=== PATIENT | female | born 1955 | race Caucasian/White ===

== ENCOUNTER → 2016-09-08 | Outpatient (CLI) | payer OTHER ==
--- NOTE | 2016-09-09 07:10 | MM ---
Reason for exam: follow-up at short interval from prior study. Last mammogram was performed 3 months ago. History: Patient is postmenopausal. Benign excisional biopsy of the right breast, 2016. Reduction of the left breast. Reduction of the right breast. Took estrogen for 1 year 6 months. Physical Findings: Nurse did not find any significant physical abnormalities on exam. MG Diagnostic Mammo w CAD JULIET Bilateral CC and MLO view(s) were taken. Prior study comparison: June 04, 2016, right breast MG diagnostic mammo RT w CAD. December 10, 2015, right breast US breast RT. February 03, 2013, CAD bilateral diagnostic mammogram. There are scattered fibroglandular densities. Finding: There are typically benign round calcifications in both breasts. There is a chronic nodularity in the left breast. These results were verbally communicated with the patient and result sheet given to the patient on 09/08/16. ASSESSMENT: Benign, BI-RAD 2 RECOMMENDATION: Routine screening mammogram of both breasts in 1 year.
== END | disposition home or self-care (01) ==
LOC: RADMAMWWP 15:04
PROVIDERS: ATTEND Family Medicine
DX: N63 Unspecified lump in breast (principal)

== ENCOUNTER → 2016-09-16 | Outpatient (CLI) | payer OTHER ==
--- NOTE | 2016-09-17 09:23 | MR ---
EXAMINATION TYPE: MR shoulder LT wo con DATE OF EXAM: 09/16/2016 6:39 PM COMPARISON: Plain film 02 September 2016 and MRI September, HISTORY: Patient has torn rotator cuff tear TECHNIQUE: Multiplanar, multisequence imaging of the left shoulder is performed without contrast. FINDINGS: There is motion on the exam. Rotator Cuff: Partial full-thickness tear is suspected of the supraspinatus tendon as on prior exam. Thickening and increased signal within the rotator cuff tendon compatible with tendinosis Acromioclavicular Joint: Hypertrophic change is mild. There is fluid in the subacromial subdeltoid bu rsa. There is a distal acromial spur. Glenohumeral Joint: Intact Labrum: The labrum appears grossly intact given limitation of non-arthrogram study. Biceps Tendon: The long head of biceps is in normal location within bicipital groove. Some minimal fl uid signal present along the long head of biceps tendon. Bone marrow signal: Pseudocysts present in the humeral head as on prior Other: No additional significant abnormality is appreciated. IMPRESSION: Findings are essentially stable. Partial full-thickness tear of the rotator cuff is suspected.
== END | disposition home or self-care (01) ==
LOC: RADMRIMAIN 17:30
PROVIDERS: ATTEND Orthopaedic Surgery
DX: M25.511 Pain in right shoulder (principal)

== ENCOUNTER → 2016-10-09 | Outpatient (CLI) | payer OTHER | END | disposition home or self-care (01) | LOC: RADMRIMAIN 17:11 | PROVIDERS: ATTEND Psychiatry & Neurology Neurology | DX: Z53.8 Procedure and treatment not carried out for other reasons (principal) ==

== ENCOUNTER 2016-11-04 07:52 | Day surgery (SDC) | payer OTHER ==
[2016-10-30 15:49] VITALS: BMI 51.6
--- NOTE | 2016-11-03 16:18 | HP ---
DATE OF ADMISSION: 11/04/2016 Henna Merino is a 61-year-old patient seen with left shoulder pain. After treatment options discussed, she elected to proceed with left shoulder arthroscopy. Consent was obtained. Medical clearance was provided with Dr. Bolivar. Past medical history is asthma, depression, osteoarthritis. PAST SURGICAL HISTORY: Right ankle surgery, appendectomy, cholecystectomy, herniorrhaphy, hysterectomy, bladder suspension surgery. Daily medications: Requip, Zoloft, gabapentin, Naprosyn. ALLERGIES: MORPHINE, VICODIN, LORTAB, DILAUDID, ASPIRIN. SOCIAL HISTORY: Patient denies current tobacco use. Physical evaluation of the left shoulder: Flexion 120 degrees, abduction is 90 degrees, external rotation is 40 degrees with pain and weakness. Tenderness along the anterolateral acromion rotator cuff insertion. Impingement +90. Distal neurovascular exam is intact. Radiographs of cystic changes of the tuberosity, type II anterior acromion. An MRI revealed a partial rotator cuff tear. IMPRESSION: Left shoulder impingement with partial rotator cuff tear. PLAN: Left shoulder arthroscopy with subacromial decompression, possible arthroscopic rotator cuff repair, and debridement.
[~2016-11-04 07:52] MED LIST: DEXAMETHASONE SOD PHOSPHATE 10 MG/ML 1 ML VIAL IV ONE; LACTATED RINGERS 1,000 ML IV SCH; LIDOCAINE 1% 20 ML VIAL (10MG/ML) FOR IV START INTRADERMA PRN; MIDAZOLAM 2 MG/2 ML VIAL IV PRN; ONDANSETRON 4 MG/2 ML VIAL IVP ONE; SCOPOLAMINE 1.5MG/72HR PATCH TRANSDERM ONE; ceFAZolin 3 GM in SODIUM CHLORIDE 0.9% 100 ML IVPB ONE
[2016-11-04] MEDS ORDERED: LIDOCAINE 1% INJ 10MG/ML (20 ML MDV) ONE (09:47)
[2016-11-04] MEDS ORDERED: fentaNYL (PF) 50 MCG/ML 2 ML AMP ONE (09:47)
[2016-11-04] MEDS ORDERED: SUCCINYLCHOLINE CHLORIDE 100 MG/5 ML SYR IV ONE (09:47)
[2016-11-04] MEDS ORDERED: MIDAZOLAM 2 MG/2 ML VIAL ONE (09:47)
[2016-11-04] MEDS ORDERED: PROPOFOL 10 MG/ML 20 ML VIAL IV ONE (09:47)
[2016-11-04] MEDS ORDERED: BUPIVACAINE (PF) 0.25% 30 ML VIAL INTRAARTIC ONE (10:59)
[2016-11-04 11:28] VITALS: TEMP 97.2
[2016-11-04] MEDS: MEPERIDINE 50 MG/ML SYRINGE IVP ONE ×2 (11:29→11:55)
--- NOTE | 2016-11-04 11:32 | P.OP ---
Date of Procedure: 11/04/16 Preoperative Diagnosis: Left shoulder impingement Postoperative Diagnosis: 1. Left shoulder rotator cuff tear 2. Left shoulder impingement 3. Left shoulder partial biceps tendon tear 4. Left shoulder superficial labral tear Procedure(s) Performed: 1. Left shoulder arthroscopic rotator cuff repair 2. Left shoulder arthroscopic subacromial decompression 3. Left shoulder arthroscopic biceps tenotomy 4. Left shoulder arthroscopic debridement labral tear Implants: 1-valeris 5.5 peek anchor Anesthesia: LITA, local Surgeon: Gray Laughlin Snow Plow Tractor Operator #1: Sj Bahena Estimated Blood Loss (ml): 10 Pathology: none sent Condition: stable Disposition: PACU Indications for Procedure: 61 year old patient seen with left shoulder pain. After having treatment options discussed she elected to proceed left shoulder arthroscopy. Operative Findings: See description of procedure Description of Procedure: Patient underwent a shoulder block by department of anesthesia. The patient was then taken to the operative suite. The patient underwent a general anesthetic by the department of anesthesia. The patient was placed into a lateral position and secured. There was appropriate padding of the bony prominence. Left shoulder was then prepped and draped in normal sterile orthopedic fashion. We placed the extremity in 10 pounds of longitudinal traction. A posterior incision was now made for a posterior working portal site. The trocar and cannula were inserted into the glenohumeral joint. Arthroscopy was initiated. Spinal needle was now inserted anteriorly, to ascertain the anterior working portal site. An incision was now made in that area, a trocar was inserted followed by a probe. There was some superficial tearing of the superior labrum. There was hyperemia some partial tearing of the long head biceps. Grade 1 chondral malacia changes of the humeral head and grade 1 chondral malacia changes of the glenoid fossa with no osteochondral tears present. I did visualize a rotator cuff tear from the glenohumeral side. I performed an arthroscopic biceps tenotomy. I debrided the labral tear down to stable tissue. The residual labrum was probed and found to be stable. I did reintroduced the motorize shaver and debrided out some of the rotator cuff tear there from the glenohumeral side. At this point instruments removed from the glenohumeral joint. Utilizing the posterior working portal site, the trocar and cannula were inserted into the subacromial space. Arthroscopy initiated. I made an incision 2 fingerbreadths lateral to the acromion. I introduced my trocar followed by my ArthroCare ablator. I now began ablating thick subacromial bursal tissue, which exposed the undersurface of the anterior acromion. This was diminished subacromial space. There was a very prominent anterior acromion. A motorized bur was introduced and a subacromial decompression was performed. I also excised some osteophytes off the inferior aspect of the distal clavicle. The AC joint was visualized and did have some mild osteoarthritis approaching moderate but not enough toward a Julio Cesar procedure. At this point it turned my attention towards the rotator cuff tendon. I noted a 1-1.5 cm tear along the anterior aspect of the distal supraspinatus. I debrided the margins down to stable rotator cuff tendon tissue. I abraded the footprint with a motorized bur. I placed 2 everted mattress sutures through good bites of rotator cuff tendon. I repaired the tendon back to the footprint with one single 5.5 peek anchor. The residual suture limbs were clipped. The repair was probed and found to be stable. I injected 1 mL of Allogen into the footprint/repair site. Instruments now removed from the portal sites. All portal sites were approximated with nylon suture. Sterile dressings were applied followed by a shoulder immobilizer. Dion Bahena PAassisted with the procedure. The patient was awakened, transferred to a bed, and taken to recovery in stable condition.
[2016-11-04 12:31] VITALS: RESP 18
[2016-11-04] MEDS ORDERED: oxyCODONE-APAP 5-325MG 1 EACH TAB PO ONE (12:36)
[2016-11-04 13:02] VITALS: BP 108/67; PULSE 68
== END 2016-11-04 13:20 | disposition home or self-care (01) ==
LOC: OR 07:52
PROVIDERS: ATTEND Orthopaedic Surgery
DX: M75.112 Incomplete rotator cuff tear or rupture of left shoulder, not specified as traumatic (principal); M75.42 Impingement syndrome of left shoulder; S46.112A Strain of muscle, fascia and tendon of long head of biceps, left arm, initial encounter; M94.212 Chondromalacia, left shoulder; M25.712 Osteophyte, left shoulder; S43.492A Other sprain of left shoulder joint, initial encounter; X58.XXXA Exposure to other specified factors, initial encounter; G47.33 Obstructive sleep apnea (adult) (pediatric); K21.9 Gastro-esophageal reflux disease without esophagitis; J44.9 Chronic obstructive pulmonary disease, unspecified; J45.909 Unspecified asthma, uncomplicated; F32.9 Major depressive disorder, single episode, unspecified; Z79.1 Long term (current) use of non-steroidal anti-inflammatories (NSAID); Z79.891 Long term (current) use of opiate analgesic; Z79.899 Other long term (current) drug therapy; Z88.6 Allergy status to analgesic agent; Z88.5 Allergy status to narcotic agent; Z88.7 Allergy status to serum and vaccine; Z88.8 Allergy status to other drugs, medicaments and biological substances
CPT/HCPCS: 29827; 29826; C1713; C1765; J2250; J1100; J2175; J0690; J2405; J2001; J3010; J0330; J2704

== ENCOUNTER → 2017-01-13 | Outpatient (CLI) | payer OTHER ==
--- NOTE | 2017-01-13 16:35 | XR ---
EXAMINATION TYPE: XR foot complete LT , 3 VIEWS DATE OF EXAM ORDERED: 01/13/2017 HISTORY: M79.672 pain in left foot. COMPARISON: None. FINDINGS: There is been a previous arthrodesis of the interphalangeal joint of the great toe. There are hammertoe deformities of the second through fifth digits. No acute fracture or dislocation is see n. There are small plantar and Achilles spurs. IMPRESSION: 1. NO ACUTE OSSEOUS LESION. 2. DEGENERATIVE CHANGE. 3. CALCANEAL SPURS.
== END | disposition home or self-care (01) ==
LOC: RADXRMAIN 16:11
PROVIDERS: ATTEND Family Medicine
DX: M77.32 Calcaneal spur, left foot (principal); M25.872 Other specified joint disorders, left ankle and foot

== ENCOUNTER → 2017-02-10 | Outpatient (CLI) | payer OTHER ==
[2017-02-10 17:16] VITALS: BP 167/76; PULSE 82; RESP 16; TEMP 97.8; BMI 55.8
== END | disposition home or self-care (01) ==
LOC: BARWHC3 15:32
PROVIDERS: ATTEND Surgery Plastic and Reconstructive Surgery
DX: Z48.815 Encounter for surgical aftercare following surgery on the digestive system (principal); E66.01 Morbid (severe) obesity due to excess calories; E21.1 Secondary hyperparathyroidism, not elsewhere classified; E89.1 Postprocedural hypoinsulinemia; D50.8 Other iron deficiency anemias; E44.0 Moderate protein-calorie malnutrition; E55.9 Vitamin D deficiency, unspecified; K74.1 Hepatic sclerosis; N19 Unspecified kidney failure; K50.90 Crohn's disease, unspecified, without complications; Z98.84 Bariatric surgery status; Z68.43 Body mass index [BMI] 50.0-59.9, adult
CPT/HCPCS: 99201

== ENCOUNTER → 2017-03-04 | Outpatient (CLI) | payer OTHER ==
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
== END | disposition home or self-care (01) ==
CPT/HCPCS: 99211

== ENCOUNTER 2017-03-08 13:26 | Day surgery (SDC) | payer OTHER ==
[2017-03-05 09:09] VITALS: BMI 53.9
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
[~2017-03-08 13:26] MED LIST changes: -DEXAMETHASONE SOD PHOSPHATE 10 MG/ML 1 ML VIAL IV ONE; -LIDOCAINE 1% 20 ML VIAL (10MG/ML) FOR IV START INTRADERMA PRN; -MIDAZOLAM 2 MG/2 ML VIAL IV PRN; -ONDANSETRON 4 MG/2 ML VIAL IVP ONE; -SCOPOLAMINE 1.5MG/72HR PATCH TRANSDERM ONE; -ceFAZolin 3 GM in SODIUM CHLORIDE 0.9% 100 ML IVPB ONE
[2017-03-08 13:56] VITALS: RESP 16; TEMP 98
[2017-03-08] MEDS ORDERED: LIDOCAINE 1% 20 ML VIAL (10MG/ML) FOR IV START INTRADERMA ONE (14:04)
[2017-03-08] MEDS ORDERED: ONDANSETRON 4 MG/2 ML VIAL IVP ONE (14:05)
[2017-03-08 14:07] LABS: Glucose,Whole Blood 86 mg/dL (75-99)
[2017-03-08] MEDS ORDERED: LIDOCAINE 1% INJ 10MG/ML (20 ML MDV) ONE (16:48)
[2017-03-08] MEDS ORDERED: PROPOFOL 10 MG/ML 20 ML VIAL IV ONE (16:48)
[2017-03-08] MEDS ORDERED: GLYCOPYRROLATE 0.2 MG/ML 2 ML VIAL ONE (16:48)
[2017-03-08 17:33] VITALS: BP 130/64; PULSE 84
[2017-03-08 17:37] LABS: Glucose,Whole Blood 79 mg/dL (75-99)
--- NOTE | 2017-03-16 22:20 | P.PCN ---
Date of Procedure: 03/08/17 Description of Procedure: PREOPERATIVE DIAGNOSIS: Dysphagia. Gastroesophageal reflux disease. Epigastric abdominal pain. POSTOPERATIVE DIAGNOSIS: Dysphagia. Gastroesophageal reflux disease. Epigastric abdominal pain. Erosive esophagitis, chronic. Diaphragmatic hiatal hernia without obstruction. Chronic superficial gastritis. OPERATION: Esophagogastrojejunoscopy with cold forceps biopsies along the gastric pouch. Esophagogastrojejunoscopy with balloon dilatation, 20 mm. SURGEON: Chelsea Buchanan MD ANESTHESIA: MAC. INDICATIONS: The patient is a 61-year-old female who presents with previous history of gastric bypass. Benefits and risks of the procedure were described. Informed consent was obtained. DESCRIPTION: The patient was brought into the endoscopy suite and laid in the left lateral decubitus position. An Olympus gastroscope was passed along the posterior oropharynx down to the distal esophagus where the squamocolumnar junction was at 36 cm from the incisors remarkable for chronic erosive esophagitis, LA grade A without ulceration. A diaphragmatic hiatus was confirmed at 40 cm from the incisors consistent with a 4 cm diaphragmatic hernia. The gastrojejunal anastomosis was found at 44 cm from the incisors. Chronic gastritis albeit mild was found along the pouch with cold biopsies obtained. Gastric ulcers were identified along the gastric pouch. Next, a Mclean balloon dilator was inserted into the scope and advance to the gastric pouch. The balloon was insufflated to 20 mm which she tolerated well. No evidence of gastric gastric fistula was identified. No full-thickness mucosal defects were identified. The stomach was desufflated. The patient tolerated the procedure well. FINDINGS: Acute ulceration found along the gastric pouch. Squamocolumnar junction at 36 cm from the incisors. Diaphragmatic hiatus at 40 cm. Gastrojejunal anastomosis at 44 cm from the incisors. Hiatal hernia 4 cm, fixed. LA grade A erosive esophagitis. Gastric stenosis of 12 mm identified and successfully dilated to 20 mm. RECOMMENDATIONS: Upper endoscopy as needed. Plan - Discharge Summary New Discharge Prescriptions: New Omeprazole 40 mg PO DAILY #30 capsule.dr Discontinued Dicyclomine [Bentyl] 10 mg PO Q8HR PRN PRN Reason: ABDOMINAL PAIN Ranitidine HCl [Zantac] 150 mg PO BID Ondansetron [Zofran] 4 mg PO BID Ascorbic Acid [Vitamin C] 1,000 mg PO DAILY Naproxen 500 mg PO Q12HR Omeprazole [PriLOSEC] 5 mg PO HS No Action EPINEPHrine (Auto Inject) [Epipen] 0.3 mg IM ONCE PRN PRN Reason: Anaphylaxis Sertraline [Zoloft] 200 mg PO DAILY Cetirizine HCl 10 mg PO HS Buta/APAP/Caf/Cod 34-793-55-30 [Fioricet w/Cod 51-364-17-30MG] 1 tab PO BID Acetaminophen [Tylenol] 650 mg PO Q6HR PRN PRN Reason: Pain rOPINIRole HCL 0.5 mg PO QAM rOPINIRole HCL 1 mg PO HS Bifidobacterium Infantis [Align] 4 mg PO DAILY oxyCODONE-APAP 5-325MG [Percocet 5-325 mg] 1 tab PO Q8H PRN PRN Reason: Pain Albuterol Sulfate [Proair Hfa] 1 - 2 puff INHALATION Q6HR PRN PRN Reason: Shortness Of Breath Nystatin 1 applic TP DAILY PRN PRN Reason: Rash Polyethylene Glycol 3350 [Miralax] 17 gm PO DAILY PRN PRN Reason: Constipation Clobetasol Propionate/Emoll [Temovate Emollient 0.05% Crm] 1 applic TOPICAL TID traZODone HCL 150 mg PO HS ARIPiprazole [Abilify] 5 mg PO HS Gabapentin [Neurontin] 300 mg PO TID Oxybutynin Chloride [Ditropan] 5 mg PO TID Potassium Chloride [Klor-Con 8] 8 meq PO DAILY Furosemide [Lasix] 40 mg PO DAILY Nitroglycerin Sl Tabs [Nitrostat] 0.4 mg SUBLINGUAL Q5M PRN PRN Reason: Chest Pain Nystatin [Nystop] 1 applic TOPICAL DAILY Triamcinolone 0.1% Cream [Kenalog] 1 applic TOPICAL BID valACYclovir [Valtrex] 500 mg PO BID PRN PRN Reason: GENITAL HERPES diphenhydrAMINE [Benadryl] 25 mg PO BID PRN PRN Reason: Allergy Symptoms Mupirocin [Bactroban Oint] 1 applic TOPICAL TID Calcium Polycarbophil [Fibercon] 500 mg PO BID Vitamin B-12 Injection 1 dose SQ WEEKLY Discharge Medication List Acetaminophen [Tylenol] 650 mg PO Q6HR PRN 11/20/14 [History] Bifidobacterium Infantis [Align] 4 mg PO DAILY 11/20/14 [History] Buta/APAP/Caf/Cod 93-648-06-30 [Fioricet w/Cod 29-153-94-30MG] 1 tab PO BID [History] Cetirizine HCl 10 mg PO HS 11/20/14 [History] EPINEPHrine (Auto Inject) [Epipen] 0.3 mg IM ONCE PRN 11/20/14 [History] Sertraline [Zoloft] 200 mg PO DAILY 11/20/14 [History] rOPINIRole HCL 0.5 mg PO QAM 11/20/14 [History] rOPINIRole HCL 1 mg PO HS 11/20/14 [History] oxyCODONE-APAP 5-325MG [Percocet 5-325 mg] 1 tab PO Q8H PRN 02/18/15 [History] Albuterol Sulfate [Proair Hfa] 1 - 2 puff INHALATION Q6HR PRN 03/15/15 [History] Clobetasol Propionate/Emoll [Temovate Emollient 0.05% Crm] 1 applic TOPICAL TID 03/15/15 [History] Nystatin 1 applic TP DAILY PRN 03/15/15 [History] Polyethylene Glycol 3350 [Miralax] 17 gm PO DAILY PRN 03/15/15 [History] ARIPiprazole [Abilify] 5 mg PO HS 05/17/15 [History] traZODone HCL 150 mg PO HS 05/17/15 [History] Gabapentin [Neurontin] 300 mg PO TID 10/10/15 [History] Oxybutynin Chloride [Ditropan] 5 mg PO TID 05/05/16 [History] Potassium Chloride [Klor-Con 8] 8 meq PO DAILY 05/05/16 [History] Furosemide [Lasix] 40 mg PO DAILY 06/04/16 [History] Nitroglycerin Sl Tabs [Nitrostat] 0.4 mg SUBLINGUAL Q5M PRN 06/04/16 [History] Nystatin [Nystop] 1 applic TOPICAL DAILY 06/04/16 [History] Triamcinolone 0.1% Cream [Kenalog] 1 applic TOPICAL BID 06/04/16 [History] valACYclovir [Valtrex] 500 mg PO BID PRN 06/04/16 [History] Calcium Polycarbophil [Fibercon] 500 mg PO BID 03/05/17 [History] Mupirocin [Bactroban Oint] 1 applic TOPICAL TID 03/05/17 [History] Vitamin B-12 Injection 1 dose SQ WEEKLY 03/05/17 [History] diphenhydrAMINE [Benadryl] 25 mg PO BID PRN 03/05/17 [History] Omeprazole 40 mg PO DAILY #30 capsule. 03/08/17 [Rx] Follow up Appointment(s)/Referral(s): Chelsea Buchanan MD [STAFF PHYSICIAN] - 03/17/17 2:00 pm (Bariatric center) [facility] [NON-STAFF] - 03/17/17 Patient Instructions/Handouts: *[facility] - (Anesthesia) Endoscopy Discharge Instructions, Peptic Ulcer (GEN), Hiatal Hernia (GEN), Upper Endoscopy (GEN), Esophageal Dilation (DC) Activity/Diet/Wound Care/Special Instructions: Diet as tolerated. Discharge Disposition: HOME SELF-CARE
== END 2017-03-08 18:01 | disposition home or self-care (01) ==
LOC: ORWHC2ENDO 13:26
PROVIDERS: ATTEND Surgery Plastic and Reconstructive Surgery
DX: K21.9 Gastro-esophageal reflux disease without esophagitis (principal); K25.9 Gastric ulcer, unspecified as acute or chronic, without hemorrhage or perforation; K22.10 Ulcer of esophagus without bleeding; K44.9 Diaphragmatic hernia without obstruction or gangrene; Z98.84 Bariatric surgery status; I25.10 Atherosclerotic heart disease of native coronary artery without angina pectoris; I25.2 Old myocardial infarction; I48.91 Unspecified atrial fibrillation; J44.9 Chronic obstructive pulmonary disease, unspecified; G47.33 Obstructive sleep apnea (adult) (pediatric); Z99.89 Dependence on other enabling machines and devices; M79.7 Fibromyalgia; F03.90 Unspecified dementia, unspecified severity, without behavioral disturbance, psychotic disturbance, mood disturbance, and anxiety; Z79.899 Other long term (current) drug therapy; Z88.6 Allergy status to analgesic agent; Z91.038 Other insect allergy status; Z88.5 Allergy status to narcotic agent; Z88.7 Allergy status to serum and vaccine; Z91.09 Other allergy status, other than to drugs and biological substances
CPT/HCPCS: 43245; J2405; J2001; J2704; C1726

== ENCOUNTER → 2017-03-17 | Outpatient (CLI) | payer OTHER ==
[2017-03-17 15:50] VITALS: BP 158/79; PULSE 84; RESP 16; TEMP 97.6; BMI 56.6
[2017-03-17 18:09] LABS: Anisocytosis Slight; CH 28.9; CHCM 33.1; HCT 38.6 % (34.0-46.0); HDW 2.51; HGB 12.5 gm/dL (11.4-16.0); MCH 28.5 pg (25.0-35.0); MCHC 32.5 g/dL (31.0-37.0); MCV 87.7 fL (80.0-100.0); Mean Platelet Volume 9.1; RDW 16.6 % (11.5-15.5); WBC 5.2 k/uL (3.8-10.6)
[2017-03-17 18:17] LABS: Partial Thromboplastin Time 27.3 sec (22.0-30.0); Prothrombin Time 10.2 sec (9.0-12.0)
[2017-03-17 18:30] LABS: ALT 30 U/L (9-52); AST 17 U/L (14-36); Alkaline Phosphatase 113 U/L (38-126); Anion Gap 10 mmol/L; Blood Urea Nitrogen 14 mg/dL (7-17); Calcium 8.9 mg/dL (8.4-10.2); Carbon Dioxide 25 mmol/L (22-30); Chloride 105 mmol/L (98-107); Cholesterol 161 mg/dL (<200); Glucose 125 mg/dL (74-99); HDL Cholesterol 60 mg/dL (40-60); Magnesium 1.9 mg/dL (1.6-2.3); Non-African American GFR(MDRD) >60 (>60 ml/min/1.73 sqM); Phosphorus 3.3 mg/dL (2.5-4.5); Sodium 140 mmol/L (137-145); Total Bilirubin 0.3 mg/dL (0.2-1.3); Total Protein 6.1 g/dL (6.3-8.2)
[2017-03-17 19:20] LABS: Vitamin B12 >1000 pg/mL (239-931)
[2017-03-18 00:54] LABS: Iron Saturation 28.28 (12.00-45.00)
[2017-03-24 19:17] LABS: Selenium 93 mcg/L (63-160)
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
== END | disposition home or self-care (01) ==
LOC: BARWHC3 14:52
PROVIDERS: ATTEND Surgery Plastic and Reconstructive Surgery
DX: Z09 Encounter for follow-up examination after completed treatment for conditions other than malignant neoplasm (principal); Z98.84 Bariatric surgery status; E66.01 Morbid (severe) obesity due to excess calories; Z68.43 Body mass index [BMI] 50.0-59.9, adult; M79.3 Panniculitis, unspecified; K21.9 Gastro-esophageal reflux disease without esophagitis; K76.9 Liver disease, unspecified; I21.3 ST elevation (STEMI) myocardial infarction of unspecified site; G47.33 Obstructive sleep apnea (adult) (pediatric); M19.90 Unspecified osteoarthritis, unspecified site; G44.009 Cluster headache syndrome, unspecified, not intractable; G35 Multiple sclerosis; D64.9 Anemia, unspecified; I83.90 Asymptomatic varicose veins of unspecified lower extremity; K58.9 Irritable bowel syndrome, unspecified; K57.92 Diverticulitis of intestine, part unspecified, without perforation or abscess without bleeding; K44.9 Diaphragmatic hernia without obstruction or gangrene; F32.9 Major depressive disorder, single episode, unspecified; M79.7 Fibromyalgia; J45.909 Unspecified asthma, uncomplicated; E55.9 Vitamin D deficiency, unspecified; E88.09 Other disorders of plasma-protein metabolism, not elsewhere classified; I48.91 Unspecified atrial fibrillation; E16.2 Hypoglycemia, unspecified; F03.90 Unspecified dementia, unspecified severity, without behavioral disturbance, psychotic disturbance, mood disturbance, and anxiety; D50.9 Iron deficiency anemia, unspecified; N19 Unspecified kidney failure; K90.9 Intestinal malabsorption, unspecified; E21.1 Secondary hyperparathyroidism, not elsewhere classified; Z88.5 Allergy status to narcotic agent; Z88.8 Allergy status to other drugs, medicaments and biological substances; Z88.6 Allergy status to analgesic agent; Z79.899 Other long term (current) drug therapy; Z79.891 Long term (current) use of opiate analgesic; Z71.3 Dietary counseling and surveillance
CPT/HCPCS: 84255; 84134; 84425; 80061; 80053; 82607; 82728; 83036; 82525; 82746; 83540; 83550; 83735; 84100; 84443; 84590; 84630; 85027; 85610; 85730; 82306; 83970; 36415; G0463; 99211

== ENCOUNTER → 2017-03-24 | Outpatient (CLI) | payer OTHER ==
--- NOTE | 2017-03-24 11:25 | FL ---
EXAMINATION TYPE: FL barium swallow DATE OF EXAM: 03/24/2017 CLINICAL HISTORY: History of Domenico-en-Y gastric bypass surgery 11 years ago presents with dysphasia an d epigastric pain per order. Severe reflux per patient. Had scope done 2 weeks ago with esophagus dil atation. Known hiatal hernia per patient. TECHNIQUE: A single contrast esophagram is performed utilizing barium. A total of 4 seconds of fluo roscopic time was utilized during procedure. Approximately 34 images were saved during procedure and sent to PACS. COMPARISON: None FINDINGS: The esophagus shows some dysmotility with abnormal secondary and tertiary contractions. The re is satisfactory emptying into the stomach remnant. There is small fixed hiatal hernia above the di aphragm. No persistent stricture noted. No significant gastroesophageal reflux was seen during real time performance of this study. There is flow from stomach remnant into efferent small bowel loop inc identally noted without suspicious delay. IMPRESSION: Some esophageal dysmotility and fixed small hiatal hernia above diaphragm noted. Images saved for ordering surgeon on to PACS system.
== END | disposition home or self-care (01) ==
LOC: RADFLWHC 10:37
PROVIDERS: ATTEND Surgery Plastic and Reconstructive Surgery
DX: K22.4 Dyskinesia of esophagus (principal); K44.9 Diaphragmatic hernia without obstruction or gangrene; Z88.2 Allergy status to sulfonamides; Z88.4 Allergy status to anesthetic agent
CPT/HCPCS: 74220

== ENCOUNTER → 2017-05-06 | Outpatient (CLI) | payer OTHER ==
[2017-05-06 09:27] VITALS: BP 141/74; PULSE 71; RESP 20; TEMP 97.6; BMI 57.7
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
== END | disposition home or self-care (01) ==
LOC: BARWHC3 08:55
PROVIDERS: ATTEND Surgery Plastic and Reconstructive Surgery
DX: Z09 Encounter for follow-up examination after completed treatment for conditions other than malignant neoplasm (principal); E66.01 Morbid (severe) obesity due to excess calories; M79.3 Panniculitis, unspecified; K21.9 Gastro-esophageal reflux disease without esophagitis; K76.9 Liver disease, unspecified; I21.9 Acute myocardial infarction, unspecified; G47.30 Sleep apnea, unspecified; M19.90 Unspecified osteoarthritis, unspecified site; G43.909 Migraine, unspecified, not intractable, without status migrainosus; G35 Multiple sclerosis; D64.9 Anemia, unspecified; I83.90 Asymptomatic varicose veins of unspecified lower extremity; K58.9 Irritable bowel syndrome, unspecified; K57.92 Diverticulitis of intestine, part unspecified, without perforation or abscess without bleeding; E16.2 Hypoglycemia, unspecified; K44.9 Diaphragmatic hernia without obstruction or gangrene; F32.9 Major depressive disorder, single episode, unspecified; M79.7 Fibromyalgia; J45.909 Unspecified asthma, uncomplicated; E55.9 Vitamin D deficiency, unspecified; E44.0 Moderate protein-calorie malnutrition; K56.699 Other intestinal obstruction unspecified as to partial versus complete obstruction; G47.33 Obstructive sleep apnea (adult) (pediatric); R13.10 Dysphagia, unspecified; Z68.43 Body mass index [BMI] 50.0-59.9, adult; Z79.891 Long term (current) use of opiate analgesic; Z88.5 Allergy status to narcotic agent; Z88.6 Allergy status to analgesic agent; Z71.3 Dietary counseling and surveillance; Z79.899 Other long term (current) drug therapy; Z90.89 Acquired absence of other organs; Z98.84 Bariatric surgery status; Z90.49 Acquired absence of other specified parts of digestive tract; Z90.710 Acquired absence of both cervix and uterus; Z98.890 Other specified postprocedural states
CPT/HCPCS: 99211

== ENCOUNTER → 2017-08-09 | Outpatient (CLI) | payer OTHER ==
[2017-08-09 13:28] LABS: Blood Urea Nitrogen 19 mg/dL (7-17)
--- NOTE | 2017-08-11 08:50 | MR ---
EXAMINATION TYPE: MR brain wo/w con DATE OF EXAM: 08/10/2017 COMPARISON: MRI brain September 11, 2015 HISTORY: Dizziness, White Matter Changes, and leg weakness all per order. TECHNIQUE: Multiplanar, multisequence images of the brain and brainstem is performed without and with IV contras t, utilizing 15 mL intravenous Gadavist gadolinium contrast is administered intravenously. Demyelina ting disease protocol with additional Sagittal Flair sequence performed. FINDINGS: T2 Lesions Present : Yes Approximate Number of Lesions: Approximately 10-15 Locations Identified : Scattered Size of Reference Lesion(s): 1. 1.1 cm x 0.8 cm x 0.8 cm on axial image 16 and sagittal image 11 left parietal periventricular le erin stable. The rest visualized lesions are all small measuring 4 mm or smaller in size. Enhancing Lesion(s) Present: No Change from Prior: Stable Diffusion weighted images demonstrate no evidence of a recent infarct or other diffusion abnormality. There is no worrisome extra-axial fluid collection. The ventricular system and cisternal spaces ar e normal in size and appearance. The brain volume is age appropriate. Midline structures demonstrate normal morphology. The craniocervical junction appears within normal limits. Post contrast images demonstrate no abnormal enhancement. The dural venous sinuses appear pa tent. The visualized sinuses are clear and the globes are intact. IMPRESSION: Mild nonspecific white matter changes redemonstrated without significant change from prio r MRI. No definitive new or enhancing lesions are present.
== END | disposition home or self-care (01) ==
LOC: RADMRIMAIN 12:53
PROVIDERS: ATTEND Psychiatry & Neurology Neurology
DX: R90.89 Other abnormal findings on diagnostic imaging of central nervous system (principal); M62.81 Muscle weakness (generalized); R42 Dizziness and giddiness; Z88.6 Allergy status to analgesic agent; Z88.5 Allergy status to narcotic agent
CPT/HCPCS: 82565; 84520; 70553; A9581

== ENCOUNTER → 2017-08-18 | Outpatient (CLI) | payer OTHER ==
[2017-08-18 17:43] VITALS: BP 130/72; PULSE 83; RESP 14; TEMP 97.8; BMI 58.1
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
== END | disposition home or self-care (01) ==
LOC: BARWHC3 15:38
PROVIDERS: ATTEND Surgery Plastic and Reconstructive Surgery
DX: Z09 Encounter for follow-up examination after completed treatment for conditions other than malignant neoplasm (principal); E66.01 Morbid (severe) obesity due to excess calories; Z98.84 Bariatric surgery status; K21.9 Gastro-esophageal reflux disease without esophagitis; K76.9 Liver disease, unspecified; I21.9 Acute myocardial infarction, unspecified; G47.33 Obstructive sleep apnea (adult) (pediatric); M19.90 Unspecified osteoarthritis, unspecified site; G43.909 Migraine, unspecified, not intractable, without status migrainosus; R51 Headache; G35 Multiple sclerosis; D64.9 Anemia, unspecified; I83.90 Asymptomatic varicose veins of unspecified lower extremity; K58.9 Irritable bowel syndrome, unspecified; K57.92 Diverticulitis of intestine, part unspecified, without perforation or abscess without bleeding; E16.2 Hypoglycemia, unspecified; K44.9 Diaphragmatic hernia without obstruction or gangrene; R42 Dizziness and giddiness; F32.9 Major depressive disorder, single episode, unspecified; M79.7 Fibromyalgia; J45.909 Unspecified asthma, uncomplicated; E55.9 Vitamin D deficiency, unspecified; E63.8 Other specified nutritional deficiencies; K91.89 Other postprocedural complications and disorders of digestive system; R13.10 Dysphagia, unspecified; K95.89 Other complications of other bariatric procedure; Z88.5 Allergy status to narcotic agent; Z88.6 Allergy status to analgesic agent; Z79.899 Other long term (current) drug therapy; Z68.43 Body mass index [BMI] 50.0-59.9, adult
CPT/HCPCS: 99211

== ENCOUNTER 2017-08-30 08:15 | Day surgery (SDC) | payer OTHER ==
[2017-08-27 09:50] VITALS: BMI 50.2
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
[~2017-08-30 08:15] MED LIST changes: +LIDOCAINE 1% 20 ML VIAL (10MG/ML) FOR IV START INTRADERMA PRN
[2017-08-30 09:58] VITALS: TEMP 98.5
[2017-08-30 10:06] LABS: Glucose,Whole Blood 90 mg/dL (75-99)
[2017-08-30] MEDS ORDERED: ONDANSETRON 4 MG/2 ML VIAL IVP ONE (10:09)
[2017-08-30] MEDS ORDERED: LIDOCAINE 1% INJ 10MG/ML (20 ML MDV) ONE (12:12)
[2017-08-30] MEDS ORDERED: PROPOFOL 10 MG/ML 20 ML VIAL IV ONE (12:12)
[2017-08-30 12:40] VITALS: RESP 16
--- NOTE | 2017-08-30 12:40 | P.PCN ---
Date of Procedure: 08/30/17 Description of Procedure: PREOPERATIVE DIAGNOSIS: Dysphagia. s/p Domenico-en-y gastric bypass. Nausea with vomiting. Morbid obesity. Epigastric abdominal pain POSTOPERATIVE DIAGNOSIS: Dysphagia. s/p Domenico-en-y gastric bypass. Nausea with vomiting. Morbid obesity. 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 SURGEON: Chelsea Buchanan MD ANESTHESIA: MAC. INDICATIONS: The patient is a 62-year-old female who presents with a history of dysphagia, gastric bypass including nausea and vomiting. Benefits and risks of the procedure were described. Informed consent was obtained. DESCRIPTION: The patient was brought into the endoscopy suite and laid in the left lateral decubitus position. After a timeout was confirmed, the procedure was initiated. An Olympus gastroscope was passed along the posterior oropharynx down to the distal esophagus where the squamocolumnar junction was unremarkable. The gastric pouch was entered. A gastrojejunal stricture of 15 mm was found as the adult gastroscope was 9.5 mm in size. A MediGain balloon dilator was placed through the scope. Final insufflation up to 20 mm was performed with a total of 2 minutes. The scope was advanced up to 60 cm from the incisors into the Domenico limb. The mucosa of the gastrojejunal anastomosis was intact. However chronic gastrojejunal marginal ulcer was encountered. No full-thickness injury was encountered. The GI tract was desufflated. The patient tolerated the procedure well. FINDINGS: Squamocolumnar junction unremarkable at 38 cm. Stricture of approximately 15 mm encountered. Chronic gastrojejunal ulceration encountered. Successful balloon dilatation to 20 mm. Diaphragmatic hiatal hernia identified, 3 cm Gastric gastric fistula RECOMMENDATIONS: Recommend omeprazole, Carafate therapy Plan - Discharge Summary New Discharge Prescriptions: No Action EPINEPHrine (Auto Inject) [Epipen] 0.3 mg IM ONCE PRN PRN Reason: Anaphylaxis Sertraline [Zoloft] 200 mg PO DAILY Cetirizine HCl 10 mg PO HS Buta/APAP/Caf/Cod 23-372-89-30 [Fioricet w/Cod 29-823-29-30MG] 1 tab PO BID PRN PRN Reason: migraines Acetaminophen [Tylenol] 650 mg PO Q6HR PRN PRN Reason: Pain rOPINIRole HCL 0.5 mg PO QAM rOPINIRole HCL 1 mg PO HS oxyCODONE-APAP 5-325MG [Percocet 5-325 mg] 1 tab PO Q8H PRN PRN Reason: Pain Albuterol Sulfate [Proair Hfa] 1 - 2 puff INHALATION Q6HR PRN PRN Reason: Shortness Of Breath Polyethylene Glycol 3350 [Miralax] 17 gm PO DAILY PRN PRN Reason: Constipation Clobetasol Propionate/Emoll [Temovate Emollient 0.05% Crm] 1 applic TOPICAL TID traZODone HCL 150 mg PO HS ARIPiprazole [Abilify] 5 mg PO HS Gabapentin [Neurontin] 600 mg PO TID Oxybutynin Chloride [Ditropan] 5 mg PO TID Potassium Chloride [Klor-Con 8] 8 meq PO DAILY Furosemide [Lasix] 40 mg PO DAILY Nitroglycerin Sl Tabs [Nitrostat] 0.4 mg SUBLINGUAL Q5M PRN PRN Reason: Chest Pain Triamcinolone 0.1% Cream [Kenalog] 1 applic TOPICAL BID valACYclovir [Valtrex] 500 mg PO BID PRN PRN Reason: GENITAL HERPES diphenhydrAMINE [Benadryl] 25 mg PO BID PRN PRN Reason: Allergy Symptoms Mupirocin [Bactroban Oint] 1 applic TOPICAL TID Vitamin B-12 Injection 1 dose SQ WEEKLY Omeprazole 40 mg PO DAILY #30 capsule. Ergocalciferol [Vitamin D2 (DRISDOL)] 50,000 unit PO Q7D #12 cap Nystatin 100,000Unit/gm Cream [Mycostatin Cream] 1 applic TOPICAL TID #30 gm Nystatin 100,000 Unit/gm Powd [Mycostatin Powder] 1 applic TOPICAL TID #60 gm Cholecalciferol (Vitamin D3) [Vitamin D3] 1 dose PO DAILY Fluconazole [Diflucan] 150 mg PO ONCE PRN PRN Reason: yeast infection Discharge Medication List Acetaminophen [Tylenol] 650 mg PO Q6HR PRN 11/20/14 [History] Buta/APAP/Caf/Cod [id number] [Fioricet w/Cod 79-909-82-30MG] 1 tab PO BID PRN 11/20/14 [History] Cetirizine HCl 10 mg PO HS 11/20/14 [History] EPINEPHrine (Auto Inject) [Epipen] 0.3 mg IM ONCE PRN 11/20/14 [History] Sertraline [Zoloft] 200 mg PO DAILY 11/20/14 [History] rOPINIRole HCL 0.5 mg PO QAM 11/20/14 [History] rOPINIRole HCL 1 mg PO HS 11/20/14 [History] oxyCODONE-APAP 5-325MG [Percocet 5-325 mg] 1 tab PO Q8H PRN 02/18/15 [History] Albuterol Sulfate [Proair Hfa] 1 - 2 puff INHALATION Q6HR PRN 03/15/15 [History] Clobetasol Propionate/Emoll [Temovate Emollient 0.05% Crm] 1 applic TOPICAL TID 03/15/15 [History] Polyethylene Glycol 3350 [Miralax] 17 gm PO DAILY PRN 03/15/15 [History] ARIPiprazole [Abilify] 5 mg PO HS 05/17/15 [History] traZODone HCL 150 mg PO HS 05/17/15 [History] Gabapentin [Neurontin] 600 mg PO TID 10/10/15 [History] Oxybutynin Chloride [Ditropan] 5 mg PO TID 05/05/16 [History] Potassium Chloride [Klor-Con 8] 8 meq PO DAILY 05/05/16 [History] Furosemide [Lasix] 40 mg PO DAILY 06/04/16 [History] Nitroglycerin Sl Tabs [Nitrostat] 0.4 mg SUBLINGUAL Q5M PRN 06/04/16 [History] Triamcinolone 0.1% Cream [Kenalog] 1 applic TOPICAL BID 06/04/16 [History] valACYclovir [Valtrex] 500 mg PO BID PRN 06/04/16 [History] Mupirocin [Bactroban Oint] 1 applic TOPICAL TID 03/05/17 [History] Vitamin B-12 Injection 1 dose SQ WEEKLY 03/05/17 [History] diphenhydrAMINE [Benadryl] 25 mg PO BID PRN 03/05/17 [History] Omeprazole 40 mg PO DAILY #30 capsule. 03/08/17 [Rx] Ergocalciferol [Vitamin D2 (DRISDOL)] 50,000 unit PO Q7D #12 cap 03/28/17 [Rx] Nystatin 100,000 Unit/gm Powd [Mycostatin Powder] 1 applic TOPICAL TID #60 gm [Rx] Nystatin 100,000Unit/gm Cream [Mycostatin Cream] 1 applic TOPICAL TID #30 gm 05/14 [Rx] Cholecalciferol (Vitamin D3) [Vitamin D3] 1 dose PO DAILY 08/18/17 [History] Fluconazole [Diflucan] 150 mg PO ONCE PRN 08/27/17 [History]
[2017-08-30 13:05] VITALS: BP 142/75; PULSE 69
== END 2017-08-30 13:34 | disposition home or self-care (01) ==
LOC: ORWHC2ENDO 08:15
PROVIDERS: ATTEND Surgery Plastic and Reconstructive Surgery
DX: K31.89 Other diseases of stomach and duodenum (principal); K25.7 Chronic gastric ulcer without hemorrhage or perforation; K31.6 Fistula of stomach and duodenum; K21.9 Gastro-esophageal reflux disease without esophagitis; K44.9 Diaphragmatic hernia without obstruction or gangrene; K52.9 Noninfective gastroenteritis and colitis, unspecified; K58.9 Irritable bowel syndrome, unspecified; Z98.84 Bariatric surgery status; E66.01 Morbid (severe) obesity due to excess calories; Z68.43 Body mass index [BMI] 50.0-59.9, adult; I48.91 Unspecified atrial fibrillation; J45.909 Unspecified asthma, uncomplicated; F03.90 Unspecified dementia, unspecified severity, without behavioral disturbance, psychotic disturbance, mood disturbance, and anxiety; M79.7 Fibromyalgia; D49.0 Neoplasm of unspecified behavior of digestive system; I25.2 Old myocardial infarction; M19.90 Unspecified osteoarthritis, unspecified site; I83.90 Asymptomatic varicose veins of unspecified lower extremity; N28.89 Other specified disorders of kidney and ureter; G35 Multiple sclerosis; E16.2 Hypoglycemia, unspecified; G47.33 Obstructive sleep apnea (adult) (pediatric); N32.81 Overactive bladder; M77.32 Calcaneal spur, left foot; Z79.899 Other long term (current) drug therapy; Z88.6 Allergy status to analgesic agent; Z91.038 Other insect allergy status; Z88.5 Allergy status to narcotic agent; Z88.7 Allergy status to serum and vaccine; Z91.09 Other allergy status, other than to drugs and biological substances
CPT/HCPCS: 43245; J2405; J2001; J2704; C1726

== ENCOUNTER → 2017-09-29 | Outpatient (CLI) | payer OTHER ==
[2017-09-29 16:16] VITALS: BP 145/76; PULSE 90; RESP 16; TEMP 98.4; BMI 57.9
[2017-09-29 17:17] LABS: HCT 41.4 % (34.0-46.0); HGB 13.6 gm/dL (11.4-16.0); MCHC 32.9 g/dL (31.0-37.0); MCV 88.3 fL (80.0-100.0); Mean Platelet Volume 7.5; Platelet Count 264 k/uL (150-450); RBC 4.69 m/uL (3.80-5.40); WBC 6.7 k/uL (3.8-10.6)
[2017-09-29 17:29] LABS: Prothrombin Time 9.9 sec (9.0-12.0)
[2017-09-29 17:36] LABS: Albumin 3.6 g/dL (3.5-5.0); Calcium 9.1 mg/dL (8.4-10.2); Potassium 4.4 mmol/L (3.5-5.1); Total Bilirubin 0.3 mg/dL (0.2-1.3); Total Protein 6.2 g/dL (6.3-8.2)
[2017-09-30 01:14] LABS: Parathyroid Hormone Intact 120.9 pg/mL (14.0-72.0)
[2017-09-30 01:37] LABS: Iron Saturation 19.25 (12.00-45.00)
[2017-09-30 01:46] LABS: Folate, Serum 5.8 ng/mL; Vitamin D 25 Hydroxy 38.2 ng/mL (30.0-100.0)
[2017-09-30 02:10] LABS: Hemoglobin A1C 5.2 % (4.0-6.0)
[2017-09-30 15:48] LABS: Zinc, Serum 45 ug/dL (60-130)
[2017-10-01 05:47] LABS: Vitamin A 51 ug/dL (38-106)
[2017-10-01 09:59] LABS: Vitamin B1 46 ug/L (38-122)
[2017-10-02 18:14] LABS: Selenium 118 mcg/L (63-160)
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
== END | disposition home or self-care (01) ==
LOC: BARWHC3 15:08
PROVIDERS: ATTEND Surgery Plastic and Reconstructive Surgery
DX: Z09 Encounter for follow-up examination after completed treatment for conditions other than malignant neoplasm (principal); E66.01 Morbid (severe) obesity due to excess calories; K21.9 Gastro-esophageal reflux disease without esophagitis; K76.9 Liver disease, unspecified; I21.9 Acute myocardial infarction, unspecified; G47.33 Obstructive sleep apnea (adult) (pediatric); M19.90 Unspecified osteoarthritis, unspecified site; G43.909 Migraine, unspecified, not intractable, without status migrainosus; G44.009 Cluster headache syndrome, unspecified, not intractable; G35 Multiple sclerosis; D64.9 Anemia, unspecified; K58.9 Irritable bowel syndrome, unspecified; I83.90 Asymptomatic varicose veins of unspecified lower extremity; K57.92 Diverticulitis of intestine, part unspecified, without perforation or abscess without bleeding; E16.2 Hypoglycemia, unspecified; K44.9 Diaphragmatic hernia without obstruction or gangrene; R42 Dizziness and giddiness; K91.89 Other postprocedural complications and disorders of digestive system; F32.9 Major depressive disorder, single episode, unspecified; M79.7 Fibromyalgia; J45.909 Unspecified asthma, uncomplicated; E55.9 Vitamin D deficiency, unspecified; R13.10 Dysphagia, unspecified; K95.89 Other complications of other bariatric procedure; K31.6 Fistula of stomach and duodenum; Z71.3 Dietary counseling and surveillance; Z98.84 Bariatric surgery status; Z68.43 Body mass index [BMI] 50.0-59.9, adult; Z88.5 Allergy status to narcotic agent; Z79.899 Other long term (current) drug therapy
CPT/HCPCS: 84255; 84134; 84425; 80061; 80053; 82607; 82728; 82525; 82746; 83540; 83550; 83735; 84100; 84443; 84590; 84630; 85027; 85610; 85730; 82306; 83970; 83036; 36415; G0463; 99211

== ENCOUNTER → 2017-10-01 | Outpatient (CLI) | payer OTHER ==
--- NOTE | 2017-10-04 10:01 | MM ---
Reason for exam: screening (asymptomatic). Last mammogram was performed 1 year and 1 month ago. History: Patient is postmenopausal. Benign excisional biopsy of the right breast, 2016. Reduction of the left breast. Reduction of the right breast. Took estrogen for 1 year 6 months. Physical Findings: A clinical breast exam by your physician is recommended on an annual basis and results should be correlated with mammographic findings. MG Screening Mammo w CAD Bilateral CC and MLO view(s) were taken. Prior study comparison: September 08, 2016, bilateral MG diagnostic mammo w CAD JULIET. June 04, 2016, right breast MG diagnostic mammo RT w CAD. There are scattered fibroglandular densities. There is no discrete abnormality. No significant changes when compared with prior studies. ASSESSMENT: Negative, BI-RAD 1 RECOMMENDATION: Routine screening mammogram of both breasts in 1 year.
== END | disposition home or self-care (01) ==
LOC: RADMAMWWP 11:41
PROVIDERS: ATTEND Family Medicine
DX: Z12.31 Encounter for screening mammogram for malignant neoplasm of breast (principal)
CPT/HCPCS: 77067

== ENCOUNTER → 2017-11-08 | Outpatient (CLI) | payer OTHER ==
[2017-11-08 12:59] VITALS: BMI 59.1
== END | disposition home or self-care (01) ==
LOC: BARWHC3 08:35
PROVIDERS: ATTEND Surgery Plastic and Reconstructive Surgery
DX: E66.01 Morbid (severe) obesity due to excess calories (principal); Z71.3 Dietary counseling and surveillance
CPT/HCPCS: 97804

== ENCOUNTER → 2017-12-08 | Outpatient (CLI) | payer OTHER ==
[2017-12-08 13:22] VITALS: BP 147/87; PULSE 94; RESP 20; TEMP 98.1; BMI 59.2
--- NOTE | 2017-12-08 14:25 | P.PN ---
Subjective Progress Note Date: 12/08/17 HPI: Patient comes in with severe panniculitis unresponsive to topical therapy such as Nystatin powder. She still reports epigastric pain. She has history of recurrent GJ ulcers. Overview of labs performed for correction of Zinc and PTH and protein levels. ABDOMEN: Severe panniculitis of the skin. Pannus of skin over 20 pounds. PLAN: 1. Will proceed with revision of GJ for gastric fistula. 2. Systemic treatment for severe candiasis of the skin. 3. Referral to try on baster of benefit. 4. Correct nutritional deficiencies and hypoglycemia. Objective - Vital Signs Vital signs: Vital Signs Temp 98.1 F 12/08/17 13:14 Pulse 94 12/08/17 13:14 Resp 20 12/08/17 13:14 BP 147/87 12/08/17 13:14 Pulse Ox Intake & Output 12/07/17 12/08/17 12/08/17 18:59 06:59 18:59 Weight 176.629 kg
== END | disposition home or self-care (01) ==
LOC: BARWHC3 12:53
PROVIDERS: ATTEND Surgery Plastic and Reconstructive Surgery
DX: M79.3 Panniculitis, unspecified (principal); R10.13 Epigastric pain; Z87.11 Personal history of peptic ulcer disease
CPT/HCPCS: 99211

== ENCOUNTER → 2017-12-21 | Outpatient (CLI) | payer OTHER ==
[2017-12-21 14:00] VITALS: BMI 58.3
== END | disposition home or self-care (01) ==
LOC: MNTWWP 10:55
PROVIDERS: ATTEND Surgery Plastic and Reconstructive Surgery
DX: E16.1 Other hypoglycemia (principal)
CPT/HCPCS: 97802

== ENCOUNTER → 2017-12-23 | Outpatient (CLI) | payer OTHER ==
[2017-12-23 17:23] LABS: Basophils % (A) 1 %; Eosinophils # (A) 0.2 k/uL (0-0.7); Eosinophils % (A) 5 %; HCT 39.4 % (34.0-46.0); HGB 12.7 gm/dL (11.4-16.0); Lymphocytes % (A) 29 %; MCH 28.7 pg (25.0-35.0); MCHC 32.3 g/dL (31.0-37.0); MCV 88.7 fL (80.0-100.0); Mean Platelet Volume 8.2; Monocytes # (A) 0.2 k/uL (0-1.0); Monocytes % (A) 5 %; Neutrophils % (A) 59 %; Platelet Count 174 k/uL (150-450); RBC 4.44 m/uL (3.80-5.40); RDW 13.6 % (11.5-15.5); WBC 3.4 k/uL (3.8-10.6)
[2017-12-23 17:45] LABS: ALT 31 U/L (9-52); AST 22 U/L (14-36); Albumin 3.4 g/dL (3.5-5.0); Alkaline Phosphatase 97 U/L (38-126); Anion Gap 9 mmol/L; Blood Urea Nitrogen 17 mg/dL (7-17); Carbon Dioxide 27 mmol/L (22-30); Chloride 109 mmol/L (98-107); Glucose 98 mg/dL (74-99); Potassium 4.2 mmol/L (3.5-5.1); Sodium 145 mmol/L (137-145); Total Bilirubin 0.3 mg/dL (0.2-1.3); Total Protein 5.5 g/dL (6.3-8.2)
== END | disposition home or self-care (01) ==
LOC: LABPAT 16:43
PROVIDERS: ATTEND Surgery Plastic and Reconstructive Surgery
DX: Z01.818 Encounter for other preprocedural examination (principal)
CPT/HCPCS: 36415; 80053; 85025

== ENCOUNTER 2018-01-03 07:30 | Inpatient (IN) | payer OTHER ==
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
[~2018-01-03 07:30] MED LIST changes: +ACETAMINOPHEN IV (For NPO) 1,000 MG in EMPTY BAG 1 BAG IVPB ONE; +CHLORHEXIDINE GLUCONATE 15 ML CUP MUCOUS MEM ONE; +DEXAMETHASONE SOD PHOSPHATE 10 MG/ML 1 ML VIAL IV ONE; +ENOXAPARIN 40 MG/0.4 ML SYRINGE SQ ONE; -LACTATED RINGERS 1,000 ML IV SCH; -LIDOCAINE 1% 20 ML VIAL (10MG/ML) FOR IV START INTRADERMA PRN; +MIDAZOLAM 2 MG/2 ML VIAL IV PRN; +PANTOPRAZOLE 40 MG/10 ML VIAL IV STA; +SCOPOLAMINE 1.5MG/72HR PATCH TRANSDERM ONE
[2018-01-03] MEDS ORDERED: LIDOCAINE 1% 20 ML VIAL (10MG/ML) FOR IV START INTRADERMA ONE (10:14)
[2018-01-03] MEDS: LACTATED RINGERS 1,000 ML IV SCH (10:15)
[2018-01-03] MEDS: ONDANSETRON 4 MG/2 ML VIAL IVP ONE ×2 (10:19→15:20)
[2018-01-03 10:20] LABS: Glucose,Whole Blood 101 mg/dL (75-99)
[2018-01-03] MEDS ORDERED: fentaNYL (PF) 50 MCG/ML 2 ML AMP ONE (10:48)
[2018-01-03] MEDS ORDERED: LABETALOL 5 MG/ML VIAL MDV ONE (10:48)
[2018-01-03] MEDS ORDERED: ROCURONIUM BROMIDE 10 MG/ML 10 ML VIAL IV ONE (10:48)
[2018-01-03] MEDS ORDERED: NEOSTIGMINE 1 MG/ML 10 ML VIAL ONE (10:48)
[2018-01-03] MEDS ORDERED: GLYCOPYRROLATE 0.2 MG/ML 2 ML VIAL ONE (10:48)
[2018-01-03] MEDS ORDERED: SUCCINYLCHOLINE CHLORIDE VIAL 200 MG/10 ML VIAL IV ONE (10:48)
[2018-01-03] MEDS ORDERED: ESMOLOL 100 MG/10 ML VIAL ONE (10:48)
[2018-01-03] MEDS ORDERED: LIDOCAINE 1% INJ 10MG/ML (20 ML MDV) ONE (10:48)
[2018-01-03] MEDS ORDERED: MIDAZOLAM 2 MG/2 ML VIAL ONE (10:48)
[2018-01-03] MEDS ORDERED: hydrALAZINE HCL 20 MG/ML 1 ML VIAL ONE (10:48)
[2018-01-03] MEDS ORDERED: PROPOFOL 10 MG/ML 20 ML VIAL IV ONE (10:48)
[2018-01-03] MEDS ORDERED: ePHEDrine SULFATE/0.9% NACL/PF 50 MG/5 ML SYRINGE IV ONE (10:48)
[2018-01-03] MEDS ORDERED: BUPIVACAINE (PF) 0.5% 30 ML VIAL SQ ONE (11:20)
[2018-01-03] MEDS ORDERED: LACTATED RINGERS 1,000 ML IV ONE ×2 (11:40→14:53)
[2018-01-03] MEDS: fentaNYL (PF) 50 MCG/ML 2 ML AMP IV PRN ×2 (15:20→15:44)
[2018-01-03] MEDS ORDERED: PROMETHAZINE INJ 25 MG/ML 1 ML VIAL IVPB ONE (15:27)
[2018-01-03] MEDS ORDERED: NALOXONE 0.4 MG/ML 1 ML VIAL IV PRN (15:33)
[2018-01-03] MEDS ORDERED: diphenhydrAMINE 50 MG/ML 1 ML VIAL IVP PRN (15:33)
--- NOTE | 2018-01-03 15:33 | P.OP ---
Date of Procedure: 01/03/18 Description of Procedure: SURGEON: DAMIEN FARIAS MD PREOPERATIVE DIAGNOSES: 1. Morbid obesity due to excess calories. 2. Status post gastric bypass 3. Body mass index 66.4 down to 56.0 4. Gastroesophageal reflux disease 5. Liver disease 6. Myocardial infarction 7. Obstructive sleep apnea 8. Osteoarthritis 9. Migraines 10. Cluster headaches 11, Multiple sclerosis 12. Chronic anemia 13. Varicose veins 14. Irritable bowel syndrome 15. Diverticulitis 16. Hypoglycemia 17. Hiatal hernia 19. Vertigo 20. Postop nausea vomiting 21. Depression. 22. Fibromyalgia 23. Asthma 24. Dietary surveillance and counseling. 25. Vitamin D deficiency. 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 Dysphagia. 28. 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 Inadequate protein intake POSTOPERATIVE DIAGNOSES: 1. Morbid obesity due to excess calories. 2. Status post gastric bypass 3. Body mass index 66.4 down to 56.0 4. Gastroesophageal reflux disease 5. Liver disease 6. Myocardial infarction 7. Obstructive sleep apnea 8. Osteoarthritis 9. Migraines 10. Cluster headaches 11, Multiple sclerosis 12. Chronic anemia 13. Varicose veins 14. Irritable bowel syndrome 15. Diverticulitis 16. Hypoglycemia 17. Incarcerated diaphragmatic paraesophageal midline hiatal hernia 6 x 7 cm 19. Vertigo 20. Postop nausea vomiting 21. Depression. 22. Fibromyalgia 23. Asthma 24. Dietary surveillance and counseling. 25. Vitamin D deficiency. 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 Dysphagia. 28. 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 Inadequate protein intake 31. Severe peritoneal adhesions 32. Recurrent multiple incisional hernias. OPERATION: 1. Robotic-assisted da Annie Xi laparoscopic reduction and repair of incarcerated paraesophageal hiatal hernia, 6 x 7 cm, with [place] Biopatch A 8 x 8 cm. 2. Intraoperative esophagogastroduodenoscopy 3. Robotic-assisted da Annie Xi laparoscopic extensive lysis of adhesions over 1.5 hours ANESTHESIA: General with local anesthetic. ESTIMATED BLOOD LOSS: 50 mL Pathology: None. COMPLICATIONS: None. FINDINGS: 1. Thoracic length 22.5 cm. 2. Severe intra-abdominal peritoneal adhesions from previous mesh repair with recurrence throughout abdomen 3. Incarcerated upper pole of the stomach within the mediastinum with moderate dissection performed with resection of mediastinal hernia sac. 4. 7 cm paraesophageal incarcerated diaphragmatic hiatal hernia with moderate dissection into the mediastinum. 5. [place] Biopatch A onlay mesh placed. 6. Closure of the hiatus consistent with 56-[place] bougie. 7. Repeat upper endoscopy confirmed incarcerated gastric pouch with no recurrent gastric gastric fistula 8. No recurrent gastrojejunal ulcers 9. Retrocolic retrogastric gastrojejunal anastomosis confirmed 10. Console time 143 minutes INDICATIONS: Henna Merino is a 62-year-old female who had a gastric bypass performed in [place], [place] between 2002 to 2003. At that time she had weighed 436 pounds. Her body mass index was 66.4. Today, she comes in weighing 368 pounds from 383 pounds 1 month ago. She has lost 16 pounds from a month ago. Body mass index is 56.0. At her height of 5 foot 8 inches, her ideal body weight is 163 pounds. She is 204 pounds overweight. She completed an upper endoscopy demonstrating gastrojejunal ulcer including stricture which was dilated. She reports some improvement of her abdominal pain. Separately has additional finding of gastric fistula for which she is symptomatic. Now she presents for surgical options. Benefits and risks including bleeding, infection, recurrence, dysphagia, injury to the lung, leaks, recurrent stricture , nutritional malabsorption and need for further surgery was described at length. Informed consent was obtained. DESCRIPTION: The patient was brought into the operating room theater. She was placed supine. She had received Lovenox subcutaneously for DVT prophylaxis. Additionally she Peridex oral solution as an oral decontaminant was placed per anesthesia. After general induction, the abdomen was prepped and draped in standard sterile fashion. Ioban draping was placed along the abdomen. A timeout protocol was confirmed with surgical team. A robotic da Annie Xi system was prepped and primed. At 15 cm from the xiphoid to just below the umbilicus, proposed port sites were marked with indelible marker along the left axillary line, left mid-clavicular line with each ports were marked 10 cm from each other. A 5 mm 0 degrees laparoscopic trocar entry was performed along the left upper quadrant. The abdomen was insufflated to 15 mmHg pressure he tolerated well. Diagnostic laparoscopy demonstrated no injury to bowel, viscera, or mesentery. Severe peritoneal adhesions involving the upper lower midline including bilateral upper abdomen was confirmed involving omentum to the anterior abdominal wall from her previous mesh repair. As a result, 8 mm robotic trochars were placed along the left lateral abdominal wall under direct visualization. The robot was docked along the left side of the patient. Extensive lysis of adhesions had occurred using scissors as well as vessel sealer. Over 1-1/2 hours was used to addressed all adhesions. Careful inspection of the abdominal wall confirmed recurrent multiple incisional hernias of less than a centimeter along the midline that were addressed with lysis of adhesions. The robot was undocked temporarily to address the upper abdomen. Next, the patient was repositioned in steep reverse Trendelenburg at 20 after lowering the bed. The liver was completely adherent to the anterior abdominal wall. The gallbladder was surgically absent. The liver edge was sharp consistent with her 2 week high-protein low caloric diet. Along the hiatus, an extremely large anterior hiatal defect was confirmed. Next, one 8 mm robotic port was placed along the right upper abdomen. The camera 8-mm port was maintained along the epigastrium. Another 12 mm port was placed along the left upper abdominal wall after exchanging the 8 mm port. Please note that the ports were placed at least 20 cm away from the target anatomy. Care was taken to check that each robotic arm were safely away from collision with the bed or the patient. As the liver surface was adherent to abdominal wall, a liver retractor was not necessary. Perigastric adhesions were addressed using blunt dissection of a grasper without injury to the Domenico limb or gastric pouch. The orientation of her gastric bypass was consistent with a retrocolic retrogastric anastomosis. The patient was repositioned in reverse Trendelenburg position at 14-degrees after lowering the bed. The robot was docked above the left side of the patient. Using a grasper for arm 3, a grasper for arm 1, including vessel sealer for arm 4, the robotic system was docked and primed as described. Instruments were interchanged by the escrow assistant. I had sat at the console. The gastrohepatic ligament was cleaved using a vessel sealer. Next, the phrenoesophageal ligament was mobilized and the distal esophagus was mobilized circumferentially. An incarcerated hernia sac was found along the mediastinum. As a result, deep dissection well into the mediastinum was needed to free the proximal sleeve including distal esophagus. The left and right crura was identified. A moderate sized midline large hiatal hernia and sac was found incarcerated into the mediastinum. Significant mobilization of the distal to mid esophagus into the mediastinum was performed. Circumferentially, the hernia sac was excised and brought into the peritoneal cavity. Care was taken to avoid any gastrotomy to the incarcerated upper pole of the stomach. The measured defect was consistent with 7 cm axial length and 6 cm in width. After extensive dissection, the distal esophagus at least 3 cm was brought into the abdominal cavity. Separately, the Domenico limb was carefully mobilized towards the gastric pouch. Once the hiatus and crura was dissected, 2-0 VLOC suture was placed as a running suture to re-approximate the diaphragmatic hiatus posteriorly. To buttress the repair, a [place] Biopatch A was prepared along the back table and cut as to reinforce the repair as an underlay. The mesh was placed along the crural repair and tagged using 2-0 VLOC. The Domenico limb and gastric pouch were prepared for potential excision of her gastrojejunal anastomosis. I went to the head of the bed to perform intraoperative esophagogastrojejunoscopy. An Olympus gastroscope was passed through posterior oropharynx, where the GE junction was found beneath the diaphragm confirming the repair. The gastric pouch was entered. No further evidence of gastric fistula was identified as the large paraesophageal hiatal hernia was reduced. The stomach had been desufflated. No evidence of leaks were found either of the mucosal defects of the esophagus or stomach. This concluded the endoscopic portion of the case. As a result of the endoscopic finding, no stapling of the gastric pouch or Domenico limb occurred. The robot was undocked from the patient. I re-scrubbed into the case. All instruments and pneumoperitoneum were evacuated from the abdominal cavity. Incisions were reapproximated using 4-0 Monocryl in an interrupted subcuticular fashion. The 12-mm port site fascial defect was less than 8 mm in size. Liquid glue was applied to the skin. Local anesthetic was infiltrated in all wounds for postop analgesia. Multiple intra-abdominal films were obtained. At the end of the procedure, needle, sponge, and instrument count was verified correct by the hand frame surgical elastic knitter. The patient had tolerated the procedure well and was taken to the postanesthesia unit in stable condition. Intraoperative films were reviewed with the patient's family who were pleased with the level of care.
[2018-01-03] MEDS ORDERED: NITROGLYCERIN SL TABS 0.4 MG TAB SUBLINGUAL PRN (15:37)
[2018-01-03] MEDS: ALBUTEROL NEBULIZED 2.5 MG/3 ML INHALATION SCH ×2 (16:45→20:29)
[2018-01-03 16:47] VITALS: BMI 56.0
[2018-01-03] MEDS: OXYBUTYNIN CHLORIDE 5 MG TAB PO SCH ×2 (17:26→23:14)
[2018-01-03] MEDS: GABAPENTIN 300 MG CAP PO SCH ×2 (17:26→23:14)
[2018-01-03] MEDS ORDERED: DEXAMETHASONE SOD PHOSPHATE 10 MG/ML 1 ML VIAL IV STA (17:47)
[2018-01-03] MEDS: HYDROmorphone 0.5 MG/0.5 ML SYRINGE IVP PRN (18:33)
[2018-01-03] MEDS: AMPICILLIN-SULBACTAM 3 GM in SODIUM CHLORIDE 0.9% 100 ML IVPB SCH ×2 (18:37→22:35)
[2018-01-03] MEDS: SIMETHICONE 40 MG/0.6 ML DROPS 2,000 MG/30 ML BOTTLE PO SCH ×2 (18:38→22:34)
[2018-01-03] MEDS: 0.9% NACL WITH KCL 20 MEQ/L 1,000 ML IV SCH ×2 (19:02→21:33)
[2018-01-03] MEDS: HYOSCYAMINE ORAL DROPS 1.875 MG/15 ML BOTTLE PO SCH ×2 (19:02→22:34)
[2018-01-03] MEDS: ONDANSETRON 4 MG/2 ML VIAL IVP PRN (21:31)
[2018-01-03] MEDS: METOCLOPRAMIDE 5 MG/ML 2 ML VIAL IVP SCH (23:05)
[2018-01-03] MEDS: traZODone HCL 50 MG TAB PO SCH (23:14)
[2018-01-04] MEDS: HYDROmorphone 0.5 MG/0.5 ML SYRINGE IVP PRN ×2 (01:04→08:14)
[2018-01-04] MEDS: 0.9% NACL WITH KCL 20 MEQ/L 1,000 ML IV SCH ×3 (01:13→20:13)
[2018-01-04] MEDS: LACTATED RINGERS 1,000 ML IV SCH (04:25)
[2018-01-04] MEDS: METOCLOPRAMIDE 5 MG/ML 2 ML VIAL IVP SCH ×2 (04:58→12:39)
[2018-01-04] MEDS: HYOSCYAMINE ORAL DROPS 1.875 MG/15 ML BOTTLE PO SCH ×3 (04:59→16:21)
[2018-01-04] MEDS: SIMETHICONE 40 MG/0.6 ML DROPS 2,000 MG/30 ML BOTTLE PO SCH ×3 (04:59→16:20)
[2018-01-04 07:42] LABS: Basophils % (A) 0 %; Eosinophils % (A) 0 %; HCT 39.8 % (34.0-46.0); HGB 12.9 gm/dL (11.4-16.0); Lymphocytes # (A) 0.5 k/uL (1.0-4.8); Lymphocytes % (A) 9 %; MCH 28.6 pg (25.0-35.0); MCHC 32.3 g/dL (31.0-37.0); MCV 88.3 fL (80.0-100.0); Mean Platelet Volume 8.5; Monocytes # (A) 0.4 k/uL (0-1.0); Monocytes % (A) 6 %; Neutrophils # (A) 5.4 k/uL (1.3-7.7); Neutrophils % (A) 85 %; Platelet Count 222 k/uL (150-450); RBC 4.51 m/uL (3.80-5.40); RDW 13.9 % (11.5-15.5); WBC 6.4 k/uL (3.8-10.6)
[2018-01-04 07:57] LABS: Anion Gap 10 mmol/L; Blood Urea Nitrogen 12 mg/dL (7-17); Calcium 8.8 mg/dL (8.4-10.2); Carbon Dioxide 24 mmol/L (22-30); Chloride 107 mmol/L (98-107); Phosphorus 3.5 mg/dL (2.5-4.5); Potassium 4.8 mmol/L (3.5-5.1); Sodium 141 mmol/L (137-145)
[2018-01-04] MEDS: ALBUTEROL NEBULIZED 2.5 MG/3 ML INHALATION SCH ×4 (08:11→19:07)
[2018-01-04] MEDS: PANTOPRAZOLE 40 MG/10 ML VIAL IV SCH (08:12)
[2018-01-04] MEDS: ENOXAPARIN 40 MG/0.4 ML SYRINGE SQ SCH (08:14)
[2018-01-04] MEDS: ONDANSETRON 4 MG/2 ML VIAL IVP PRN (08:14)
[2018-01-04] MEDS: OXYBUTYNIN CHLORIDE 5 MG TAB PO SCH ×3 (09:13→21:33)
[2018-01-04] MEDS: POTASSIUM CHLORIDE ER 10 MEQ TAB.ER.PRT PO SCH (09:13)
[2018-01-04] MEDS: GABAPENTIN 300 MG CAP PO SCH ×3 (09:13→21:32)
[2018-01-04] MEDS: FUROSEMIDE 20 MG TAB PO SCH (09:13)
[2018-01-04] MEDS: SERTRALINE 100 MG TAB PO SCH (09:14)
--- NOTE | 2018-01-04 09:15 | P.PN ---
Subjective Progress Note Date: 01/04/18 62-year-old female seen this morning on rounds. Patient states that she is belching passing gas no stool upper GIs pending. Reports a nausea sensation no emesis. White count 6.4 hemoglobin 12.9 afebrile heart rate in the 70s abdomen obese soft nontender surgical dressing site dry few bowel tones noted did note patient passing gas Robotic-assisted da Annie Xi laparoscopic reduction and repair of incarcerated paraesophageal hiatal hernia, 6 x 7 cm, with [place] Biopatch A 8 x 8 cm. Intraoperative esophagogastroduodenoscopy robotic-assisted extensive lysis of adhesions procedure was done on January 03 Objective - Vital Signs Vital signs: Vital Signs Temp 97.9 F 01/04/18 00:23 Pulse 76 01/04/18 00:23 Resp 16 01/04/18 00:23 BP 142/80 01/04/18 00:23 Pulse Ox 93 L 01/04/18 03:27 Intake & Output 01/03/18 01/04/18 01/04/18 18:59 06:59 18:59 Intake Total 2300 780 Output Total 220 1020 Balance 2080 -240 Weight 167.013 kg Intake: IV 2300 Oral 780 Output: Urine 170 1020 Uretheral (Berman) 150 Estimated Blood Loss 50 Other: Voiding Method Indwelling Catheter Indwelling Catheter - Exam Physical exam 62-year-old female awake and alert sitting up in bed states passing gas and belching no stool Lungs diminished at the bases otherwise adequate air movement nasal cannula 6 L with a sat of 93% Heart S1-S2 audible and regular Abdomen obese soft nontender surgical tenderness appropriate surgical dressing sites dry belching and passing gas no stool indwelling Berman catheter in place Extremities Venodyne's on to the bilateral lower extremities - Labs CBC & Chem 7: 01/04/18 06:33 01/04/18 06:33 Labs: Abnormal Lab Results - Last 24 Hours (Table) 01/03/18 01/04/18 Range/Units 10:19 06:33 Lymphocytes # 0.5 L (1.0-4.8) k/uL POC Glucose (mg/dL) 101 H (75-99) mg/dL Assessment and Plan Assessment: Impression Morbid obesity BMI 56 due to excessive calories Esophageal reflux disease Obstructive sleep apnea Depression Recurrent multiple incisional hernias History of cluster headaches Robotic-assisted da Annie Xi laparoscopic reduction and repair of incarcerated paraesophageal hiatal hernia, 6 x 7 cm, with [place] Biopatch A 8 x 8 cm. done on January 03 Intraoperative esophagogastroduodenoscopy done on January 03 Status post prior gastric bypass surgery done between 2002 and 2003 at [facility] An EGD completed recently demonstrated gastrojejunal ulcer including stricture which was dilated Plan Follow up on the upper GI pending Increase activity Continue postop surgical care Encourage the use of the incentive spirometer Attempt to titrate the O2 down to keep sats greater than 90 percent pain control Bariatric clear liquid diet Dietitian consult nutritional support DVT and GI prophylaxis The above impression and plan of care have been discussed and directed by signing physician. Liss Velazquez nurse practitioner acting as scribe for signing physician.
--- NOTE | 2018-01-04 09:25 | FL ---
EXAMINATION TYPE: FL UGI DATE OF EXAM: 01/04/2018 LIMITED UGI-ESOPHAGRAM: CLINICAL HISTORY: Morbid Obesity, lap band placed earlier today. TECHNIQUE: Limited esophagram is performed utilizing Isoview 370 2 oz . A total of 36 seconds of fluoroscopic time was utilized during procedure. 8 images obtained. FINDINGS: The patient swallowed contrast without difficulty or delay. Esophageal peristalsis and mo tility are within normal limits. There is good flow of contrast along the diaphragmatic hiatus into t he gastric bypass, there is no evidence of contrast extravasation to suggest leak. No persistent hiat al hernia is seen. Patient remains asymptomatic. IMPRESSION: No evidence of leak or significant obstruction status post Dylan fundoplication surgery .
[2018-01-04] MEDS ORDERED: BUTA/APAP/CAF/COD 50-325-40-30 CAP PO PRN (12:49)
[2018-01-04] MEDS: oxyCODONE-APAP 5-325MG 1 EACH TAB PO PRN (16:19)
[2018-01-04 19:24] VITALS: RESP 17
[2018-01-04] MEDS ORDERED: ARIPiprazole 5 MG TAB PO SCH (21:00)
[2018-01-04] MEDS ORDERED: LORATADINE 10 MG TAB PO SCH (21:00)
[2018-01-04] MEDS: traZODone HCL 50 MG TAB PO SCH (21:32)
[2018-01-05] MEDS ORDERED: oxyCODONE-APAP 5-325MG 1 EACH TAB ONE (04:17)
[2018-01-05] MEDS: HYOSCYAMINE ORAL DROPS 1.875 MG/15 ML BOTTLE PO SCH ×3 (04:44→11:40)
[2018-01-05] MEDS: 0.9% NACL WITH KCL 20 MEQ/L 1,000 ML IV SCH (04:44)
[2018-01-05] MEDS: SIMETHICONE 40 MG/0.6 ML DROPS 2,000 MG/30 ML BOTTLE PO SCH ×3 (04:44→11:41)
[2018-01-05] MEDS: LACTATED RINGERS 1,000 ML IV SCH (04:45)
[2018-01-05 07:20] VITALS: BP 130/78; PULSE 63; TEMP 97.6
[2018-01-05] MEDS: ALBUTEROL NEBULIZED 2.5 MG/3 ML INHALATION SCH ×2 (07:49→11:38)
[2018-01-05] MEDS: ENOXAPARIN 40 MG/0.4 ML SYRINGE SQ SCH (08:10)
[2018-01-05] MEDS: PANTOPRAZOLE 40 MG/10 ML VIAL IV SCH (08:11)
[2018-01-05] MEDS: POTASSIUM CHLORIDE ER 10 MEQ TAB.ER.PRT PO SCH (08:12)
[2018-01-05] MEDS: SERTRALINE 100 MG TAB PO SCH (08:12)
[2018-01-05] MEDS: GABAPENTIN 300 MG CAP PO SCH (08:12)
[2018-01-05] MEDS: FUROSEMIDE 20 MG TAB PO SCH (08:12)
[2018-01-05] MEDS: OXYBUTYNIN CHLORIDE 5 MG TAB PO SCH (08:12)
--- NOTE | 2018-01-05 09:10 | P.DS ---
Providers Date of admission: 01/03/18 09:27 Expected date of discharge: 01/05/18 Attending physician: Chelsea Buchanan Primary care physician: Kamlesh Osmel [facility] Course: 62-year-old female who has a history of gastric bypass done in [facility] between 2002 in 2003. Her BMI at that time was 66. Today comes in weighing 383 pounds BMI 56. 220 pounds overweight. Patient had an upper EGD which did show gastrojejunal ulcer including a stricture which was dilated. Patient stated there was some improvement in the abdominal pain. Patient presents now for surgical options. Additional findings showed a gastric fistula in which the patient was symptomatic. Robotic-assisted da Annie Xi laparoscopic reduction and repair of incarcerated paraesophageal hiatal hernia, 6 x 7 cm, with [place] Biopatch A 8 x 8 cm. Intraoperative esophagogastroduodenoscopy robotic-assisted extensive lysis of adhesions procedure was done on January 03 Postoperative was tolerating bariatric clear diet was up ambulating in the hallway and surgical dressing sites were dry was on room air Impression discharge diagnosis Morbid obesity BMI 56 due to excessive calories Esophageal reflux disease Obstructive sleep apnea Depression Recurrent multiple incisional hernias History of cluster headaches Robotic-assisted da Annie Xi laparoscopic reduction and repair of incarcerated paraesophageal hiatal hernia, 6 x 7 cm, with [place] Biopatch A 8 x 8 cm. done on January 03 Intraoperative esophagogastroduodenoscopy done on January 03 Status post prior gastric bypass surgery done between 2002 and 2003 at [facility] An EGD completed recently demonstrated gastrojejunal ulcer including stricture which was dilated The above impression and plan of care have been discussed and directed by signing physician. Liss Velazquez nurse practitioner acting as scribe for signing physician. Plan - Discharge Summary Discharge Rx Participant: Yes New Discharge Prescriptions: New oxyCODONE HCL/ACETAMINOPHEN [Percocet 5-325 mg] 1 tab PO Q4HR PRN 3 Days #18 tab PRN Reason: Pain Continue EPINEPHrine (Auto Inject) [Epipen] 0.3 mg IM ONCE PRN PRN Reason: Anaphylaxis Sertraline [Zoloft] 200 mg PO QAM Cetirizine HCl 10 mg PO HS [place]/APAP/Caf/Cod [id number] [Fioricet w/Cod 50-257-35-30MG] 1 tab PO BID PRN PRN Reason: migraines rOPINIRole HCL 0.5 mg PO QAM rOPINIRole HCL 1 mg PO HS oxyCODONE-APAP 5-325MG [Percocet 5-325 mg] 1 tab PO Q8H PRN PRN Reason: Pain Albuterol Sulfate [Proair Hfa] 1 - 2 puff INHALATION RT-Q6H PRN PRN Reason: Shortness Of Breath Polyethylene Glycol 3350 [Miralax] 17 gm PO DAILY PRN PRN Reason: Constipation Clobetasol Propionate/Emoll [Temovate Emollient 0.05% Crm] 1 applic TOPICAL TID traZODone HCL 150 mg PO HS ARIPiprazole [Abilify] 5 mg PO HS Gabapentin [Neurontin] 600 mg PO TID Oxybutynin Chloride [Ditropan] 5 mg PO TID Potassium Chloride [Klor-Con 8] 8 meq PO DAILY Furosemide [Lasix] 40 mg PO DAILY Nitroglycerin Sl Tabs [Nitrostat] 0.4 mg SUBLINGUAL Q5M PRN PRN Reason: Chest Pain Triamcinolone 0.1% Cream [Kenalog] 1 applic TOPICAL BID valACYclovir [Valtrex] 500 mg PO BID PRN PRN Reason: GENITAL HERPES diphenhydrAMINE [Benadryl] 25 mg PO BID PRN PRN Reason: Allergy Symptoms Mupirocin [Bactroban Oint] 1 applic TOPICAL TID Nystatin 100,000Unit/gm Cream [Mycostatin Cream] 1 applic TOPICAL TID #30 gm Nystatin 100,000 Unit/gm Powd [Mycostatin Powder] 1 applic TOPICAL TID #60 gm Fluconazole [Diflucan] 150 mg PO ONCE PRN PRN Reason: yeast infection Omeprazole 40 mg PO DAILY #90 capsule. Fluconazole [Diflucan] 100 mg PO DAILY #30 tab Discharge Medication List [place]/APAP/Caf/Cod [id number] [Fioricet w/Cod 05-735-56-30MG] 1 tab PO BID PRN 11/20/14 [History] Cetirizine HCl 10 mg PO HS 11/20/14 [History] EPINEPHrine (Auto Inject) [Epipen] 0.3 mg IM ONCE PRN 11/20/14 [History] Sertraline [Zoloft] 200 mg PO QAM 11/20/14 [History] rOPINIRole HCL 0.5 mg PO QAM 11/20/14 [History] rOPINIRole HCL 1 mg PO HS 11/20/14 [History] oxyCODONE-APAP 5-325MG [Percocet 5-325 mg] 1 tab PO Q8H PRN 02/18/15 [History] Albuterol Sulfate [Proair Hfa] 1 - 2 puff INHALATION RT-Q6H PRN 03/15/15 [ History] Clobetasol Propionate/Emoll [Temovate Emollient 0.05% Crm] 1 applic TOPICAL TID 03/15/15 [History] Polyethylene Glycol 3350 [Miralax] 17 gm PO DAILY PRN 03/15/15 [History] ARIPiprazole [Abilify] 5 mg PO HS 05/17/15 [History] traZODone HCL 150 mg PO HS 05/17/15 [History] Gabapentin [Neurontin] 600 mg PO TID 10/10/15 [History] Oxybutynin Chloride [Ditropan] 5 mg PO TID 05/05/16 [History] Potassium Chloride [Klor-Con 8] 8 meq PO DAILY 05/05/16 [History] Furosemide [Lasix] 40 mg PO DAILY 06/04/16 [History] Nitroglycerin Sl Tabs [Nitrostat] 0.4 mg SUBLINGUAL Q5M PRN 06/04/16 [History] Triamcinolone 0.1% Cream [Kenalog] 1 applic TOPICAL BID 06/04/16 [History] valACYclovir [Valtrex] 500 mg PO BID PRN 06/04/16 [History] Mupirocin [Bactroban Oint] 1 applic TOPICAL TID 03/05/17 [History] diphenhydrAMINE [Benadryl] 25 mg PO BID PRN 03/05/17 [History] Nystatin 100,000 Unit/gm Powd [Mycostatin Powder] 1 applic TOPICAL TID #60 gm [Rx] Nystatin 100,000Unit/gm Cream [Mycostatin Cream] 1 applic TOPICAL TID #30 gm 05/14 [Rx] Fluconazole [Diflucan] 150 mg PO ONCE PRN 08/27/17 [History] Omeprazole 40 mg PO DAILY #90 capsule. 08/30/17 [Rx] Fluconazole [Diflucan] 100 mg PO DAILY #30 tab 12/08/17 [Rx] oxyCODONE HCL/ACETAMINOPHEN [Percocet 5-325 mg] 1 tab PO Q4HR PRN 3 Days #18 tab 01/04/18 [Rx] Follow up Appointment(s)/Referral(s): [facility],. [NON-STAFF] - 01/07/18 10:00 am Patient Instructions/Handouts: Hiatal Hernia (GEN), Laparoscopic Hiatal Hernia Repair (DC) Activity/Diet/Wound Care/Special Instructions: No lifting over 4 pounds in 4 weeks. May shower. No bathtub soaks. Discharge Disposition: HOME SELF-CARE
[2018-01-05] MEDS: oxyCODONE-APAP 5-325MG 1 EACH TAB PO PRN (11:38)
== END 2018-01-05 13:21 | disposition home or self-care (01) | DRG 327 ==
LOC: 2ORMAIN 09:27 → 3SUR 15:05
PROVIDERS: ADMIT Surgery Plastic and Reconstructive Surgery; ATTEND Surgery Plastic and Reconstructive Surgery
PROC: 0DNW4ZZ Release Peritoneum, Percutaneous Endoscopic Approach (ICD-10-PCS; 2018-01-03)
PROC: 8E0W4CZ Robotic Assisted Procedure of Trunk Region, Percutaneous Endoscopic Approach (ICD-10-PCS; 2018-01-03)
PROC: 0DJ08ZZ Inspection of Upper Intestinal Tract, Via Natural or Artificial Opening Endoscopic (ICD-10-PCS; 2018-01-03)
PROC: 0BUT4JZ Supplement Diaphragm with Synthetic Substitute, Percutaneous Endoscopic Approach (ICD-10-PCS; principal; 2018-01-03 11:05)
DX: K44.0 Diaphragmatic hernia with obstruction, without gangrene (principal); K31.6 Fistula of stomach and duodenum; K95.89 Other complications of other bariatric procedure; Z68.43 Body mass index [BMI] 50.0-59.9, adult; K66.0 Peritoneal adhesions (postprocedural) (postinfection); D64.9 Anemia, unspecified; E16.2 Hypoglycemia, unspecified; E55.9 Vitamin D deficiency, unspecified; E66.01 Morbid (severe) obesity due to excess calories; F03.90 Unspecified dementia, unspecified severity, without behavioral disturbance, psychotic disturbance, mood disturbance, and anxiety; F32.9 Major depressive disorder, single episode, unspecified; F41.0 Panic disorder [episodic paroxysmal anxiety]; G35 Multiple sclerosis; G44.009 Cluster headache syndrome, unspecified, not intractable; G47.33 Obstructive sleep apnea (adult) (pediatric); I25.2 Old myocardial infarction; I48.91 Unspecified atrial fibrillation; I83.90 Asymptomatic varicose veins of unspecified lower extremity; J45.909 Unspecified asthma, uncomplicated; K21.9 Gastro-esophageal reflux disease without esophagitis; K28.9 Gastrojejunal ulcer, unspecified as acute or chronic, without hemorrhage or perforation; K43.2 Incisional hernia without obstruction or gangrene; K58.9 Irritable bowel syndrome, unspecified; K76.9 Liver disease, unspecified; M19.90 Unspecified osteoarthritis, unspecified site; M79.7 Fibromyalgia; N32.81 Overactive bladder; R21 Rash and other nonspecific skin eruption; Z98.84 Bariatric surgery status; R13.10 Dysphagia, unspecified; Z82.0 Family history of epilepsy and other diseases of the nervous system; Z82.49 Family history of ischemic heart disease and other diseases of the circulatory system; Z87.01 Personal history of pneumonia (recurrent); Z90.710 Acquired absence of both cervix and uterus; Z71.3 Dietary counseling and surveillance; G89.29 Other chronic pain; M54.9 Dorsalgia, unspecified; G57.92 Unspecified mononeuropathy of left lower limb; R42 Dizziness and giddiness; Z79.899 Other long term (current) drug therapy
CPT/HCPCS: 74240; 80051; 82310; 82565; 83735; 84100; 84520; 85025; 86850; 86900; 86901; 94760; 94762

== ENCOUNTER → 2018-01-07 | Outpatient (CLI) | payer OTHER ==
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
[2018-01-07 11:36] VITALS: BP 125/79; PULSE 72; TEMP 98; BMI 56.5
--- NOTE | 2018-01-08 21:27 | P.PN ---
Subjective Progress Note Date: 01/07/18 DATE OF SERVICE: 01/07/2018 CHIEF COMPLAINT: s/p hiatal hernia repair HISTORY OF PRESENT ILLNESS: Henna Merino is a 62-year-old female who had a gastric bypass performed in [place], [place] between 2002 to 2003. At that time she had weighed 436 pounds. Her body mass index was 66.4. Today, she comes in weighing 371 pounds from 389 pounds 1 month ago. She has lost 18 pounds in 1 month. Body mass index is down from 66.4 to 56.5. At her height of 5 foot 8 inches, her ideal body weight is 163 pounds. She is 208 pounds overweight. She is now s/p paraesophageal hiatal hernia repair 01/03/2018. She is POD #5. She is doing well. She complains of nausea. Her reflux is resolved. PHYSICAL EXAM: VITAL SIGNS: Height 5 foot 8 inches, weight 371 pounds. BMI 56.5 Temp 98 F 01/07/18 11:33 Pulse 72 01/07/18 11:33 Resp BP 125/79 01/07/18 11:33 Pulse Ox GENERAL: Well-developed female in no acute distress. HEENT: No scleral icterus. Extraocular movements grossly intact. Hears conversational speech. No nasal drainage. NECK: Supple without lymphadenopathy. CHEST: Nonlabored respirations with equal bilateral excursions. CARDIOVASCULAR: Regular rate. Distal 2+ pulses. ABDOMEN: Obese, soft, incisions are clean, dry and intact. MUSCULOSKELETAL: No clubbing, cyanosis, or edema. Gross strength 5/5 distal lower extremities. NEURO: No focal or lateralizing signs. Cranial nerves 2 through 12 grossly within normal limits. PSYCH: Appropriate affect. Alert and oriented to person, place and time. SKIN: Good skin turgor. Well perfused. ASSESSMENT: 1. Morbid obesity due to excess calories. 2. Status post gastric bypass 3. Body mass index 66.4 down to 56.5. 4. Gastroesophageal reflux disease 5. Complications from bariatric procedure 6. s/p hiatal hernia repair PLAN: 1. Four prescriptions were written including Zofran, Dulcolax, simethicone, and [place] for pain. 2. Follow up in 3 weeks. Objective - Vital Signs Vital signs: Vital Signs Temp 98 F 01/07/18 11:33 Pulse 72 01/07/18 11:33 Resp BP 125/79 01/07/18 11:33 Pulse Ox
== END | disposition home or self-care (01) ==
LOC: BARWHC3 10:03
PROVIDERS: ATTEND Surgery Plastic and Reconstructive Surgery
DX: K21.9 Gastro-esophageal reflux disease without esophagitis (principal); I48.91 Unspecified atrial fibrillation; J45.909 Unspecified asthma, uncomplicated; F03.90 Unspecified dementia, unspecified severity, without behavioral disturbance, psychotic disturbance, mood disturbance, and anxiety; M79.7 Fibromyalgia; K76.9 Liver disease, unspecified; I25.2 Old myocardial infarction; M19.90 Unspecified osteoarthritis, unspecified site; G47.30 Sleep apnea, unspecified; F32.9 Major depressive disorder, single episode, unspecified; F41.9 Anxiety disorder, unspecified; G35 Multiple sclerosis; Z99.89 Dependence on other enabling machines and devices; Z98.84 Bariatric surgery status; Z90.49 Acquired absence of other specified parts of digestive tract; Z95.5 Presence of coronary angioplasty implant and graft; Z98.890 Other specified postprocedural states; Z90.710 Acquired absence of both cervix and uterus; Z90.10 Acquired absence of unspecified breast and nipple; Z79.51 Long term (current) use of inhaled steroids; Z79.891 Long term (current) use of opiate analgesic; Z79.899 Other long term (current) drug therapy; Z88.5 Allergy status to narcotic agent; Z88.6 Allergy status to analgesic agent; Z88.7 Allergy status to serum and vaccine; Z88.8 Allergy status to other drugs, medicaments and biological substances; Z91.038 Other insect allergy status; Z91.048 Other nonmedicinal substance allergy status; Z86.69 Personal history of other diseases of the nervous system and sense organs; Z86.79 Personal history of other diseases of the circulatory system
CPT/HCPCS: 99211

== ENCOUNTER 2018-01-21 14:09 | Observation (INO) | payer OTHER ==
[2018-01-21] MEDS ORDERED: ONDANSETRON 4 MG/2 ML VIAL IVP STA ×2 (15:20→17:44)
[2018-01-21] MEDS ORDERED: SODIUM CHLORIDE 0.9% 1,000 ML IV ONE (15:20)
[2018-01-21] MEDS ORDERED: oxyCODONE-APAP 10-325MG 1 EACH TAB PO STA (15:20)
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
[2018-01-21 16:43] LABS: Basophils % (A) 0 %; Eosinophils # (A) 0.1 k/uL (0-0.7); Eosinophils % (A) 3 %; HCT 43.6 % (34.0-46.0); HGB 14.3 gm/dL (11.4-16.0); Lymphocytes # (A) 0.9 k/uL (1.0-4.8); Lymphocytes % (A) 21 %; MCH 28.2 pg (25.0-35.0); MCHC 32.7 g/dL (31.0-37.0); MCV 86.2 fL (80.0-100.0); Mean Platelet Volume 8.3; Monocytes # (A) 0.2 k/uL (0-1.0); Monocytes % (A) 5 %; Neutrophils % (A) 69 %; Platelet Count 243 k/uL (150-450); RBC 5.06 m/uL (3.80-5.40); RDW 13.3 % (11.5-15.5); WBC 4.4 k/uL (3.8-10.6)
[2018-01-21 16:49] LABS: ALT 31 U/L (9-52); AST 23 U/L (14-36); Albumin 4.1 g/dL (3.5-5.0); Alkaline Phosphatase 100 U/L (38-126); Amorphous Sediment,Urine Occasional /hpf; Anion Gap 9 mmol/L; Appearance,Urine Cloudy (Clear); Bilirubin, Delta 0.4 mg/dL (0.0-0.2); Bilirubin,Unconjugated 0.1 mg/dL (0.0-1.1); Bilirubin,Urine Negative (Negative); Blood Urea Nitrogen 14 mg/dL (7-17); Blood,Urine Negative (Negative); Calcium 9.8 mg/dL (8.4-10.2); Carbon Dioxide 25 mmol/L (22-30); Chloride 108 mmol/L (98-107); Color,Urine Yellow; Glucose 100 mg/dL (74-99); Glucose,Urine (UA) Negative (Negative); Hyaline Casts,Urine 2 /lpf (0-2); Ketones,Urine Negative (Negative); Leukocyte Esterase,Urine Moderate (Negative); Lipase 46 U/L (23-300); Mucus,Urine Occasional /hpf; Nitrite,Urine Negative (Negative); Potassium 5.3 mmol/L (3.5-5.1); Protein,Urine Trace (Negative); RBC,Urine 1 /hpf (0-5); Sodium 142 mmol/L (137-145); Specific Gravity,Urine 1.018 (1.001-1.035); Squamous Epithelial Cell,Urine 21 /hpf (0-4); Total Bilirubin 0.5 mg/dL (0.2-1.3); Total Protein 6.6 g/dL (6.3-8.2); WBC,Urine 23 /hpf (0-5)
[2018-01-21] MEDS ORDERED: cefTRIAXone IN SWFI 1,000 MG/10 ML SYRINGE IVP STA (17:02)
--- NOTE | 2018-01-21 18:57 | CT ---
EXAMINATION TYPE: CT angio thor/abd pel aorta DATE OF EXAM: 01/21/2018 COMPARISON: None HISTORY: ab pain/sob. recent Hiatel hernia surgery CT DLP: 4428.90 mGycm. Automated Exposure Control for Dose Reduction was Utilized. CONTRAST: CT scan of the thorax, abdomen and pelvis is performed with IV Contrast, patient injected with 100 mL of Isovue 370. There are 3-D post processed images. FINDINGS: There is some patchy linear density in the lower lobes. There is no pleural effusion. There is hiatal hernia. Clips from bariatric surgery. Noncontrast images show no renal calculus. There is normal contrast opa cification of the thoracic and abdominal aorta. There is no evidence of aneurysm or dissection. There is bilateral normal appearance of the iliac arteries. There is arterial flow in both proximal femora l arteries. There is bilateral renal artery flow. There is normal appearance of the celiac artery and superior mesenteric artery. Liver spleen pancreas appear normal. There are clips from cholecystectomy. There is 2.8 cm cortical c yst on the posterior left kidney. There is 2.5 cm cortical cyst medial right kidney. There is no hydr onephrosis. There is no retroperitoneal adenopathy. There is no ascites. IMPRESSION: Normal CT angiogram of the chest and abdomen and pelvis. Patchy atelectasis in the lower lobes. Previ ous surgery. Hiatal hernia. Renal cortical cysts...
[2018-01-21] MEDS ORDERED: PANTOPRAZOLE 40 MG/10 ML VIAL IVP STA (19:02)
[2018-01-21] MEDS ORDERED: BISACODYL 5 MG TABLET.DR PO PRN (20:00)
[2018-01-21] MEDS ORDERED: ALBUTEROL NEBULIZED 2.5 MG/3 ML INHALATION PRN (20:00)
[2018-01-21] MEDS ORDERED: NALOXONE 0.4 MG/ML 1 ML VIAL IV PRN (20:02)
[2018-01-21] MEDS: GABAPENTIN 300 MG CAP PO SCH (22:55)
[2018-01-21] MEDS: ARIPiprazole 5 MG TAB PO SCH (22:55)
[2018-01-21] MEDS: LORATADINE 10 MG TAB PO SCH (22:55)
[2018-01-21] MEDS: ONDANSETRON 4 MG/2 ML VIAL IVP PRN (23:07)
[2018-01-21 23:13] LABS: Glucose,Whole Blood 98 mg/dL (75-99)
[2018-01-22 06:51] LABS: Glucose,Whole Blood 104 mg/dL (75-99)
[2018-01-22] MEDS: ONDANSETRON 4 MG/2 ML VIAL IVP PRN ×2 (07:33→15:20)
[2018-01-22 07:43] LABS: Basophils % (A) 1 %; Eosinophils # (A) 0.1 k/uL (0-0.7); Eosinophils % (A) 3 %; HCT 40.7 % (34.0-46.0); HGB 12.8 gm/dL (11.4-16.0); Lymphocytes % (A) 27 %; MCH 27.9 pg (25.0-35.0); MCHC 31.4 g/dL (31.0-37.0); MCV 88.7 fL (80.0-100.0); Mean Platelet Volume 7.5; Monocytes # (A) 0.2 k/uL (0-1.0); Monocytes % (A) 6 %; Neutrophils # (A) 2.2 k/uL (1.3-7.7); Neutrophils % (A) 60 %; Platelet Count 200 k/uL (150-450); RBC 4.59 m/uL (3.80-5.40); RDW 13.4 % (11.5-15.5); WBC 3.7 k/uL (3.8-10.6)
[2018-01-22] MEDS ORDERED: oxyCODONE-APAP 5-325MG 1 EACH TAB PO PRN (07:56)
[2018-01-22 07:59] LABS: Anion Gap 8 mmol/L; Blood Urea Nitrogen 11 mg/dL (7-17); Calcium 9.1 mg/dL (8.4-10.2); Carbon Dioxide 23 mmol/L (22-30); Chloride 110 mmol/L (98-107); Glucose 93 mg/dL (74-99); Lipase 45 U/L (23-300); Potassium 4.1 mmol/L (3.5-5.1); Sodium 141 mmol/L (137-145)
[2018-01-22] MEDS: BUTA/APAP/CAF/COD 50-325-40-30 CAP PO PRN ×2 (08:10→23:55)
[2018-01-22] MEDS: SERTRALINE 100 MG TAB PO SCH (08:34)
[2018-01-22] MEDS: GABAPENTIN 300 MG CAP PO SCH ×3 (08:34→21:06)
[2018-01-22] MEDS: FUROSEMIDE 40 MG TAB PO SCH (08:35)
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
[2018-01-22 11:32] LABS: Glucose,Whole Blood 95 mg/dL (75-99)
[2018-01-22 16:53] LABS: Glucose,Whole Blood 117 mg/dL (75-99)
[2018-01-22] MEDS: PANTOPRAZOLE 40 MG TABLET PO SCH (17:24)
[2018-01-22] MEDS ORDERED: NITROGLYCERIN SL TABS 0.4 MG TAB SUBLINGUAL PRN (20:04)
[2018-01-22] MEDS ORDERED: valACYclovir 500 MG TAB PO PRN (20:04)
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
[2018-01-22] MEDS ORDERED: traZODone HCL 50 MG TAB PO SCH (21:00)
[2018-01-22] MEDS: ENOXAPARIN 40 MG/0.4 ML SYRINGE SQ SCH (21:02)
[2018-01-22] MEDS: TRIAMCINOLONE 0.1% CREAM 80 GM TUBE TOPICAL SCH (21:03)
[2018-01-22] MEDS: FLUCONAZOLE 100 MG TAB PO SCH (21:03)
[2018-01-22] MEDS: CLOBETASOL PROP 0.05% CR 15GM TOPICAL SCH (21:04)
[2018-01-22] MEDS: NYSTATIN 100,000 UNIT/GM POWD 15 GM TOPICAL SCH (21:05)
[2018-01-22] MEDS: OXYBUTYNIN CHLORIDE 5 MG TAB PO SCH (21:05)
[2018-01-22] MEDS: MUPIROCIN 2% OINT 22 GM TUBE TOPICAL SCH (21:05)
[2018-01-22] MEDS: ARIPiprazole 5 MG TAB PO SCH (21:06)
[2018-01-22] MEDS: LORATADINE 10 MG TAB PO SCH (21:06)
[2018-01-22 21:13] LABS: Glucose,Whole Blood 76 mg/dL (75-99)
[2018-01-23 06:53] LABS: Glucose,Whole Blood 89 mg/dL (75-99)
[2018-01-23 07:36] VITALS: BP 98/62; PULSE 74; RESP 12; TEMP 98.4
[2018-01-23] MEDS: FLUCONAZOLE 100 MG TAB PO SCH (07:37)
[2018-01-23] MEDS: PANTOPRAZOLE 40 MG TABLET PO SCH ×2 (07:37→16:04)
[2018-01-23] MEDS: FUROSEMIDE 40 MG TAB PO SCH (07:37)
[2018-01-23] MEDS: ENOXAPARIN 40 MG/0.4 ML SYRINGE SQ SCH (07:37)
[2018-01-23] MEDS: GABAPENTIN 300 MG CAP PO SCH ×2 (07:38→16:04)
[2018-01-23] MEDS: SERTRALINE 100 MG TAB PO SCH (07:38)
[2018-01-23] MEDS: OXYBUTYNIN CHLORIDE 5 MG TAB PO SCH ×2 (07:38→16:04)
[2018-01-23] MEDS: MUPIROCIN 2% OINT 22 GM TUBE TOPICAL SCH (07:42)
[2018-01-23] MEDS: NYSTATIN 100,000 UNIT/GM POWD 15 GM TOPICAL SCH (07:42)
[2018-01-23] MEDS: TRIAMCINOLONE 0.1% CREAM 80 GM TUBE TOPICAL SCH (07:42)
[2018-01-23] MEDS: CLOBETASOL PROP 0.05% CR 15GM TOPICAL SCH (07:42)
[2018-01-23] MEDS: BUTA/APAP/CAF/COD 50-325-40-30 CAP PO PRN (10:14)
--- NOTE | 2018-01-23 11:02 | P.PN ---
Subjective Progress Note Date: 01/23/18 Principal diagnosis: Abdominal pain Patient doing better today. She said yesterday her pain was a 7 out of 10 at one point. Today it is a 4 out of 10. Tolerating liquid diet. No nausea or vomiting. Diarrhea improved. Objective - Vital Signs Vital signs: Vital Signs Temp 98.4 F 01/23/18 07:00 Pulse 74 01/23/18 07:00 Resp 12 01/23/18 07:00 BP 98/62 01/23/18 07:00 Pulse Ox 93 L 01/23/18 07:00 Intake & Output 01/22/18 01/23/18 01/23/18 18:59 06:59 18:59 Intake Total 80 Output Total 1 Balance 79 Intake: IV 80 0.9 80 Output: Urine 1 Other: # Voids 2 - Exam Abdomen: Soft, nondistended, recent incisions clean and dry, minimal epigastric tenderness - Labs CBC & Chem 7: 01/22/18 06:59 01/22/18 06:59 Labs: Abnormal Lab Results - Last 24 Hours (Table) 01/22/18 Range/Units 16:50 POC Glucose (mg/dL) 117 H (75-99) mg/dL Microbiology - Last 24 Hours (Table) 01/21/18 16:10 Urine Culture - Preliminary Urine,Clean Catch Gram Neg Bacilli Assessment and Plan (1) Intractable epigastric abdominal pain Narrative/Plan: Continue liquid diet. Continue antiacid therapy. If discharged today follow- up with Dr. Lockwood in the bariatric clinic later this week. Current Visit: Yes Status: Acute Code(s): R10.13 - EPIGASTRIC PAIN SNOMED Code(s): 48306417
[2018-01-23 11:36] LABS: Glucose,Whole Blood 99 mg/dL (75-99)
[2018-01-23] MEDS: ONDANSETRON 4 MG/2 ML VIAL IVP PRN (14:29)
--- NOTE | 2018-01-23 21:36 | DS ---
DISCHARGE SUMMARY DATE OF ADMISSION: January 21, 2018. DATE OF DISCHARGE: January 23, 2018. FINAL DIAGNOSES: 1. Acute epigastric pain probably flare-up of gastrojejunal ulcer with reflux symptoms. 2. Intermittent asthma, controlled. 3. Chronic multiple sclerosis. 4. Primary osteoarthritis. 5. Obstructive sleep apnea, does not use CPAP machine. 6. Anxiety, depression not otherwise specified. 7. Morbid obesity BMI 51.9. HOSPITAL COURSE: This is a patient who had gastric bypass surgery in 2002, who 2 weeks ago underwent stricture dilatation at the gastrojejunal junction. Also found to have a gastrojejunal ulcer. The patient also had repair of incarcerated paraesophageal hernia by Dr. Buchanan. Presented with some nausea, diarrhea, epigastric pain. Was given Protonix, managed conservatively to which she feeling much better, tolerating gastric bypass diet currently. Had a bowel movement. Abdominal pain is greatly improved. I did discuss with Dr. Toth. The patient can go home. I did discuss at length with the patient. She already has an appointment with Dr. Buchanan. She will keep on the current diet. On exam, abdomen soft, nontender. Lungs are clear. DISCHARGE MEDICATIONS: 1. Fioricet with codeine 1 tablet b.i.d. p.r.n. 2. Cetirizine 10 mg q.h.s. 3. EpiPen 0.3 IM once p.r.n. 4. Zoloft 200 mg p.o. daily. 5. Ropinirole 0.5 mg p.o. in the morning, 1 mg at night. 6. Percocet 5 one tablet q.8h p.r.n. 7. ProAir 1-2 puffs q.6h p.r.n. 8. Temovate emollient topical t.i.d. 9. Abilify 5 mg q.h.s. 10.Trazodone 150 mg p.o. at bedtime. 11.Neurontin 600 mg p.o. t.i.d. 12.Ditropan 5 mg p.o. t.i.d. 13.Potassium 8 mEq p.o. daily. 14.Lasix 40 mg p.o. daily. 15.Nitrostat 0.4 sublingual q.5 p.r.n. 16.Kenalog application topical b.i.d. 17.Valtrex 500 mg p.o. b.i.d. p.r.n. 18.Bactroban topical t.i.d. 19.Mycostatin topical t.i.d. 20. cream. 21.Diflucan 100 mg p.o. daily, complete course. 22.Dulcolax 5 mg daily p.r.n. 23.Zofran 4 mg q.8h p.r.n. 24. drops 40 mg p.o. p.c. q.h.s. p.r.n. 25.Protonix 40 mg b.i.d. new medication. FOLLOW UP: 1. Dr. Bolivar in 1-2 weeks. 2. Follow up with Dr. Chelsea Buchanan, keep appointment on January 26, 2018. Diet to continue as before. Discussion and discharge planning more than [address] Kamlesh Bolivar. MMNATHENL / NANIN: [id number] /
== END 2018-01-23 16:09 | disposition home or self-care (01) ==
LOC: EC 14:09 → 3SUR 20:00
PROVIDERS: ADMIT Hospitalist; ATTEND Hospitalist
DX: R10.13 Epigastric pain (principal); K28.9 Gastrojejunal ulcer, unspecified as acute or chronic, without hemorrhage or perforation; K21.9 Gastro-esophageal reflux disease without esophagitis; K44.0 Diaphragmatic hernia with obstruction, without gangrene; Z98.890 Other specified postprocedural states; J45.20 Mild intermittent asthma, uncomplicated; G35 Multiple sclerosis; I48.91 Unspecified atrial fibrillation; G47.33 Obstructive sleep apnea (adult) (pediatric); Z99.89 Dependence on other enabling machines and devices; E87.5 Hyperkalemia; M79.7 Fibromyalgia; M19.90 Unspecified osteoarthritis, unspecified site; L98.9 Disorder of the skin and subcutaneous tissue, unspecified; K76.9 Liver disease, unspecified; F03.90 Unspecified dementia, unspecified severity, without behavioral disturbance, psychotic disturbance, mood disturbance, and anxiety; K57.90 Diverticulosis of intestine, part unspecified, without perforation or abscess without bleeding; K58.0 Irritable bowel syndrome with diarrhea; I83.90 Asymptomatic varicose veins of unspecified lower extremity; G44.009 Cluster headache syndrome, unspecified, not intractable; N32.81 Overactive bladder; D64.9 Anemia, unspecified; M19.91 Primary osteoarthritis, unspecified site; Z68.43 Body mass index [BMI] 50.0-59.9, adult; E66.01 Morbid (severe) obesity due to excess calories; N28.89 Other specified disorders of kidney and ureter; F41.0 Panic disorder [episodic paroxysmal anxiety]; F32.9 Major depressive disorder, single episode, unspecified; F41.9 Anxiety disorder, unspecified; Z79.899 Other long term (current) drug therapy; Z88.6 Allergy status to analgesic agent; Z91.038 Other insect allergy status; Z88.5 Allergy status to narcotic agent; Z88.7 Allergy status to serum and vaccine; Z91.048 Other nonmedicinal substance allergy status; Z90.89 Acquired absence of other organs; Z98.84 Bariatric surgery status; Z90.49 Acquired absence of other specified parts of digestive tract; Z90.710 Acquired absence of both cervix and uterus; I25.2 Old myocardial infarction; Z86.69 Personal history of other diseases of the nervous system and sense organs; Z83.2 Family history of diseases of the blood and blood-forming organs and certain disorders involving the immune mechanism; Z82.0 Family history of epilepsy and other diseases of the nervous system; Z82.69 Family history of other diseases of the musculoskeletal system and connective tissue; Z80.8 Family history of malignant neoplasm of other organs or systems; Z81.8 Family history of other mental and behavioral disorders
CPT/HCPCS: 99285 ×2; 96374 ×2; 96375 ×3; 96376 ×5; 96361 ×2; 96372 ×2; 36415; 93005; 80048 ×2; 80076; 83605; 83690 ×2; 83735; 84484; 85025 ×2; 81001; 87324; 87086; 87045; 87077; 87186; 87046; 71275; 74174; G0378 ×3; J2405 ×3; J1650 ×2; J0696; C9113; Q9967

== ENCOUNTER → 2018-01-26 | Outpatient (CLI) | payer OTHER ==
[2018-01-26 15:35] VITALS: BMI 56.2
[2018-01-26 15:50] VITALS: BP 149/82; PULSE 87; RESP 14; TEMP 97.6
--- NOTE | 2018-01-26 15:50 | P.PN ---
Subjective Progress Note Date: 01/26/18 HPI: She started vomiting 2 weeks after surgery. She came to the ER after wretching. She reports diarrhea. She reports diarrhea of oikos yogurt and had orange juice. She denies any pain with her urination. ABDOMEN: Looks great of incisions. Panniculitis. STUDIES: CT shows recurrent hernia. PLAN: 1. Potentional colitis. 2. Flagyl 3. Follow up in 2 weeks
== END | disposition home or self-care (01) ==
LOC: BARWHC3 14:16
PROVIDERS: ATTEND Surgery Plastic and Reconstructive Surgery
DX: R11.10 Vomiting, unspecified (principal); E66.01 Morbid (severe) obesity due to excess calories; R19.7 Diarrhea, unspecified; K46.9 Unspecified abdominal hernia without obstruction or gangrene; Z68.43 Body mass index [BMI] 50.0-59.9, adult
CPT/HCPCS: 97803; G0463; 99211

== ENCOUNTER → 2018-02-09 | Outpatient (CLI) | payer OTHER ==
[2018-02-09 16:59] VITALS: BP 106/69; PULSE 77; RESP 16; TEMP 98.2; BMI 54.9
--- NOTE | 2018-02-09 17:14 | P.PN ---
Subjective Progress Note Date: 02/09/18 HPI: Her abdominal pain has improved. She has lost another 10 pounds in 1 month. She reports painful panniculitis. ABDOMEN: Incision has granulated. PLAN: 1. Continue Nystatin powder. 2. Labs today. 3. Recurrent hiatal hernia repair on hold pending additional weight loss. 4. Recommend 40 pounds weight loss as her highest weight was 426 pounds prior to panniculectomy. 5. Stage III/pureed bariatric diet advised. 6. Monthly weight loss visits. Objective - Vital Signs Vital signs: Vital Signs Temp 98.2 F 02/09/18 16:55 Pulse 77 02/09/18 16:55 Resp 16 02/09/18 16:55 BP 106/69 02/09/18 16:55 Pulse Ox Intake & Output 02/08/18 02/09/18 02/09/18 18:59 06:59 18:59 Weight 163.974 kg
[2018-02-09 17:33] LABS: HCT 42.5 % (34.0-46.0); HGB 13.5 gm/dL (11.4-16.0); MCH 27.8 pg (25.0-35.0); MCHC 31.8 g/dL (31.0-37.0); MCV 87.6 fL (80.0-100.0); Mean Platelet Volume 8.5; Platelet Count 192 k/uL (150-450); RBC 4.85 m/uL (3.80-5.40); RDW 13.9 % (11.5-15.5); WBC 4.9 k/uL (3.8-10.6)
[2018-02-09 17:41] LABS: Partial Thromboplastin Time 26.4 sec (22.0-30.0)
[2018-02-09 17:55] LABS: ALT 36 U/L (9-52); AST 20 U/L (14-36); Albumin 3.9 g/dL (3.5-5.0); Alkaline Phosphatase 92 U/L (38-126); Anion Gap 8 mmol/L; Blood Urea Nitrogen 15 mg/dL (7-17); Calcium 9.2 mg/dL (8.4-10.2); Carbon Dioxide 26 mmol/L (22-30); Chloride 107 mmol/L (98-107); Cholesterol 164 mg/dL (<200); Glucose 95 mg/dL (74-99); HDL Cholesterol 53 mg/dL (40-60); LDL Cholesterol,Calculated 84 mg/dL (0-99); Phosphorus 4.4 mg/dL (2.5-4.5); Potassium 4.6 mmol/L (3.5-5.1); Sodium 141 mmol/L (137-145); Total Bilirubin 0.4 mg/dL (0.2-1.3); Total Protein 6.2 g/dL (6.3-8.2); Triglycerides 135 mg/dL (<150)
[2018-02-10 00:14] LABS: Iron Saturation 22.11 (12.00-45.00)
[2018-02-10 00:28] LABS: Vitamin D 25 Hydroxy 23.7 ng/mL (30.0-100.0)
[2018-02-10 00:30] LABS: Folate, Serum 6.8 ng/mL
[2018-02-10 00:44] LABS: Parathyroid Hormone Intact 93.7 pg/mL (14.0-72.0)
[2018-02-10 02:37] LABS: Hemoglobin A1C 5.3 % (4.0-6.0)
[2018-02-10 11:46] LABS: Zinc, Serum 90 ug/dL (60-130)
[2018-02-10 12:51] LABS: Vitamin B1 48 ug/L (38-122)
[2018-02-11 07:02] LABS: Vitamin A 43 ug/dL (38-106)
[2018-02-11 18:30] LABS: Selenium 93 mcg/L (63-160)
== END | disposition home or self-care (01) ==
LOC: BARWHC3 15:21
PROVIDERS: ATTEND Surgery Plastic and Reconstructive Surgery
DX: M79.3 Panniculitis, unspecified (principal); E66.01 Morbid (severe) obesity due to excess calories; E21.1 Secondary hyperparathyroidism, not elsewhere classified; D50.9 Iron deficiency anemia, unspecified; E89.1 Postprocedural hypoinsulinemia; K90.9 Intestinal malabsorption, unspecified; E55.9 Vitamin D deficiency, unspecified; K74.1 Hepatic sclerosis; N19 Unspecified kidney failure; K50.90 Crohn's disease, unspecified, without complications; Z79.899 Other long term (current) drug therapy; Z68.43 Body mass index [BMI] 50.0-59.9, adult
CPT/HCPCS: 84255; 84134; 84425; 80061; 80053; 82607; 82728; 82525; 82746; 83540; 83550; 83735; 84100; 84443; 84590; 84630; 85027; 85610; 85730; 82306; 83970; 83036; 36415; G0463; 99211

== ENCOUNTER → 2018-03-16 | Outpatient (CLI) | payer OTHER ==
[2018-03-16 13:48] VITALS: BP 135/81; PULSE 72; RESP 16; TEMP 99.6; BMI 54.7
--- NOTE | 2018-03-16 14:01 | P.PN ---
Subjective Progress Note Date: 03/16/18 HPI: She feels well. She reports food getting stuck when she eats. She had a taco bowl without the taco. She ABDOMEN: She has mild bulge along the right upper abdomen off the midline PLAN: 1. Upper endoscopy for dysphagia. 2. She has severe panniculitis. 3. Recommend 2 week diet for 4 weeks. Objective - Vital Signs Vital signs: Vital Signs Temp 99.6 F 03/16/18 13:45 Pulse 72 03/16/18 13:45 Resp 16 03/16/18 13:45 BP 135/81 03/16/18 13:45 Pulse Ox Intake & Output 03/15/18 03/16/18 03/16/18 18:59 06:59 18:59 Weight 163.293 kg
== END | disposition home or self-care (01) ==
LOC: BARWHC3 13:02
PROVIDERS: ATTEND Surgery Plastic and Reconstructive Surgery
DX: R19.01 Right upper quadrant abdominal swelling, mass and lump (principal)
CPT/HCPCS: 99211

== ENCOUNTER → 2018-04-12 | Outpatient (CLI) | payer OTHER | LOC: LABWHC1 13:26 → EDSTATUS 16:37 | PROVIDERS: ATTEND Family Medicine | DX: R19.7 Diarrhea, unspecified (principal) | CPT/HCPCS: 36415; 86709; 87045; 87046; 87328; 87329 ==

== ENCOUNTER 2018-05-02 09:59 | Day surgery (SDC) | payer OTHER ==
[2018-04-27 12:13] VITALS: BMI 50.2
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
[~2018-05-02 09:59] MED LIST changes: -ACETAMINOPHEN IV (For NPO) 1,000 MG in EMPTY BAG 1 BAG IVPB ONE; -CHLORHEXIDINE GLUCONATE 15 ML CUP MUCOUS MEM ONE; -DEXAMETHASONE SOD PHOSPHATE 10 MG/ML 1 ML VIAL IV ONE; -ENOXAPARIN 40 MG/0.4 ML SYRINGE SQ ONE; +LACTATED RINGERS 1,000 ML IV SCH; +LIDOCAINE 1% 20 ML VIAL (10MG/ML) FOR IV START INTRADERMA PRN; -MIDAZOLAM 2 MG/2 ML VIAL IV PRN; -PANTOPRAZOLE 40 MG/10 ML VIAL IV STA; -SCOPOLAMINE 1.5MG/72HR PATCH TRANSDERM ONE
[2018-05-02 10:20] LABS: Glucose,Whole Blood 88 mg/dL (75-99)
[2018-05-02 10:21] VITALS: RESP 16; TEMP 97.3
[2018-05-02] MEDS ORDERED: MIDAZOLAM 2 MG/2 ML VIAL ONE (10:35)
[2018-05-02] MEDS ORDERED: KETAMINE 10 MG/ML 20 ML VIAL ONE (10:35)
[2018-05-02] MEDS ORDERED: LIDOCAINE 1% INJ 10MG/ML (20 ML MDV) ONE (10:35)
[2018-05-02] MEDS ORDERED: PROPOFOL 10 MG/ML 20 ML VIAL IV ONE (10:35)
--- NOTE | 2018-05-02 11:08 | P.PCN ---
Date of Procedure: 05/02/18 Description of Procedure: PREOPERATIVE DIAGNOSIS: Dysphagia. s/p Domenico-en-y gastric bypass. Nausea with vomiting. Morbid obesity. Epigastric abdominal pain History of hiatal hernia Previous history of gastric gastric fistula POSTOPERATIVE DIAGNOSIS: Dysphagia. s/p Domenico-en-y gastric bypass. Nausea with vomiting. Morbid obesity. Epigastric abdominal pain History of hiatal hernia OPERATION: Esophagogastrojejunoscopy SURGEON: Chelsea Buchanan MD ANESTHESIA: MAC. INDICATIONS: The patient is a 62-year-old female who presents with a history of dysphagia include previous history repair of hiatal hernia. Additional studies demonstrates a recurrence. Benefits and risks of the procedure were described. Informed consent was obtained. DESCRIPTION: The patient was brought into the endoscopy suite and laid in the left lateral decubitus position. After a timeout was confirmed, the procedure was initiated. An Olympus gastroscope was passed along the posterior oropharynx down to the distal esophagus where the squamocolumnar junction was unremarkable. The gastric pouch was entered. No gastrojejunal stricture was found as the adult gastroscope was 9.5 mm in size. No chronic gastrojejunal marginal ulcer was encountered. The GI tract was desufflated. The patient tolerated the procedure well. FINDINGS: Squamocolumnar junction unremarkable at 38 cm No stricture No chronic gastrojejunal ulceration encountered No large recurrent diaphragmatic hiatal hernia identified No gastric gastric fistula RECOMMENDATIONS: Upper endoscopy as needed Plan - Discharge Summary New Discharge Prescriptions: No Action EPINEPHrine (Auto Inject) [Epipen] 0.3 mg IM ONCE PRN PRN Reason: Anaphylaxis Sertraline [Zoloft] 200 mg PO QAM Cetirizine HCl 10 mg PO HS Buta/APAP/Caf/Cod [id number] [Fioricet w/Cod [id number]] 1 tab PO BID PRN PRN Reason: migraines rOPINIRole HCL 0.5 mg PO QAM rOPINIRole HCL 1 mg PO HS oxyCODONE-APAP 5-325MG [Percocet 5-325 mg] 1 tab PO Q8H PRN PRN Reason: Pain Albuterol Sulfate [Proair Hfa] 1 - 2 puff INHALATION RT-Q6H PRN PRN Reason: Shortness Of Breath Clobetasol Propionate/Emoll [Temovate Emollient 0.05% Crm] 1 applic TOPICAL TID traZODone HCL 150 mg PO HS ARIPiprazole [Abilify] 5 mg PO HS Gabapentin [Neurontin] 600 mg PO TID Oxybutynin Chloride [Ditropan] 5 mg PO TID Potassium Chloride [Klor-Con 8] 8 meq PO DAILY Furosemide [Lasix] 40 mg PO DAILY Nitroglycerin Sl Tabs [Nitrostat] 0.4 mg SUBLINGUAL Q5M PRN PRN Reason: Chest Pain Triamcinolone 0.1% Cream [Kenalog 0.1% Cream] 1 applic TOPICAL BID valACYclovir [Valtrex] 500 mg PO BID PRN PRN Reason: GENITAL HERPES Mupirocin [Bactroban Oint] 1 applic TOPICAL TID Nystatin 100,000Unit/gm Cream [Mycostatin Cream] 1 applic TOPICAL TID #30 gm Nystatin 100,000 Unit/gm Powd [Mycostatin Powder] 1 applic TOPICAL TID #60 gm Pantoprazole [Protonix] 40 mg PO AC-BID #60 tablet. Ergocalciferol [Vitamin D2 (DRISDOL)] 50,000 unit PO FR Diphenox-Atrop 2.5-0.025 mg [Lomotil] 1 - 2 tab PO QID PRN PRN Reason: Diarrhea Discharge Medication List Buta/APAP/Caf/Cod [id number] [Fioricet w/Cod 22-050-24-30MG] 1 tab PO BID PRN 11/20/14 [History] Cetirizine HCl 10 mg PO HS 11/20/14 [History] EPINEPHrine (Auto Inject) [Epipen] 0.3 mg IM ONCE PRN 11/20/14 [History] Sertraline [Zoloft] 200 mg PO QAM 11/20/14 [History] rOPINIRole HCL 0.5 mg PO QAM 11/20/14 [History] rOPINIRole HCL 1 mg PO HS 11/20/14 [History] oxyCODONE-APAP 5-325MG [Percocet 5-325 mg] 1 tab PO Q8H PRN 02/18/15 [History] Albuterol Sulfate [Proair Hfa] 1 - 2 puff INHALATION RT-Q6H PRN 03/15/15 [ History] Clobetasol Propionate/Emoll [Temovate Emollient 0.05% Crm] 1 applic TOPICAL TID 03/15/15 [History] ARIPiprazole [Abilify] 5 mg PO HS 05/17/15 [History] traZODone HCL 150 mg PO HS 05/17/15 [History] Gabapentin [Neurontin] 600 mg PO TID 10/10/15 [History] Oxybutynin Chloride [Ditropan] 5 mg PO TID 05/05/16 [History] Potassium Chloride [Klor-Con 8] 8 meq PO DAILY 05/05/16 [History] Furosemide [Lasix] 40 mg PO DAILY 06/04/16 [History] Nitroglycerin Sl Tabs [Nitrostat] 0.4 mg SUBLINGUAL Q5M PRN 06/04/16 [History] Triamcinolone 0.1% Cream [Kenalog 0.1% Cream] 1 applic TOPICAL BID 06/04/16 [ History] valACYclovir [Valtrex] 500 mg PO BID PRN 06/04/16 [History] Mupirocin [Bactroban Oint] 1 applic TOPICAL TID 03/05/17 [History] Nystatin 100,000 Unit/gm Powd [Mycostatin Powder] 1 applic TOPICAL TID #60 gm [Rx] Nystatin 100,000Unit/gm Cream [Mycostatin Cream] 1 applic TOPICAL TID #30 gm 05/14 [Rx] Pantoprazole [Protonix] 40 mg PO AC-BID #60 tablet. 01/23/18 [Rx] Ergocalciferol [Vitamin D2 (DRISDOL)] 50,000 unit PO FR 04/27/18 [History] Diphenox-Atrop 2.5-0.025 mg [Lomotil] 1 - 2 tab PO QID PRN 05/02/18 [History]
[2018-05-02 11:23] VITALS: BP 118/80; PULSE 70
== END 2018-05-02 11:46 | disposition home or self-care (01) ==
LOC: ORWHC2ENDO 09:59
PROVIDERS: ATTEND Surgery Plastic and Reconstructive Surgery
DX: K21.9 Gastro-esophageal reflux disease without esophagitis (principal); E66.01 Morbid (severe) obesity due to excess calories; G43.909 Migraine, unspecified, not intractable, without status migrainosus; I48.91 Unspecified atrial fibrillation; J45.909 Unspecified asthma, uncomplicated; I25.2 Old myocardial infarction; G35 Multiple sclerosis; F39 Unspecified mood [affective] disorder; F41.0 Panic disorder [episodic paroxysmal anxiety]; G47.33 Obstructive sleep apnea (adult) (pediatric); I25.10 Atherosclerotic heart disease of native coronary artery without angina pectoris; M19.90 Unspecified osteoarthritis, unspecified site; F03.90 Unspecified dementia, unspecified severity, without behavioral disturbance, psychotic disturbance, mood disturbance, and anxiety; F32.9 Major depressive disorder, single episode, unspecified; M79.7 Fibromyalgia; Z98.84 Bariatric surgery status; Z90.710 Acquired absence of both cervix and uterus; Z79.899 Other long term (current) drug therapy; Z88.5 Allergy status to narcotic agent; Z88.7 Allergy status to serum and vaccine; Z91.048 Other nonmedicinal substance allergy status; Z88.6 Allergy status to analgesic agent; Z98.61 Coronary angioplasty status; Z68.43 Body mass index [BMI] 50.0-59.9, adult
CPT/HCPCS: 43235; J2250; J2001; J2704

== ENCOUNTER → 2018-05-10 | Outpatient (CLI) | payer OTHER ==
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
== END ==
LOC: SLEEP 13:32
PROVIDERS: ATTEND Internal Medicine Critical Care Medicine
DX: G47.33 Obstructive sleep apnea (adult) (pediatric) (principal); E66.01 Morbid (severe) obesity due to excess calories; F32.9 Major depressive disorder, single episode, unspecified; F41.9 Anxiety disorder, unspecified; G47.21 Circadian rhythm sleep disorder, delayed sleep phase type; K21.9 Gastro-esophageal reflux disease without esophagitis; K52.9 Noninfective gastroenteritis and colitis, unspecified; G43.909 Migraine, unspecified, not intractable, without status migrainosus; G25.81 Restless legs syndrome; K08.109 Complete loss of teeth, unspecified cause, unspecified class; Z88.5 Allergy status to narcotic agent; Z88.6 Allergy status to analgesic agent; Z88.8 Allergy status to other drugs, medicaments and biological substances; Z79.1 Long term (current) use of non-steroidal anti-inflammatories (NSAID); Z79.899 Other long term (current) drug therapy; Z68.44 Body mass index [BMI] 60.0-69.9, adult
CPT/HCPCS: 99211

== ENCOUNTER → 2018-06-01 | Outpatient (CLI) | payer OTHER ==
--- NOTE | 2018-06-01 14:16 | P.PN ---
Subjective Progress Note Date: 06/01/18 HPI: She has regained 9 pounds in 3 months. She has diarrhea for 2.5 months. She has now been placed on lomotil. She reports lower abdominal pain. She was 426 pounds. She uses nystatin powder for panniculitis. ABDOMEN: Nontender. A/P: 1. Colonoscopy advised for colitis. 2. She reports no change in medications in the last 3 months. 3. Dietitian to correct dumping syndrome.
[2018-06-01 14:20] VITALS: BP 126/82; PULSE 69; TEMP 97.8; BMI 56.1
== END | disposition home or self-care (01) ==
LOC: BARWHC3 13:39
PROVIDERS: ATTEND Surgery Plastic and Reconstructive Surgery
DX: R10.30 Lower abdominal pain, unspecified (principal); R19.7 Diarrhea, unspecified
CPT/HCPCS: 99211

== ENCOUNTER 2018-07-10 09:53 | Emergency (ER) | payer OTHER ==
[2018-07-10] MEDS ORDERED: IPRATROPIUM-ALBUTEROL 3 ML NEB INHALATION STA (10:26)
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
--- NOTE | 2018-07-10 10:48 | XR ---
EXAMINATION TYPE: XR chest 2V DATE OF EXAM: 07/10/2018 HISTORY: Cough/pain. REFERENCE: Previous study dated 05/17/2015. FINDINGS: Heart size upper limits of normal. The lungs are clear. Pleural spaces are clear. There is colonic interposition present on the left. IMPRESSION: BORDERLINE CARDIOMEGALY.
[2018-07-10 11:34] VITALS: BP 137/73; PULSE 85; RESP 22; TEMP 98.2
== END 2018-07-10 11:30 | disposition home or self-care (01) ==
LOC: EC 09:53
DX: J45.901 Unspecified asthma with (acute) exacerbation (principal); J04.0 Acute laryngitis; J02.9 Acute pharyngitis, unspecified; F32.9 Major depressive disorder, single episode, unspecified; F41.0 Panic disorder [episodic paroxysmal anxiety]; N32.81 Overactive bladder; G35 Multiple sclerosis; I25.2 Old myocardial infarction; F03.90 Unspecified dementia, unspecified severity, without behavioral disturbance, psychotic disturbance, mood disturbance, and anxiety; M79.7 Fibromyalgia; M19.90 Unspecified osteoarthritis, unspecified site; Z88.5 Allergy status to narcotic agent; Z88.6 Allergy status to analgesic agent; Z88.7 Allergy status to serum and vaccine; Z91.048 Other nonmedicinal substance allergy status; Z79.1 Long term (current) use of non-steroidal anti-inflammatories (NSAID); Z79.52 Long term (current) use of systemic steroids; Z79.899 Other long term (current) drug therapy; Z86.2 Personal history of diseases of the blood and blood-forming organs and certain disorders involving the immune mechanism; Z87.2 Personal history of diseases of the skin and subcutaneous tissue
CPT/HCPCS: 71046; 94640; 99285

== ENCOUNTER → 2018-07-18 | Outpatient (CLI) | payer OTHER ==
--- NOTE | 2018-07-18 17:15 | ECHOF ---
Referral Reason:I51.7 Cardiomegaly MEASUREMENTS -------- HEIGHT: 157.5 cm WEIGHT: 163.3 kg BP: IVSd: 1.3 cm (0.6 - 1.1) LVIDd: 3.6 cm (3.9 - 5.3) LVPWd: 1.2 cm (0.6 - 1.1) IVSs: 1.7 cm LVIDs: 3.0 cm LVPWs: 1.4 cm LAESV Index (A-L): 36.23 ml/m Ao Diam: 3.6 cm (2.0 - 3.7) LA Diam: 5.0 cm (2.7 - 3.8) AV Cusp: 1.6 cm (1.5 - 2.6) EPSS: 0.8 cm MV E Pernell: 0.50 m/s MV DecT: 294 ms MV A Pernell: 0.75 m/s MV E/A Ratio: 0.67 RAP: 5.00 mmHg RVSP: 39.23 mmHg MV EF SLOPE: 103.63 mm/s (70 - 150) MV EXCURSION: 16.79 mm (> 18.000) FINDINGS -------- Sinus rhythm. Morbid Obesity The left ventricular size is normal. There is borderline concentric left ventricular hypertrophy. Overall left ventricular systolic function is normal with, an EF between 55 - 60 %. The right ventricle is normal in size. The left atrium is mildly dilated. LA is moderately dilated 34-39 ml/m2 The right atrial size is normal. The aortic valve is trileaflet, and appears structurally normal. No aortic stenosis or regurgitation. Mild mitral annular calcification present. Mild mitral regurgitation is present. Mild tricuspid regurgitation present. There is mild pulmonary hypertension. The right ventricular systolic pressure, as measured by Doppler, is 39.23mmHg. The pulmonic valve was not well visualized. The aortic root size is normal. There is no pericardial effusion. CONCLUSIONS -------- 1. Morbid Obesity 2. The left ventricular size is normal. 3. There is borderline concentric left ventricular hypertrophy. 4. Overall left ventricular systolic function is normal with, an EF between 55 - 60 %. 5. The right ventricle is normal in size. 6. The left atrium is mildly dilated. 7. The right atrial size is normal. 8. The aortic valve is trileaflet, and appears structurally normal. No aortic stenosis or regurgitati on. 9. Mild mitral annular calcification present. 10. Mild mitral regurgitation is present. 11. Mild tricuspid regurgitation present. 12. There is mild pulmonary hypertension. 13. The right ventricular systolic pressure, as measured by Doppler, is 39.23mmHg. 14. The pulmonic valve was not well visualized. 15. The aortic root size is normal. 16. There is no pericardial effusion. VIDEO RENTAL CLERK: Herlinda Boone RDCS
== END | disposition home or self-care (01) ==
LOC: RADECHMAIN 11:28
PROVIDERS: ATTEND Family Medicine
DX: I08.1 Rheumatic disorders of both mitral and tricuspid valves (principal); I27.20 Pulmonary hypertension, unspecified; E66.01 Morbid (severe) obesity due to excess calories
CPT/HCPCS: 93306

== ENCOUNTER 2018-07-20 01:43 | Observation (INO) | payer OTHER ==
[2018-07-20] MEDS ORDERED: CLOPIDOGREL 75 MG TAB PO STA (02:25)
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
--- NOTE | 2018-07-20 02:43 | XR ---
EXAMINATION TYPE: XR chest 2V DATE OF EXAM: 07/20/2018 COMPARISON: 07/10/2018 HISTORY: Short of breath TECHNIQUE: Frontal and lateral views of the chest are obtained. FINDINGS: There is no heart failure nor confluent pneumonic infiltrate. Costophrenic angles are oscar r. There are chest leads. Bony thorax is intact. IMPRESSION: No active cardiopulmonary disease. No change.
[2018-07-20 02:55] LABS: Basophils % (A) 1 %; Eosinophils # (A) 0.2 k/uL (0-0.7); Eosinophils % (A) 5 %; HCT 36.8 % (34.0-46.0); HGB 11.8 gm/dL (11.4-16.0); Lymphocytes # (A) 0.9 k/uL (1.0-4.8); Lymphocytes % (A) 20 %; MCH 28.5 pg (25.0-35.0); MCHC 32.1 g/dL (31.0-37.0); Mean Platelet Volume 7.7; Monocytes # (A) 0.3 k/uL (0-1.0); Monocytes % (A) 7 %; Neutrophils # (A) 3.1 k/uL (1.3-7.7); Neutrophils % (A) 66 %; Platelet Count 203 k/uL (150-450); RBC 4.14 m/uL (3.80-5.40); RDW 14.2 % (11.5-15.5); WBC 4.7 k/uL (3.8-10.6)
[2018-07-20 03:12] LABS: INR 0.9 (<1.2); Partial Thromboplastin Time 26.8 sec (22.0-30.0); Prothrombin Time 9.7 sec (9.0-12.0)
[2018-07-20 03:16] LABS: ALT 39 U/L (9-52); AST 31 U/L (14-36); Albumin 3.3 g/dL (3.5-5.0); Alkaline Phosphatase 95 U/L (38-126); Anion Gap 4 mmol/L; Blood Urea Nitrogen 18 mg/dL (7-17); Calcium 8.4 mg/dL (8.4-10.2); Carbon Dioxide 26 mmol/L (22-30); Chloride 107 mmol/L (98-107); Glucose 90 mg/dL (74-99); Magnesium 2.1 mg/dL (1.6-2.3); Potassium 4.7 mmol/L (3.5-5.1); Sodium 137 mmol/L (137-145); Total Bilirubin 0.5 mg/dL (0.2-1.3); Total Protein 5.7 g/dL (6.3-8.2)
[2018-07-20 03:20] LABS: Creatine Kinase 42 U/L (30-135)
[2018-07-20] MEDS ORDERED: NITROGLYCERIN SL TABS 0.4 MG TAB SUBLINGUAL PRN (03:22)
[2018-07-20 03:33] LABS: Creatine Kinase MB 0.6 ng/mL (0.0-2.4); Troponin I <0.012 ng/mL (0.000-0.034)
[2018-07-20 04:25] VITALS: RESP 18
[2018-07-20 04:36] VITALS: BMI 51.6
[2018-07-20 08:03] LABS: Creatine Kinase 34 U/L (30-135)
[2018-07-20 08:15] LABS: Creatine Kinase MB 0.4 ng/mL (0.0-2.4); Troponin I <0.012 ng/mL (0.000-0.034)
[2018-07-20] MEDS ORDERED: CLOPIDOGREL 75 MG TAB PO SCH (09:00)
[2018-07-20] MEDS ORDERED: POLYETHYLENE GLYCOL 3350 17 GM POWD.PACK PO PRN (10:44)
[2018-07-20] MEDS ORDERED: ONDANSETRON 4 MG TAB PO PRN (10:44)
[2018-07-20] MEDS ORDERED: MECLIZINE 25 MG TAB PO PRN (10:44)
[2018-07-20] MEDS ORDERED: CLOBETASOL PROP 0.05% CR 15GM TOPICAL PRN (10:44)
[2018-07-20] MEDS ORDERED: TRIAMCINOLONE 0.1% CREAM 80 GM TUBE TOPICAL PRN (10:44)
[2018-07-20] MEDS ORDERED: NYSTATIN 100,000 UNIT/GM POWD 15 GM TOPICAL PRN (10:44)
[2018-07-20] MEDS ORDERED: NYSTATIN 100,000UNIT/GM CREAM 30 GM TUBE TOPICAL PRN (10:44)
[2018-07-20] MEDS ORDERED: traZODone HCL 100 MG TAB PO PRN (10:44)
[2018-07-20] MEDS ORDERED: ALBUTEROL NEBULIZED 2.5 MG/3 ML INHALATION PRN (10:44)
[2018-07-20] MEDS ORDERED: DIPHENOX-ATROP 2.5-0.025 MG 1 EACH TAB PO SCH (10:45)
[2018-07-20] MEDS ORDERED: POTASSIUM CHLORIDE ER 10 MEQ TAB.ER.PRT PO SCH (11:00)
[2018-07-20] MEDS ORDERED: valACYclovir 500 MG TAB PO SCH (11:00)
[2018-07-20] MEDS ORDERED: FUROSEMIDE 40 MG TAB PO SCH (11:00)
[2018-07-20] MEDS ORDERED: SERTRALINE 100 MG TAB PO SCH (11:00)
[2018-07-20] MEDS ORDERED: NAPROXEN 250 MG TAB PO SCH (11:00)
[2018-07-20] MEDS ORDERED: OXYBUTYNIN 10 MG TAB.ER.24 PO SCH (11:00)
[2018-07-20] MEDS: PANTOPRAZOLE 40 MG TABLET PO SCH ×2 (11:23→17:44)
[2018-07-20] MEDS: oxyCODONE-APAP 5-325MG 1 EACH TAB PO SCH ×2 (11:23→16:13)
[2018-07-20] MEDS: MUPIROCIN 2% OINT 22 GM TUBE TOPICAL SCH ×2 (11:51→16:12)
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
[2018-07-20 14:53] LABS: Creatine Kinase 34 U/L (30-135)
[2018-07-20 15:04] LABS: Creatine Kinase MB 0.4 ng/mL (0.0-2.4); Troponin I <0.012 ng/mL (0.000-0.034)
[2018-07-20 15:27] VITALS: BP 112/72; PULSE 65; TEMP 97.9
[2018-07-20] MEDS ORDERED: GABAPENTIN 300 MG CAP PO SCH (16:00)
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
[2018-07-20] MEDS ORDERED: LORATADINE 10 MG TAB PO SCH (21:00)
[2018-07-20] MEDS ORDERED: ARIPiprazole 5 MG TAB PO SCH (21:00)
[2018-07-22] MEDS ORDERED: ERGOCALCIFEROL 50,000 UNIT CAP PO SCH (12:00)
== END 2018-07-20 18:49 | disposition home or self-care (01) ==
LOC: EC 01:43 → 1SOBS 03:23
PROVIDERS: ADMIT Hospitalist; ATTEND Hospitalist
DX: R07.89 Other chest pain (principal); J45.20 Mild intermittent asthma, uncomplicated; G35 Multiple sclerosis; M79.7 Fibromyalgia; K21.9 Gastro-esophageal reflux disease without esophagitis; J06.9 Acute upper respiratory infection, unspecified; G47.33 Obstructive sleep apnea (adult) (pediatric); F03.90 Unspecified dementia, unspecified severity, without behavioral disturbance, psychotic disturbance, mood disturbance, and anxiety; M19.90 Unspecified osteoarthritis, unspecified site; K76.9 Liver disease, unspecified; Z99.89 Dependence on other enabling machines and devices; S29.011A Strain of muscle and tendon of front wall of thorax, initial encounter; X58.XXXA Exposure to other specified factors, initial encounter; E66.01 Morbid (severe) obesity due to excess calories; Z68.43 Body mass index [BMI] 50.0-59.9, adult; G44.009 Cluster headache syndrome, unspecified, not intractable; I27.20 Pulmonary hypertension, unspecified; K57.90 Diverticulosis of intestine, part unspecified, without perforation or abscess without bleeding; M77.32 Calcaneal spur, left foot; F41.0 Panic disorder [episodic paroxysmal anxiety]; F32.9 Major depressive disorder, single episode, unspecified; F41.9 Anxiety disorder, unspecified; I48.91 Unspecified atrial fibrillation; M19.91 Primary osteoarthritis, unspecified site; N28.89 Other specified disorders of kidney and ureter; N32.81 Overactive bladder; D64.9 Anemia, unspecified; K58.9 Irritable bowel syndrome, unspecified; I83.90 Asymptomatic varicose veins of unspecified lower extremity; Z79.899 Other long term (current) drug therapy; Z88.6 Allergy status to analgesic agent; Z91.038 Other insect allergy status; Z88.5 Allergy status to narcotic agent; Z88.7 Allergy status to serum and vaccine; Z91.048 Other nonmedicinal substance allergy status; Z87.19 Personal history of other diseases of the digestive system; I25.2 Old myocardial infarction; Z86.39 Personal history of other endocrine, nutritional and metabolic disease; Z90.49 Acquired absence of other specified parts of digestive tract; Z98.84 Bariatric surgery status; Z90.710 Acquired absence of both cervix and uterus; Z87.11 Personal history of peptic ulcer disease; Z87.01 Personal history of pneumonia (recurrent); Z87.2 Personal history of diseases of the skin and subcutaneous tissue; Z82.0 Family history of epilepsy and other diseases of the nervous system; Z82.69 Family history of other diseases of the musculoskeletal system and connective tissue; Z83.2 Family history of diseases of the blood and blood-forming organs and certain disorders involving the immune mechanism; Z80.8 Family history of malignant neoplasm of other organs or systems; Z81.8 Family history of other mental and behavioral disorders
CPT/HCPCS: 99285; 36415; 94760; 93005; 83880; 80053; 82550; 82553; 83735; 84484; 85025; 85610; 85730; 71046; G0378

== ENCOUNTER 2018-08-11 09:20 | Day surgery (SDC) | payer OTHER ==
[2018-08-09 11:37] VITALS: BMI 51.6
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
[~2018-08-11 09:20] MED LIST changes: +MIDAZOLAM (PF) 2 MG/2 ML VIAL IV PRN
[2018-08-11 10:43] VITALS: RESP 16; TEMP 97.8
[2018-08-11 10:52] LABS: Glucose,Whole Blood 96 mg/dL (75-99)
[2018-08-11] MEDS ORDERED: PROPOFOL 10 MG/ML 20 ML VIAL IV ONE (11:10)
--- NOTE | 2018-08-11 11:39 | P.PCN ---
Date of Procedure: 08/11/18 Description of Procedure: PREOPERATIVE DIAGNOSIS: Altered bowel function with diarrhea POSTOPERATIVE DIAGNOSIS: Altered bowel function with diarrhea Colitis OPERATION: Colonoscopy to the ileocecal valve and appendiceal orifice. Colonoscopy with random cold forceps biopsies SURGEON: Chelsea Buchanan MD. ANESTHESIA: MAC. INDICATIONS: The patient is a 63-year-old female who presents with change in bowel habits and diarrhea. Benefits and risks were described and informed consent was obtained. DESCRIPTION OF PROCEDURE: The patient had undergone Gatorade, MiraLAX and Dulcolax prep. She had been brought into the operating room and laid in the left lateral decubitus position. After adequate intravenous sedation, the rectum was examined with 2% lidocaine jelly. External hemorrhoids were encountered. The rectal tone was within normal limits. No lesions were palpated in the rectal vault. An Olympus colonoscope was advanced until the ileocecal valve and appendiceal orifice were clearly viewed. The prep was poor with moderate liquid stools limiting view of the mucosal folds. No scattered diverticulosis was encountered. No colonic polyps were found. Random biopsies were obtained along the colon with cold forceps. Stool cultures were obtained. Retroflexion of the scope demonstrated grade 1 internal hemorrhoids without active bleeding or inflammation. The colon was desufflated. The patient had tolerated the procedure well. Withdrawal time was over 6 minutes. FINDINGS: Internal hemorrhoids, grade 1 External prolapsed hemorrhoids. No arteriovenous malformations. No adenomatous polyps. Random biopsies were obtained along the colon with cold forceps. Stool cultures were obtained. RECOMMENDATIONS: Lower endoscopy in 5 years, 2023 Follow-up with food dietary journal. Plan - Discharge Summary Discharge Rx Participant: Yes New Discharge Prescriptions: No Action EPINEPHrine (Auto Inject) [Epipen] 0.3 mg IM ONCE PRN PRN Reason: Anaphylaxis Sertraline [Zoloft] 200 mg PO QAM Cetirizine HCl 10 mg PO HS rOPINIRole HCL 0.5 mg PO QAM rOPINIRole HCL 1 mg PO HS oxyCODONE-APAP 5-325MG [Percocet 5-325 mg] 1 tab PO TID Clobetasol Propionate/Emoll [Temovate Emollient 0.05% Crm] 1 applic TOPICAL TID PRN PRN Reason: Rash ARIPiprazole [Abilify] 5 mg PO HS Furosemide [Lasix] 40 mg PO DAILY Nitroglycerin Sl Tabs [Nitrostat] 0.4 mg SUBLINGUAL Q5M PRN PRN Reason: Chest Pain Triamcinolone 0.1% Cream [Kenalog 0.1% Cream] 1 applic TOPICAL BID PRN PRN Reason: Rash valACYclovir [Valtrex] 500 mg PO BID Mupirocin [Bactroban Oint] 1 applic TOPICAL TID Pantoprazole [Protonix] 40 mg PO AC-BID #60 tablet. Ergocalciferol [Vitamin D2 (DRISDOL)] 50,000 unit PO FR traZODone HCL 150 mg PO HS PRN PRN Reason: SLEEP Ondansetron [Zofran] 4 g PO BID Meclizine [Antivert] 25 mg PO Q8H PRN PRN Reason: Nausea Naproxen 500 mg PO BID Gabapentin 600 mg PO TID Oxybutynin Chloride [Ditropan XL] 20 mg PO DAILY Potassium Chloride [Klor-Con 8] 8 meq PO BID Diphenox-Atrop 2.5-0.025 mg [Lomotil] 2 tab PO BID Nystatin 100,000 Unit/gm Powd [Mycostatin Powder] 1 applic TOPICAL TID PRN PRN Reason: Rash Nystatin 100,000Unit/gm Cream [Mycostatin Cream] 1 applic TOPICAL DAILY PRN PRN Reason: Rash Albuterol Inhaler [Ventolin Hfa Inhaler] 1 - 2 puff INHALATION RT-Q6H PRN PRN Reason: Dyspnea Beclomethasone Dipropionate [Qvar 80 mcg] 1 puff INHALATION BID Albuterol Nebulized [Ventolin Nebulized] 2.5 mg INHALATION DAILY PRN PRN Reason: Dyspnea Discharge Medication List Cetirizine HCl 10 mg PO HS 11/20/14 [History] EPINEPHrine (Auto Inject) [Epipen] 0.3 mg IM ONCE PRN 11/20/14 [History] Sertraline [Zoloft] 200 mg PO QAM 11/20/14 [History] rOPINIRole HCL 0.5 mg PO QAM 11/20/14 [History] rOPINIRole HCL 1 mg PO HS 11/20/14 [History] oxyCODONE-APAP 5-325MG [Percocet 5-325 mg] 1 tab PO TID 02/18/15 [History] Clobetasol Propionate/Emoll [Temovate Emollient 0.05% Crm] 1 applic TOPICAL TID PRN 03/15/15 [History] ARIPiprazole [Abilify] 5 mg PO HS 05/17/15 [History] Furosemide [Lasix] 40 mg PO DAILY 06/04/16 [History] Nitroglycerin Sl Tabs [Nitrostat] 0.4 mg SUBLINGUAL Q5M PRN 06/04/16 [History] Triamcinolone 0.1% Cream [Kenalog 0.1% Cream] 1 applic TOPICAL BID PRN 06/04/16 [History] valACYclovir [Valtrex] 500 mg PO BID 06/04/16 [History] Mupirocin [Bactroban Oint] 1 applic TOPICAL TID 03/05/17 [History] Pantoprazole [Protonix] 40 mg PO AC-BID #60 tablet. 01/23/18 [Rx] Ergocalciferol [Vitamin D2 (DRISDOL)] 50,000 unit PO FR 04/27/18 [History] Diphenox-Atrop 2.5-0.025 mg [Lomotil] 2 tab PO BID 07/10/18 [History] Gabapentin 600 mg PO TID 07/10/18 [History] Meclizine [Antivert] 25 mg PO Q8H PRN 07/10/18 [History] Naproxen 500 mg PO BID 07/10/18 [History] Ondansetron [Zofran] 4 g PO BID 07/10/18 [History] Oxybutynin Chloride [Ditropan XL] 20 mg PO DAILY 07/10/18 [History] Potassium Chloride [Klor-Con 8] 8 meq PO BID 07/10/18 [History] traZODone HCL 150 mg PO HS PRN 07/10/18 [History] Nystatin 100,000 Unit/gm Powd [Mycostatin Powder] 1 applic TOPICAL TID PRN 07/20 [History] Nystatin 100,000Unit/gm Cream [Mycostatin Cream] 1 applic TOPICAL DAILY PRN [History] Albuterol Inhaler [Ventolin Hfa Inhaler] 1 - 2 puff INHALATION RT-Q6H PRN [History] Albuterol Nebulized [Ventolin Nebulized] 2.5 mg INHALATION DAILY PRN 08/09/18 [ History] Beclomethasone Dipropionate [Qvar 80 mcg] 1 puff INHALATION BID 08/09/18 [ History] Follow up Appointment(s)/Referral(s): [facility] [NON-STAFF] - 08/31/18 Patient Instructions/Handouts: Irritable Bowel Syndrome (ED), Microscopic Colitis (DC) Activity/Diet/Wound Care/Special Instructions: Resume anti-diarrheal medication. Please keep food journal for 3 weeks Discharge Disposition: HOME SELF-CARE
[2018-08-11 12:02] VITALS: BP 98/53; PULSE 62
== END 2018-08-11 12:21 | disposition home or self-care (01) ==
LOC: ORWHC2ENDO 09:20
PROVIDERS: ATTEND Surgery Plastic and Reconstructive Surgery
DX: K52.9 Noninfective gastroenteritis and colitis, unspecified (principal); K64.4 Residual hemorrhoidal skin tags; K64.0 First degree hemorrhoids; G47.33 Obstructive sleep apnea (adult) (pediatric); I25.10 Atherosclerotic heart disease of native coronary artery without angina pectoris; I25.2 Old myocardial infarction; J45.909 Unspecified asthma, uncomplicated; I48.91 Unspecified atrial fibrillation; M19.90 Unspecified osteoarthritis, unspecified site; K21.9 Gastro-esophageal reflux disease without esophagitis; G43.909 Migraine, unspecified, not intractable, without status migrainosus; M79.7 Fibromyalgia; E66.01 Morbid (severe) obesity due to excess calories; F03.90 Unspecified dementia, unspecified severity, without behavioral disturbance, psychotic disturbance, mood disturbance, and anxiety; Z79.899 Other long term (current) drug therapy; Z79.1 Long term (current) use of non-steroidal anti-inflammatories (NSAID); Z88.5 Allergy status to narcotic agent; Z88.6 Allergy status to analgesic agent; Z88.8 Allergy status to other drugs, medicaments and biological substances; Z88.7 Allergy status to serum and vaccine; Z68.43 Body mass index [BMI] 50.0-59.9, adult; Z79.891 Long term (current) use of opiate analgesic; Z79.51 Long term (current) use of inhaled steroids; Z91.038 Other insect allergy status
CPT/HCPCS: 88305; 87045; 87046; 45380; J2704

== ENCOUNTER 2018-08-25 08:09 | Day surgery (SDC) | payer OTHER ==
[2018-08-19 15:54] VITALS: BMI 51.6
--- NOTE | 2018-08-24 17:30 | HP ---
HISTORY AND PHYSICAL DATE OF SURGERY: 08/25/2018 Henna Merino is a 63-year-old patient seen with progressive left knee pain. Treatment options were discussed. She elected to proceed with arthroscopy. Consent was obtained. Medical clearance was provided by Dr. Bolivar. PAST MEDICAL HISTORY: Asthma, depression. PAST SURGICAL HISTORY: 1. Appendectomy. 2. Breast reduction surgery. 3. Herniorrhaphy. 4. Hysterectomy. 5. Gastric bypass. MEDICATIONS: Percocet, Zoloft. ALLERGIES: 1. MORPHINE. 2. VICODIN. 3. LORTAB. 4. ASPIRIN. 5. DILAUDID. SOCIAL HISTORY: She denies tobacco use. PHYSICAL EVALUATION OF THE LEFT KNEE: Range of motion is 0 to 115 degrees. There is tenderness along the medial joint line. Positive medial Yury's. Crepitus in medial patellofemoral compartments. Ligaments stable. Hip rotation without pain. RADIOGRAPHS: Radiographs of the left knee revealed moderate osteoarthritic changes. MRI of the left knee revealed medial meniscal tear and osteoarthritis. IMPRESSION: 1. Internal derangement of the left knee with meniscal tear. 2. Hypertension. PLAN: Arthroscopy, left knee, with partial meniscectomy and debridement. MMODL / IJN: [id number] /
[~2018-08-25 08:09] MED LIST changes: -MIDAZOLAM (PF) 2 MG/2 ML VIAL IV PRN; +ONDANSETRON 4 MG/2 ML VIAL IVP ONE; +ceFAZolin 3 GM in SODIUM CHLORIDE 0.9% 100 ML IVPB ONE; +fentaNYL (PF) 50 MCG/ML 2 ML AMP IV PRN
[2018-08-25] MEDS ORDERED: fentaNYL (PF) 50 MCG/ML 2 ML AMP ONE (10:04)
[2018-08-25] MEDS ORDERED: LIDOCAINE 1% INJ 10MG/ML (20 ML MDV) ONE (10:04)
[2018-08-25] MEDS ORDERED: PROPOFOL 10 MG/ML 20 ML VIAL IV ONE (10:04)
[2018-08-25] MEDS ORDERED: SUCCINYLCHOLINE CHLORIDE VIAL 200 MG/10 ML VIAL IV ONE (10:04)
[2018-08-25] MEDS ORDERED: MIDAZOLAM 2 MG/2 ML VIAL ONE (10:04)
[2018-08-25] MEDS ORDERED: BUPIVACAINE (PF) 0.25% 30 ML VIAL SQ ONE (10:29)
[2018-08-25 11:00] VITALS: TEMP 96.8
--- NOTE | 2018-08-25 11:06 | P.OP ---
Date of Procedure: 08/25/18 Preoperative Diagnosis: Internal derangement left knee Postoperative Diagnosis: 1. Tear medial meniscus left knee 2. Grade 3/4 chondromalacia medial femoral condyle left knee 3. Reactive synovitis medial, lateral and suprapatellar compartments left knee Procedure(s) Performed: 1. Arthroscopic partial medial meniscectomy left knee 2. Arthroscopic chondroplasty medial femoral condyle left knee 3. Arthroscopic microfracture medial femoral condyle left knee 4. Arthroscopic partial synovectomy medial, lateral and suprapatellar compartments left knee Anesthesia: LISETHA, local Surgeon: Gray Laughlin Estimated Blood Loss (ml): 12 Pathology: none sent Condition: stable Disposition: PACU Indications for Procedure: 63-year-old patient seen with progressive left knee pain. After having treatment options discussed, she elected to proceed with arthroscopy. Operative Findings: See description of procedure Description of Procedure: Patient was taken to the operative suite. Patient underwent a general anesthetic by the department of anesthesia. Patient was given preoperative antibiotics. The left lower extremity was placed in a well-padded arthroscopic leg russo. The left leg was prepped and draped in the normal sterile orthopedic fashion. A lateral parapatellar and suprapatellar incision was made. Trochars were inserted. Arthroscopy was initiated. Suprapatellar pouch revealed diffuse thick reactive synovitis. The patellofemoral joint appeared to articulate congruently. There was grade 2/3 chondromalacia of the patellofemoral joint with no significant osteochondral tears present. The scope was guided into the medial gutter. No loose bodies or plica were identified. The scope was then guided into the medial compartment. A medial parapatellar incision was made. Trocar inserted followed by probe. There was a radial tear involving the posterior horn medial meniscus. There were grade 3/ 4 chondromalacia changes of both the femoral condyle and tibial plateau. There were areas of both the femoral condyle and tibial plateau that revealed exposed bone. There was reactive synovitis noted anteriorly. I performed a partial medial meniscectomy. I performed a chondroplasty of the medial femoral condyle. I performed a partial synovectomy decompressing the reactive synovitis. I performed a microfracture to medial femoral condyle penetrating the bone is resultant bleeding at the microfracture site. The residual meniscus was stable. Scope and probe were then guided into the intercondylar notch. Cruciates were identified, probed and found to be stable. The scope and probe were then guided into lateral compartment. There was some fraying of the mid body and posterior horn lateral meniscus. There were mild grade 1 chondromalacia changes lateral compartment. There was reactive synovitis anteriorly. I debrided those frayed margins with a motorized shaver. I performed a partial synovectomy. There was good decompression of synovitis. The scope was in guided back into the suprapatellar compartment. I introduced a motorized shaver into the super compartment. I debrided some piecemeal fragments of meniscus I encountered. I performed a partial synovectomy. There was good decompression of synovitis. Instruments were now removed from the joint. The joint was infiltrated with .25% Marcaine. Steri-Strips were applied to the portal sites. Sterile dressings were applied. The patient was placed into a RIKKI hose. No tourniquet was utilized. The patient was awakened, transferred to a bed and taken to recovery stable satisfactory condition.
[2018-08-25] MEDS ORDERED: KETOROLAC 30 MG/ML 1 ML VIAL IVP ONE (11:10)
[2018-08-25 11:12] VITALS: RESP 16
[2018-08-25 12:26] VITALS: BP 117/80; PULSE 81
[2018-08-25] MEDS ORDERED: HYDROcodone/APAP 5-325MG 1 EACH TAB PO ONE (13:34)
== END 2018-08-25 12:36 | disposition home or self-care (01) ==
LOC: OR 08:09
PROVIDERS: ATTEND Orthopaedic Surgery
DX: S83.242A Other tear of medial meniscus, current injury, left knee, initial encounter (principal); X58.XXXA Exposure to other specified factors, initial encounter; M94.262 Chondromalacia, left knee; M65.862 Other synovitis and tenosynovitis, left lower leg; J45.909 Unspecified asthma, uncomplicated; F32.9 Major depressive disorder, single episode, unspecified; I10 Essential (primary) hypertension; Z98.84 Bariatric surgery status; I25.10 Atherosclerotic heart disease of native coronary artery without angina pectoris; I48.91 Unspecified atrial fibrillation; G47.33 Obstructive sleep apnea (adult) (pediatric); Z99.89 Dependence on other enabling machines and devices; G62.9 Polyneuropathy, unspecified; M19.90 Unspecified osteoarthritis, unspecified site; K21.9 Gastro-esophageal reflux disease without esophagitis; G43.909 Migraine, unspecified, not intractable, without status migrainosus; Z79.891 Long term (current) use of opiate analgesic; Z79.899 Other long term (current) drug therapy; Z88.6 Allergy status to analgesic agent; Z88.5 Allergy status to narcotic agent; Z91.038 Other insect allergy status; Z91.09 Other allergy status, other than to drugs and biological substances; Z88.7 Allergy status to serum and vaccine
CPT/HCPCS: 29881; 29879; J2250; J0330; J0690; J2405; J2001; J3010; J1885; J2704

== ENCOUNTER → 2018-08-30 | Outpatient (CLI) | payer OTHER ==
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
== END | disposition home or self-care (01) ==
LOC: SLEEP 13:45
PROVIDERS: ATTEND Internal Medicine Critical Care Medicine
DX: G47.33 Obstructive sleep apnea (adult) (pediatric) (principal); E66.9 Obesity, unspecified; K21.9 Gastro-esophageal reflux disease without esophagitis; F41.9 Anxiety disorder, unspecified; F32.9 Major depressive disorder, single episode, unspecified; G43.909 Migraine, unspecified, not intractable, without status migrainosus; Z68.43 Body mass index [BMI] 50.0-59.9, adult; Z87.898 Personal history of other specified conditions

== ENCOUNTER → 2018-10-06 | Outpatient (CLI) | payer OTHER ==
[2018-10-06 09:57] VITALS: BP 138/85; PULSE 76; RESP 16; TEMP 97.7; BMI 56.4
--- NOTE | 2018-10-06 10:39 | P.PN ---
Subjective Progress Note Date: 10/06/18 DATE OF SERVICE: 10/06/2018 CHIEF COMPLAINT: Morbid obesity HISTORY OF PRESENT ILLNESS: Henna Merino is a 63-year-old female who comes in with gastric bypass. She broke her foot for over 6 to 7 months. She has lost 3 pounds in 4 months. She has maintained 20+ pound weight loss. She still report dumping syndrome with her diet. She is looking into weight loss of 50 pounds. She comes in with severe panniculitis. Her highest weight was 436 pounds. Her body mass index was 66.4. Today, she comes in weighing 370 pounds from 368 pounds, 4 months ago. She has gained 2 pounds in 4 months. Body mass index is down from 66.4 to 56.4. At her height of 5 foot 8 inches, her ideal body weight is 163 pounds. Lifetime weight loss 66 pounds. Percent excess weight loss 24 %. PHYSICAL EXAM: VITAL SIGNS: Height 5 foot 8 inches, weight 370 pounds. BMI 56.4 Vital Signs Temp 97.7 F 10/06/18 09:47 Pulse 76 10/06/18 09:47 Resp 16 10/06/18 09:47 BP 138/85 10/06/18 09:47 Pulse Ox GENERAL: Well-developed female in no acute distress. HEENT: No scleral icterus. Extraocular movements grossly intact. Hears conversational speech. No nasal drainage. NECK: Supple without lymphadenopathy. CHEST: Nonlabored respirations with equal bilateral excursions. CARDIOVASCULAR: Regular rate. Distal 2+ pulses. ABDOMEN: Soft, obese, nondistended. Nontender. Severe panniculitis MUSCULOSKELETAL: No clubbing, cyanosis, or edema. Gross strength 5/5 distal lower extremities. NEURO: No focal or lateralizing signs. Cranial nerves 2 through 12 grossly within normal limits. PSYCH: Appropriate affect. Alert and oriented to person, place and time. SKIN: Good skin turgor. Well perfused. ASSESSMENT: 1. Morbid obesity due to excess calories. 2. Status post gastric bypass 3. Body mass index 66.4 down to 54.7 4. Gastroesophageal reflux disease 5. Complications from bariatric procedure 6. s/p hiatal hernia repair now with recurrence 7. Panniculitis 8. Dysphagia 9. Dumping syndrome. 10. Food allergies PLAN: 1. Food filtration plant mechanic referral recommend 2. Options for surgical weight loss also described. 3. Panniculectomy packet reviewed. 4. Dietitian for dumping syndrome 5. Follow up pending correction of dumping syndrome and filtration plant mechanic referral Objective - Vital Signs Vital signs: Vital Signs Temp 97.7 F 10/06/18 09:47 Pulse 76 10/06/18 09:47 Resp 16 10/06/18 09:47 BP 138/85 10/06/18 09:47 Pulse Ox Intake & Output 10/05/18 10/06/18 10/06/18 18:59 06:59 18:59 Weight 168.283 kg
== END ==
LOC: BARWHC3 09:15
PROVIDERS: ATTEND Surgery Plastic and Reconstructive Surgery
DX: E66.01 Morbid (severe) obesity due to excess calories (principal); K95.89 Other complications of other bariatric procedure; M79.3 Panniculitis, unspecified; R13.10 Dysphagia, unspecified; K91.1 Postgastric surgery syndromes; K21.9 Gastro-esophageal reflux disease without esophagitis; Z98.84 Bariatric surgery status; Z98.890 Other specified postprocedural states; Z68.43 Body mass index [BMI] 50.0-59.9, adult; Z88.8 Allergy status to other drugs, medicaments and biological substances
CPT/HCPCS: 99211

== ENCOUNTER → 2018-10-17 | Outpatient (CLI) | payer OTHER ==
--- NOTE | 2018-10-18 10:14 | MM ---
Reason for exam: screening (asymptomatic). Last mammogram was performed 1 year and 1 month ago. History: Patient is postmenopausal. Benign excisional biopsy of the right breast, 2016. Reduction of the left breast. Reduction of the right breast. Took estrogen for 1 year 6 months. Physical Findings: A clinical breast exam by your physician is recommended on an annual basis and results should be correlated with mammographic findings. MG Screening Mammo w CAD Bilateral CC and MLO view(s) were taken. Prior study comparison: October 01, 2017, bilateral MG screening mammo w CAD. September 08, 2016, bilateral MG diagnostic mammo w CAD JULIET. There are scattered fibroglandular densities. Stable benign calcifications. Stable nodule left breast. No significant changes when compared with prior studies. ASSESSMENT: Benign, BI-RAD 2 RECOMMENDATION: Routine screening mammogram of both breasts in 1 year.
== END ==
LOC: RADMAMWWP 10:31
PROVIDERS: ATTEND Family Medicine
DX: Z12.31 Encounter for screening mammogram for malignant neoplasm of breast (principal)
CPT/HCPCS: 77067

== ENCOUNTER 2018-11-13 18:10 | Emergency (ER) | payer OTHER ==
[2018-11-13 18:16] VITALS: RESP 18
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
--- NOTE | 2018-11-13 19:14 | XR ---
EXAMINATION TYPE: XR finger LT DATE OF EXAM: 11/13/2018 COMPARISON: NONE HISTORY: Crush finger to left thumb TECHNIQUE: AP lateral and oblique views of the left thumb were obtained FINDINGS: No acute fracture or dislocation involving the left first digit and first metacarpal. Minim al soft tissue swelling is evident. No radiopaque foreign bodies. IMPRESSION: No acute fracture or dislocation.
[2018-11-13 19:22] VITALS: BP 133/88; PULSE 70; TEMP 97.7
== END 2018-11-13 19:27 | disposition home or self-care (01) ==
LOC: EC 18:10
DX: S60.012A Contusion of left thumb without damage to nail, initial encounter (principal); I48.91 Unspecified atrial fibrillation; F03.90 Unspecified dementia, unspecified severity, without behavioral disturbance, psychotic disturbance, mood disturbance, and anxiety; M79.7 Fibromyalgia; K21.9 Gastro-esophageal reflux disease without esophagitis; I25.2 Old myocardial infarction; M19.90 Unspecified osteoarthritis, unspecified site; G47.30 Sleep apnea, unspecified; Z99.89 Dependence on other enabling machines and devices; F32.9 Major depressive disorder, single episode, unspecified; F41.0 Panic disorder [episodic paroxysmal anxiety]; Z79.51 Long term (current) use of inhaled steroids; Z79.891 Long term (current) use of opiate analgesic; Z79.1 Long term (current) use of non-steroidal anti-inflammatories (NSAID); Z79.899 Other long term (current) drug therapy; Z88.5 Allergy status to narcotic agent; Z88.7 Allergy status to serum and vaccine; Z88.6 Allergy status to analgesic agent; Z91.048 Other nonmedicinal substance allergy status; Z53.29 Procedure and treatment not carried out because of patient's decision for other reasons; W23.0XXA Caught, crushed, jammed, or pinched between moving objects, initial encounter; Y92.009 Unspecified place in unspecified non-institutional (private) residence as the place of occurrence of the external cause
CPT/HCPCS: 99283

== ENCOUNTER 2018-12-23 12:58 | Inpatient (IN) | payer OTHER ==
[2018-12-23] MEDS ORDERED: SODIUM CHLORIDE 0.9% 1,000 ML IV STA (14:38)
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
[2018-12-23 15:21] LABS: Basophils % (A) 0 %; Eosinophils # (A) 0.1 k/uL (0-0.7); Eosinophils % (A) 1 %; HCT 39.1 % (34.0-46.0); HGB 12.3 gm/dL (11.4-16.0); Lymphocytes # (A) 0.7 k/uL (1.0-4.8); Lymphocytes % (A) 11 %; MCH 27.6 pg (25.0-35.0); MCHC 31.5 g/dL (31.0-37.0); MCV 87.5 fL (80.0-100.0); Mean Platelet Volume 8.4; Monocytes # (A) 0.3 k/uL (0-1.0); Monocytes % (A) 4 %; Neutrophils # (A) 5.3 k/uL (1.3-7.7); Neutrophils % (A) 82 %; Platelet Count 177 k/uL (150-450); RBC 4.47 m/uL (3.80-5.40); RDW 14.4 % (11.5-15.5); WBC 6.4 k/uL (3.8-10.6)
[2018-12-23 15:29] LABS: Albumin 3.7 g/dL (3.5-5.0); Calcium 8.9 mg/dL (8.4-10.2); Total Bilirubin 1.2 mg/dL (0.2-1.3); Total Protein 6.2 g/dL (6.3-8.2)
[2018-12-23 17:03] LABS: Appearance,Urine Clear (Clear); Bacteria,Urine Rare /hpf; Bilirubin,Urine Negative (Negative); Blood,Urine Negative (Negative); Color,Urine Yellow; Glucose,Urine (UA) Negative (Negative); Ketones,Urine Negative (Negative); Leukocyte Esterase,Urine Small (Negative); Mucus,Urine Occasional /hpf; Nitrite,Urine Negative (Negative); Protein,Urine Trace (Negative); RBC,Urine <1 /hpf (0-5); Specific Gravity,Urine 1.014 (1.001-1.035); Squamous Epithelial Cell,Urine 2 /hpf (0-4)
--- NOTE | 2018-12-23 18:26 | CT ---
EXAMINATION TYPE: CT angio chest with contrast and with 3-D reconstruction renderings DATE OF EXAM: 12/23/2018 5:25 PM COMPARISON: 12/30/2012 HISTORY: Hemoptysis, dyspnea CT DLP: 937.7 mGycm. Automated exposure control for dose reduction was used. CONTRAST: CTA scan of the thorax is performed with IV Contrast, patient injected with 80 mL of Isovue 370, pulmonary embolism protocol. Three-D reconstructions. FINDINGS: AIRWAYS: Unremarkable. LUNGS: There is ill-defined consolidated opacity within the bilateral lower lobes and right upper lob e. The pattern is not gravity dependent to suggest pulmonary edema. The differential primarily includ es pneumonia and, in the correct clinical setting, pulmonary hemorrhage. There is no emmanuel bronchogenic mass. No pulmonary nodules. There is no air cystic changes or evidenc e of chronic interstitial lung. PLEURAL SPACES: Negative MEDIASTINUM: There is satisfactory enhancement of the pulmonary artery and its branches, with no CT e vidence for pulmonary embolism. There are no acute aortic findings. There is mild cardiomegaly, but n o pericardial effusion. There are no greater than 1 cm hilar or mediastinal lymph nodes. SKELETAL STRUCTURES: No focal findings. OTHER: The left thyroid lobe has an intrathoracic component which contains a nearly 3 cm hypodense no dule, for which follow-up thyroid ultrasound is recommended. IMPRESSION: 1. Prominent airspace filling process within the bilateral lower lobes and right upper lobe. 2. Incidental left thyroid nodule.
[2018-12-23] MEDS ORDERED: ONDANSETRON 4 MG/2 ML VIAL IVP PRN (18:49)
[2018-12-23] MEDS ORDERED: NALOXONE 0.4 MG/ML 1 ML VIAL IV PRN (18:49)
[2018-12-23] MEDS ORDERED: ACETAMINOPHEN TAB 325 MG TAB PO PRN (18:49)
[2018-12-23] MEDS ORDERED: LEVOFLOXACIN 500 MG TAB PO ONE (19:00)
[2018-12-23] MEDS ORDERED: LEVOFLOXACIN 500 MG TAB PO SCH (19:00)
[2018-12-23] MEDS: SODIUM CHLORIDE 0.9% 1,000 ML IV SCH (19:33)
[2018-12-23 22:19] VITALS: BMI 51.5
[2018-12-24] MEDS ORDERED: TRIAMCINOLONE 0.1% CREAM 80 GM TUBE TOPICAL PRN (10:53)
[2018-12-24] MEDS ORDERED: CLOBETASOL PROP 0.05% CR 15GM TOPICAL PRN (10:53)
[2018-12-24] MEDS ORDERED: ALBUTEROL NEBULIZED 2.5 MG/3 ML INHALATION PRN (10:53)
[2018-12-24] MEDS ORDERED: NYSTATIN 100,000 UNIT/GM POWD 15 GM TOPICAL PRN (10:53)
[2018-12-24] MEDS ORDERED: traMADol 50 MG TAB PO PRN (10:53)
[2018-12-24] MEDS: KLOR CON PO SCH ×2 (11:56→21:09)
[2018-12-24] MEDS: ENOXAPARIN 40 MG/0.4 ML SYRINGE SQ SCH (12:16)
[2018-12-24] MEDS: SERTRALINE 100 MG TAB PO SCH (12:16)
[2018-12-24] MEDS: NAPROXEN 250 MG TAB PO SCH ×2 (12:17→21:07)
[2018-12-24] MEDS: GABAPENTIN 300 MG CAP PO SCH ×3 (12:17→22:36)
[2018-12-24] MEDS: OXYBUTYNIN 10 MG TAB.ER.24 PO SCH (12:17)
[2018-12-24] MEDS: PANTOPRAZOLE 40 MG TABLET PO SCH ×2 (12:18→17:02)
[2018-12-24] MEDS: valACYclovir 500 MG TAB PO SCH ×2 (12:18→21:05)
[2018-12-24] MEDS: MUPIROCIN 2% OINT 22 GM TUBE TOPICAL SCH ×2 (12:23→21:11)
[2018-12-24] MEDS ORDERED: methylPREDNISolone 4 MG TAB TAPER PO SCH (13:45)
[2018-12-24] MEDS: methylPREDNISolone 4 MG TAB TAPER PO SCH (14:11)
--- NOTE | 2018-12-24 14:26 | CONS ---
CONSULTATION This is a pulmonary critical care consultation. DATE OF SERVICE: December 24, 2018 REASON FOR CONSULTATION: Pneumonia and hemoptysis. HISTORY OF PRESENT ILLNESS: This is a 63-year-old female who sees my partner Dr. Viramontes for her asthma and for her sleep apnea syndrome. She apparently states that over the last couple days or so, she has not been feeling well. She has been feeling congested in her chest. In addition, she was coughing up some mucus that was mixed with some bright red blood. The patient states that she was also feeling her asthma is a bit more active. She is a bit more short of breath with lots of tightness and congestion in her chest. She was also feeling very fatigued and she slept for a full day not knowing that she had been in bed for that long period of time. She denies any fever, chills. No chest pain. She does have chest tightness. The patient eventually came into the emergency room to be evaluated. She was seen there and admitted with a diagnosis of pneumonia and hemoptysis. Also admitted with a diagnosis of asthma exacerbation. She is feeling a bit better today. Not back to baseline. A CT scan showed right upper lobe, right lower lobe and left lower lobe infiltrates. MEDICATIONS: Extensive and include Zyrtec, EpiPen, Zoloft, ropinirole, Percocet, steroid cream, Abilify, Lasix, nitroglycerin, triamcinolone, Valtrex, Bactroban ointment, Lomotil, gabapentin, Antivert, naproxen, Zofran, oxybutynin, potassium chloride, trazodone, nystatin powder, albuterol inhaler, albuterol updrafts, QVAR 80, vitamin D3, Protonix and Ultram. ALLERGIES: INCLUDE VICODIN, DILAUDID, MORPHINE, OXYCODONE, ASPIRIN, LORTAB, INFLUENZA VACCINE, PNEUMOCOCCAL VACCINE, INSECT BITES AND TOILET PAPER. PAST MEDICAL HISTORY: Also quite extensive including atrial fibrillation, chronic bronchial asthma, angina pectoris, dementia, fibromyalgia, GERD, myocardial infarction, chronic liver disease, DJD, pneumonia, sleep apnea syndrome on CPAP, migraine cephalgia, cluster headaches, varicose veins, irritable bowel syndrome, colitis, diverticular disease, liver lesion, vertigo, anemia, multiple sclerosis, chronic diarrhea, neuropathy, and genital herpes. SURGICAL HISTORY: Also quite extensive including appendectomy, bariatric surgery, breast surgery, C- section, cholecystectomy, heart catheterization, hernia repair, hysterectomy, and multiple orthopedic procedures including knee arthroscopy, left great toe pinning, right ankle surgery x2, carpal tunnel surgery, among other procedures. SOCIAL HISTORY: Significant that she is a lifelong nonsmoker. Denies any alcohol use or illicit drug use. FAMILY HISTORY: Father as a history of skin cancer, Parkinson's and dementia. Mother has a history of myasthenia gravis. She has a daughter with cancer, DVT. OCCUPATION HISTORY: Is noncontributory. She currently does not work. REVIEW OF SYSTEMS: CONSTITUTIONAL negative. NEUROLOGIC negative. HEENT negative. CARDIOVASCULAR negative. PULMONARY: Shortness of breath, chest congestion and cough, chest tightness, and phlegm production as well as coughing up of blood. GI negative. negative. RHEUMATOLOGIC negative. IMMUNOLOGIC negative. ENDOCRINOLOGICAL: Negative. HEMATOLOGIC negative. DERMATOLOGIC negative. PHYSICAL EXAMINATION: VITAL SIGNS: Current vital signs are reviewed and include a temperature 98.5, heart rate 61, respiratory rate 18, blood pressure 107/70, mean 82, room air saturation 95%. GENERAL: Appears in no acute distress. Lying flat in bed. No further episodes of hemoptysis. HEENT examination is grossly unremarkable. Membranes are moist. NECK: Supple. Full range of motion. No adenopathy, thyromegaly or neck vein distention. CARDIOVASCULAR examination reveals regular rhythm rate. Heart rate 61. S1, S2 normal. No S3, S4, or murmur. LUNGS: A few scattered coarse rhonchi and crackles. Some mild expiratory wheezes. Breath sounds equal bilaterally. Slight prolongation noted. ABDOMEN: Obese. Bowel sounds are heard. EXTREMITIES are intact. No cyanosis, clubbing, or edema. Skin without rash. NEUROLOGIC examination is brief but nonfocal. LABS: Reviewed. White count 6.4, hemoglobin 12.3, hematocrit 39.1, platelet count 177,000. D-dimer 1.88. Sodium 141, potassium 4, chloride 110, CO2 23, anion gap is normal. BUN and creatinine were normal. Urine shows it to be trace protein, positive, leukocyte esterase is small positive, rare bacteria, less than 1 RBC and [address] scan of the chest was reviewed. There is no evidence of pulmonary embolism. There are infiltrates in the right upper lobe, right lower lobe and left lower lobe. Medications are reviewed. In terms of antibiotics, she is currently on Rocephin and antibiotics include just Rocephin at this time. ASSESSMENT: 1. Pneumonia, bilateral multifocal, associated with hemoptysis and mild asthma exacerbation. 2. History of chronic bronchial asthma, mildly active. 3. History of atrial fibrillation. 4. History of angina pectoris. 5. Dementia by history. 6. History of fibromyalgia. 7. History of gastroesophageal reflux disease. 8. Previous history of myocardial infarction. 9. Degenerative joint disease. 10.History of sleep apnea syndrome, on CPAP. 11.Migraine and cluster headaches. 12.Obesity. 13.Diverticular disease. 14.Irritable bowel syndrome. 15.Chronic anemia. PLAN: Please see my orders. Additional recommendations and suggestions are forthcoming. We will continue to follow closely. Prognosis is guarded. She is not having any further episodes of hemoptysis. Additional recommendations and suggestions are forthcoming. MMODL / IJN: [id number] /
--- NOTE | 2018-12-24 14:34 | XR ---
EXAMINATION TYPE: XR chest 2V DATE OF EXAM: 12/24/2018 COMPARISON: 07/20/2018 x-ray and CT chest dated 12/23/2018 HISTORY: Hemoptysis and pneumonia TECHNIQUE: Frontal and lateral views of the chest are obtained. FINDINGS: There is right upper lobe pneumonia and bibasilar airspace disease also seen at the lung b ases. Left lung apex and right lower lobe laterally are well aerated. Cardia mediastinal silhouette i s stable. No new acute osseous pathology. Trace pleural effusions are seen. IMPRESSION: Redemonstration of right upper lobe pneumonia and trace pleural effusions with bibasilar airspace disease as seen on the prior CT of 12/23/2018 that may represent atelectasis or pneumonia.
[2018-12-24] MEDS ORDERED: NITROGLYCERIN SL TABS 0.4 MG TAB SUBLINGUAL PRN (15:38)
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
[2018-12-24] MEDS: SODIUM CHLORIDE 0.9% 1,000 ML IV SCH (17:03)
[2018-12-24] MEDS ORDERED: SUMAtriptan SUCCINATE 50 MG TAB PO PRN (17:17)
[2018-12-24] MEDS ORDERED: CYANOCOBALAMIN 1,000 MCG/ML 1 ML VIAL SQ SCH (18:00)
[2018-12-24] MEDS ORDERED: LEVOFLOXACIN 500 MG TAB PO SCH (19:00)
[2018-12-24] MEDS: ALBUTEROL NEBULIZED 2.5 MG/3 ML INHALATION SCH ×2 (19:16→19:31)
[2018-12-24] MEDS: SYMBICORT 160-4.5 MCG INHALER INHALATION SCH (19:29)
[2018-12-24] MEDS: ARIPiprazole 5 MG TAB PO SCH (21:06)
[2018-12-24] MEDS: TOPIRAMATE 25 MG TAB PO SCH (21:09)
[2018-12-24] MEDS: FLUTICASONE 50MCG/SPRAY NASAL 16GM EA NOSTRIL SCH (21:10)
[2018-12-24] MEDS: DIPHENOX-ATROP 2.5-0.025 MG 1 EACH TAB PO SCH (22:36)
[2018-12-24] MEDS: traZODone HCL 50 MG TAB PO PRN (22:37)
[2018-12-25] MEDS: oxyCODONE-APAP 5-325MG 1 EACH TAB PO PRN (02:43)
[2018-12-25 07:24] LABS: Basophils % (A) 0 %; Eosinophils % (A) 1 %; HGB 11.3 gm/dL (11.4-16.0); Lymphocytes # (A) 0.8 k/uL (1.0-4.8); Lymphocytes % (A) 17 %; MCH 28.2 pg (25.0-35.0); MCHC 32.4 g/dL (31.0-37.0); MCV 87.1 fL (80.0-100.0); Monocytes # (A) 0.3 k/uL (0-1.0); Monocytes % (A) 5 %; Neutrophils # (A) 3.6 k/uL (1.3-7.7); Neutrophils % (A) 75 %; Platelet Count 178 k/uL (150-450); RBC 4.01 m/uL (3.80-5.40); RDW 14.3 % (11.5-15.5); WBC 4.7 k/uL (3.8-10.6)
[2018-12-25 07:38] LABS: African American GFR (CKD) >90 (>60 ml/min/1.73 sqM); Anion Gap 6 mmol/L; Blood Urea Nitrogen 14 mg/dL (7-17); Calcium 8.7 mg/dL (8.4-10.2); Carbon Dioxide 20 mmol/L (22-30); Chloride 115 mmol/L (98-107); Glucose 106 mg/dL (74-99); Potassium 3.9 mmol/L (3.5-5.1); Sodium 141 mmol/L (137-145)
[2018-12-25] MEDS: SYMBICORT 160-4.5 MCG INHALER INHALATION SCH ×2 (08:28→21:16)
[2018-12-25] MEDS: ALBUTEROL NEBULIZED 2.5 MG/3 ML INHALATION SCH ×4 (08:29→21:16)
[2018-12-25] MEDS: ENOXAPARIN 40 MG/0.4 ML SYRINGE SQ SCH (08:39)
[2018-12-25] MEDS: KLOR CON PO SCH ×2 (08:39→21:51)
[2018-12-25] MEDS: OXYBUTYNIN 10 MG TAB.ER.24 PO SCH (08:41)
[2018-12-25] MEDS: NAPROXEN 250 MG TAB PO SCH ×2 (08:41→21:49)
[2018-12-25] MEDS: TOPIRAMATE 25 MG TAB PO SCH ×2 (08:42→21:51)
[2018-12-25] MEDS: GABAPENTIN 300 MG CAP PO SCH ×3 (08:42→21:51)
[2018-12-25] MEDS: AZITHROMYCIN 500 MG TAB PO SCH (08:42)
[2018-12-25] MEDS: SERTRALINE 100 MG TAB PO SCH (08:43)
[2018-12-25] MEDS: methylPREDNISolone 4 MG TAB TAPER PO SCH (08:43)
[2018-12-25] MEDS: PANTOPRAZOLE 40 MG TABLET PO SCH ×2 (08:43→16:35)
[2018-12-25] MEDS: valACYclovir 500 MG TAB PO SCH ×2 (09:30→21:52)
[2018-12-25] MEDS: MUPIROCIN 2% OINT 22 GM TUBE TOPICAL SCH ×2 (09:30→16:15)
[2018-12-25] MEDS: DIPHENOX-ATROP 2.5-0.025 MG 1 EACH TAB PO SCH ×2 (09:55→21:49)
--- NOTE | 2018-12-25 12:30 | PN ---
PROGRESS NOTE DATE OF SERVICE: December 25, 2018 This is a 63-year-old female who we saw for asthma exacerbation, pneumonia, hemoptysis. The patient was admitted with a diagnosis of pneumonia. She was also hemoptysizing. The patient sees Dr. Viramontes, my partner for her sleep apnea syndrome and chronic bronchial asthma. She is feeling much better today. We put her on standard treatments including corticosteroids, breathing treatments and antibiotics. She has not had any more blood noted. She is not coughing up any blood. Her breathing is improved. She is less short of breath. Less tightness and wheezing. We did put in a chest x-ray for tomorrow. When we entered the room, she was actually sleeping. Dr. Hernandez was in the room with us. He was going to try pare down some of her medications. PHYSICAL EXAMINATION: Current vital signs are reviewed. Temperature 98.2. Heart rate 60. Respiratory rate 16, blood pressure 94/62, mean 72. Room air saturation 94%. Appears in no acute distress. HEENT examination is grossly unremarkable. Mucous membranes are moist. No oral lesions. NECK: Supple. Full range of motion. No adenopathy or thyromegaly. Neck veins are flat. CARDIOVASCULAR examination reveals regular rhythm rate. S1, S2 normal. No S3, S4, or murmur. LUNGS: Coarse rhonchi and wheezes. Breath sounds are diminished. There is prolongation. The patient wheezes and coughs on forced maneuver. ABDOMEN: Soft. Bowel sounds are heard. EXTREMITIES are intact. No cyanosis, clubbing, or edema. Skin without rash. NEUROLOGIC examination is brief but nonfocal. LABS: Reviewed. White count 4.7, hemoglobin 11.3, hematocrit 35, platelet count 178,000. Sodium and potassium normal. Chloride 115. CO2 20. Anion gap 6, BUN and creatinine were 14 and 0.8. No recent chest x-ray to review. Her medications are reviewed. The patient is scheduled to have a chest x-ray tomorrow morning. The patient remains on Zithromax and Rocephin as well as Symbicort, DuoNeb and a Medrol Dosepak. ASSESSMENT: 1. Pneumonia, bilateral and multifocal, associated with hemoptysis and mild asthma exacerbation. 2. History of asthma, mildly active at this time. 3. History of chronic atrial fibrillation. 4. History of angina pectoris. 5. Dementia by history. 6. History of fibromyalgia. 7. History of gastroesophageal reflux disease. 8. Previous history of myocardial infarction. 9. Degenerative joint disease. 10.History of sleep apnea syndrome, currently on CPAP. 11.Migraine/cluster headache. 12.Obesity. 13.Diverticular disease. 14.Irritable bowel syndrome. 15.Chronic anemia. PLAN: The patient seems to be doing better. She will have a chest x-ray done in the morning. She will continue on Zithromax and Rocephin. She will continue on updrafts, Symbicort, Medrol Dosepak. Additional recommendations and suggestions are forthcoming. The patient has no additional hemoptysis. Dr. Hernandez is going to try to pare down her outpatient medications. MMODL / IJN: [id number] /
[2018-12-25] MEDS: ARIPiprazole 5 MG TAB PO SCH (21:49)
[2018-12-25] MEDS: FLUTICASONE 50MCG/SPRAY NASAL 16GM EA NOSTRIL SCH (21:49)
--- NOTE | 2018-12-25 23:33 | P.PN ---
Progress Note - Text Progress Note Date: 12/25/18 Presenting complaint: Hemoptysis Interval history: This is a pleasant [address] Bolivar. 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 Patient 2 days ago went to drop her granddaughter. And decided to come back, she she was feeling tired. Feeling sleepy. Decided to go to bed. This was on Wednesday evening. Patient woke up it was Wednesday morning. Had a congested cough. She coughed up about a teaspoon of blood with mixed with some colored sputum. Some congestion of the chest. She short of breath. With exertion. Decided to come in. Not bringing up much sputum. Not sure if she had a low-grade fever. Admitted with bilateral pneumonia. Also possibly metabolic encephalopathy from multiple sedating medications Today-more awake. Less respiratory symptoms. Still has a cough. Congestion in the chest. Review of systems: Was done for constitutional, cardiovascular, GI, pulmonary. relevant finding as above Current medications reviewed: IV ceftriaxone, Medrol Dosepak Physical examination: VITAL SIGNS: 97.8, 62, 20, 120/71, 94% room air GENERAL: Laying in bed, more awake]. EYES: Pupils equal. Conjunctiva normal. HEENT: External appearance of nose and ears normal, oral cavity grossly normal. NECK: JVD not raised; masses not palpable. HEART: First and second heart sounds are normal; no edema. LUNGS: Respiratory rate increased, decreased breath sounds on expiration. ABDOMEN: Soft, nontender, liver spleen not palpable, no masses palpable. PSYCH: Alert and oriented x3; mood and affect normal. Investigations, reviewed the clinical context: White count 4.7, potassium 3.9, creatinine 0.89 Chest chest x-ray film personally reviewed by me shows basilar infiltrate Chest CTA negative for PE but did show infiltrates EKG tracing personally reviewed by me shows normal sinus rhythm Assessment: -Multilobar pneumonia, causing chest congestion with hemoptysis, some improvement -Acute metabolic and nephropathy from multiple medications. Some of them causing significant sedation -Morbid obesity BMI 51.5 -GERD -Intermittent asthma some acute exacerbation -Chronic multiple sclerosis in remission -Primary osteoarthritis -Fibromyalgia -GERD -Irritable bowel syndrome -obstructive sleep apnea uses CPAP Plan: Continue with Medrol dose packs and IV ceftriaxone. Did discuss with the patient importance of cutting back on some of her medications. Patient did express understanding of the same.. Decrease Neurontin to 300 mg 3 times a day. Encouraged to be out of bed.
[2018-12-26] MEDS: oxyCODONE-APAP 5-325MG 1 EACH TAB PO PRN (01:04)
[2018-12-26] MEDS: traZODone HCL 50 MG TAB PO PRN (01:08)
[2018-12-26] MEDS: MUPIROCIN 2% OINT 22 GM TUBE TOPICAL SCH ×4 (04:43→21:52)
[2018-12-26] MEDS: PANTOPRAZOLE 40 MG TABLET PO SCH (06:45)
--- NOTE | 2018-12-26 08:04 | XR ---
EXAMINATION TYPE: XR chest 2V DATE OF EXAM: 12/26/2018 COMPARISON: 12/24/2018 HISTORY: Hemoptysis and pneumonia. TECHNIQUE: Frontal and lateral views of the chest are obtained. FINDINGS: There is a similar appearing right perihilar and suprahilar patchy consolidation. The lowe r lobe consolidation seen on the prior CT are not well visualized radiographically. Cardiomediastinal silhouette is mildly enlarged. There are low lung volumes. Osseous structures appear grossly intact with mild degenerative changes of the spine. IMPRESSION: Right upper lobe pneumonia appears similar. Known bibasilar pneumonia is better seen on CT and not well seen radiographically.
[2018-12-26] MEDS: SYMBICORT 160-4.5 MCG INHALER INHALATION SCH ×2 (08:33→21:47)
[2018-12-26] MEDS: ALBUTEROL NEBULIZED 2.5 MG/3 ML INHALATION SCH ×4 (08:33→21:47)
[2018-12-26] MEDS: AZITHROMYCIN 500 MG TAB PO SCH (08:47)
[2018-12-26] MEDS: ENOXAPARIN 40 MG/0.4 ML SYRINGE SQ SCH (08:47)
[2018-12-26] MEDS: methylPREDNISolone 4 MG TAB TAPER PO SCH (08:48)
[2018-12-26] MEDS: DIPHENOX-ATROP 2.5-0.025 MG 1 EACH TAB PO SCH ×2 (08:48→21:41)
[2018-12-26] MEDS: GABAPENTIN 300 MG CAP PO SCH ×3 (08:48→21:42)
[2018-12-26] MEDS: OXYBUTYNIN 10 MG TAB.ER.24 PO SCH (08:50)
[2018-12-26] MEDS: NAPROXEN 250 MG TAB PO SCH ×2 (08:50→21:41)
[2018-12-26] MEDS: SERTRALINE 100 MG TAB PO SCH (08:51)
[2018-12-26] MEDS: TOPIRAMATE 25 MG TAB PO SCH ×2 (08:51→21:42)
[2018-12-26] MEDS: KLOR CON PO SCH ×2 (08:52→21:43)
[2018-12-26] MEDS: valACYclovir 500 MG TAB PO SCH ×2 (09:56→21:48)
[2018-12-26 11:24] LABS: Calcium 8.8 mg/dL (8.4-10.2); Potassium 3.6 mmol/L (3.5-5.1)
--- NOTE | 2018-12-26 11:57 | P.PN ---
Subjective On-call hospitalist covering for This is a pleasant 63 years old female with past medical history of fibromyalgia, coronary artery disease, atrial fibrillation, sleep apnea, obesity, multiple sclerosis with peripheral neuropathy, she walks using a cane or walker because of that. Migraine, cluster headache, rectal bowel syndrome, vertigo. She presents on Wednesday morning for spitting up blood with but complaining associated with dyspnea, on admission patient was found to have right upper lobe pneumonia and she was started on antibiotics with Zithromax and ceftriaxone, pulmonary team have evaluated the patient, patient also on steroids and Protonix twice a day. Patient feels better, last time she spitting up blood was yesterday with dark- colored phlegm, her dyspnea is improving and she is able to get out of bed however she still feel short of breath more than usual and she still have some chest pain on deep breath on her right upper site. Patient denies other complaints no nausea vomiting or abdominal pain, no change in urine or bowel habits. No leg swelling. No fever. Rest of Vitas looks stable. No leukocytosis and BMP was unremarkable. She has negative CTPA, also 3 cm nodule on the left thyroid lobe, patient told me she already got a call from her primary doctor for the thyroid nodule but told them she has been in the hospital. Patient told mentioned test to follow-up with her PCP Dr. Bolivar upon discharge for her thyroid vein dual and other medical issue. However she has the medical staff. To make her pulmonary appointment upon discharge. Chest x-ray from today looks his stable consolidation. Objective - Vital Signs Vital signs: Vital Signs Temp 97.3 F L 12/26/18 08:23 Pulse 72 12/26/18 08:44 Resp 18 12/26/18 08:23 BP 103/64 12/26/18 08:23 Pulse Ox 98 12/26/18 08:23 Intake & Output 12/25/18 12/26/18 12/26/18 18:59 06:59 18:59 Other: # Voids 3 - Exam GENERAL: The patient is alert and oriented x3, not in any acute distress. Well developed, well nourished. HEENT: Pupils are round and equally reacting to light. EOMI. No scleral icterus. No conjunctival pallor. Normocephalic, atraumatic. No pharyngeal erythema. No thyromegaly. CARDIOVASCULAR: S1 and S2 present. No murmurs, rubs, or gallops. -PULMONARY: Chest is clear to auscultation, no wheezing or crackles. Some bronchial breath sounds on the right upper lobe ABDOMEN: Soft, nontender, nondistended, normoactive bowel sounds. No palpable organomegaly. MUSCULOSKELETAL: No joint swelling or deformity. EXTREMITIES: No cyanosis, clubbing, or pedal edema. NEUROLOGICAL: Gross neurological examination did not reveal any focal deficits. SKIN: No rashes. - Labs CBC & Chem 7: 12/25/18 06:48 12/26/18 10:25 Labs: Abnormal Lab Results - Last 24 Hours (Table) 12/26/18 Range/Units 10:25 Chloride 112 H (98-107) mmol/L Carbon Dioxide 21 L (22-30) mmol/L Glucose 103 H (74-99) mg/dL Assessment and Plan Assessment: Community-acquired pneumonia, right upper lobe lung bases. CAT scan of the chest, improving with antibiotic Hemoptysis secondary to above, improvement Left thyroid nodule, 3 cm. Patient is aware of it as well as her PCP as patient told medical staff, patient in 10 to follow-up with her PCP upon discharge History of multiple sclerosis and peripheral neuropathy, she works on her own using a cane or walker Morbid obesity History of Irritable bowel syndrome History of Migraine headache and cluster headache History of A. fib, heart rate is controlled History of coronary artery disease History of sleep apnea on CPAP/BiPAP Plan: This is a pleasant 63 years old female who presents with pneumonia. Continue with antibiotic. No culture has been sent. Patient is still have symptoms. Alexander castillo is also been evaluated by pulmonary team. Continue with steroids and antibiotic. Discharge planning as patient is improving and wants she's been cleared by pulmonary team for discharge. Labs and medication were reviewed.. Continue same treatment. Continue with symptomatic treatment. Resume home medication. Monitor lytes and vitals. DVT and GI prophylaxis. Further recommendations of the clinical course of the patient DVT prophylaxis: Subcutaneous Lovenox GI Prophylaxis: Protonix PT/OT: Pending Prognosis is guarded
[2018-12-26] MEDS: FLUTICASONE 50MCG/SPRAY NASAL 16GM EA NOSTRIL SCH (21:41)
[2018-12-26] MEDS: ARIPiprazole 5 MG TAB PO SCH (21:41)
[2018-12-27] MEDS: NYSTATIN 100,000UNIT/GM CREAM 30 GM TUBE TOPICAL PRN ×2 (00:22→09:36)
[2018-12-27] MEDS: oxyCODONE-APAP 5-325MG 1 EACH TAB PO PRN ×2 (01:47→09:54)
[2018-12-27] MEDS: traZODone HCL 50 MG TAB PO PRN (01:48)
[2018-12-27] MEDS ORDERED: PANTOPRAZOLE 40 MG TABLET PO SCH (09:00)
[2018-12-27] MEDS: ALBUTEROL NEBULIZED 2.5 MG/3 ML INHALATION SCH ×2 (09:06→12:30)
[2018-12-27] MEDS: SYMBICORT 160-4.5 MCG INHALER INHALATION SCH (09:07)
[2018-12-27] MEDS: DIPHENOX-ATROP 2.5-0.025 MG 1 EACH TAB PO SCH (09:30)
[2018-12-27] MEDS: AZITHROMYCIN 500 MG TAB PO SCH (09:30)
[2018-12-27] MEDS: ENOXAPARIN 40 MG/0.4 ML SYRINGE SQ SCH (09:30)
[2018-12-27] MEDS: GABAPENTIN 300 MG CAP PO SCH (09:31)
[2018-12-27] MEDS: methylPREDNISolone 4 MG TAB TAPER PO SCH (09:31)
[2018-12-27] MEDS: MUPIROCIN 2% OINT 22 GM TUBE TOPICAL SCH (09:32)
[2018-12-27] MEDS: NAPROXEN 250 MG TAB PO SCH (09:32)
[2018-12-27] MEDS: OXYBUTYNIN 10 MG TAB.ER.24 PO SCH (09:33)
[2018-12-27] MEDS: KLOR CON PO SCH (09:33)
[2018-12-27] MEDS: SERTRALINE 100 MG TAB PO SCH (09:34)
[2018-12-27] MEDS: TOPIRAMATE 25 MG TAB PO SCH (09:35)
[2018-12-27] MEDS: valACYclovir 500 MG TAB PO SCH (09:35)
[2018-12-27 12:50] VITALS: BP 116/68; PULSE 64; RESP 16; TEMP 97.4
--- NOTE | 2018-12-27 13:58 | P.PN ---
Subjective Progress Note Date: 12/27/18 Principal diagnosis: Bilateral multifocal pneumonia associated with hemoptysis and shortness of breath, and mild asthma exacerbation On 12/27/2018 patient seen in follow-up on pediatric floor. She is awake and alert, she is feeling much better, breathing easier, lung sounds are much improved, with minimal scattered rhonchi, no hemoptysis, vital signs are stable, no chest wall tenderness, room air pulse ox is 95%, afebrile, no sputum culture was sent for culture. Clinically improving, yesterday chest x-ray has been reviewed showing right upper lobe pneumonia which is similar to previous exam on 12/24/2018, clinically patient is improving, no acute events overnight. Patient has been ambulating, today's labs have been reviewed, showing serum sodium 141, potassium 3.6, chloride is 112, CO2 is 21, BUN of 16, creatinine 0.84. Objective - Vital Signs Vital signs: Vital Signs Temp 97.4 F L 12/27/18 12:12 Pulse 60 12/27/18 12:40 Resp 16 12/27/18 12:12 BP 116/68 12/27/18 12:12 Pulse Ox 95 12/27/18 12:12 Intake & Output 12/26/18 12/27/18 12/27/18 18:59 06:59 18:59 Other: # Voids 2 1 - Exam GENERAL EXAM: Alert, active, comfortable in no apparent distress. HEAD: Normocephalic/atraumatic. EYES: Normal reaction of pupils, equal size. Conjunctiva pink, sclera white. NOSE: Clear with pink turbinates. THROAT: No erythema or exudates. NECK: No masses, no JVD, no thyroid enlargement, no adenopathy. CHEST: No chest wall deformity. Symmetrical expansion. LUNGS: Equal air entry with no crackles, wheeze, rhonchi or dullness. CVS: Regular rate and rhythm, normal S1 and S2, no gallops, no murmurs, no rubs ABDOMEN: Soft, nontender. No hepatosplenomegaly, normal bowel sounds, no guarding or rigidity. EXTREMITIES: No clubbing, no edema, no cyanosis, 2+ pulses and upper and lower extremities. MUSCULOSKELETAL: Muscle strength and tone normal. SPINE: No scoliosis or deformity SKIN: No rashes CENTRAL NERVOUS SYSTEM: Alert and oriented -3. No focal deficits, tone is normal in all 4 extremities. PSYCHIATRIC: Alert and oriented -3. Appropriate affect. Intact judgment and insight. - Labs CBC & Chem 7: 12/25/18 06:48 12/26/18 10:25 Assessment and Plan Plan: Assessment: #1. Bilateral multifocal pneumonia, community-acquired #2. Hemoptysis, dyspnea related to the above #3. Mild COPD exacerbation related to bilateral pneumonia #4. History of chronic atrial fibrillation #5. History of fibromyalgia #6. History of angina pectoris #6. History of GERD/reflux #7. Degenerative joint disease #8. Previous history of myocardial infarction #8. History of sleep apnea on CPAP therapy #8. Migraine/cluster headache #9. Morbid obesity #10. Diverticular disease #11. Irritable bowel syndrome Plan: Yesterday chest x-ray has been reviewed, shows stable findings with a right lower lobe pneumonia, however clinically patient is improving, she is on room air, sounding and looking much better, breathing easier, no hemoptysis, no significant cough or congestion, she continues on updrafts, Symbicort, Medrol Dosepak. He is tolerating ambulation, from pulmonary perspective she stable for discharge home today she will need follow-up in the outpatient basis with Dr. Dr. Jaramillo in one week I performed a history & physical examination of the patient and discussed their management with my nurse practitioner, Loren Myers. I reviewed the nurse practitioner's note and agree with the documented findings and plan of care. Lung sounds are positive for minimal rhonchi. The findings and the impression was discussed with the patient. I attest to the documentation by the nurse practitioner. Time with Patient: Less than 30
--- NOTE | 2018-12-27 14:07 | P.DS ---
Providers Date of admission: 12/23/18 18:44 Attending physician: Raad Hernandez Consults: 12/24/18 10:52 Consult Physician Routine Consulting Provider: Asif Jaramillo Consult Reason/Comments: abnormal CTA Do you want consulting provider notified?: Yes Primary care physician: Kamlesh [facility] Course: Diagnoses: Community-acquired pneumonia, right upper lobe lung bases. CAT scan of the chest, improving with antibiotic Hemoptysis secondary to above, improvement Left thyroid nodule, 3 cm. Patient is aware of it as well as her PCP as patient told medical staff, patient in 10 to follow-up with her PCP upon discharge History of multiple sclerosis and peripheral neuropathy, she works on her own using a cane or walker Morbid obesity History of Irritable bowel syndrome History of Migraine headache and cluster headache History of A. fib, heart rate is controlled History of coronary artery disease History of sleep apnea on CPAP/BiPAP Hospital course: This is a pleasant 63 years old female with past medical history of fibromyalgia, coronary artery disease, atrial fibrillation, sleep apnea, obesity, multiple sclerosis with peripheral neuropathy, she walks using a cane or walker because of that. Migraine, cluster headache, rectal bowel syndrome, vertigo. She presents on Wednesday morning for spitting up blood with but complaining associated with dyspnea, on admission patient was found to have right upper lobe pneumonia and she was started on antibiotics with Zithromax and ceftriaxone, pulmonary team have evaluated the patient, patient also on steroids and Protonix twice a day. Patient feels better, last time she spitting up blood was 2 days with dark- colored phlegm x 1, and since then has been resolved. her dyspnea is improving as well as patient denying chest pain. No other symptoms. Patient denies other complaints no nausea vomiting or abdominal pain, no change in urine or bowel habits. No leg swelling. No fever. Rest of Vitas looks stable. No leukocytosis and BMP was unremarkable. She has negative CTPA, also 3 cm nodule on the left thyroid lobe, patient told me she already got a call from her primary doctor for the thyroid nodule but told them she has been in the hospital. Patient told mentioned test to follow-up with her PCP Dr. Bolivar upon discharge for her thyroid nodule and other medical issue. Risk of cancer explained Patient was cleared by pulmonary team for discharge Problems and management plan were discussed with the patient and he verbalized understanding and acceptance Patient was found stable and can be discharged home however he needs follow-up as an outpatient. Patient was instructed to follow-up with her PCP and manager [employer] in 1 week and she verbalized understanding and acceptance. Patient wants to make her own appointments. Gen: patient is a AAOx3, no distress, obese CVS: S1-S2, RRR, no murmur Lungs: B/L CTA, no wheezing Abdomen: soft, no distention, no tenderness, positive bowel sounds Extremity: no leg edema or induration Time spent more than 35 minutes Patient Condition at Discharge: Stable Plan - Discharge Summary New Discharge Prescriptions: No Action EPINEPHrine (Auto Inject) [Epipen] 0.3 mg IM ONCE PRN PRN Reason: Anaphylaxis Sertraline [Zoloft] 200 mg PO QAM Cetirizine HCl 10 mg PO HS rOPINIRole HCL 0.5 mg PO QAM rOPINIRole HCL 1 mg PO HS oxyCODONE-APAP 5-325MG [Percocet 5-325 mg] 1 tab PO TID Clobetasol Propionate/Emoll [Temovate Emollient 0.05% Crm] 1 applic TOPICAL TID PRN PRN Reason: Rash ARIPiprazole [Abilify] 5 mg PO HS Furosemide [Lasix] 40 mg PO DAILY Nitroglycerin Sl Tabs [Nitrostat] 0.4 mg SUBLINGUAL Q5M PRN PRN Reason: Chest Pain Triamcinolone 0.1% Cream [Kenalog 0.1% Cream] 1 applic TOPICAL BID PRN PRN Reason: Rash valACYclovir [Valtrex] 500 mg PO BID Mupirocin [Bactroban Oint] 1 applic TOPICAL TID Pantoprazole [Protonix] 40 mg PO AC-BID #60 tablet traZODone HCL 150 mg PO HS PRN PRN Reason: Insomnia Ondansetron [Zofran] 4 mg PO BID Meclizine [Antivert] 25 mg PO Q8H PRN PRN Reason: Nausea Naproxen 500 mg PO BID Gabapentin 800 mg PO TID Oxybutynin Chloride [Ditropan XL] 20 mg PO DAILY Potassium Chloride [Klor-Con 8] 8 meq PO BID Diphenox-Atrop 2.5-0.025 mg [Lomotil] 2 tab PO BID Nystatin 100,000 Unit/gm Powd [Mycostatin Powder] 1 applic TOPICAL TID PRN PRN Reason: Rash Nystatin 100,000Unit/gm Cream [Mycostatin Cream] 1 applic TOPICAL DAILY PRN PRN Reason: Rash Albuterol Inhaler [Ventolin Hfa Inhaler] 1 - 2 puff INHALATION RT-Q6H PRN PRN Reason: Dyspnea Beclomethasone Dipropionate [Qvar 80 mcg] 1 puff INHALATION RT-BID Albuterol Nebulized [Ventolin Nebulized] 2.5 mg INHALATION RT-DAILY PRN PRN Reason: Dyspnea Cholecalciferol (Vitamin D3) [Vitamin D3] 2,000 unit PO DAILY traMADol HCl [Ultram] 50 mg PO Q6H PRN #28 tab PRN Reason: Pain Cyanocobalamin [Vitamin B-12 Injection] 1,000 mcg SQ QMONTH Fluticasone Nasal [place] [Flonase Nasal [place]] 1 spray EA NOSTRIL HS SUMAtriptan SUCCINATE [Imitrex] 100 mg PO Q3HR PRN PRN Reason: Headache Topiramate 50 mg PO BID Discharge Medication List Cetirizine HCl 10 mg PO HS 11/20/14 [History] EPINEPHrine (Auto Inject) [Epipen] 0.3 mg IM ONCE PRN 11/20/14 [History] Sertraline [Zoloft] 200 mg PO QAM 11/20/14 [History] rOPINIRole HCL 0.5 mg PO QAM 11/20/14 [History] rOPINIRole HCL 1 mg PO HS 11/20/14 [History] oxyCODONE-APAP 5-325MG [Percocet 5-325 mg] 1 tab PO TID 02/18/15 [History] Clobetasol Propionate/Emoll [Temovate Emollient 0.05% Crm] 1 applic TOPICAL TID PRN 03/15/15 [History] ARIPiprazole [Abilify] 5 mg PO HS 05/17/15 [History] Furosemide [Lasix] 40 mg PO DAILY 06/04/16 [History] Nitroglycerin Sl Tabs [Nitrostat] 0.4 mg SUBLINGUAL Q5M PRN 06/04/16 [History] Triamcinolone 0.1% Cream [Kenalog 0.1% Cream] 1 applic TOPICAL BID PRN 06/04/16 [History] valACYclovir [Valtrex] 500 mg PO BID 06/04/16 [History] Mupirocin [Bactroban Oint] 1 applic TOPICAL TID 03/05/17 [History] Pantoprazole [Protonix] 40 mg PO AC-BID #60 tablet. 01/23/18 [Rx] Diphenox-Atrop 2.5-0.025 mg [Lomotil] 2 tab PO BID 07/10/18 [History] Gabapentin 800 mg PO TID 07/10/18 [History] Meclizine [Antivert] 25 mg PO Q8H PRN 07/10/18 [History] Naproxen 500 mg PO BID 07/10/18 [History] Ondansetron [Zofran] 4 mg PO BID 07/10/18 [History] Oxybutynin Chloride [Ditropan XL] 20 mg PO DAILY 07/10/18 [History] Potassium Chloride [Klor-Con 8] 8 meq PO BID 07/10/18 [History] traZODone HCL 150 mg PO HS PRN 07/10/18 [History] Nystatin 100,000 Unit/gm Powd [Mycostatin Powder] 1 applic TOPICAL TID PRN 07/20/18 [History] Nystatin 100,000Unit/gm Cream [Mycostatin Cream] 1 applic TOPICAL DAILY PRN 07/20/18 [History] Albuterol Inhaler [Ventolin Hfa Inhaler] 1 - 2 puff INHALATION RT-Q6H PRN 08/09/18 [History] Albuterol Nebulized [Ventolin Nebulized] 2.5 mg INHALATION RT-DAILY PRN 08/09/18 [History] Beclomethasone Dipropionate [Qvar 80 mcg] 1 puff INHALATION RT-BID 08/09/18 [History] Cholecalciferol (Vitamin D3) [Vitamin D3] 2,000 unit PO DAILY 08/25/18 [History] traMADol HCl [Ultram] 50 mg PO Q6H PRN #28 tab 08/25/18 [Rx] Cyanocobalamin [Vitamin B-12 Injection] 1,000 mcg SQ QMONTH 12/24/18 [History] Fluticasone Nasal [place] [Flonase Nasal [place]] 1 spray EA NOSTRIL HS 12/24/18 [History] SUMAtriptan SUCCINATE [Imitrex] 100 mg PO Q3HR PRN 12/24/18 [History] Topiramate 50 mg PO BID 12/24/18 [History] Follow up Appointment(s)/Referral(s): Kamlesh Bolivar DO [Primary Care Provider] - 1-2 days Asif Jaramillo DO [Doctor of Osteopathic Medicine] - 10 Days (pulmonology ) Activity/Diet/Wound Care/Special Instructions: Resume previous diet Activity is limited till you see your doctor Discharge Disposition: HOME SELF-CARE
== END 2018-12-27 15:58 | disposition home or self-care (01) | DRG 193 ==
LOC: EC 12:58 → 6PED 18:44
PROVIDERS: ADMIT Hospitalist; ATTEND Hospitalist
DX: J18.1 Lobar pneumonia, unspecified organism (principal); G92 Toxic encephalopathy; Z68.43 Body mass index [BMI] 50.0-59.9, adult; J45.21 Mild intermittent asthma with (acute) exacerbation; J44.0 Chronic obstructive pulmonary disease with (acute) lower respiratory infection; J44.1 Chronic obstructive pulmonary disease with (acute) exacerbation; E66.01 Morbid (severe) obesity due to excess calories; K21.9 Gastro-esophageal reflux disease without esophagitis; J45.20 Mild intermittent asthma, uncomplicated; F41.9 Anxiety disorder, unspecified; F32.9 Major depressive disorder, single episode, unspecified; G47.33 Obstructive sleep apnea (adult) (pediatric); N32.81 Overactive bladder; D30.00 Benign neoplasm of unspecified kidney; E04.1 Nontoxic single thyroid nodule; F41.0 Panic disorder [episodic paroxysmal anxiety]; G43.909 Migraine, unspecified, not intractable, without status migrainosus; I25.10 Atherosclerotic heart disease of native coronary artery without angina pectoris; I48.2 Chronic atrial fibrillation; I83.90 Asymptomatic varicose veins of unspecified lower extremity; T42.75XA Adverse effect of unspecified antiepileptic and sedative-hypnotic drugs, initial encounter; M79.7 Fibromyalgia; M19.91 Primary osteoarthritis, unspecified site; K58.9 Irritable bowel syndrome, unspecified; G35 Multiple sclerosis; D50.9 Iron deficiency anemia, unspecified; F03.90 Unspecified dementia, unspecified severity, without behavioral disturbance, psychotic disturbance, mood disturbance, and anxiety; G62.9 Polyneuropathy, unspecified; Z99.89 Dependence on other enabling machines and devices; I25.2 Old myocardial infarction; Z90.49 Acquired absence of other specified parts of digestive tract; Z98.84 Bariatric surgery status; Z80.8 Family history of malignant neoplasm of other organs or systems; Z82.0 Family history of epilepsy and other diseases of the nervous system; Z79.899 Other long term (current) drug therapy; Z88.6 Allergy status to analgesic agent; Z88.5 Allergy status to narcotic agent; Z88.7 Allergy status to serum and vaccine; Z91.09 Other allergy status, other than to drugs and biological substances; Z87.01 Personal history of pneumonia (recurrent)
CPT/HCPCS: 36415; 71046; 71275; 80048; 80053; 81001; 85025; 85379; 93005; 94640; 96360; 96361; 99285

== ENCOUNTER → 2019-03-15 | Outpatient (CLI) | payer OTHER ==
[2019-03-15 15:30] VITALS: BP 127/68; PULSE 69; RESP 16; TEMP 98; BMI 53.5
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
== END | disposition home or self-care (01) ==
LOC: BARWHC3 14:09
PROVIDERS: ATTEND Surgery Plastic and Reconstructive Surgery
DX: Z48.815 Encounter for surgical aftercare following surgery on the digestive system (principal); E66.01 Morbid (severe) obesity due to excess calories; K21.9 Gastro-esophageal reflux disease without esophagitis; K95.89 Other complications of other bariatric procedure; M79.3 Panniculitis, unspecified; R13.10 Dysphagia, unspecified; K91.1 Postgastric surgery syndromes; I48.91 Unspecified atrial fibrillation; J45.909 Unspecified asthma, uncomplicated; I25.2 Old myocardial infarction; Z68.43 Body mass index [BMI] 50.0-59.9, adult; Z98.84 Bariatric surgery status; Z98.890 Other specified postprocedural states; Z91.018 Allergy to other foods; Z90.49 Acquired absence of other specified parts of digestive tract; Z90.710 Acquired absence of both cervix and uterus; Z79.51 Long term (current) use of inhaled steroids; Z79.899 Other long term (current) drug therapy; Z88.5 Allergy status to narcotic agent; Z88.7 Allergy status to serum and vaccine
CPT/HCPCS: 99211

== ENCOUNTER 2019-06-02 08:45 | Inpatient (IN) | payer OTHER ==
[2019-07-09] MEDS ORDERED: DEXAMETHASONE SOD PHOSPHATE 10 MG/ML 1 ML VIAL IV ONE (09:05)
[2019-07-09] MEDS ORDERED: LIDOCAINE 1% 20 ML VIAL (10MG/ML) FOR IV START INTRADERMA PRN (09:05)
[2019-07-09] MEDS ORDERED: fentaNYL (PF) 50 MCG/ML 2 ML AMP IV PRN (09:05)
[2019-07-09] MEDS ORDERED: ONDANSETRON 4 MG/2 ML VIAL IVP ONE (09:05)
[2019-07-10] MEDS ORDERED: ceFAZolin 3 GM in SODIUM CHLORIDE 0.9% 100 ML IVPB ONE (05:00)
[2019-07-10] MEDS ORDERED: HEPARIN SODIUM,PORCINE 5,000 UNIT/ML 1 ML VIAL SQ ONE (06:39)
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
[2019-07-10] MEDS ORDERED: GABAPENTIN 300 MG CAP PO STA (06:40)
[2019-07-10] MEDS ORDERED: ACETAMINOPHEN TAB 500 MG TAB PO STA (06:40)
[2019-07-10] MEDS: LACTATED RINGERS 1,000 ML IV SCH ×2 (12:18→19:55)
[2019-07-10] MEDS ORDERED: SODIUM CHLORIDE 0.9% (PF) 10 ML VIAL ONE (13:18)
[2019-07-10] MEDS ORDERED: KETOROLAC 30 MG/ML 1 ML VIAL ONE (13:18)
[2019-07-10] MEDS ORDERED: fentaNYL (PF) 50 MCG/ML 2 ML AMP ONE (13:18)
[2019-07-10] MEDS ORDERED: ePHEDrine SULFATE/0.9% NACL/PF 50 MG/5 ML SYRINGE IV ONE (13:18)
[2019-07-10] MEDS ORDERED: NEOSTIGMINE 1 MG/ML 10 ML VIAL ONE (13:18)
[2019-07-10] MEDS ORDERED: SUCCINYLCHOLINE CHLORIDE VIAL 200 MG/10 ML VIAL IV ONE (13:18)
[2019-07-10] MEDS ORDERED: ROCURONIUM BROMIDE 10 MG/ML 10 ML VIAL IV ONE (13:18)
[2019-07-10] MEDS ORDERED: PROPOFOL 10 MG/ML 20 ML VIAL IV ONE (13:18)
[2019-07-10] MEDS ORDERED: MIDAZOLAM 2 MG/2 ML VIAL ONE (13:18)
[2019-07-10] MEDS ORDERED: GLYCOPYRROLATE 0.2 MG/ML 2 ML VIAL ONE (13:18)
[2019-07-10] MEDS ORDERED: LIDOCAINE 1% INJ 10MG/ML (20 ML MDV) ONE (13:18)
[2019-07-10] MEDS ORDERED: LACTATED RINGERS 1,000 ML IV ONE ×3 (14:41→16:49)
[2019-07-10] MEDS ORDERED: NALOXONE 0.4 MG/ML 1 ML VIAL IV PRN ×2 (17:40→17:43)
[2019-07-10] MEDS ORDERED: ACETAMINOPHEN IV (For NPO) 1,000 MG in EMPTY BAG 1 BAG IVPB ONE (17:40)
[2019-07-10] MEDS ORDERED: ONDANSETRON 4 MG/2 ML VIAL IVP PRN (17:40)
[2019-07-10] MEDS ORDERED: MAGNESIUM HYDROXIDE 2,400 MG/10 ML CUP PO PRN (17:43)
[2019-07-10] MEDS ORDERED: fentaNYL PCA 500 MCG/50 ML BAG IV PRN (17:43)
[2019-07-10] MEDS ORDERED: MEPERIDINE 50 MG/ML SYRINGE IVP PRN (17:43)
[2019-07-10] MEDS ORDERED: ALBUTEROL NEBULIZED 2.5 MG/3 ML INHALATION PRN (17:44)
[2019-07-10] MEDS ORDERED: NITROGLYCERIN SL TABS 0.4 MG TAB SUBLINGUAL PRN (17:44)
[2019-07-10] MEDS ORDERED: MECLIZINE 25 MG TAB PO PRN (17:44)
[2019-07-10] MEDS ORDERED: SUMAtriptan SUCCINATE 50 MG TAB PO PRN (17:44)
--- NOTE | 2019-07-10 17:51 | P.OP ---
Date of Procedure: 07/10/19 Description of Procedure: SURGEON: DAMIEN FARIAS MD PREOPERATIVE DIAGNOSES: 1. Panniculitis. 2. Central adiposity 3. Status post gastric bypass 4. Morbid obesity due to excess calories. 5. Body mass index of 66.4 down to 54.0 6. Myocardial infarction 7. Obstructive sleep apnea 8. Osteoarthritis 9. Migraines 10. Cluster headaches 11, Multiple sclerosis 12. Chronic anemia 13. Varicose veins 14. Irritable bowel syndrome 15. Diverticulitis 16. Hypoglycemia 17. Hiatal hernia 18. Liver tumor 19. Vertigo 20. Postop nausea vomiting 21. Depression. 22. Fibromyalgia. 21. Atrial fibrillation 22. Asthma 23. Dementia 24. Reflux disease 25. Liver disease POSTOPERATIVE DIAGNOSES: 1. Panniculitis. 2. Central adiposity 3. Status post gastric bypass 4. Morbid obesity due to excess calories. 5. Body mass index of 66.4 down to 54.0 6. Myocardial infarction 7. Obstructive sleep apnea 8. Osteoarthritis 9. Migraines 10. Cluster headaches 11, Multiple sclerosis 12. Chronic anemia 13. Varicose veins 14. Irritable bowel syndrome 15. Diverticulitis 16. Hypoglycemia 17. Hiatal hernia 18. Liver tumor 19. Vertigo 20. Postop nausea vomiting 21. Depression. 22. Fibromyalgia. 21. Atrial fibrillation 22. Asthma 23. Dementia 24. Reflux disease 25. Liver disease OPERATION: 1. Panniculectomy, 24.2 pounds. ANESTHESIA: General ESTIMATED BLOOD LOSS: 600 mL SPECIMENS REMOVED: Pannus 24.2 pounds. COMPLICATIONS: None. CONDITION: Stable. DRAINS: Two #19 Fadi drains below abdominal flap extending through the pubis. OPERATIVE FINDINGS: 1. Pannus weighing 24.2 pounds, excised. INDICATIONS: Henna Merino is a 64-year-old female who comes in with gastric bypass. She comes in for skin removal with panniculectomy for the severity of her panniculits. Her highest weight was 436 pounds. Her body mass index was 66.4. Today, she comes in weighing 351 pounds. Body mass index is down from 66.4 to 53.6. At her height of 5 foot 8 inches, her ideal body weight is 163 pounds. Lifetime weight loss 84 pounds. Percent excess weight loss 31 %. Despite medical therapy with prescription powders, she has developed severe medical refractory panniculitis. Her body mass index has been reduced to 30.1. She reports medically refractory panniculitis. Given her clinical symptoms, including massive weight loss, she elected for surgical intervention with a panniculectomy. Benefits and risks of the procedure including bleeding, infection, risk of flap failure, abdominal wall seromas, chronic pain were described at length. Informed consent was obtained. DESCRIPTION: In the preanesthesia care unit the patient was marked with an indelible marker. She had also been given heparin subcutaneously. The patient was brought into the operating room and laid in supine position. After general induction, a Berman catheter was placed. The abdomen was then prepped and draped in standard sterile fashion using ChloraPrep. The skin was prepped as far laterally to the back, inferiorly to the upper thighs and superiorly to above the bilateral breasts. A timeout protocol was confirmed with the surgical team regarding patient's name, procedure to be performed, including preoperative medications. She had received Ancef 3 grams IV antibiotics. Once the time-out protocol was confirmed with the surgical team, the patient was re-marked with indelible marker whereby the midline of the xiphoid to the mons pubis was marked. The anterior/superior iliac spine along the bilateral hips was also marked. Approximately 8 cm above the pubis commissure a transverse incision was made for the inferior portion of the flap. Using a #10 blade, the incision was taken from the midline laterally to above the anterior/superior iliac spine, initially on the left side of the patient and then on the right side of the patient. Electro-Bovie cautery was used to control for hemostasis. The dissection was taken down to the level of the fascia. Landmarks used were the xiphoid process as well as the bilateral costal margins for the superior margin. Care was taken to avoid any creation of dog ears during the dissection. Hemostasis was once again checked with electro-Bovie cautery and all defects were addressed. Attention was now brought to closure of the flap. Using stainless steel skin leila, the midline was once again marked of the upper flap as well as the pubic commissure. The patient was placed in a flexed position of approximately 20 degrees at the hips. The pannus was extended inferiorly to the feet. The upper flap was created once the excess skin was excised. Again care was taken to avoid any dog ears along the lateral aspect of the incisions. Once excised, the pannus was weighed at 24.2 pounds. The upper and lower flaps were reapproximated at the midline and then laterally to the skin with skin leila. Once reapproximated, the skin was closed in layers using 0 Vicryl for the superficial fascial system followed by running 3-0 Monocryl for the deep dermis in a running subcuticular fashion. Prior to skin closure, two round #19 Fadi drains were placed underneath the flap and brought out just inferior to the incision along the pubis. Drain stitch using 2-0 nylon was placed. Once the incision was closed, bulb suction was attached. Hemostasis was checked. At the end of the procedure, the needle, sponge and instrument count was verified correct. Exofin tape was placed along the length of the incision. Optifoam dressings were applied over the incision and used as a drain sponge. The patient was then transferred to a hospital bed in a beach chair position. An abdominal binder was placed and marked. The patient was taken to the postanesthesia care unit in stable condition, awake and extubated.
[2019-07-10] MEDS: SYMBICORT 160-4.5 MCG INHALER INHALATION SCH (19:54)
[2019-07-10] MEDS: KETOROLAC 30 MG/ML 1 ML VIAL IVP SCH (19:56)
[2019-07-10] MEDS ORDERED: FLUTICASONE 110 MCG INHALER INHALATION SCH (20:00)
[2019-07-10] MEDS: FLUTICASONE 50MCG/SPRAY NASAL 16GM EA NOSTRIL SCH (21:21)
[2019-07-10] MEDS: ARIPiprazole 10 MG TAB PO SCH (21:22)
[2019-07-10] MEDS ORDERED: ceFAZolin 3 GM in SODIUM CHLORIDE 0.9% 100 ML IVPB SCH (22:00)
[2019-07-10] MEDS ORDERED: SODIUM CHLORIDE 0.9% 2,000 ML IV ONE (22:15)
[2019-07-10] MEDS ORDERED: SCOPOLAMINE 1.5MG/72HR PATCH TRANSDERM STA (22:16)
[2019-07-10] MEDS: TOPIRAMATE 25 MG TAB PO SCH (23:05)
[2019-07-10] MEDS: valACYclovir 500 MG TAB PO SCH (23:06)
[2019-07-10] MEDS: FAMOTIDINE 20 MG TAB PO SCH (23:06)
[2019-07-10] MEDS: POTASSIUM CHLORIDE ER 10 MEQ TAB.ER.PRT PO SCH (23:06)
[2019-07-10] MEDS: LORATADINE 10 MG TAB PO SCH (23:06)
[2019-07-10] MEDS: SENNOSIDES-DOCUSATE SODIUM 1 EACH TAB PO SCH (23:06)
[2019-07-10] MEDS: GABAPENTIN 400 MG CAP PO SCH (23:09)
[2019-07-10] MEDS: 0.9% NACL WITH KCL 20 MEQ/L 1,000 ML IV SCH (23:57)
[2019-07-11] MEDS: 0.9% NACL WITH KCL 20 MEQ/L 1,000 ML IV SCH ×5 (01:03→20:55)
[2019-07-11] MEDS: KETOROLAC 30 MG/ML 1 ML VIAL IVP SCH ×4 (01:05→18:28)
[2019-07-11] MEDS ORDERED: ENOXAPARIN 40 MG/0.4 ML SYRINGE SQ SCH (04:00)
[2019-07-11] MEDS: PANTOPRAZOLE 40 MG TABLET PO SCH ×2 (07:46→16:45)
[2019-07-11 07:47] LABS: Basophils % (A) 0 %; Eosinophils % (A) 0 %; HCT 29.1 % (34.0-46.0); Hypochromasia Marked; Lymphocytes # (A) 0.6 k/uL (1.0-4.8); Lymphocytes % (A) 15 %; MCH 28.4 pg (25.0-35.0); MCHC 30.3 g/dL (31.0-37.0); Mean Platelet Volume 9.3; Monocytes # (A) 0.3 k/uL (0-1.0); Monocytes % (A) 7 %; Neutrophils % (A) 76 %; Platelet Count 148 k/uL (150-450); RBC 3.11 m/uL (3.80-5.40); RDW 14.7 % (11.5-15.5)
[2019-07-11 08:04] LABS: African American GFR (CKD) >90 (>60 ml/min/1.73 sqM); Anion Gap 4 mmol/L; Blood Urea Nitrogen 14 mg/dL (7-17); Calcium 7.5 mg/dL (8.4-10.2); Carbon Dioxide 22 mmol/L (22-30); Chloride 116 mmol/L (98-107); Non-African American GFR(CKD) >90 (>60 ml/min/1.73 sqM); Phosphorus 3.4 mg/dL (2.5-4.5); Sodium 142 mmol/L (137-145)
[2019-07-11 08:15] LABS: HGB 8.8 gm/dL (11.4-16.0)
[2019-07-11 08:16] LABS: MCV 93.5 fL (80.0-100.0)
[2019-07-11] MEDS: SYMBICORT 160-4.5 MCG INHALER INHALATION SCH ×2 (08:26→20:32)
[2019-07-11] MEDS: valACYclovir 500 MG TAB PO SCH ×2 (08:48→21:23)
[2019-07-11] MEDS: POTASSIUM CHLORIDE ER 10 MEQ TAB.ER.PRT PO SCH ×2 (08:48→21:24)
[2019-07-11] MEDS: OXYBUTYNIN 10 MG TAB.ER.24 PO SCH (08:48)
[2019-07-11] MEDS: SERTRALINE 100 MG TAB PO SCH (08:48)
[2019-07-11] MEDS: TOPIRAMATE 25 MG TAB PO SCH ×2 (08:49→21:24)
[2019-07-11] MEDS: FAMOTIDINE 20 MG TAB PO SCH ×2 (08:49→21:24)
[2019-07-11] MEDS: GABAPENTIN 400 MG CAP PO SCH ×3 (08:49→23:32)
[2019-07-11] MEDS: LACTULOSE 20 GM/30 ML CUP PO SCH (08:54)
[2019-07-11] MEDS: LACTATED RINGERS 1,000 ML IV SCH (08:56)
[2019-07-11] MEDS ORDERED: FUROSEMIDE 40 MG TAB PO SCH (09:00)
[2019-07-11] MEDS ORDERED: PANTOPRAZOLE 40 MG/10 ML VIAL IVP SCH (09:00)
--- NOTE | 2019-07-11 14:41 | P.PN ---
<VelaChelsie Tiago - Last Filed: 07/11/19 14:36> Subjective Progress Note Date: 07/11/19 CHIEF COMPLAINT: panniculitis HISTORY OF PRESENT ILLNESS: 64-year-old female who underwent panniculectomy with removal of 24.2 pounds removed. Postoperative day #1. Patient is doing well pos toperatively. Pain is controlled. Tolerating diet without nausea or vomiting. Hemoglobin 8.8. PHYSICAL EXAM: VITAL SIGNS: Currently stable. GENERAL: Well-developed in no acute distress. HEENT: No sclera icterus. Extraocular movements grossly intact. Moist buccal mucosa. Head is atraumatic, normocephalic. Hears conversational speech. No nasal drainage. NECK: Supple without lymphadenopathy. CHEST: Non-labored respirations and equal bilateral excursions. CARDIOVASCULAR: Regular rate with regular rhythm. Palpable 2+ radial pulses. ABDOMEN: Soft. Nondistended. Abdominal binder noted. OSEI x 2 with sanguinous drainage MUSCULOSKELETAL: No clubbing, cyanosis or edema. NEUROLOGIC: No focal or lateralizing signs. Cranial nerves II through XII grossly intact. PSYCH: Appropriate affect. Alert and oriented to person, place and time. SKIN: Well perfused. Good skin turgor. ASSESSMENT: 1. Panniculitis. 2. Central adiposity 3. Status post gastric bypass 4. Morbid obesity due to excess calories. 5. Body mass index of 66.4 down to 54.0 6. Myocardial infarction 7. Obstructive sleep apnea 8. Osteoarthritis 9. Migraines 10. Cluster headaches 11, Multiple sclerosis 12. Chronic anemia 13. Varicose veins 14. Irritable bowel syndrome 15. Diverticulitis 16. Hypoglycemia 17. Hiatal hernia 18. Liver tumor 19. Vertigo 20. Postop nausea vomiting 21. Depression. 22. Fibromyalgia. 21. Atrial fibrillation 22. Asthma 23. Dementia 24. Reflux disease 25. Liver disease PLAN: -Pain control -Activity as tolerated -Continue diet -IS 10 times an hour -Likely discharge home this evening Nurse practitioner note has been reviewed by physician. Signing provider agrees with the documented findings, assessment, and plan of care. Objective - Vital Signs Vital signs: Vital Signs Temp 97.8 F 07/11/19 07:00 Pulse 89 07/11/19 07:00 Resp 18 07/11/19 07:00 BP 98/65 07/11/19 07:00 Pulse Ox 98 07/11/19 08:28 Intake & Output 07/10/19 07/11/19 07/11/19 18:59 06:59 18:59 Intake Total 2450 2800 700 Output Total 760 840 225 Balance 1690 1960 475 Weight 161 kg 161 kg Intake: IV 2450 Intake, IV Titration 2800 700 Amount 0.9% NaCl with KCl 20 Meq 700 /l 1,000 ml @ 100 mls/hr IV .Q10H [facility] Rx#: [id number] 0.9% NaCl with KCl 20 Meq 700 /l 1,000 ml @ 150 mls/hr IV .Q6H40M [facility] Rx#: [id number] Sodium Chloride 0.9% 2, 2000 000 ml @ 999 mls/hr IV . Q2H1M ONE Rx#:[id number] ceFAZolin 3 gm In Sodium 100 Chloride 0.9% 100 ml @ 200 mls/hr IVPB Q8HR [facility] Rx#:[id number] Output: Drainage 170 Left Lower Abdomen 65 Right Lower Abdomen 105 Urine 160 670 225 Uretheral (Berman) 225 Estimated Blood Loss 600 Other: Voiding Method Indwelling Catheter - Labs CBC & Chem 7: 07/11/19 06:40 07/11/19 06:40 Labs: Abnormal Lab Results - Last 24 Hours (Table) 07/11/19 07/11/19 Range/Units 06:40 06:40 RBC 3.11 L (3.80-5.40) m/uL Hgb 8.8 L D (11.4-16.0) gm/dL Hct 29.1 L (34.0-46.0) % MCHC 30.3 L (31.0-37.0) g/dL Plt Count 148 L (150-450) k/uL Lymphocytes # 0.6 L (1.0-4.8) k/uL Chloride 116 H (98-107) mmol/L Calcium 7.5 L (8.4-10.2) mg/dL <Chelsea Buchanan - Last Filed: 07/12/19 08:04> Subjective Blood pressure low systolic 80s. Otherwise clinically asymptomatic. Antihypertensives discontinued. Anticoagulants discontinued. Continue inpatient stay secondary to multiple comorbidities including high-risk panniculectomy, 25 pounds Objective - Vital Signs Vital signs: Vital Signs Temp 98.2 F 07/12/19 07:00 Pulse 95 07/12/19 07:00 Resp 12 07/12/19 07:00 BP 145/73 07/12/19 07:00 Pulse Ox 95 07/12/19 07:00 Intake & Output 07/11/19 07/12/19 07/12/19 18:59 06:59 18:59 Intake Total 700 1600 Output Total 715 650 500 Balance -15 950 -500 Intake: Intake, IV Titration 700 1600 Amount 0.9% NaCl with KCl 20 Meq 700 1600 /l 1,000 ml @ 100 mls/hr IV .Q10H SOP[facility]IA Rx#: [id number] Output: Drainage 190 350 Left Lower Abdomen 90 165 Right Lower Abdomen 100 185 Urine 525 300 500 Uretheral (Berman) 225 Other: Voiding Method Toilet Toilet # Voids 1 1 - Labs CBC & Chem 7: 07/11/19 06:40 07/11/19 06:40 Labs: Abnormal Lab Results - Last 24 Hours (Table) 07/11/19 07/11/19 Range/Units 06:40 06:40 RBC 3.11 L (3.80-5.40) m/uL Hgb 8.8 L D (11.4-16.0) gm/dL Hct 29.1 L (34.0-46.0) % MCHC 30.3 L (31.0-37.0) g/dL Plt Count 148 L (150-450) k/uL Lymphocytes # 0.6 L (1.0-4.8) k/uL Chloride 116 H (98-107) mmol/L Calcium 7.5 L (8.4-10.2) mg/dL
[2019-07-11] MEDS: ACETAMINOPHEN TAB 325 MG TAB PO PRN ×2 (16:45→23:33)
[2019-07-11] MEDS: SODIUM CHLORIDE 0.9% 1,000 ML IV SCH ×2 (18:56→19:51)
[2019-07-11] MEDS: FLUTICASONE 50MCG/SPRAY NASAL 16GM EA NOSTRIL SCH (20:56)
[2019-07-11] MEDS: ARIPiprazole 10 MG TAB PO SCH (21:23)
[2019-07-11] MEDS: SENNOSIDES-DOCUSATE SODIUM 1 EACH TAB PO SCH (21:23)
[2019-07-11] MEDS: LORATADINE 10 MG TAB PO SCH (21:24)
[2019-07-12] MEDS: ACETAMINOPHEN TAB 325 MG TAB PO PRN (07:21)
[2019-07-12] MEDS: PANTOPRAZOLE 40 MG TABLET PO SCH (07:21)
[2019-07-12 07:47] VITALS: BP 145/73; PULSE 95; RESP 12; TEMP 98.2
[2019-07-12] MEDS ORDERED: BISACODYL 5 MG TABLET.DR PO PRN (08:00)
[2019-07-12 08:35] LABS: Basophils % (A) 0 %; Eosinophils # (A) 0.1 k/uL (0-0.7); Eosinophils % (A) 2 %; HCT 25.3 % (34.0-46.0); HGB 8.2 gm/dL (11.4-16.0); Lymphocytes # (A) 0.7 k/uL (1.0-4.8); Lymphocytes % (A) 16 %; MCH 29.2 pg (25.0-35.0); MCHC 32.3 g/dL (31.0-37.0); MCV 90.6 fL (80.0-100.0); Mean Platelet Volume 9.6; Monocytes # (A) 0.3 k/uL (0-1.0); Monocytes % (A) 6 %; Neutrophils # (A) 3.3 k/uL (1.3-7.7); Neutrophils % (A) 76 %; Platelet Count 132 k/uL (150-450); RBC 2.79 m/uL (3.80-5.40); WBC 4.3 k/uL (3.8-10.6)
[2019-07-12] MEDS: POTASSIUM CHLORIDE ER 10 MEQ TAB.ER.PRT PO SCH (09:02)
[2019-07-12] MEDS: SERTRALINE 100 MG TAB PO SCH (09:02)
[2019-07-12] MEDS: GABAPENTIN 400 MG CAP PO SCH (09:02)
[2019-07-12] MEDS: FAMOTIDINE 20 MG TAB PO SCH (09:02)
[2019-07-12] MEDS: LACTULOSE 20 GM/30 ML CUP PO SCH (09:02)
[2019-07-12] MEDS: TOPIRAMATE 25 MG TAB PO SCH (09:03)
[2019-07-12] MEDS: OXYBUTYNIN 10 MG TAB.ER.24 PO SCH (09:03)
[2019-07-12] MEDS: valACYclovir 500 MG TAB PO SCH (09:03)
[2019-07-12] MEDS: LACTATED RINGERS 1,000 ML IV SCH (09:04)
[2019-07-12] MEDS: SYMBICORT 160-4.5 MCG INHALER INHALATION SCH (09:16)
[2019-07-12 10:38] VITALS: BMI 53.9
--- NOTE | 2019-07-12 13:03 | P.DS ---
Providers Date of admission: 07/10/19 11:32 Expected date of discharge: 07/12/19 Attending physician: Chelsea Buchanan Primary care physician: Kamlesh Bolivar - Discharge Diagnosis(es) (1) Panniculitis Current Visit: Yes Status: Acute (2) Central adiposity Current Visit: Yes Status: Acute (3) Morbid obesity due to excess calories Current Visit: Yes Status: Acute (4) Adult BMI 50.0-59.9 kg/sq m Current Visit: Yes Status: Acute Hospital Course: POSTOPERATIVE DIAGNOSES: 1. Panniculitis. 2. Central adiposity 3. Status post gastric bypass 4. Morbid obesity due to excess calories. 5. Body mass index of 66.4 down to 54.0 6. Myocardial infarction 7. Obstructive sleep apnea 8. Osteoarthritis 9. Migraines 10. Cluster headaches 11, Multiple sclerosis 12. Chronic anemia 13. Varicose veins 14. Irritable bowel syndrome 15. Diverticulitis 16. Hypoglycemia 17. Hiatal hernia 18. Liver tumor 19. Vertigo 20. Postop nausea vomiting 21. Depression. 22. Fibromyalgia. 21. Atrial fibrillation 22. Asthma 23. Dementia 24. Reflux disease 25. Liver disease COURSE: Henna Merino is a 64-year-old female who comes in with gastric bypass. She comes in for skin removal with panniculectomy for the severity of her panniculits. Her highest weight was 436 pounds. Her body mass index was 66.4. Today, she comes in weighing 351 pounds. Body mass index is down from 66.4 to 53.6. At her height of 5 foot 8 inches, her ideal body weight is 163 pounds. Lifetime weight loss 84 pounds. Percent excess weight loss 31 %. Despite medical therapy with prescription powders, she has developed severe medical refractory panniculitis. Her body mass index has been reduced to 30.1. She reports medically refractory panniculitis. Given her clinical symptoms, including massive weight loss, she elected for surgical intervention with a panniculectomy. Benefits and risks of the procedure including bleeding, infection, risk of flap failure, abdominal wall seromas, chronic pain were described at length. Informed consent was obtained. With her high BMI over 50 including moderate resection of skin over 20+ pounds, patient was deemed high risk. Hospitalization and patient was advised. Patient monitored for physical therapy including occupational therapy. Prior to discharge, patient was stable. OSEI teaching reinforced including using abdominal binder. Hemoglobin was stable prior to discharge. Procedures: OPERATION: 1. Panniculectomy, 24.2 pounds. ANESTHESIA: General ESTIMATED BLOOD LOSS: 600 mL SPECIMENS REMOVED: Pannus 24.2 pounds. COMPLICATIONS: None. CONDITION: Stable. DRAINS: Two #19 Fadi drains below abdominal flap extending through the pubis. OPERATIVE FINDINGS: 1. Pannus weighing 24.2 pounds, excised. Patient Condition at Discharge: Stable Plan - Discharge Summary Discharge Rx Participant: Yes New Discharge Prescriptions: Continue EPINEPHrine (Auto Inject) [Epipen] 0.3 mg IM ONCE PRN PRN Reason: Anaphylaxis Sertraline [Zoloft] 200 mg PO QAM Cetirizine HCl 10 mg PO HS rOPINIRole HCL [Requip] 0.5 mg PO QAM rOPINIRole HCL [Requip] 1 mg PO HS ARIPiprazole [Abilify] 10 mg PO HS Furosemide [Lasix] 40 mg PO DAILY Nitroglycerin Sl Tabs [Nitrostat] 0.4 mg SUBLINGUAL Q5M PRN PRN Reason: Chest Pain Triamcinolone 0.1% Cream [Kenalog 0.1% Cream] 1 applic TOPICAL BID PRN PRN Reason: Rash valACYclovir [Valtrex] 500 mg PO BID Pantoprazole [Protonix] 40 mg PO AC-BID #60 tablet. Meclizine [Antivert] 25 mg PO Q8H PRN PRN Reason: Nausea Gabapentin 800 mg PO TID Oxybutynin Chloride [Ditropan XL] 20 mg PO DAILY Potassium Chloride [Klor-Con 8] 8 meq PO BID Beclomethasone Dipropionate [Qvar 80 mcg] 1 puff INHALATION RT-BID Albuterol Nebulized [Ventolin Nebulized] 2.5 mg INHALATION RT-DAILY PRN PRN Reason: Dyspnea Cyanocobalamin [Vitamin B-12 Injection] 1,000 mcg SQ QMONTH Fluticasone Nasal [place] [Flonase Nasal [place]] 1 spray EA NOSTRIL HS SUMAtriptan SUCCINATE [Imitrex] 100 mg PO Q3HR PRN PRN Reason: Headache Topiramate 50 mg PO BID Budesonide-Formot 160-4.5 Mcg [Symbicort 160-4.5 Mcg Inhaler] 2 puff INHALATION RT-BID #1 inh Acetaminophen Tab [Tylenol] 650 mg PO Q6HR PRN tab PRN Reason: Mild Pain Or Fever > 100.5 Ergocalciferol [Vitamin D2 (DRISDOL)] 50,000 unit PO FR Discontinued Mupirocin [Bactroban Oint] 1 applic TOPICAL TID PRN PRN Reason: Skin Irritation Nystatin 100,000 Unit/gm Powd [Mycostatin Powder] 1 applic TOPICAL TID PRN PRN Reason: Rash Nystatin 100,000Unit/gm Cream [Mycostatin Cream] 1 applic TOPICAL DAILY PRN PRN Reason: Rash Discharge Medication List Cetirizine HCl 10 mg PO HS 11/20/14 [History] EPINEPHrine (Auto Inject) [Epipen] 0.3 mg IM ONCE PRN 11/20/14 [History] Sertraline [Zoloft] 200 mg PO QAM 11/20/14 [History] rOPINIRole HCL [Requip] 0.5 mg PO QAM 11/20/14 [History] rOPINIRole HCL [Requip] 1 mg PO HS 11/20/14 [History] ARIPiprazole [Abilify] 10 mg PO HS 05/17/15 [History] Furosemide [Lasix] 40 mg PO DAILY 06/04/16 [History] Nitroglycerin Sl Tabs [Nitrostat] 0.4 mg SUBLINGUAL Q5M PRN 06/04/16 [History] Triamcinolone 0.1% Cream [Kenalog 0.1% Cream] 1 applic TOPICAL BID PRN 06/04/16 [History] valACYclovir [Valtrex] 500 mg PO BID 06/04/16 [History] Pantoprazole [Protonix] 40 mg PO AC-BID #60 tablet. 01/23/18 [Rx] Gabapentin 800 mg PO TID 07/10/18 [History] Meclizine [Antivert] 25 mg PO Q8H PRN 07/10/18 [History] Oxybutynin Chloride [Ditropan XL] 20 mg PO DAILY 07/10/18 [History] Potassium Chloride [Klor-Con 8] 8 meq PO BID 07/10/18 [History] Albuterol Nebulized [Ventolin Nebulized] 2.5 mg INHALATION RT-DAILY PRN 08/09/18 [History] Beclomethasone Dipropionate [Qvar 80 mcg] 1 puff INHALATION RT-BID 08/09/18 [History] Cyanocobalamin [Vitamin B-12 Injection] 1,000 mcg SQ QMONTH 12/24/18 [History] Fluticasone Nasal [place] [Flonase Nasal [place]] 1 spray EA NOSTRIL HS 12/24/18 [History] SUMAtriptan SUCCINATE [Imitrex] 100 mg PO Q3HR PRN 12/24/18 [History] Topiramate 50 mg PO BID 12/24/18 [History] Acetaminophen Tab [Tylenol] 650 mg PO Q6HR PRN tab 12/27/18 [Rx] Budesonide-Formot 160-4.5 Mcg [Symbicort 160-4.5 Mcg Inhaler] 2 puff INHALATION RT-BID #1 inh 12/27/18 [Rx] Ergocalciferol [Vitamin D2 (DRISDOL)] 50,000 unit PO FR 07/03/19 [History] [facility]Ref[place] [facility] [place] [place] - 07/14/19 10:00 am Patient Instructions/Handouts: [facility] Drain Care (DC), Abdominal Binder (DC), Panniculectomy (DC) Activity/Diet/Wound Care/Special Instructions: No lifting over 4 pounds in 4 weeks, Aug 10 No bathtub soaks. No shower. No stretching or twisting. Sleep in a recliner. DO NOT REMOVE DRESSINGS. DO NOT REMOVE BINDER. Keep record of OSEI outputs daily. Discharge Disposition: HOME SELF-CARE
[2019-07-12] MEDS: 0.9% NACL WITH KCL 20 MEQ/L 1,000 ML IV SCH (13:59)
== END 2019-07-12 16:09 | disposition home or self-care (01) | DRG 571 ==
LOC: EDSTATUS 08:45 → 2ORMAIN 07-10 11:32 → 4SSUR 07-10 17:22
PROVIDERS: ADMIT Surgery Plastic and Reconstructive Surgery; ATTEND Surgery Plastic and Reconstructive Surgery
PROC: 0JB80ZZ Excision of Abdomen Subcutaneous Tissue and Fascia, Open Approach (ICD-10-PCS; principal; 2019-07-10 12:05)
DX: M79.3 Panniculitis, unspecified (principal); Z68.43 Body mass index [BMI] 50.0-59.9, adult; K57.92 Diverticulitis of intestine, part unspecified, without perforation or abscess without bleeding; M79.7 Fibromyalgia; G35 Multiple sclerosis; E16.2 Hypoglycemia, unspecified; D64.9 Anemia, unspecified; D49.0 Neoplasm of unspecified behavior of digestive system; E66.01 Morbid (severe) obesity due to excess calories; F03.90 Unspecified dementia, unspecified severity, without behavioral disturbance, psychotic disturbance, mood disturbance, and anxiety; F32.9 Major depressive disorder, single episode, unspecified; G44.009 Cluster headache syndrome, unspecified, not intractable; G47.33 Obstructive sleep apnea (adult) (pediatric); I48.91 Unspecified atrial fibrillation; J45.909 Unspecified asthma, uncomplicated; K21.9 Gastro-esophageal reflux disease without esophagitis; K44.9 Diaphragmatic hernia without obstruction or gangrene; M19.90 Unspecified osteoarthritis, unspecified site; K91.1 Postgastric surgery syndromes; I25.2 Old myocardial infarction; Z79.51 Long term (current) use of inhaled steroids; Z79.899 Other long term (current) drug therapy; Z82.0 Family history of epilepsy and other diseases of the nervous system; Z82.49 Family history of ischemic heart disease and other diseases of the circulatory system; Z90.710 Acquired absence of both cervix and uterus; Z98.84 Bariatric surgery status
CPT/HCPCS: 80051; 82310; 82565; 83735; 84100; 84520; 85025; 94640; 94660

== ENCOUNTER → 2019-06-14 | Outpatient (CLI) | payer OTHER ==
[2019-06-14 17:43] LABS: Basophils % (A) 0 %; Eosinophils # (A) 0.1 k/uL (0-0.7); Eosinophils % (A) 2 %; HCT 40.1 % (34.0-46.0); HGB 12.9 gm/dL (11.4-16.0); Hypochromasia Slight; Lymphocytes # (A) 0.8 k/uL (1.0-4.8); Lymphocytes % (A) 21 %; MCH 28.5 pg (25.0-35.0); MCHC 32.3 g/dL (31.0-37.0); MCV 88.5 fL (80.0-100.0); Mean Platelet Volume 9.7; Monocytes # (A) 0.2 k/uL (0-1.0); Monocytes % (A) 5 %; Neutrophils # (A) 2.8 k/uL (1.3-7.7); Neutrophils % (A) 71 %; Platelet Count 175 k/uL (150-450); RBC 4.54 m/uL (3.80-5.40); RDW 13.9 % (11.5-15.5); WBC 3.9 k/uL (3.8-10.6)
[2019-06-14 17:48] LABS: ALT 12 U/L (4-34); AST 19 U/L (14-36); African American GFR (CKD) >90 (>60 ml/min/1.73 sqM); Albumin 3.8 g/dL (3.5-5.0); Alkaline Phosphatase 104 U/L (38-126); Anion Gap 6 mmol/L; Blood Urea Nitrogen 13 mg/dL (7-17); Calcium 9.2 mg/dL (8.4-10.2); Carbon Dioxide 24 mmol/L (22-30); Chloride 112 mmol/L (98-107); Glucose 95 mg/dL (74-99); Non-African American GFR(CKD) >90 (>60 ml/min/1.73 sqM); Potassium 4.6 mmol/L (3.5-5.1); Sodium 142 mmol/L (137-145); Total Bilirubin 0.6 mg/dL (0.2-1.3); Total Protein 6.2 g/dL (6.3-8.2)
== END | disposition home or self-care (01) ==
LOC: LABPAT 16:04
PROVIDERS: ATTEND Surgery Plastic and Reconstructive Surgery
DX: Z01.818 Encounter for other preprocedural examination (principal); Z01.812 Encounter for preprocedural laboratory examination
CPT/HCPCS: 80053; 85025; 93005

== ENCOUNTER → 2019-06-14 | Outpatient (CLI) | payer OTHER ==
[2019-06-14 15:36] VITALS: BP 140/87; PULSE 74; RESP 16; TEMP 98.1; BMI 53.6
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
== END | disposition home or self-care (01) ==
LOC: BARWHC3 14:39
PROVIDERS: ATTEND Surgery Plastic and Reconstructive Surgery
DX: Z48.815 Encounter for surgical aftercare following surgery on the digestive system (principal); E66.01 Morbid (severe) obesity due to excess calories; K21.9 Gastro-esophageal reflux disease without esophagitis; K95.89 Other complications of other bariatric procedure; J44.9 Chronic obstructive pulmonary disease, unspecified; M79.3 Panniculitis, unspecified; K91.1 Postgastric surgery syndromes; G89.4 Chronic pain syndrome; M79.7 Fibromyalgia; I11.9 Hypertensive heart disease without heart failure; F03.90 Unspecified dementia, unspecified severity, without behavioral disturbance, psychotic disturbance, mood disturbance, and anxiety; I48.91 Unspecified atrial fibrillation; M19.90 Unspecified osteoarthritis, unspecified site; G35 Multiple sclerosis; G43.909 Migraine, unspecified, not intractable, without status migrainosus; D64.89 Other specified anemias; K58.9 Irritable bowel syndrome, unspecified; K44.9 Diaphragmatic hernia without obstruction or gangrene; Z68.43 Body mass index [BMI] 50.0-59.9, adult; Z98.84 Bariatric surgery status; Z83.49 Family history of other endocrine, nutritional and metabolic diseases; Z90.49 Acquired absence of other specified parts of digestive tract; Z79.899 Other long term (current) drug therapy; Z79.891 Long term (current) use of opiate analgesic; Z79.2 Long term (current) use of antibiotics; Z79.51 Long term (current) use of inhaled steroids; Z88.8 Allergy status to other drugs, medicaments and biological substances; Z91.038 Other insect allergy status; Z88.6 Allergy status to analgesic agent; Z91.048 Other nonmedicinal substance allergy status; Z91.018 Allergy to other foods; Z88.7 Allergy status to serum and vaccine; Z88.5 Allergy status to narcotic agent
CPT/HCPCS: 99211

== ENCOUNTER → 2019-07-14 | Outpatient (CLI) | payer OTHER ==
[2019-07-14 10:50] VITALS: BP 133/78; PULSE 82; TEMP 98.2; BMI 51.7
--- NOTE | 2019-07-14 11:54 | P.PN ---
Subjective Progress Note Date: 07/14/19 DATE OF SERVICE: 07/14/2019 CHIEF COMPLAINT: Panniculitis HISTORY OF PRESENT ILLNESS: Henna Merino is a 64-year-old female who comes in with gastric bypass, 2013 from an outside institution. She is status post panniculectomy, 24.2 pounds, 07/10/2019. She is POD 4. She reports outputs are over 100 daily. She is not recording amounts recently. She denies dizziness. She denies weakness. She has no swelling in legs. Her weight loss is 15 pounds. Her highest weight was 436 pounds. Her body mass index was 66.4. Today, she comes in weighing 339 pounds from 352 pounds, 1 month ago. She has lost 13 pounds since her last visit 1 month ago. Body mass index is down from 66.4 to 51.7. At her height of 5 foot 8 inches, her ideal body weight is 163 pounds. Lifetime weight loss 97 pounds. Percent excess weight loss lifetime is 35 %. PHYSICAL EXAM: VITAL SIGNS: Height 5 foot 8 inches, weight 339 pounds. BMI 51.7 Vital Signs Temp 98.2 F 07/14/19 10:44 Pulse 82 07/14/19 10:44 Resp BP 133/78 07/14/19 10:44 Pulse Ox GENERAL: Well-developed female in no acute distress. HEENT: No scleral icterus. Extraocular movements grossly intact. Hears conversational speech. No nasal drainage. NECK: Supple without lymphadenopathy. CHEST: Nonlabored respirations with equal bilateral excursions. CARDIOVASCULAR: Regular rate. Distal 2+ pulses. ABDOMEN: Soft, nondistended. OSEI drains are more red than serous. Dressing changed at OSEI sites with Optifoam. MUSCULOSKELETAL: No clubbing, cyanosis. No swelling of the legs or infection NEURO: No focal or lateralizing signs. Cranial nerves 2 through 12 grossly within normal limits. PSYCH: Appropriate affect. Alert and oriented to person, place and time. SKIN: Good skin turgor. Well perfused. ASSESSMENT: 1. Morbid obesity due to excess calories. 2. Status post gastric bypass 3. Body mass index 66.4 down to 51.7 4. Gastroesophageal reflux disease 5. Complications from bariatric procedure 6. Chronic obstructive pulmonary disease 7. Panniculitis 8. Depressive disorder 9. Dumping syndrome. 10. Food allergies 11. Chronic pain syndrome 12. Fibromyalgia 13. Hypertensive heart disease 14. Status post panniculectomy, 24.2 pounds PLAN: 1. Recommend follow up in 1 week. 2. Remove tape dressings next week 3. Wound care reviewed with strict weekly follow-ups and OSEI drain care Objective - Vital Signs Vital signs: Vital Signs Temp 98.2 F 07/14/19 10:44 Pulse 82 07/14/19 10:44 Resp BP 133/78 07/14/19 10:44 Pulse Ox Intake & Output 07/13/19 07/14/19 07/14/19 18:59 06:59 18:59 Weight 154.221 kg
== END | disposition home or self-care (01) ==
LOC: BARWHC3 10:08
PROVIDERS: ATTEND Surgery Plastic and Reconstructive Surgery
DX: Z48.815 Encounter for surgical aftercare following surgery on the digestive system (principal); E66.01 Morbid (severe) obesity due to excess calories; K21.9 Gastro-esophageal reflux disease without esophagitis; K95.89 Other complications of other bariatric procedure; J44.9 Chronic obstructive pulmonary disease, unspecified; M79.3 Panniculitis, unspecified; F32.9 Major depressive disorder, single episode, unspecified; K91.1 Postgastric surgery syndromes; G89.4 Chronic pain syndrome; M79.7 Fibromyalgia; I11.9 Hypertensive heart disease without heart failure; Z68.43 Body mass index [BMI] 50.0-59.9, adult; Z98.890 Other specified postprocedural states; Z98.84 Bariatric surgery status; Z91.018 Allergy to other foods
CPT/HCPCS: 99212

== ENCOUNTER → 2019-07-19 | Outpatient (CLI) | payer OTHER ==
[2019-07-19 13:58] VITALS: BP 126/61; PULSE 86; TEMP 98; BMI 50.1
--- NOTE | 2019-07-19 14:20 | P.PN ---
Subjective Progress Note Date: 07/19/19 She is eating her protein. She complains of pain. She has bruising on the left forearm. She is not dizzy or weak. No fevers or chills. She has many allergies to pain medications ABDOMEN: External Optifoam removed. OSEI stripped and serosanguinous on the right. Dark red on the left. No cellulitis ASSESSMENT: 1. Panniculosis PLAN: 1. Follow up 1 week 2. Recommend follow up with Dr. Bolivar for pain medication Objective - Vital Signs Vital signs: Vital Signs Temp 98.0 F 07/19/19 13:53 Pulse 86 07/19/19 13:53 Resp BP 126/61 07/19/19 13:53 Pulse Ox Intake & Output 07/18/19 07/19/19 07/19/19 18:59 06:59 18:59 Weight 149.685 kg
== END | disposition home or self-care (01) ==
LOC: BARWHC3 13:16
PROVIDERS: ATTEND Surgery Plastic and Reconstructive Surgery
DX: M79.3 Panniculitis, unspecified (principal)
CPT/HCPCS: 99211

== ENCOUNTER → 2019-07-27 | Outpatient (CLI) | payer OTHER ==
[2019-07-27 11:48] VITALS: BP 145/84; PULSE 84; TEMP 97.5; BMI 49.8
--- NOTE | 2019-07-27 20:59 | P.PN ---
Subjective Progress Note Date: 07/27/19 DATE OF SERVICE: 07/27/2019 CHIEF COMPLAINT: Status post panniculectomy HISTORY OF PRESENT ILLNESS: Henna Merino is a 64-year-old female who comes in with gastric bypass, 2013 from an outside institution. She is status post panniculectomy, 24.2 pounds, 07/10/2019. She is 2 weeks out. She denies any m oderate incisional pain. Patient has not showered or sponge bathed since surgery. She has dogs and pets at her home. She reports eating 160+ grams protein daily. She has lost 2 pounds in 1 week despite over 25+ pound resection. Her highest weight was 436 pounds. Her body mass index was 66.4. Today, she comes in weighing 327 pounds from 329 pounds, 1 week ago. She has lost 2 pounds since her last visit 1 week ago. Body mass index is down from 66.4 to 49.9. At her height of 5 foot 8 inches, her ideal body weight is 163 pounds. Lifetime weight loss 109 pounds. Percent excess weight loss lifetime is 40 %. PHYSICAL EXAM: VITAL SIGNS: Height 5 foot 8 inches, weight 327 pounds. BMI 49.9 Vital Signs Temp 97.5 F L 07/27/19 11:39 Pulse 84 07/27/19 11:39 Resp BP 145/84 07/27/19 11:39 Pulse Ox GENERAL: Well-developed female in no acute distress. HEENT: No scleral icterus. Extraocular movements grossly intact. Hears conversational speech. No nasal drainage. NECK: Supple without lymphadenopathy. CHEST: Nonlabored respirations with equal bilateral excursions. CARDIOVASCULAR: Regular rate. Distal 2+ pulses. ABDOMEN: JPs are serous sanguinous and are 100 mL/daily. Tape removed. No infection. Dressings changed at bedside. Has epidermolysis of lower midline scar from pressure bandages. MUSCULOSKELETAL: No clubbing, cyanosis. NEURO: No focal or lateralizing signs. Cranial nerves 2 through 12 grossly within normal limits. PSYCH: Appropriate affect. Alert and oriented to person, place and time. SKIN: Good skin turgor. Well perfused. ASSESSMENT: 1. Morbid obesity due to excess calories. 2. Status post gastric bypass 3. Body mass index 66.4 down to 49.9 4. Gastroesophageal reflux disease 5. Complications from bariatric procedure 6. Chronic obstructive pulmonary disease 7. Panniculitis 8. Depressive disorder 9. Dumping syndrome. 10. Food allergies 11. Chronic pain syndrome 12. Fibromyalgia 13. Hypertensive heart disease 14. Status post panniculectomy, 24.2 pounds PLAN: 1. Recommend follow up 1 week 2. Continue JPs 3. Decrease protein intake to 80 to 90 g daily 4. Hygiene importance reviewed and keeping away from pets and animals Objective - Vital Signs Vital signs: Vital Signs Temp 97.5 F L 07/27/19 11:39 Pulse 84 07/27/19 11:39 Resp BP 145/84 07/27/19 11:39 Pulse Ox Intake & Output 07/27/19 07/27/19 07/28/19 06:59 18:59 06:59 Weight 148.778 kg
== END | disposition home or self-care (01) ==
LOC: BARWHC3 11:38
PROVIDERS: ATTEND Surgery Plastic and Reconstructive Surgery
DX: Z48.815 Encounter for surgical aftercare following surgery on the digestive system (principal); E66.01 Morbid (severe) obesity due to excess calories; K21.9 Gastro-esophageal reflux disease without esophagitis; K95.89 Other complications of other bariatric procedure; J44.9 Chronic obstructive pulmonary disease, unspecified; M79.3 Panniculitis, unspecified; F32.9 Major depressive disorder, single episode, unspecified; K91.1 Postgastric surgery syndromes; G89.4 Chronic pain syndrome; M79.7 Fibromyalgia; I11.9 Hypertensive heart disease without heart failure; Z68.42 Body mass index [BMI] 45.0-49.9, adult; Z98.890 Other specified postprocedural states; Z91.018 Allergy to other foods; Z98.84 Bariatric surgery status
CPT/HCPCS: 99212

== ENCOUNTER → 2019-08-02 | Outpatient (CLI) | payer OTHER ==
[2019-08-02 13:14] VITALS: BP 123/59; PULSE 87; TEMP 97.7; BMI 49.6
--- NOTE | 2019-08-02 13:39 | P.PN ---
Subjective Progress Note Date: 08/02/19 DATE OF SERVICE: 08/02/2019 CHIEF COMPLAINT: Status post panniculectomy HISTORY OF PRESENT ILLNESS: Henna Merino is a 64-year-old female who is status post panniculectomy, 24.2 pounds, 07/10/2019. She is 3 weeks out. Her OSEI drains are serosanguinous 70 to 90 mL/daily. Protein intake is over 90 grams daily. She denies any fevers or chills. She is very active. Her highest weight was 436 pounds. Her body mass index was 66.4. Today, she comes in weighing 325 pounds from 327 pounds, 1 week ago. She has lost 2 pounds since her last visit 1 week ago. Body mass index is down from 66.4 to 49.6. At her height of 5 foot 8 inches, her ideal body weight is 163 pounds. Lifetime weight loss 111 pounds. Percent excess weight loss lifetime is 41 %. PHYSICAL EXAM: VITAL SIGNS: Height 5 foot 8 inches, weight 325 pounds. BMI 49.6 Vital Signs Temp 97.7 F 08/02/19 13:11 Pulse 87 08/02/19 13:11 Resp BP 123/59 08/02/19 13:11 Pulse Ox GENERAL: Well-developed female in no acute distress. HEENT: No scleral icterus. Extraocular movements grossly intact. Hears conve rsational speech. No nasal drainage. NECK: Supple without lymphadenopathy. CHEST: Nonlabored respirations with equal bilateral excursions. CARDIOVASCULAR: Regular rate. Distal 2+ pulses. ABDOMEN: No erythema. No skin breakdown. Skin cleansed. Binder adjusted. OSEI is serous. Outputs over 75 mL/daily. MUSCULOSKELETAL: No clubbing, cyanosis. NEURO: No focal or lateralizing signs. Cranial nerves 2 through 12 grossly within normal limits. PSYCH: Appropriate affect. Alert and oriented to person, place and time. SKIN: Good skin turgor. Well perfused. ASSESSMENT: 1. Morbid obesity due to excess calories. 2. Status post gastric bypass 3. Body mass index 66.4 down to 49.6 4. Gastroesophageal reflux disease 5. Complications from bariatric procedure 6. Chronic obstructive pulmonary disease 7. Panniculitis 8. Depressive disorder 9. Dumping syndrome. 10. Food allergies 11. Chronic pain syndrome 12. Fibromyalgia 13. Hypertensive heart disease 14. Status post panniculectomy, 24.2 pounds PLAN: 1. Follow up 1 week for wound care 2. Continue protein intake over 75 grams daily for optimal wound care 3. Recommend new abdominal binder fitted for bariatric size. Objective - Vital Signs Vital signs: Vital Signs Temp 97.7 F 08/02/19 13:11 Pulse 87 08/02/19 13:11 Resp BP 123/59 08/02/19 13:11 Pulse Ox Intake & Output 08/01/19 08/02/19 08/02/19 18:59 06:59 18:59 Weight 147.871 kg
== END | disposition home or self-care (01) ==
LOC: BARWHC3 12:52
PROVIDERS: ATTEND Surgery Plastic and Reconstructive Surgery
DX: E66.01 Morbid (severe) obesity due to excess calories (principal); Z68.42 Body mass index [BMI] 45.0-49.9, adult; K21.9 Gastro-esophageal reflux disease without esophagitis; J44.9 Chronic obstructive pulmonary disease, unspecified; M79.3 Panniculitis, unspecified; F32.9 Major depressive disorder, single episode, unspecified; K95.89 Other complications of other bariatric procedure; K91.1 Postgastric surgery syndromes; T78.1XXA Other adverse food reactions, not elsewhere classified, initial encounter; G89.4 Chronic pain syndrome; M79.7 Fibromyalgia; I11.9 Hypertensive heart disease without heart failure; Z98.890 Other specified postprocedural states; Z98.84 Bariatric surgery status
CPT/HCPCS: 99212

== ENCOUNTER → 2019-08-30 | Outpatient (CLI) | payer OTHER ==
[2019-08-30 15:32] VITALS: BP 117/59; PULSE 89; RESP 16; TEMP 97.9; BMI 47.2
--- NOTE | 2019-08-30 17:52 | P.PN ---
Subjective Progress Note Date: 08/30/19 DATE OF SERVICE: 08/30/2019 CHIEF COMPLAINT: Status post panniculectomy HISTORY OF PRESENT ILLNESS: Henna Merino is a 64-year-old female who is status post panniculectomy, 24.2 pounds, 07/10/2019. She status post panniculectomy now 2 months ago. She has been incarcerated for the last 2+ weeks. She comes in with guards. She reports moderate weight loss secondary to low protein foods at the correctional facility. She has lost almost 20 pounds since last visit one month ago. OSEI output less than 100 mL daily. Her highest weight was 436 pounds. Her body mass index was 66.4. Today, she comes in weighing 325 pounds from 327 pounds, 1 week ago. She has lost 2 pounds since her last visit 1 week ago. Body mass index is down from 66.4 to 49.6. At her height of 5 foot 8 inches, her ideal body weight is 163 pounds. Lifetime weight loss 111 pounds. Percent excess weight loss lifetime is 41 %. PHYSICAL EXAM: VITAL SIGNS: Height 5 foot 8 inches, weight 310 pounds. BMI 47.3 Vital Signs Temp 97.9 F 08/30/19 15:30 Pulse 89 08/30/19 15:30 Resp 16 08/30/19 15:30 BP 117/59 08/30/19 15:30 Pulse Ox GENERAL: Well-developed female in no acute distress. HEENT: No scleral icterus. Extraocular movements grossly intact. Hears conversational speech. No nasal drainage. NECK: Supple without lymphadenopathy. CHEST: Nonlabored respirations with equal bilateral excursions. CARDIOVASCULAR: Regular rate. Distal 2+ pulses. ABDOMEN: No erythema. No skin breakdown. OSEI serosanguineous. Binder still present. Outputs of drains 50 mL or less daily. Skin was cleansed. No signs of infection. Granulation tissue around JPs noted at OSEI sites. MUSCULOSKELETAL: No clubbing, cyanosis. NEURO: No focal or lateralizing signs. Cranial nerves 2 through 12 grossly within normal limits. PSYCH: Appropriate affect. Alert and oriented to person, place and time. SKIN: Good skin turgor. Well perfused. ASSESSMENT: 1. Morbid obesity due to excess calories. 2. Status post gastric bypass 3. Body mass index 66.4 down to 47.3 4. Gastroesophageal reflux disease 5. Complications from bariatric procedure 6. Chronic obstructive pulmonary disease 7. Panniculitis 8. Depressive disorder 9. Dumping syndrome. 10. Food allergies 11. Chronic pain syndrome 12. Fibromyalgia 13. Hypertensive heart disease 14. Status post panniculectomy, 24.2 pounds PLAN: 1. Secondary to high risk of infection and length of drain placement, JPs were discontinued. 2. Patient advised to wear abdominal binder daily. 3. Will need at minimum a 1 more month of recovery. 4. Surgical dressing placed to be discontinued within 24-48 hours. 5. Additional dressing was given to guards. 6. Follow-up in one week. Objective - Vital Signs Vital signs: Vital Signs Temp 97.9 F 08/30/19 15:30 Pulse 89 08/30/19 15:30 Resp 16 08/30/19 15:30 BP 117/59 08/30/19 15:30 Pulse Ox Intake & Output 08/29/19 08/30/19 08/30/19 18:59 06:59 18:59 Weight 141.067 kg
== END | disposition home or self-care (01) ==
LOC: BARWHC3 14:54
PROVIDERS: ATTEND Surgery Plastic and Reconstructive Surgery
DX: E66.01 Morbid (severe) obesity due to excess calories (principal); K95.89 Other complications of other bariatric procedure; Z68.42 Body mass index [BMI] 45.0-49.9, adult; K21.9 Gastro-esophageal reflux disease without esophagitis; J44.9 Chronic obstructive pulmonary disease, unspecified; M79.3 Panniculitis, unspecified; F32.9 Major depressive disorder, single episode, unspecified; K91.1 Postgastric surgery syndromes; Z91.018 Allergy to other foods; G89.4 Chronic pain syndrome; M79.7 Fibromyalgia; I11.9 Hypertensive heart disease without heart failure; Z98.890 Other specified postprocedural states
CPT/HCPCS: 99211

== ENCOUNTER → 2020-06-19 | Outpatient (CLI) | payer OTHER ==
[2020-06-19 14:17] LABS: HCT 41.8 % (34.0-46.0); HGB 13.6 gm/dL (11.4-16.0); MCH 30.3 pg (25.0-35.0); MCHC 32.6 g/dL (31.0-37.0); Mean Platelet Volume 8.4; Platelet Count 242 k/uL (150-450); RBC 4.49 m/uL (3.80-5.40); RDW 12.7 % (11.5-15.5)
[2020-06-19 14:21] LABS: Albumin 3.9 g/dL (3.5-5.0); Calcium 9.2 mg/dL (8.4-10.2); Potassium 4.6 mmol/L (3.5-5.1); Total Bilirubin 0.6 mg/dL (0.2-1.3); Total Protein 6.4 g/dL (6.3-8.2)
[2020-06-19 14:30] LABS: Appearance,Urine Cloudy (Clear); Bacteria,Urine Occasional /hpf; Bilirubin,Urine Negative (Negative); Blood,Urine Trace (Negative); Budding Yeast,Urine Occasional /hpf; Color,Urine Yellow; Glucose,Urine (UA) Negative (Negative); Ketones,Urine Negative (Negative); Leukocyte Esterase,Urine Large (Negative); Mucus,Urine Rare /hpf; Nitrite,Urine Negative (Negative); Protein,Urine Negative (Negative); RBC,Urine 16 /hpf (0-5); Specific Gravity,Urine 1.011 (1.001-1.035); Squamous Epithelial Cell,Urine 18 /hpf (0-4); Urobilinogen,Urine <2.0 mg/dL (<2.0); WBC,Urine 29 /hpf (0-5)
[2020-06-19 14:31] LABS: INR 0.9 (<1.2); Partial Thromboplastin Time 26.7 sec (22.0-30.0); Prothrombin Time 9.6 sec (9.0-12.0)
== END | disposition home or self-care (01) ==
LOC: LABPAT 13:34
PROVIDERS: ATTEND Orthopaedic Surgery Sports Medicine
DX: Z01.818 Encounter for other preprocedural examination (principal); M17.12 Unilateral primary osteoarthritis, left knee; Z01.812 Encounter for preprocedural laboratory examination
CPT/HCPCS: 36415; 80053; 81001; 85027; 85610; 85730; 87070; 93005

== ENCOUNTER → 2020-06-19 | Outpatient (CLI) | payer OTHER ==
[2020-06-19 13:01] VITALS: BP 99/72; PULSE 104; RESP 20; TEMP 98; BMI 48.2
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
== END | disposition home or self-care (01) ==
LOC: BARWHC3 12:37
PROVIDERS: ATTEND Surgery Plastic and Reconstructive Surgery
DX: E66.01 Morbid (severe) obesity due to excess calories (principal); K21.9 Gastro-esophageal reflux disease without esophagitis; K95.89 Other complications of other bariatric procedure; J44.9 Chronic obstructive pulmonary disease, unspecified; M79.3 Panniculitis, unspecified; F32.9 Major depressive disorder, single episode, unspecified; K91.1 Postgastric surgery syndromes; L27.2 Dermatitis due to ingested food; G89.4 Chronic pain syndrome; M79.7 Fibromyalgia; I11.9 Hypertensive heart disease without heart failure; R19.7 Diarrhea, unspecified; Z90.49 Acquired absence of other specified parts of digestive tract; Z98.890 Other specified postprocedural states; Z98.84 Bariatric surgery status; Z68.42 Body mass index [BMI] 45.0-49.9, adult; Z88.5 Allergy status to narcotic agent; Z88.8 Allergy status to other drugs, medicaments and biological substances; Z91.038 Other insect allergy status; Z91.09 Other allergy status, other than to drugs and biological substances; Z79.51 Long term (current) use of inhaled steroids; Z79.899 Other long term (current) drug therapy; Z79.891 Long term (current) use of opiate analgesic
CPT/HCPCS: 99211

== ENCOUNTER 2020-06-22 16:59 | Emergency (ER) | payer OTHER ==
[2020-06-22 17:07] VITALS: RESP 16; TEMP 98
[2020-06-22] MEDS ORDERED: ONDANSETRON 4 MG/2 ML VIAL IVP STA (17:28)
[2020-06-22] MEDS ORDERED: KETOROLAC 15 MG/ML 1 ML VIAL IVP STA (17:28)
[2020-06-22] MEDS ORDERED: diphenhydrAMINE 50 MG/ML 1 ML VIAL IVP STA (17:28)
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
[2020-06-22 17:43] LABS: Basophils % (A) 1 %; Eosinophils # (A) 0.1 k/uL (0-0.7); Eosinophils % (A) 2 %; HCT 40.3 % (34.0-46.0); HGB 13.8 gm/dL (11.4-16.0); Lymphocytes % (A) 19 %; MCH 31.5 pg (25.0-35.0); MCHC 34.3 g/dL (31.0-37.0); MCV 91.8 fL (80.0-100.0); Mean Platelet Volume 8.1; Monocytes # (A) 0.2 k/uL (0-1.0); Monocytes % (A) 4 %; Neutrophils # (A) 3.6 k/uL (1.3-7.7); Neutrophils % (A) 73 %; Platelet Count 192 k/uL (150-450); RBC 4.39 m/uL (3.80-5.40); RDW 12.3 % (11.5-15.5); WBC 4.9 k/uL (3.8-10.6)
[2020-06-22 18:01] LABS: Calcium 8.9 mg/dL (8.4-10.2)
[2020-06-22 18:36] VITALS: BP 130/76; PULSE 75
--- NOTE | 2020-06-22 18:48 | CT ---
EXAMINATION TYPE: CT brain wo con DATE OF EXAM: 06/22/2020 COMPARISON: 05/30/2009 HISTORY: Headache, hypertension. CT DLP: 1121.4 mGycm Automated exposure control for dose reduction was used. Images were obtained of the brain without contrast. There is mild cerebral atrophy. There is no mass effect nor midline shift. There is no sign of intrac ranial hemorrhage. The calvarium is intact. IMPRESSION: Negative unenhanced head CT scan. No change.
== END 2020-06-22 19:49 | disposition home or self-care (01) ==
LOC: EC 16:59
DX: I10 Essential (primary) hypertension (principal); R51.9 Headache, unspecified; F32.9 Major depressive disorder, single episode, unspecified; F03.90 Unspecified dementia, unspecified severity, without behavioral disturbance, psychotic disturbance, mood disturbance, and anxiety; I25.2 Old myocardial infarction; I48.91 Unspecified atrial fibrillation; J45.909 Unspecified asthma, uncomplicated; K21.9 Gastro-esophageal reflux disease without esophagitis; G47.30 Sleep apnea, unspecified; F41.0 Panic disorder [episodic paroxysmal anxiety]; Z79.899 Other long term (current) drug therapy; Z88.5 Allergy status to narcotic agent; Z88.6 Allergy status to analgesic agent; Z88.8 Allergy status to other drugs, medicaments and biological substances; Z88.7 Allergy status to serum and vaccine; Z91.048 Other nonmedicinal substance allergy status; Z98.84 Bariatric surgery status; Z99.89 Dependence on other enabling machines and devices
CPT/HCPCS: 36415; 93005; 80048; 85025; 70450; 99285; 96374; 96375 ×2; J1200; J2405; J1885

== ENCOUNTER → 2020-07-02 | Outpatient (CLI) | payer OTHER ==
[2020-07-02 15:36] LABS: T4, Free (Free Thyroxine) 1.2 ng/dL (0.80-1.80)
== END | disposition home or self-care (01) ==
LOC: LABWHC1 09:46
PROVIDERS: ATTEND Internal Medicine
DX: E03.9 Hypothyroidism, unspecified (principal)
CPT/HCPCS: 36415; 84439; 84443

== ENCOUNTER → 2020-07-04 | Outpatient (CLI) | payer OTHER ==
--- NOTE | 2020-07-04 15:38 | US ---
EXAMINATION TYPE: US thyroid st tissue head/neck DATE OF EXAM: 07/04/2020 COMPARISON: NONE CLINICAL HISTORY: E04.1 Thyroid Nodule. Thyroid nodule, history of thyroid FNA GLAND SIZE: Right Lobe: 4.2 x 1.9 x 1.9 cm Overall Parenchyma: homogenous Left Lobe: 5.6 x 2.4 x 2.5 cm Overall Parenchyma: homogeneous Isthmus Thickness: 0.3 cm NODULES RIGHT: # of nodules measured on right: 0 LEFT: # of nodules measured on left: 1 1. 3.3 X 2.2 x 2.8 cm inferior pole mixed cystic and solid, hypoechoic nodule, which is wider than tall, with smooth margins, with echogenic foci. Prior size: no previous ISTHMUS: # of nodules measured in the isthmus: 0 Bilateral neck scanned, no evidence of lymphadenopathy. IMPRESSION: Suspicious nodule left lobe thyroid. Biopsy is recommended. 2017 ACR TI-RADS LEVEL: 4 *Highest TI-RADS level nodule reported
== END | disposition home or self-care (01) ==
LOC: RADUSWWP 15:04
PROVIDERS: ATTEND Internal Medicine
DX: E04.1 Nontoxic single thyroid nodule (principal)
CPT/HCPCS: 76536

== ENCOUNTER → 2020-07-11 | Outpatient (CLI) | payer OTHER ==
--- NOTE | 2020-07-12 10:01 | ECHOF ---
Referral Reason:R06.09 dyspnea on exertion MEASUREMENTS -------- HEIGHT: 157.5 cm WEIGHT: 135.2 kg BP: RVIDd: 3.6 cm (< 3.3) IVSd: 1.4 cm (0.6 - 1.1) LVIDd: 2.9 cm (3.9 - 5.3) LVPWd: 1.5 cm (0.6 - 1.1) IVSs: 1.8 cm LVIDs: 2.7 cm LVPWs: 1.3 cm LA Diam: 3.2 cm (2.7 - 3.8) Ao Diam: 3.6 cm (2.0 - 3.7) MV E Pernell: 0.49 m/s MV DecT: 369 ms MV A Pernell: 0.67 m/s MV E/A Ratio: 0.73 RAP: 5.00 mmHg RVSP: 33.80 mmHg FINDINGS -------- Sinus rhythm. This was a technically adequate study. Morbid Obesity The left ventricular size is normal. There is moderate concentric left ventricular hypertrophy. O verall left ventricular systolic function is low-normal with, an EF between 50 - 55 %. The right ventricle is normal in size. The left atrial size is normal. The right atrial size is normal. The aortic valve was not well visualized. Mild mitral regurgitation is present. Mild tricuspid regurgitation present. Right ventricular systolic pressure is normal at < 35 mmHg. The pulmonic valve was not well visualized. The aortic root size is normal. There is no pericardial effusion. CONCLUSIONS -------- 1. Morbid Obesity 2. The left ventricular size is normal. 3. There is moderate concentric left ventricular hypertrophy. 4. Overall left ventricular systolic function is low-normal with, an EF between 50 - 55 %. 5. The right ventricle is normal in size. 6. The left atrial size is normal. 7. The right atrial size is normal. 8. The aortic valve was not well visualized. 9. Mild mitral regurgitation is present. 10. Mild tricuspid regurgitation present. 11. The pulmonic valve was not well visualized. 12. The aortic root size is normal. 13. There is no pericardial effusion. MUCK HAULER: Herlinda Boone RDCS
== END | disposition home or self-care (01) ==
LOC: RADECHMAIN 13:26
PROVIDERS: ATTEND Internal Medicine Critical Care Medicine
DX: I08.1 Rheumatic disorders of both mitral and tricuspid valves (principal); E66.01 Morbid (severe) obesity due to excess calories
CPT/HCPCS: 93306

== ENCOUNTER 2020-07-18 05:33 | Day surgery (SDC) | payer OTHER ==
[2020-07-10 14:46] VITALS: BMI 43.0
[~2020-07-18 05:33] MED LIST changes: +ACETAMINOPHEN TAB 500 MG TAB PO PRN; +GABAPENTIN 300 MG CAP PO PRN; -LACTATED RINGERS 1,000 ML IV SCH; -LIDOCAINE 1% 20 ML VIAL (10MG/ML) FOR IV START INTRADERMA PRN; +MELOXICAM 7.5 MG TAB PO PRN; -ONDANSETRON 4 MG/2 ML VIAL IVP ONE; +ONDANSETRON 4 MG/2 ML VIAL IVP PRN; +ROPIVACAINE 246.25 MG, EPINEPHrine 0.5 MG, KETOROLAC 30 MG, cloNIDine HCL/PF 80 MCG, WA... MISCELLANE PRN; +TRANEXAMIC ACID 1,000 MG in SODIUM CHLORIDE 0.9% 100 ML IVPB PRN; -ceFAZolin 3 GM in SODIUM CHLORIDE 0.9% 100 ML IVPB ONE; +ceFAZolin 3 GM in SODIUM CHLORIDE 0.9% 100 ML IVPB PRN; -fentaNYL (PF) 50 MCG/ML 2 ML AMP IV PRN
[2020-07-18] MEDS ORDERED: LACTATED RINGERS 1,000 ML IV ONE ×3 (06:15→08:34)
[2020-07-18] MEDS ORDERED: LIDOCAINE 1% (10MG/ML) FOR IV START INTRADERMA ONE (06:16)
[2020-07-18] MEDS ORDERED: MIDAZOLAM 2 MG/2 ML VIAL IVP ONE ×2 (06:39)
[2020-07-18] MEDS: fentaNYL (PF) 50 MCG/ML 2 ML AMP IVP ONE ×3 (06:46→10:07)
[2020-07-18] MEDS ORDERED: SODIUM CHLORIDE 0.9% 100 ML BAG ONE (06:55)
[2020-07-18] MEDS ORDERED: PHENYLEPHRINE 10 MG/ML VIAL ONE (06:55)
[2020-07-18] MEDS ORDERED: TRANEXAMIC ACID 1,000 MG/10 ML VIAL ONE (06:55)
[2020-07-18] MEDS ORDERED: PROPOFOL 10 MG/ML 20 ML VIAL IV ONE (06:55)
[2020-07-18] MEDS ORDERED: fentaNYL (PF) 50 MCG/ML 2 ML AMP ONE (06:55)
[2020-07-18] MEDS ORDERED: MIDAZOLAM 2 MG/2 ML VIAL ONE (06:55)
[2020-07-18] MEDS ORDERED: LIDOCAINE 1% (10MG/ML) FOR IV START INTRADERMA PRN (07:03)
[2020-07-18] MEDS ORDERED: LACTATED RINGERS 1,000 ML IV SCH (07:03)
[2020-07-18] MEDS ORDERED: HYDROmorphone 0.5 MG/0.5 ML SYRINGE IVP PRN (07:03)
[2020-07-18] MEDS ORDERED: ceFAZolin 3,000 MG in SODIUM CHLORIDE 0.9% IRRIGATIO 3,000 ML IRRIGATION ONE (07:44)
[2020-07-18] MEDS ORDERED: ROPIVACAINE 0.2%-NS ON-Q PUMP 1,090 MG, EMPTY PAIN BALL 1 EACH MISCELLANE PRN (09:22)
--- NOTE | 2020-07-18 09:36 | P.ANPRN ---
Procedure Note - Anesthesia - Nerve Block Performed Left Adductor Canal Infusion Time Out Performed: Yes ([id number]) Date of Procedure: 07/18/20 Procedure Start Time: 06:46 Procedure Stop Time: 09:53 Location of Patient: PreOp Indication: Acute Post-Operative Pain, Requested by Surgeon Specifically requested for management of pain by DrAbe: Elliot Harp Sedation Type: Sedate with meaningful contact maintained Preparation: Sterile Prep Position: Supine Catheter Depth at Skin (cm): 8 Catheter: Indwelling Needle Types: Pajunk Needle Gauge: 21 Ultrasound used to visualize needle placement: Yes Ultrasound used to observe medication spread: Yes Injectate: 0.5% Ropivacaine (see comment for volume) (20cc) Blood Aspirated: No Pain Paresthesia on Injection Noted: No Resistance on Injection: Normal Image Stored and Saved: Yes Events: Uneventful and Well Tolerated
[2020-07-18] MEDS ORDERED: MAGNESIUM HYDROXIDE 2,400 MG/10 ML CUP PO PRN (09:43)
[2020-07-18] MEDS ORDERED: NA PHOS,M-B/NA PHOS,DI-BA 133 ML ENEMA RECTAL PRN (09:43)
[2020-07-18] MEDS ORDERED: NALOXONE 0.4 MG/ML 1 ML VIAL IV PRN (09:43)
[2020-07-18] MEDS ORDERED: diazePAM 5 MG TAB PO PRN (09:43)
[2020-07-18] MEDS ORDERED: TEMAZEPAM 15 MG CAP PO PRN (09:43)
[2020-07-18] MEDS ORDERED: Acetaminophen-Codeine 300-30mg TAB PO PRN (09:43)
[2020-07-18] MEDS ORDERED: ACETAMINOPHEN TAB 325 MG TAB PO PRN (09:43)
[2020-07-18] MEDS ORDERED: ONDANSETRON 4 MG/2 ML VIAL IVP PRN (09:43)
[2020-07-18] MEDS ORDERED: bisacodyL 10 MG SUPP RECTAL PRN (09:43)
--- NOTE | 2020-07-18 10:21 | XR ---
EXAMINATION TYPE: XR knee limited LT DATE OF EXAM: 07/18/2020 COMPARISON: 12/03/2015 HISTORY: Postop left knee TECHNIQUE: 2 view left knee FINDINGS: Tibial and femoral components of in place. Postsurgical soft tissue changes are present. No acute fractures are evident. IMPRESSION: 1. No acute fractures or knee replacement
[2020-07-18] MEDS ORDERED: TRIAMCINOLONE 0.1% CREAM 80 GM TUBE TOPICAL PRN (10:27)
[2020-07-18] MEDS ORDERED: SUMAtriptan succinate 50 MG TAB PO PRN (10:27)
[2020-07-18] MEDS ORDERED: ALBUTEROL NEBULIZED 2.5 MG/3 ML INHALATION PRN (10:27)
[2020-07-18] MEDS: LACTATED RINGERS 1,000 ML IV SCH ×2 (10:55→20:17)
[2020-07-18] MEDS: ceFAZolin 3 GM in SODIUM CHLORIDE 0.9% 100 ML IVPB SCH ×2 (14:46→23:57)
[2020-07-18] MEDS: PANTOPRAZOLE 40 MG TABLET PO SCH (16:03)
--- NOTE | 2020-07-18 16:10 | OP ---
OPERATIVE REPORT DATE OF PROCEDURE: 07/18/2020. SURGEON: Elliot Harp MD ACETALDEHYDE CONVERTER OPERATOR: Bonilla MENEZES. PREOPERATIVE DIAGNOSIS: Left knee osteoarthrosis. POSTOPERATIVE DIAGNOSIS: Left knee osteoarthrosis. OPERATION: Left total knee arthroplasty. ANESTHESIA: Spinal with sedation. ESTIMATED BLOOD LOSS: 100 mL. TOURNIQUET TIME: 58 minutes at 250 mmHg. COMPLICATIONS: None apparent. DRAINS: None. DISPOSITION: Postanesthesia care unit. INDICATIONS: Henna is a 65-year-old female with longstanding history of left knee pain. History and physical examination are consistent with advanced left knee osteoarthrosis. She has been through significant nonoperative management up to this point. Further treatment options were discussed and she has decided to go forward with the left total knee arthroplasty. The risks of procedure were discussed with her in detail. These risks include, but are not limited to risk of infection, nerve damage, bleeding, pain, and a small risk of deep vein thrombosis which could lead to fatal pulmonary embolism. There is also risk of loosening of the implant which could require revision operation. The patient understands these risks. All of her questions were answered to her satisfaction. An appropriate informed consent was obtained. DESCRIPTION OF THE PROCEDURE: The patient was identified in preoperative holding area. Surgical sites marked by both the patient and myself. She was given 2 grams of Ancef IV for prophylactic purposes. She was then transferred to the operative suite. She was placed supine on the operative table. Spinal anesthetic was then administered, dosed per the anesthesia without apparent complication. Examination under anesthesia was then performed. The patient was 2-3 degrees shy of full extension. She had 95 degrees of flexion. The medial collateral ligament, lateral collateral ligament and posterior cruciate ligaments were stable. Tourniquet was then placed high on the left upper thigh well-padded in preparation for surgery. The patient's left lower extremity was then prepped and draped in usual sterile fashion. Standard surgical pause was undertaken to ensure that we were operating on the correct site and that appropriate preoperative antibiotics had been given. All staff in the room were in agreement and we proceeded. The outlines of the patella were marked surgical pen. A planned 12 cm vertical incision centered over the patella was marked surgical pen. The leg was then exsanguinated with an Esmarch dressing. The knee was then flexed and the tourniquet was inflated to 250 mmHg. The total tourniquet time for the procedure was 58 minutes Incision was then made with a 10 blade scalpel. Dissection was carried down sharply overlying fascia. Great care was taken to minimize the skin flaps. The knee was then exposed using a standard medial parapatellar approach. A small cuff of quadriceps tendon was then left for suturing. She was in a bit of varus preoperatively. A standard medial release was then made. The superficial medial collateral ligament was dissected off of the bone around to the posterior aspect of the proximal tibia. The medial meniscus was then excised as well. The lateral meniscus was also released anteriorly. The leg was then externally rotated. The patella was everted. The knee was flexed. The retractors were then placed to protect the collateral ligaments. I then proceeded to remove the infrapatellar fat pad. This was excised sharply tangentially with fibers of the patellar tendon. I then proceeded to remove the peripheral osteophytes. This was done with a rongeur. I then proceeded with the distal femoral resection. She did have near full extension. A planned 9 mm resection was then done. The femoral canal was then entered at the midline of the femur approximately 10 mm anterior to the origin of the posterior cruciate ligament. The akhil was then advanced down the center of the femur and placed intramedullary. Based on the preoperative radiographs, the angle between the anatomic and mechanical axis of the femur was approximately 4-5 degrees. The valgus angle of this femoral cutting guide was then set at 4 degrees for the left knee. This femoral cutting guide was then advanced over the intramedullary akhil. This was seated firmly against the femur. I then as mentioned planned to take 9 mm off the distal femur. The cutting block was then secured onto the femur with pins. The jig was then removed. The distal femoral cut was made through the slot of the block. The pins were then removed. The distal femoral cutting block was removed. The accuracy of the distal femoral cuts was checked with 2 flat bars. I then proceeded with femoral sizing. The posterior referencing sizing guide was held firmly against the resected distal surface of the femur. The posterior condyles were resting on the posterior plane of the guide. The sizing stylus was then placed onto the anterior femur. The size was measured as a size 9. I then assessed for femoral rotation. The plan was for 3 degrees of external rotation. Three degrees external rotation was placed onto the jig. These holes were then marked. I then confirmed the rotation by 3 separate methods. This was done using epicondylar axis as well as Whitesides line and posterior referencing. It was deemed that the external rotation was proper. I then went forward placing the femoral cutting block. This was placed over the previously placed pin holes. The Owen wing was then placed onto the anterior slots to ensure that we would not notch the anterior femur with the anterior femoral cut. I then proceeded with the anterior femoral cut. This was flushed with the anterior cortex of the femur. The posterior cuts were then made followed by the anterior chamfer cut, then the posterior chamfer cut. The cutting block was then removed. Throughout the resection, the collateral ligaments were protected with retractors. I then placed a trial size 9 femur. It fit very nice medial-lateral and fit flush with the distal end of the femur. The drill holes were then made. I then proceeded with the tibial cut. I planned for a cruciate-retaining knee. The guide was placed and set for varus, valgus and for slope. The height was set for approximate 2 mm resection from the medial tibial plateau which was the lower side. I was happy with the alignment and amount of resection. The cutting block was then pinned to the proximal tibia. The alignment akhil was removed. The proximal tibia was resected with a reciprocating saw. Again this was done with retractors protecting the collateral ligaments as well as the posterior cruciate ligament. I then proceeded to evaluate the flexion and extension gaps. A 10 mm block was then placed. The flexion and extension gaps were equal. I then proceeded with resection of posterior osteophytes. She had very minimal posterior osteophytes. This was done with a curved osteotome. This resected the posterior osteophytes and posterior capsule stripping was done off the posterior aspect of the femur at this time. The osteophytes were then removed. I then proceeded with resection of the patella. The thickness of patella was measured using the caliper. The thickness was 22 mm. The thickness of the anticipated patellar dome was taken into account. Resection was then performed and confirmed to be equal in 4 quadrants using a caliper. Approximately 14 mm of bone remained after resection. A 32 x 8.5 standard patellar trial was then placed. The holes were drilled and the trial was then placed. I then proceeded with sizing the tibial plate. A size E tibial plate fit very nicely. I then placed the trial femur, the tibial tray and patellar button. A 10 mm trial tibial insert was also placed. The components fit very nicely. She had full extension and flexion. The extension and flexion gaps were equal and stable to both varus and valgus stress. The patella tracked appropriately. The tibial tray rotation was then marked with a Bovie. This was externally rotated properly. I then proceeded with tibial preparation. I first drilled the femoral holes, removed femoral component. The tibial tray was then set for proper external rotation as well as mediolateral placement onto the tibia. It was then pinned into place. I then proceeded with punching the keel. I then decided to proceed with cementing of all of our components. The knee was thoroughly irrigated with sterile saline solution via pulse lavage. The lateral geniculate artery was identified and cauterized. All blood was removed from the bone of the tibia, femur and patella with pulse lavage. I then proceeded with cementing. Two packs of antibiotic bone cement prepared on the back table by the certified surgical assistant. I then proceed with cementing the tibia first. The cement was impacted in the keel as well as deeply seated into bone. A second coat of cement was then placed. The tibia was then impacted into place. Excess cement was removed with Dominga's and Jokers. I then proceeded with cementing of the femoral component. The final component was also cemented using standard technique. Excess cement was removed. A 10 mm trial insert was then placed into the knee. It was brought in full extension with a constant axial load placed until the cement had hardened. The patellar component was then cemented. This was held firmly with a compressive device until the cement had dried. When the cement had dried, the knee was taken out of extension. All excess cement was removed from around the prosthesis. I then trialed the knee with a 10 mm insert. The flexion and extension gaps were appropriate. The knee was stable. It came into full extension. I decided to go forward with a 10 mm cross-linked cruciate-retaining tibial insert. Polyethylene was then placed on the tibial tray and locked into place. The knee was then reduced. The knee was again further irrigated with sterile saline solution with antibiotic added. The tourniquet was then deflated. The total tourniquet time for the procedure was 58 minutes at 250 mmHg. Final components were Massiel Persona size 9 cruciate-retaining femoral component, a size E tibial tray, a 10 mm medial congruent cruciate-retaining polyethylene insert and a 32 x 8.5 mm patella. I then proceeded with closure. Again, the knee was thoroughly irrigated. The quadriceps tendon and the medial retinaculum were reapproximated with #2 Ethibond suture. The extensor mechanism was then closed with a running #2 Quill suture. Subcutaneous tissues were closed with 2-0 Vicryl interrupted suture. The skin was closed with a running 3-0 Quill suture. Dermabond was applied to the incision. Sterile compressive dressings were then applied. All sponge and needle counts were deemed correct prior to closure. The patient tolerated procedure without apparent complication. She was transferred recovery room in stable condition. MMODL / IJN: [id number] /
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
[2020-07-18] MEDS: Acetaminophen-Codeine 300-30mg TAB PO PRN (18:03)
[2020-07-18] MEDS: FLUTICASONE 110 MCG INHALER INHALATION SCH (20:02)
[2020-07-18] MEDS: FORMOTEROL FUMARATE 20 MCG/2 ML NEBU INHALATION SCH (20:02)
[2020-07-18] MEDS: FERROUS SULFATE 325 MG TAB PO SCH (20:16)
[2020-07-18] MEDS: SENNOSIDES-DOCUSATE SODIUM 1 EACH TAB PO SCH (20:16)
[2020-07-18] MEDS: POTASSIUM CHLORIDE ER 10 MEQ TAB.ER.PRT PO SCH (20:16)
[2020-07-18] MEDS: ASPIRIN 81 MG PO SCH (20:16)
[2020-07-18] MEDS: DULoxetine HCL 60 MG CAPSULE.DR PO SCH (20:17)
[2020-07-18] MEDS: ARIPiprazole 10 MG TAB PO SCH (20:17)
[2020-07-18] MEDS: LORATADINE 10 MG TAB PO SCH (20:17)
[2020-07-18] MEDS: TROSPIUM CHLORIDE 20 MG TABLET PO SCH (20:17)
[2020-07-18] MEDS: TOPIRAMATE 100 MG TAB PO SCH (20:17)
[2020-07-18] MEDS: hydrOXYzine pamoate 25 MG CAP PO PRN (20:20)
[2020-07-18] MEDS: traMADol 50 MG TAB PO PRN (20:21)
[2020-07-19] MEDS: hydrOXYzine pamoate 25 MG CAP PO PRN (04:38)
[2020-07-19] MEDS: traMADol 50 MG TAB PO PRN ×2 (04:39→21:17)
[2020-07-19] MEDS: LACTATED RINGERS 1,000 ML IV SCH ×2 (05:46→15:24)
[2020-07-19 06:39] LABS: Basophils % (A) 1 %; Eosinophils # (A) 0.1 k/uL (0-0.7); Eosinophils % (A) 2 %; HCT 35.9 % (34.0-46.0); HGB 12.1 gm/dL (11.4-16.0); Lymphocytes # (A) 0.6 k/uL (1.0-4.8); Lymphocytes % (A) 12 %; MCHC 33.8 g/dL (31.0-37.0); MCV 91.9 fL (80.0-100.0); Mean Platelet Volume 8.5; Monocytes # (A) 0.3 k/uL (0-1.0); Monocytes % (A) 5 %; Neutrophils # (A) 4.3 k/uL (1.3-7.7); Neutrophils % (A) 80 %; Platelet Count 156 k/uL (150-450); RDW 12.7 % (11.5-15.5); WBC 5.4 k/uL (3.8-10.6)
[2020-07-19] MEDS: FORMOTEROL FUMARATE 20 MCG/2 ML NEBU INHALATION SCH ×2 (07:45→20:28)
[2020-07-19] MEDS: FLUTICASONE 110 MCG INHALER INHALATION SCH ×2 (07:45→20:28)
--- NOTE | 2020-07-19 07:57 | P.PN ---
Progress Note - Text Progress Note Date: 07/19/20 (686) Anesthesiology Postop day 1 status post total knee arthroplasty with adductor canal catheter. Patient doing well. VAS 7 out of 10. Tolerable Gross strength intact in lower extremity. Afebrile. Denies alterations in sensorium. Catheter site intact. Heart regular rate Lungs nonlabored Abdomen nondistended Assessment: Postop day 1 status post total knee arthroplasty with adductor canal catheter Plan: All questions answered. Maintain catheter 2 more days with patient rem oval at home. Instructions to be given at discharge.
[2020-07-19] MEDS: ASPIRIN 81 MG PO SCH ×2 (08:26→21:18)
[2020-07-19] MEDS: PANTOPRAZOLE 40 MG TABLET PO SCH ×2 (08:26→18:04)
[2020-07-19] MEDS: lisinopriL 5 MG TAB PO SCH (08:27)
[2020-07-19] MEDS: POTASSIUM CHLORIDE ER 10 MEQ TAB.ER.PRT PO SCH ×2 (08:29→21:17)
[2020-07-19] MEDS: DULoxetine HCL 60 MG CAPSULE.DR PO SCH ×2 (08:29→21:18)
[2020-07-19] MEDS: FERROUS SULFATE 325 MG TAB PO SCH ×2 (08:30→21:18)
[2020-07-19] MEDS: TROSPIUM CHLORIDE 20 MG TABLET PO SCH ×2 (08:30→21:17)
[2020-07-19] MEDS: TOPIRAMATE 25 MG TAB PO SCH (08:32)
[2020-07-19] MEDS: OXYBUTYNIN 10 MG TAB.ER.24 PO SCH (08:33)
[2020-07-19] MEDS ORDERED: NON FORMULARY DRUG (Tolterodine Er 4 MG Cap.Er.24h) PO SCH (09:00)
[2020-07-19] MEDS: Acetaminophen-Codeine 300-30mg TAB PO PRN ×3 (10:36→19:09)
[2020-07-19] MEDS: MULTIVITAMINS, THERA 1 EACH TAB PO SCH (12:11)
--- NOTE | 2020-07-19 15:53 | P.PN ---
Subjective Progress Note Date: 07/19/20 This patient is a 65-year-old female who is status post left total knee arthroplasty on 07/18/[address] Harp. Today is postoperative day #1. The patient is seen and examined bedside this morning. She states her pain is currently not controlled. She states she has not taken a Tylenol #3 since last night. She has recently received tramadol a few hours ago. She has not yet been up with physical therapy today due to her pain. She states she has not eaten breakfast this morning due to mild nausea. She denies vomiting. She denies numbness or tingling at the left lower extremity. She states she is allergic to [place] and the only other pain medication she has taken in the past and tolerated is Percocet. She denies chest pain, shortness breath, fevers, chills. She denies abdominal pain. Vital signs currently stable. Objective - Vital Signs Vital signs: Vital Signs Temp 98.8 F 07/19/20 13:05 Pulse 93 07/19/20 13:05 Resp 20 07/19/20 13:05 BP 138/89 07/19/20 13:05 Pulse Ox 94 L 07/19/20 13:05 Intake & Output 07/18/20 07/19/20 07/19/20 18:59 06:59 18:59 Intake Total 1901 Output Total 100 100 Balance 1801 -100 Weight 143 kg Intake: IV 1901 Lactated Ringers 1,000 ml 800 @ 100 mls/hr IV .Q10H [facility] Rx#:[id number] Output: Stool 50 Emesis 50 Estimated Blood Loss 100 Other: Voiding Method Toilet Toilet # Voids 1 1 # Bowel Movements 1 - Exam On examination, the patient is lying bed in no apparent distress. She is alert going to 3. On inspection of the left knee, there is a clean dressing intact. There is a benign surgical incision with no surrounding erythema or warmth. No drainage. Patient has good strength and range of motion of the left ankle. Motor and sensory function are intact of the left lower extremity. The calf is soft and nontender to palpation. Dorsalis pedis pulse +2. Left lower extremity is warm and well perfused with brisk capillary refill distally. - Labs CBC & Chem 7: 07/19/20 06:00 Labs: Abnormal Lab Results - Last 24 Hours (Table) 07/19/20 Range/Units 06:00 Lymphocytes # 0.6 L (1.0-4.8) k/uL Assessment and Plan Assessment: Status-post left total knee arthroplasty 07/18/20. Postoperative day #1. Plan: - Patient may weight-bear as tolerated on the left lower extremity. Up with assistance, with a walker. - Physical therapy for gait and balance training. - Ice and elevate of left knee for swelling and pain control. - Aspirin 81 mg twice a day for DVT prophylaxis. - Tylenol #3 every 3 hours as needed for pain control. - Medical management per internal medicine team. - Anticipate discharge to rehab tomorrow if medically cleared.
--- NOTE | 2020-07-19 21:15 | P.PN ---
Progress Note - Text Progress Note Date: 07/19/20 - Chief Complaint Knee pain Hospital course: This is a pleasant [address] Bolivar. 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 Patient has social issues because of a divorce and currently homeless. She's been spending nights at a friends or relatives. Patient now has undergone left total knee arthroplasty. Today-laying in bed. Significant pain in the left knee. Getting pain medication. Significant nausea. Doesn't want to eat. Review of systems: Was done for constitutional, cardiovascular, GI, pulmonary. r elevant finding as above Active Medications Acetaminophen (Acetaminophen Tab 325 Mg Tab) 650 mg PO Q4HR PRN PRN Reason: Pain Scale 1 to 5 Stop: 08/17/20 09:44 Acetaminophen/Codeine Phosphate (Acetaminophen-Codeine 300-30mg Tab) 1 each PO Q3HR PRN PRN Reason: Pain Scale 1 to 5 Stop: 08/17/20 09:44 Acetaminophen/Codeine Phosphate (Acetaminophen-Codeine 300-30mg Tab) 2 each PO Q3HR PRN PRN Reason: Pain Scale 6 to 10 Stop: 08/17/20 09:44 Last Admin: 07/19/20 19:09 Dose: 2 each Documented by: Albuterol Sulfate (Albuterol Nebulized 2.5 Mg/3 Ml) 2.5 mg INHALATION RT-DAILY PRN PRN Reason: Dyspnea Aripiprazole (Aripiprazole 10 Mg Tab) 10 mg PO [facility] Last Admin: 07/18/20 20:17 Dose: 10 mg Documented by: Aspirin (Aspirin 81 Mg) 81 mg PO BID [place] Stop: 08/17/20 21:01 Last Admin: 07/19/20 08:26 Dose: 81 mg Documented by: Bisacodyl (Bisacodyl 10 Mg Supp) 10 mg RECTAL DAILY PRN PRN Reason: Constipation Stop: 08/17/20 09:44 Ropivacaine 1,090 mg/ Bandage/ (Support Products 1 each) 0 mg MISCELLANE Q2H PRN PRN Reason: Breakthrough Pain Stop: 08/17/20 09:23 Last Admin: 07/18/20 10:01 Dose: 1,090 mg Documented by: Diazepam (Diazepam 5 Mg Tab) 2.5 mg PO Q8HR PRN PRN Reason: Mild Spasms Stop: 08/17/20 09:44 Duloxetine HCl (Duloxetine Hcl 60 Mg Capsule.Dr) 60 mg PO BID [facility] Last Admin: 07/19/20 08:29 Dose: 60 mg Documented by: Fentanyl (Fentanyl 12mcg/Hr Patch) 1 patch TRANSDERM Q72H [facility] Last Admin: 07/18/20 14:34 Dose: 1 patch Documented by: Ferrous Sulfate (Ferrous Sulfate 325 Mg Tab) 650 mg PO BID [facility] Last Admin: 07/19/20 08:30 Dose: 650 mg Documented by: Fluticasone Propionate (Fluticasone 110 Mcg Inhaler) 2 puff INHALATION RT-BID [facility] Last Admin: 07/19/20 20:28 Dose: Not Given Documented by: Formoterol Fumarate (Formoterol Fumarate 20 Mcg/2 Ml Nebu) 20 mcg INHALATION RT-BID [facility] Last Admin: 07/19/20 20:28 Dose: Not Given Documented by: Hydroxyzine Pamoate (Hydroxyzine Pamoate 25 Mg Cap) 25 mg PO Q4HR PRN PRN Reason: Nausea, Anxiety, Pain Control Stop: 08/17/20 09:44 Last Admin: 07/19/20 04:38 Dose: 25 mg Documented by: Lactated Ringer's (Lactated Ringers) 1,000 mls @ 100 mls/hr IV .Q10H [facility] Stop: 08/17/20 09:46 Last Admin: 07/19/20 15:24 Dose: 100 mls/hr Documented by: Lidocaine HCl (Lidocaine 1% (10mg/Ml) For Iv Start) 0.1 ml INTRADERMA PER PROTOCOL PRN PRN Reason: IV Start Stop: 08/17/20 07:04 Lisinopril (Lisinopril 5 Mg Tab) 5 mg PO QAM [facility] Last Admin: 07/19/20 08:27 Dose: 5 mg Documented by: Loratadine (Loratadine 10 Mg Tab) 10 mg PO HS [facility] Last Admin: 07/18/20 20:17 Dose: 10 mg Documented by: Magnesium Hydroxide (Magnesium Hydroxide 2,400 Mg/10 Ml Cup) 2,400 mg PO DAILY PRN PRN Reason: Constipation Stop: 02/20/21 09:44 Multivitamins (Multivitamins, Thera 1 Each Tab) 1 each PO DAILY@1200 [facility] Stop: 08/18/20 12:01 Last Admin: 07/19/20 12:11 Dose: 1 each Documented by: Naloxone HCl (Naloxone 0.4 Mg/Ml 1 Ml Vial) 0.2 mg IV Q2M PRN PRN Reason: Opioid Reversal Stop: 08/17/20 09:44 Ondansetron HCl (Ondansetron 4 Mg/2 Ml Vial) 4 mg IVP Q8HR PRN PRN Reason: Nausea And Vomiting Stop: 08/17/20 09:44 Oxybutynin Chloride (Oxybutynin 10 Mg Tab.Er.24) 10 mg PO DAILY [facility] Last Admin: 07/19/20 08:33 Dose: 10 mg Documented by: Pantoprazole Sodium (Pantoprazole 40 Mg Tablet) 40 mg PO AC-BID [facility] Last Admin: 07/19/20 18:04 Dose: 40 mg Documented by: Potassium Chloride (Potassium Chloride Er 10 Meq Tab.Er.Prt) 10 meq PO BID [facility] Last Admin: 07/19/20 08:29 Dose: 10 meq Documented by: Ropinirole HCl (Ropinirole Hcl 0.25 Mg Tab) 0.5 mg PO TID [facility] Last Admin: 07/19/20 18:03 Dose: 0.5 mg Documented by: Senna/Docusate Sodium (Sennosides-Docusate Sodium 1 Each Tab) 2 each PO HS [facility] Stop: 08/17/20 21:01 Last Admin: 07/18/20 20:16 Dose: 2 each Documented by: Sodium Biphosphate/Sodium Phosphate (Na Phos,M-B/Na Phos,Di-Ba 133 Ml Enema) 133 ml RECTAL DAILY PRN PRN Reason: Constipation Stop: 08/17/20 09:44 Sumatriptan Succinate (Sumatriptan Succinate 50 Mg Tab) 100 mg PO Q3HR PRN PRN Reason: Headache Temazepam (Temazepam 15 Mg Cap) 15 mg PO HS PRN PRN Reason: Insomnia Stop: 08/17/20 09:44 Topiramate (Topiramate 25 Mg Tab) 50 mg PO QAM [facility] Last Admin: 07/19/20 08:32 Dose: 50 mg Documented by: Topiramate (Topiramate 100 Mg Tab) 100 mg PO HS [facility] Last Admin: 07/18/20 20:17 Dose: 100 mg Documented by: Tramadol HCl (Tramadol 50 Mg Tab) 50 mg PO Q6HR PRN PRN Reason: Pain Scale 1 to 5 Stop: 08/17/20 09:44 Last Admin: 07/19/20 04:39 Dose: 50 mg Documented by: Triamcinolone Acetonide (Triamcinolone 0.1% Cream 80 Gm Tube) 1 applic TOPICAL BID PRN PRN Reason: Rash Trospium (Trospium Chloride 20 Mg Tablet) 20 mg PO BID [facility] Last Admin: 07/19/20 08:30 Dose: 20 mg Documented by: Past medical history to include: Gastrojejunal ulcer, GERD, intermittent asthma, multiple sclerosis, osteoarthritis, anxiety depression, fibromyalgia, GERD, irritable bowel syndrome, obstructive sleep apnea uses CPAP machine, benign tumor of the kidney and the liver. Social history: Does not Smoke or drink alcohol. Currently homeless. Sometimes uses a cane. Or walker. Family history: Dementia, skin cancer Parkinson's Physical examination: VITAL SIGNS: 98.4, 82, 24, 134/87, 93% room air GENERAL: BMI 45.2, laying in bed, tired appearing EYES: Pupils equal. Conjunctiva normal. HEENT: External appearance of nose and ears normal, oral cavity grossly normal. NECK: JVD not raised; masses not palpable. HEART: First and second heart sounds are normal; no edema. LUNGS: Respiratory rate increased, decreased breath sounds on expiration. ABDOMEN: Soft, nontender, liver spleen not palpable, no masses palpable. PSYCH: Alert and oriented x3; mood and affect normal. MUSCULAR skeletal: Dressing over the left knee Investigations, reviewed the clinical context: White count 5.4 hemoglobin 12.1 platelets 156 Assessment: -Left total knee arthroplasty -Morbid obesity BMI 45.2 -GERD -Intermittent asthma -Chronic multiple sclerosis in remission -Primary osteoarthritis -Fibromyalgia -GERD -Irritable bowel syndrome -obstructive sleep apnea uses CPAP -Paroxysmal atrial fibrillation -Irritable bowel syndrome -Peripheral neuropathy -Nausea as a side effect of pain medication. Plan: the patient. Did ask her to see if possible cutback on pain medication. Th at should help with the nausea. To use ice packs etc. Other medications to continue. Encourage oral intake. Especially liquids. Thank you Dr. Harp
[2020-07-19] MEDS: LORATADINE 10 MG TAB PO SCH (21:17)
[2020-07-19] MEDS: TOPIRAMATE 100 MG TAB PO SCH (21:17)
[2020-07-19] MEDS: ARIPiprazole 10 MG TAB PO SCH (21:18)
[2020-07-19] MEDS: SENNOSIDES-DOCUSATE SODIUM 1 EACH TAB PO SCH (21:18)
[2020-07-20] MEDS: Acetaminophen-Codeine 300-30mg TAB PO PRN ×3 (00:46→13:13)
[2020-07-20] MEDS: LACTATED RINGERS 1,000 ML IV SCH ×2 (04:59→12:07)
[2020-07-20 07:45] VITALS: BP 129/73; PULSE 86; RESP 18; TEMP 97.7
[2020-07-20] MEDS: traMADol 50 MG TAB PO PRN (07:55)
[2020-07-20] MEDS: OXYBUTYNIN 10 MG TAB.ER.24 PO SCH (07:55)
[2020-07-20] MEDS: MULTIVITAMINS, THERA 1 EACH TAB PO SCH (07:56)
[2020-07-20] MEDS: DULoxetine HCL 60 MG CAPSULE.DR PO SCH (07:56)
[2020-07-20] MEDS: lisinopriL 5 MG TAB PO SCH (07:56)
[2020-07-20] MEDS: FERROUS SULFATE 325 MG TAB PO SCH (07:56)
[2020-07-20] MEDS: TROSPIUM CHLORIDE 20 MG TABLET PO SCH (07:56)
[2020-07-20] MEDS: PANTOPRAZOLE 40 MG TABLET PO SCH (07:56)
[2020-07-20] MEDS: ASPIRIN 81 MG PO SCH (07:56)
[2020-07-20] MEDS: TOPIRAMATE 25 MG TAB PO SCH (07:56)
[2020-07-20] MEDS: POTASSIUM CHLORIDE ER 10 MEQ TAB.ER.PRT PO SCH (07:56)
[2020-07-20] MEDS: FORMOTEROL FUMARATE 20 MCG/2 ML NEBU INHALATION SCH (08:13)
[2020-07-20] MEDS: FLUTICASONE 110 MCG INHALER INHALATION SCH (08:13)
--- NOTE | 2020-07-20 10:24 | P.DS ---
Providers Expected date of discharge: 07/20/20 Attending physician: Elliot Harp Consults: 07/18/20 09:43 Consult Physician Routine Consulting Provider: Raad Hernandez Consult Reason/Comments: post op medical management Do you want consulting provider notified?: Yes Primary care physician: Kamlesh Bolivar - Discharge Diagnosis(es) (1) Osteoarthritis of left knee Current Visit: Yes Status: Acute (2) Status post total left knee replacement Current Visit: Yes Status: Acute (3) Adult BMI 50.0-59.9 kg/sq m Current Visit: No Status: Acute Hospital Course: This is a 65-year-old female who was last seen with complaint of continued left knee pain. The patient has a known history of degenerative arthritis of the left knee and presents to discuss surgical options. After discussion and consideration the patient elects to proceed with total left knee arthroplasty. The patient is seen preoperatively by her primary care physician and cleared for surgery. The patient is admitted to [facility] for total left knee arthroplasty. The procedures performed without complication or sequelae. She is doing well postoperatively. The patient is seen and examined bedside this morning. Her pain is better controlled today. She denies vomiting. She denies numbness or tingling at the left lower extremity. She denies chest pain, shortness breath, fevers, chills. She denies abdominal pain. Vital signs currently stable. Vital signs are stable at discharge. Labs are stable at discharge. the patient is ambulating well with walker with minimal assistance. The patient is discharged to home on postop day #2 pending medical clearance. Please see orders and refer to the med rec for accurate list of medications. Plan - Discharge Summary Discharge Rx Participant: Yes New Discharge Prescriptions: New Aspirin 81 mg PO BID #60 chewable Acetaminophen-Codeine 300-30mg [Tylenol w/codeine #3] 1 - 2 tab PO Q4-6H PRN #42 tablet PRN Reason: Pain traMADol HCL [Ultram] 50 mg PO Q4HR PRN #42 tab PRN Reason: Pain No Action EPINEPHrine (Auto Inject) [Epipen] 0.3 mg IM ONCE PRN PRN Reason: Anaphylaxis Cetirizine HCl 10 mg PO HS rOPINIRole HCL [Requip] 0.5 mg PO TID Furosemide [Lasix] 40 mg PO QAM Triamcinolone 0.1% Cream [Kenalog 0.1% Cream] 1 applic TOPICAL BID PRN PRN Reason: Rash Oxybutynin Chloride [Ditropan XL] 10 mg PO DAILY Potassium Chloride [Klor-Con 8] 8 meq PO BID Beclomethasone Dipropionate [Qvar 80 mcg] 2 puff INHALATION RT-BID Albuterol Nebulized [Ventolin Nebulized] 2.5 mg INHALATION RT-DAILY PRN PRN Reason: Dyspnea SUMAtriptan SUCCINATE [Imitrex] 100 mg PO Q3HR PRN PRN Reason: Headache Topiramate 50 mg PO QAM DULoxetine HCL [Cymbalta] 60 mg PO BID hydrOXYzine pamoate [Vistaril] 25 mg PO BID Acetaminophen Tab [Tylenol] 1,300 mg PO Q12H PRN PRN Reason: Pain Albuterol Sulfate [Proair Hfa] 1 - 2 puff INHALATION Q6HR PRN PRN Reason: sob ARIPiprazole [Abilify] 10 mg PO HS Aspirin 81 mg PO DAILY Ergocalciferol [Vitamin D2] 50,000 unit PO Q7D Ferrous Sulfate [Feosol] 650 mg PO BID Hyoscyamine Sulfate [Levsin] 0.125 mg PO BID PRN PRN Reason: abdominal cramping lisinopriL [Zestril] 5 mg PO QAM Naproxen 500 mg PO BID Pantoprazole Sodium [Protonix] 40 mg PO BID Salmeterol 50 mcg [Serevent Diskus] 1 puff INHALATION RT-Q12H Tolterodine ER [Detrol LA] 4 mg PO DAILY Topiramate [Topamax] 100 mg PO HS Trospium Chloride [Sanctura] 20 mg PO BID Discharge Medication List Cetirizine HCl 10 mg PO HS 11/20/14 [History] EPINEPHrine (Auto Inject) [Epipen] 0.3 mg IM ONCE PRN 11/20/14 [History] rOPINIRole HCL [Requip] 0.5 mg PO TID 11/20/14 [History] Furosemide [Lasix] 40 mg PO QAM 06/04/16 [History] Triamcinolone 0.1% Cream [Kenalog 0.1% Cream] 1 applic TOPICAL BID PRN 06/04/16 [History] Oxybutynin Chloride [Ditropan XL] 10 mg PO DAILY 07/10/18 [History] Potassium Chloride [Klor-Con 8] 8 meq PO BID 07/10/18 [History] Albuterol Nebulized [Ventolin Nebulized] 2.5 mg INHALATION RT-DAILY PRN 08/09/18 [History] Beclomethasone Dipropionate [Qvar 80 mcg] 2 puff INHALATION RT-BID 08/09/18 [History] SUMAtriptan SUCCINATE [Imitrex] 100 mg PO Q3HR PRN 12/24/18 [History] Topiramate 50 mg PO QAM 12/24/18 [History] DULoxetine HCL [Cymbalta] 60 mg PO BID 06/19/20 [History] hydrOXYzine pamoate [Vistaril] 25 mg PO BID 06/19/20 [History] ARIPiprazole [Abilify] 10 mg PO HS 07/10/20 [History] Acetaminophen Tab [Tylenol] 1,300 mg PO Q12H PRN 07/10/20 [History] Albuterol Sulfate [Proair Hfa] 1 - 2 puff INHALATION Q6HR PRN 07/10/20 [History] Aspirin 81 mg PO DAILY 07/10/20 [History] Ergocalciferol [Vitamin D2] 50,000 unit PO Q7D 07/10/20 [History] Ferrous Sulfate [Feosol] 650 mg PO BID 07/10/20 [History] Hyoscyamine Sulfate [Levsin] 0.125 mg PO BID PRN 07/10/20 [History] Naproxen 500 mg PO BID 07/10/20 [History] Pantoprazole Sodium [Protonix] 40 mg PO BID 07/10/20 [History] Salmeterol 50 mcg [Serevent Diskus] 1 puff INHALATION RT-Q12H 07/10/20 [History] Tolterodine ER [Detrol LA] 4 mg PO DAILY 07/10/20 [History] Topiramate [Topamax] 100 mg PO HS 07/10/20 [History] Trospium Chloride [Sanctura] 20 mg PO BID 07/10/20 [History] lisinopriL [Zestril] 5 mg PO QAM 07/10/20 [History] Acetaminophen-Codeine 300-30mg [Tylenol w/codeine #3] 1 - 2 tab PO Q4-6H PRN #42 tablet 07/18/20 [Rx] Aspirin 81 mg PO BID #60 chewable 07/18/20 [Rx] traMADol HCL [Ultram] 50 mg PO Q4HR PRN #42 tab 07/18/20 [Rx] Follow up Appointment(s)/Referral(s): Gayatri da silva Juarez, [NON-STAFF] - As Needed Elliot Harp MD [STAFF PHYSICIAN] - 10 Days Activity/Diet/Wound Care/Special Instructions: Keep wound clean and dry Take meds as directed Follow-up with Dr. Harp in office Weight bear as tolerated May shower in 3 days if no bleeding Discharge Disposition: HOME WITH HOME HEALTH SERVICES
--- NOTE | 2020-07-20 20:50 | P.PN ---
Progress Note - Text Progress Note Date: 07/20/20 - Chief Complaint Knee pain Hospital course: This is a pleasant [address] Bolivar. 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 Patient has social issues because of a divorce and currently homeless. She's been spending nights at a friends or relatives. Patient now has undergone left total knee arthroplasty. Having nausea from pain medications. Today-patient had vomited yesterday. Feeling a bit better today. Less nausea. Discussed at length with the patient about importance of trying to avoid narcotic pain medications that nausea is better. At the same time she can have antiemetics. Sitting up in a chair. Review of systems: Was done for constitutional, cardiovascular, GI, pulmonary. relevant finding as above Current medications reviewed in today's electronic records Past medical history to include: Gastrojejunal ulcer, GERD, intermittent asthma, multiple sclerosis, osteoarthr itis, anxiety depression, fibromyalgia, GERD, irritable bowel syndrome, obstructive sleep apnea uses CPAP machine, benign tumor of the kidney and the liver. Social history: Does not Smoke or drink alcohol. Currently homeless. Sometimes uses a cane. Or walker. Family history: Dementia, skin cancer Parkinson's Physical examination: VITAL SIGNS: 97.7, 86, 18, 129 with 73, 95% room air GENERAL: BMI 45.2, sitting up in a chair, comfortable EYES: Pupils equal. Conjunctiva normal. HEENT: External appearance of nose and ears normal, oral cavity grossly normal. NECK: JVD not raised; masses not palpable. HEART: First and second heart sounds are normal; no edema. LUNGS: Respiratory rate increased, decreased breath sounds on expiration. ABDOMEN: Soft, nontender, liver spleen not palpable, no masses palpable. PSYCH: Alert and oriented x3; mood and affect normal. MUSCULAR skeletal: Dressing over the left knee Investigations, reviewed the clinical context: White count 5.4 hemoglobin 12.1 platelets 156 Assessment: -Left total knee arthroplasty -Morbid obesity BMI 45.2 -GERD -Intermittent asthma -Chronic multiple sclerosis in remission -Primary osteoarthritis -Fibromyalgia -GERD -Irritable bowel syndrome -obstructive sleep apnea uses CPAP -Paroxysmal atrial fibrillation -Irritable bowel syndrome -Peripheral neuropathy -Nausea as a side effect of pain medication. Plan: Continue current medication treatment plan. Discussed with the patient. To scale back the pain medications so as to help with nausea. Thank you Dr. Harp
== END 2020-07-20 14:58 | disposition home health service (06) ==
LOC: OR 05:33 → 4SSUR 10:03 → OR 07-20 14:58
PROVIDERS: ATTEND Orthopaedic Surgery Sports Medicine
DX: M17.12 Unilateral primary osteoarthritis, left knee (principal); M25.762 Osteophyte, left knee; I25.2 Old myocardial infarction; I10 Essential (primary) hypertension; I83.90 Asymptomatic varicose veins of unspecified lower extremity; I48.0 Paroxysmal atrial fibrillation; K57.90 Diverticulosis of intestine, part unspecified, without perforation or abscess without bleeding; F41.9 Anxiety disorder, unspecified; F32.9 Major depressive disorder, single episode, unspecified; J45.20 Mild intermittent asthma, uncomplicated; M79.7 Fibromyalgia; G35 Multiple sclerosis; K21.9 Gastro-esophageal reflux disease without esophagitis; K58.9 Irritable bowel syndrome, unspecified; G47.33 Obstructive sleep apnea (adult) (pediatric); Z99.89 Dependence on other enabling machines and devices; G62.9 Polyneuropathy, unspecified; E66.01 Morbid (severe) obesity due to excess calories; D50.9 Iron deficiency anemia, unspecified; Z81.8 Family history of other mental and behavioral disorders; Z80.8 Family history of malignant neoplasm of other organs or systems; Z68.42 Body mass index [BMI] 45.0-49.9, adult; Z79.82 Long term (current) use of aspirin; Z79.1 Long term (current) use of non-steroidal anti-inflammatories (NSAID); Z79.51 Long term (current) use of inhaled steroids; Z79.899 Other long term (current) drug therapy; Z87.19 Personal history of other diseases of the digestive system; Z88.5 Allergy status to narcotic agent; Z88.8 Allergy status to other drugs, medicaments and biological substances; G25.81 Restless legs syndrome; Z97.3 Presence of spectacles and contact lenses; J44.9 Chronic obstructive pulmonary disease, unspecified; F43.10 Post-traumatic stress disorder, unspecified; Z88.6 Allergy status to analgesic agent; Z88.7 Allergy status to serum and vaccine; Z98.84 Bariatric surgery status; Z90.710 Acquired absence of both cervix and uterus; Z98.890 Other specified postprocedural states; Z98.891 History of uterine scar from previous surgery; Z82.49 Family history of ischemic heart disease and other diseases of the circulatory system; Z59.0 Homelessness
CPT/HCPCS: 97116; 97110; 97161; 97166; 64448; 76942; 85025; 88300; 73560; 27447; C1776; C1713; J2250; J0171; J2370; J0690 ×2; J2405; J3010; J1885; J2795 ×2; J2704; J0735

== ENCOUNTER → 2020-08-14 | Outpatient (CLI) | payer OTHER ==
--- NOTE | 2020-08-14 12:51 | FL ---
ESOPHOGRAM. HISTORY: Dysphagia Esophagram was performed per the air contrast technique. The patient swallowed barium and effervesce nt crystals without difficulty or delay. Esophageal peristalsis and motility appear to be within normal limits. There is no evidence for filling defect, mass or diverticulum. There is a small paraesophageal hiatal hernia noted. Subsequently single contrast cervical esophagram was performed which fails demonstrate evidence for a spiration penetration or mass. There is hypertrophy of the cricopharyngeus musculature. IMPRESSION: 1.There is a small paraesophageal hiatal hernia noted. 2.There is hypertrophy of the cricopharyngeus musculature.
== END | disposition home or self-care (01) ==
LOC: RADUSWWP 10:04
PROVIDERS: ATTEND Surgery Plastic and Reconstructive Surgery
DX: K44.9 Diaphragmatic hernia without obstruction or gangrene (principal); M62.89 Other specified disorders of muscle
CPT/HCPCS: 74220

== ENCOUNTER 2020-08-21 07:22 | Day surgery (SDC) | payer OTHER ==
[2020-08-19 09:41] VITALS: BMI 44.4
[~2020-08-21 07:22] MED LIST changes: -ACETAMINOPHEN TAB 500 MG TAB PO PRN; -GABAPENTIN 300 MG CAP PO PRN; +LACTATED RINGERS 1,000 ML IV SCH; +LIDOCAINE 1% (10MG/ML) FOR IV START INTRADERMA PRN; -MELOXICAM 7.5 MG TAB PO PRN; -ONDANSETRON 4 MG/2 ML VIAL IVP PRN; -ROPIVACAINE 246.25 MG, EPINEPHrine 0.5 MG, KETOROLAC 30 MG, cloNIDine HCL/PF 80 MCG, WA... MISCELLANE PRN; -TRANEXAMIC ACID 1,000 MG in SODIUM CHLORIDE 0.9% 100 ML IVPB PRN; -ceFAZolin 3 GM in SODIUM CHLORIDE 0.9% 100 ML IVPB PRN
[2020-08-21 07:55] VITALS: TEMP 97.8
[2020-08-21] MEDS ORDERED: PROPOFOL 10 MG/ML 20 ML VIAL IV ONE (08:41)
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
--- NOTE | 2020-08-21 09:00 | P.PCN ---
Date of Procedure: 08/21/20 Description of Procedure: PREOPERATIVE DIAGNOSES: 1. Epigastric abdominal pain. 2. Nausea and vomiting. 3. History of gastric bypass. 4. History of gastric ulcers. 5. Gastroesophageal reflux disease POSTOPERATIVE DIAGNOSES: 1. Epigastric abdominal pain. 2. Nausea and vomiting. 3. History of gastric bypass. 4. History of gastric ulcers. 5. Diaphragmatic hiatal hernia, recurrent 6. Gastroesophageal reflux disease PROCEDURE PERFORMED: Esophagogastrojejunoscopy. SURGEON: Chelsea Buchanan MD ANESTHESIA: MAC. INDICATIONS: The patient is a 65-year-old male with prior history of Domenico-en-Y gastric bypass and gastroesophageal reflux disease. She has had intermittent nausea and vomiting, particularly of the epigastric abdominal pain. With his history of Domenico-en-Y gastric bypass, upper endoscopy was offered for further evaluation and management. DESCRIPTION: Patient was brought to the endoscopy suite and laid in the left lateral decubitus position. After adequate IV sedation, a bite block was placed. An Olympus gastroscope was passed along the posterior oropharynx down to the distal esophagus where the squamocolumnar junction was found at approximately 40 cm from the incisors. The scope was advanced 60 cm from the incisors. No evidence of foreign body was found. No evidence of active gastrojejunal ulcerations were encountered. Recurrent hiatal hernia was identified. The GI tract was desufflated. The patient tolerated the procedure well. FINDINGS: 1. No acute gastrojejunal ulceration. 2. No foreign body found along the anastomosis. 3. Recurrent hiatal hernia PLAN: 1. Recommend upper endoscopy as needed. Plan - Discharge Summary Discharge Rx Participant: No New Discharge Prescriptions: Continue EPINEPHrine (Auto Inject) [Epipen] 0.3 mg IM ONCE PRN PRN Reason: Anaphylaxis Cetirizine HCl 10 mg PO HS rOPINIRole HCL [Requip] 0.5 mg PO TID Furosemide [Lasix] 40 mg PO QAM Triamcinolone 0.1% Cream [Kenalog 0.1% Cream] 1 applic TOPICAL BID PRN PRN Reason: Rash Oxybutynin Chloride [Ditropan XL] 10 mg PO DAILY Potassium Chloride [Klor-Con 8] 10 meq PO BID Beclomethasone Dipropionate [Qvar 80 mcg] 2 puff INHALATION RT-BID Albuterol Nebulized [Ventolin Nebulized] 2.5 mg INHALATION RT-DAILY PRN PRN Reason: Dyspnea SUMAtriptan SUCCINATE [Imitrex] 100 mg PO Q3HR PRN PRN Reason: Headache Topiramate 50 mg PO QAM DULoxetine HCL [Cymbalta] 60 mg PO BID hydrOXYzine pamoate [Vistaril] 50 mg PO BID Acetaminophen Tab [Tylenol] 1,300 mg PO Q12H PRN PRN Reason: Pain ARIPiprazole [Abilify] 10 mg PO HS Aspirin 81 mg PO DAILY Ergocalciferol [Vitamin D2 (DRISDOL)] 50,000 unit PO Q7D Ferrous Sulfate [Iron (65 MG Elemental)] 650 mg PO BID Hyoscyamine Sulfate [Levsin] 0.125 mg PO BID PRN PRN Reason: abdominal cramping lisinopriL [Zestril] 5 mg PO QAM Pantoprazole Sodium [Protonix] 40 mg PO BID Tolterodine ER [Detrol LA] 4 mg PO DAILY Topiramate [Topamax] 100 mg PO HS Trospium Chloride [Sanctura] 20 mg PO BID traMADol HCL [Ultram] 50 mg PO Q4HR PRN #42 tab PRN Reason: Pain Acetaminophen-Codeine 300-30mg [Tylenol w/codeine #3] 1 - 2 tab PO HS PRN PRN Reason: Pain Discontinued Naproxen 500 mg PO BID Discharge Medication List Cetirizine HCl 10 mg PO HS 11/20/14 [History] EPINEPHrine (Auto Inject) [Epipen] 0.3 mg IM ONCE PRN 11/20/14 [History] rOPINIRole HCL [Requip] 0.5 mg PO TID 11/20/14 [History] Furosemide [Lasix] 40 mg PO QAM 06/04/16 [History] Triamcinolone 0.1% Cream [Kenalog 0.1% Cream] 1 applic TOPICAL BID PRN 06/04/16 [History] Oxybutynin Chloride [Ditropan XL] 10 mg PO DAILY 07/10/18 [History] Potassium Chloride [Klor-Con 8] 10 meq PO BID 07/10/18 [History] Albuterol Nebulized [Ventolin Nebulized] 2.5 mg INHALATION RT-DAILY PRN 08/09/18 [History] Beclomethasone Dipropionate [Qvar 80 mcg] 2 puff INHALATION RT-BID 08/09/18 [History] SUMAtriptan SUCCINATE [Imitrex] 100 mg PO Q3HR PRN 12/24/18 [History] Topiramate 50 mg PO QAM 12/24/18 [History] DULoxetine HCL [Cymbalta] 60 mg PO BID 06/19/20 [History] hydrOXYzine pamoate [Vistaril] 50 mg PO BID 06/19/20 [History] ARIPiprazole [Abilify] 10 mg PO HS 07/10/20 [History] Acetaminophen Tab [Tylenol] 1,300 mg PO Q12H PRN 07/10/20 [History] Aspirin 81 mg PO DAILY 07/10/20 [History] Ergocalciferol [Vitamin D2 (DRISDOL)] 50,000 unit PO Q7D 07/10/20 [History] Ferrous Sulfate [Iron (65 MG Elemental)] 650 mg PO BID 07/10/20 [History] Hyoscyamine Sulfate [Levsin] 0.125 mg PO BID PRN 07/10/20 [History] Pantoprazole Sodium [Protonix] 40 mg PO BID 07/10/20 [History] Tolterodine ER [Detrol LA] 4 mg PO DAILY 07/10/20 [History] Topiramate [Topamax] 100 mg PO HS 07/10/20 [History] Trospium Chloride [Sanctura] 20 mg PO BID 07/10/20 [History] lisinopriL [Zestril] 5 mg PO QAM 07/10/20 [History] traMADol HCL [Ultram] 50 mg PO Q4HR PRN #42 tab 07/18/20 [Rx] Acetaminophen-Codeine 300-30mg [Tylenol w/codeine #3] 1 - 2 tab PO HS PRN 08/19/20 [History] Follow up Appointment(s)/Referral(s): Chelsea Buchanan MD [STAFF PHYSICIAN] - 09/04/20 Patient Instructions/Handouts: *Surgery [facility] - (Anesthesia) Endoscopy Discharge Instructions, Upper Endoscopy (DC), Hiatal Hernia (DC) Discharge Disposition: HOME SELF-CARE
[2020-08-21 10:03] VITALS: BP 134/76; PULSE 77; RESP 20
== END 2020-08-21 09:45 | disposition home or self-care (01) ==
LOC: ORWHC2ENDO 07:22
PROVIDERS: ATTEND Surgery Plastic and Reconstructive Surgery
DX: K44.9 Diaphragmatic hernia without obstruction or gangrene (principal); K21.9 Gastro-esophageal reflux disease without esophagitis; Z98.84 Bariatric surgery status; R11.2 Nausea with vomiting, unspecified; R10.13 Epigastric pain; I48.91 Unspecified atrial fibrillation; J45.909 Unspecified asthma, uncomplicated; F03.90 Unspecified dementia, unspecified severity, without behavioral disturbance, psychotic disturbance, mood disturbance, and anxiety; M79.7 Fibromyalgia; K76.9 Liver disease, unspecified; I25.2 Old myocardial infarction; M19.90 Unspecified osteoarthritis, unspecified site; Z87.01 Personal history of pneumonia (recurrent); G47.30 Sleep apnea, unspecified; Z99.89 Dependence on other enabling machines and devices; G43.909 Migraine, unspecified, not intractable, without status migrainosus; I83.90 Asymptomatic varicose veins of unspecified lower extremity; K58.9 Irritable bowel syndrome, unspecified; D49.0 Neoplasm of unspecified behavior of digestive system; R42 Dizziness and giddiness; N28.89 Other specified disorders of kidney and ureter; G35 Multiple sclerosis; E16.2 Hypoglycemia, unspecified; N32.81 Overactive bladder; D50.9 Iron deficiency anemia, unspecified; K52.9 Noninfective gastroenteritis and colitis, unspecified; G62.9 Polyneuropathy, unspecified; Z87.11 Personal history of peptic ulcer disease; Z96.652 Presence of left artificial knee joint; Z98.891 History of uterine scar from previous surgery; Z90.49 Acquired absence of other specified parts of digestive tract; Z90.710 Acquired absence of both cervix and uterus; Z98.890 Other specified postprocedural states; Z90.89 Acquired absence of other organs; Z81.8 Family history of other mental and behavioral disorders; Z82.0 Family history of epilepsy and other diseases of the nervous system; Z80.8 Family history of malignant neoplasm of other organs or systems; Z80.7 Family history of other malignant neoplasms of lymphoid, hematopoietic and related tissues; Z79.82 Long term (current) use of aspirin; Z79.51 Long term (current) use of inhaled steroids; Z79.899 Other long term (current) drug therapy; Z79.1 Long term (current) use of non-steroidal anti-inflammatories (NSAID); Z79.891 Long term (current) use of opiate analgesic; Z88.6 Allergy status to analgesic agent; Z91.038 Other insect allergy status; Z88.5 Allergy status to narcotic agent; Z88.7 Allergy status to serum and vaccine; Z91.09 Other allergy status, other than to drugs and biological substances
CPT/HCPCS: 43235

== ENCOUNTER → 2020-09-11 | Outpatient (CLI) | payer OTHER ==
[2020-09-11 13:04] VITALS: BP 123/84; PULSE 101; TEMP 97.8; BMI 46.5
--- NOTE | 2020-09-11 13:57 | P.PN ---
Subjective Progress Note Date: 09/11/20 She just had a total knee replacement. She is doing very well. She has lost more weight. She has lost almost 90 pounds in 2 to 3 years. She is looking for hiatal hernia repair. Second opinion is advised. Recommend full bariatric labs. High risk hiatal hernia repair. Two week diet Plan for labs. Has lower abdominal pain risk for bowel obstruction and diveritculitis. Plan for CT A/P pelvis. Objective - Vital Signs Vital signs: Vital Signs Temp 97.8 F 09/11/20 13:01 Pulse 101 H 09/11/20 13:01 Resp BP 123/84 09/11/20 13:01 Pulse Ox Intake & Output 09/10/20 09/11/20 09/11/20 18:59 06:59 18:59 Weight 138.799 kg
[2020-09-11 15:01] LABS: HCT 41.6 % (34.0-46.0); HGB 13.8 gm/dL (11.4-16.0); MCH 30.7 pg (25.0-35.0); MCHC 33.3 g/dL (31.0-37.0); MCV 92.2 fL (80.0-100.0); Platelet Count 207 k/uL (150-450); RBC 4.51 m/uL (3.80-5.40); RDW 12.8 % (11.5-15.5); WBC 5.3 k/uL (3.8-10.6)
[2020-09-12 01:10] LABS: INR 0.96 (0.90-1.11); Partial Thromboplastin Time 24.2 sec (23.5-31.0); Prothrombin Time 10.5 sec (9.9-11.9)
[2020-09-12 01:50] LABS: Estimated Average Glucose 88.19; Hemoglobin A1C 4.7 % (4.0-6.0)
[2020-09-12 06:42] LABS: % Iron Saturation 35.34 (12.00-45.00); African American GFR (CKD) 78.3 (60.0-200.0); Albumin 4.4 g/dL (3.80-4.90); Albumin/Globulin Ratio 2.32 (1.60-3.17); BUN/Creat Ratio 16.67 Ratio (12.00-20.00); Chol/HDL Ratio 2.53; Globulin 1.9 g/dL (1.6-3.3); LDL Cholesterol,Calculated 73.4 mg/dL (0.0-131.0); Non-African American GFR(CKD) 67.6 (60.0-200.0); Phosphorus 3.6 mg/dL (2.4-5.1); Potassium 4.6 mmol/L (3.5-5.5); Total Bilirubin 0.4 mg/dL (0.3-1.2); Total Protein 6.3 g/dL (6.2-8.2); VLDL Calculation 15.6 mg/dL (5.00-40.00)
[2020-09-12 06:49] LABS: Ferritin 103.6 ng/mL (10.0-291.0)
[2020-09-12 07:40] LABS: Folate, Serum 11.1 ng/mL
[2020-09-12 14:55] LABS: Zinc, Serum 56 ug/dL (60-130)
[2020-09-13 07:39] LABS: Vitamin A 48 ug/dL (38-106)
[2020-09-13 11:03] LABS: Vit B1(Thiamine) 51 ug/L (38-122)
[2020-09-15 17:22] LABS: Selenium 90 mcg/L (63-160)
== END ==
LOC: BARWHC3 12:40
PROVIDERS: ATTEND Surgery Plastic and Reconstructive Surgery
DX: E66.01 Morbid (severe) obesity due to excess calories (principal); D50.8 Other iron deficiency anemias; E89.1 Postprocedural hypoinsulinemia; E55.9 Vitamin D deficiency, unspecified; K74.1 Hepatic sclerosis; K50.90 Crohn's disease, unspecified, without complications; E44.0 Moderate protein-calorie malnutrition; N19 Unspecified kidney failure; J45.909 Unspecified asthma, uncomplicated; K21.9 Gastro-esophageal reflux disease without esophagitis; M19.90 Unspecified osteoarthritis, unspecified site; I25.2 Old myocardial infarction; F32.9 Major depressive disorder, single episode, unspecified; Z68.42 Body mass index [BMI] 45.0-49.9, adult; F41.9 Anxiety disorder, unspecified; Z79.82 Long term (current) use of aspirin; Z79.899 Other long term (current) drug therapy
CPT/HCPCS: 84255; 84134; 84425; 80061; 80053; 82607; 82728; 82525; 82746; 83540; 83550; 83735; 84100; 84443; 84590; 84630; 85027; 85610; 85730; 82306; 83970; 83036; G0463; 99211

== ENCOUNTER → 2020-09-27 | Outpatient (CLI) | payer OTHER ==
--- NOTE | 2020-09-27 13:26 | CT ---
EXAMINATION TYPE: CT abdomen pelvis w con DATE OF EXAM: 09/27/2020 COMPARISON: 01/21/2019 INDICATION: Diverticulitis, hiatal hernia DLP: 939.3 mGycm, Automated exposure control for dose reduction was used. CONTRAST: 0 mL of Isovue 300. Study performed with Oral Contrast TECHNIQUE: Axial images were obtained from above the diaphragm to the pubic rami in the axial plane a t 5 mm thick sections. Reconstructed images are reviewed on the computer in the coronal plane. FINDINGS: Limited CT sections are obtained the lung bases. The lung bases are clear. Moderate size hiatal her roni is present. Paraesophageal hernia is not excluded with the gastroesophageal junction appearing cl ose to the hiatus CT ABDOMEN: Liver: Normal Spleen: Normal Pancreas: Normal Adrenal glands: The adrenal glands are normal. Gallbladder: Not identified Kidneys: No masses are evident. No hydronephrosis is present. There may be a cyst extending from th e posterior left upper kidney measuring 3.0 cm 18 Hounsfield units. There is a cyst in the medial rig ht kidney measuring 2.37 cm and 13 Hounsfield units. Delayed images were obtained through the kidney s, which remain unremarkable. Aorta: Normal Inferior vena cava: Normal. CT PELVIS: Loops of bowel within the abdomen and pelvis are normal. No suspicious changes of acute diverticulit is is evident. Significant diverticulosis is not identified. There are loops of bowel which are inc ompletely distended or lack oral contrast limiting their evaluation. Appendix: Normal as visualized. Urinary bladder: Normal. Genitourinary structures: Uterus and ovaries are not identified. Osseous structures: No suspicious lytic or sclerotic lesions. IMPRESSIONS: 1. Herniation of the stomach through the diaphragm. Consider paraesophageal hernia. 2. Bilateral renal cysts. 3. No acute diverticulitis
== END | disposition home or self-care (01) ==
LOC: RADCTMAIN 10:22
PROVIDERS: ATTEND Surgery Plastic and Reconstructive Surgery
DX: N28.1 Cyst of kidney, acquired (principal); K44.9 Diaphragmatic hernia without obstruction or gangrene
CPT/HCPCS: 74177; Q9967

== ENCOUNTER → 2020-10-09 | Outpatient (CLI) | payer OTHER ==
[2020-10-09 14:17] VITALS: BP 131/83; PULSE 98; RESP 18; TEMP 97.6; BMI 46.5
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
== END | disposition home or self-care (01) ==
LOC: BARWHC3 14:06
PROVIDERS: ATTEND Surgery Plastic and Reconstructive Surgery
DX: E66.01 Morbid (severe) obesity due to excess calories (principal); K21.9 Gastro-esophageal reflux disease without esophagitis; K95.89 Other complications of other bariatric procedure; F32.9 Major depressive disorder, single episode, unspecified; J44.9 Chronic obstructive pulmonary disease, unspecified; M79.3 Panniculitis, unspecified; M79.7 Fibromyalgia; G89.4 Chronic pain syndrome; I11.9 Hypertensive heart disease without heart failure; I25.2 Old myocardial infarction; K91.1 Postgastric surgery syndromes; R19.7 Diarrhea, unspecified; E60 Dietary zinc deficiency; Z98.84 Bariatric surgery status; Z91.018 Allergy to other foods; Z68.42 Body mass index [BMI] 45.0-49.9, adult; Z88.5 Allergy status to narcotic agent
CPT/HCPCS: 99211

== ENCOUNTER 2020-11-24 17:04 | Emergency (ER) | payer OTHER ==
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
--- NOTE | 2020-11-24 18:26 | US ---
EXAMINATION TYPE: US venous doppler duplex LE LT DATE OF EXAM: 11/24/2020 6:11 PM COMPARISON: US 2014 CLINICAL HISTORY: pain. Left leg pain x 3 days SIDE PERFORMED: Left TECHNIQUE: The lower extremity deep venous system is examined utilizing real time linear array sonog jericho with graded compression, doppler sonography and color-flow sonography. VESSELS IMAGED: Common Femoral Vein Deep Femoral Vein Greater Saphenous Vein * Femoral Vein Popliteal Vein Small Saphenous Vein * Proximal Calf Veins (* superficial vessels) Left Leg: Appears negative for DVT IMPRESSION: No evidence of deep vein thrombosis in the left leg.
[2020-11-24 19:18] VITALS: BP 117/70; PULSE 91; RESP 16; TEMP 97.8
[2020-11-24] MEDS ORDERED: CYCLOBENZAPRINE 10MG STARTER 3 TAB BTL PO STA (19:22)
== END 2020-11-24 19:38 | disposition home or self-care (01) ==
LOC: EC 17:04
DX: M79.605 Pain in left leg (principal); J45.909 Unspecified asthma, uncomplicated; I25.2 Old myocardial infarction; M19.90 Unspecified osteoarthritis, unspecified site; M79.7 Fibromyalgia; I48.91 Unspecified atrial fibrillation; K21.9 Gastro-esophageal reflux disease without esophagitis; Z79.51 Long term (current) use of inhaled steroids; Z88.5 Allergy status to narcotic agent; Z79.82 Long term (current) use of aspirin; Z88.6 Allergy status to analgesic agent; Z88.7 Allergy status to serum and vaccine; Z91.038 Other insect allergy status; Z91.048 Other nonmedicinal substance allergy status; Z79.899 Other long term (current) drug therapy
CPT/HCPCS: 99283

== ENCOUNTER → 2020-12-04 | Outpatient (CLI) | payer OTHER ==
[2020-12-04 15:31] VITALS: BP 117/80; PULSE 112; RESP 16; TEMP 98; BMI 46.5
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
== END | disposition home or self-care (01) ==
LOC: BARWHC3 15:17
PROVIDERS: ATTEND Surgery Plastic and Reconstructive Surgery
DX: E66.01 Morbid (severe) obesity due to excess calories (principal); K21.9 Gastro-esophageal reflux disease without esophagitis; J44.9 Chronic obstructive pulmonary disease, unspecified; M79.3 Panniculitis, unspecified; F32.9 Major depressive disorder, single episode, unspecified; G89.4 Chronic pain syndrome; M79.7 Fibromyalgia; I11.9 Hypertensive heart disease without heart failure; K91.5 Postcholecystectomy syndrome; R10.30 Lower abdominal pain, unspecified; K44.9 Diaphragmatic hernia without obstruction or gangrene; R13.10 Dysphagia, unspecified; E60 Dietary zinc deficiency; Z68.44 Body mass index [BMI] 60.0-69.9, adult
CPT/HCPCS: 99211

== ENCOUNTER → 2020-12-12 | Outpatient (CLI) | payer OTHER ==
[2020-12-12 14:31] LABS: Basophils % (A) 1 %; Eosinophils # (A) 0.1 k/uL (0-0.7); Eosinophils % (A) 2 %; HCT 38.2 % (34.0-46.0); HGB 12.9 gm/dL (11.4-16.0); Lymphocytes # (A) 1.1 k/uL (1.0-4.8); Lymphocytes % (A) 29 %; MCH 30.6 pg (25.0-35.0); MCHC 33.8 g/dL (31.0-37.0); MCV 90.5 fL (80.0-100.0); Mean Platelet Volume 8.1; Monocytes # (A) 0.1 k/uL (0-1.0); Monocytes % (A) 3 %; Neutrophils # (A) 2.4 k/uL (1.3-7.7); Neutrophils % (A) 64 %; Platelet Count 190 k/uL (150-450); RBC 4.22 m/uL (3.80-5.40); RDW 13.5 % (11.5-15.5); WBC 3.7 k/uL (3.8-10.6)
[2020-12-12 14:39] LABS: Albumin 3.6 g/dL (3.5-5.0); Calcium 9.3 mg/dL (8.4-10.2); Potassium 3.8 mmol/L (3.5-5.1); Total Bilirubin 0.3 mg/dL (0.2-1.3); Total Protein 5.9 g/dL (6.3-8.2)
== END | disposition home or self-care (01) ==
LOC: LABPAT 13:11
PROVIDERS: ATTEND Surgery Plastic and Reconstructive Surgery
DX: Z01.812 Encounter for preprocedural laboratory examination (principal)
CPT/HCPCS: 36415; 80053; 85025

== ENCOUNTER 2020-12-16 10:35 | Observation (INO) | payer OTHER ==
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
[~2020-12-16 10:35] MED LIST changes: +CHLORHEXIDINE GLUCONATE 15 ML CUP MUCOUS MEM PRN; +DEXAMETHASONE SOD PHOSPHATE 4 MG/ML 1 ML VIAL IV ONE; +HEPARIN SODIUM,PORCINE/PF 5,000 UNIT/0.5 ML SYRINGE SQ PRN; -LACTATED RINGERS 1,000 ML IV SCH; -LIDOCAINE 1% (10MG/ML) FOR IV START INTRADERMA PRN; +ONDANSETRON 4 MG/2 ML VIAL IVP ONE; +PANTOPRAZOLE 40 MG/10 ML VIAL IVP PRN; +ceFAZolin 3 GM in SODIUM CHLORIDE 0.9% 100 ML IVPB PRN; +fentaNYL (PF) 50 MCG/ML 2 ML AMP IV PRN
[2020-12-16 11:16] LABS: Glucose,Whole Blood 87 mg/dL (75-99)
[2020-12-16] MEDS: LACTATED RINGERS 1,000 ML IV SCH (11:25)
[2020-12-16] MEDS ORDERED: MIDAZOLAM 2 MG/2 ML VIAL IV ONE (12:02)
[2020-12-16] MEDS ORDERED: LIDOCAINE 1%-EPI 1:100,000 20 ML VIAL SQ ONE (13:36)
[2020-12-16] MEDS ORDERED: MIDAZOLAM 2 MG/2 ML VIAL ONE (13:41)
[2020-12-16] MEDS ORDERED: SODIUM CHLORIDE 0.9% (PF) 10 ML VIAL ONE (13:41)
[2020-12-16] MEDS ORDERED: ROCURONIUM 10 MG/ML (5 ML VIAL) IV ONE (13:41)
[2020-12-16] MEDS ORDERED: GLYCOPYRROLATE 0.2 MG/ML 2 ML VIAL ONE (13:41)
[2020-12-16] MEDS ORDERED: ePHEDrine SULFATE/0.9% NACL/PF 50 MG/5 ML SYRINGE IV ONE (13:41)
[2020-12-16] MEDS ORDERED: NEOSTIGMINE 1 MG/ML 10 ML VIAL ONE (13:41)
[2020-12-16] MEDS ORDERED: PROPOFOL 10 MG/ML 20 ML VIAL IV ONE (13:41)
[2020-12-16] MEDS ORDERED: SUCCINYLCHOLINE CHLORIDE VIAL 200 MG/10 ML VIAL IV ONE (13:41)
[2020-12-16] MEDS ORDERED: fentaNYL (PF) 50 MCG/ML 2 ML AMP ONE (13:41)
[2020-12-16] MEDS ORDERED: LIDOCAINE 1% INJ 10MG/ML (20 ML MDV) ONE (13:41)
[2020-12-16] MEDS ORDERED: LACTATED RINGERS 1,000 ML IV ONE (16:42)
[2020-12-16] MEDS ORDERED: NALOXONE 0.4 MG/ML 1 ML VIAL IV PRN (17:25)
[2020-12-16] MEDS ORDERED: diphenhydrAMINE 50 MG/ML 1 ML VIAL IVP PRN (17:25)
[2020-12-16] MEDS ORDERED: EPINEPHrine (PF) 1 MG/ML AMP IM PRN (17:29)
[2020-12-16] MEDS ORDERED: ALBUTEROL NEBULIZED 2.5 MG/3 ML INHALATION PRN (17:29)
[2020-12-16] MEDS ORDERED: CYCLOBENZAPRINE 10 MG TAB PO PRN (17:29)
[2020-12-16] MEDS ORDERED: TRIAMCINOLONE 0.1% CREAM 80 GM TUBE TOPICAL PRN (17:29)
[2020-12-16] MEDS ORDERED: SUMAtriptan succinate 50 MG TAB PO PRN (17:29)
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
[2020-12-16] MEDS: SIMETHICONE 40 MG/0.6 ML DROPS 2,000 MG/30 ML BOTTLE PO SCH ×2 (19:21→23:23)
[2020-12-16] MEDS: ACETAMINOPHEN IV (For NPO) 1,000 MG in EMPTY BAG 1 BAG IVPB SCH ×2 (19:21→23:50)
[2020-12-16] MEDS: ERYTHROMYCIN 5 MG/GM OPHTH OINT 3.5 GM TUBE LEFT EYE SCH ×2 (19:22→23:25)
[2020-12-16] MEDS: oxyCODONE-APAP 5-325MG 1 EACH TAB PO SCH ×2 (19:22→23:24)
[2020-12-16] MEDS: FLUTICASONE 110 MCG INHALER INHALATION SCH (19:35)
[2020-12-16] MEDS: 0.9% NACL WITH KCL 20 MEQ/L 1,000 ML IV SCH (20:23)
[2020-12-16] MEDS ORDERED: LORATADINE 10 MG TAB PO SCH (21:00)
[2020-12-16] MEDS ORDERED: ARIPiprazole 10 MG TAB PO SCH (21:00)
[2020-12-16] MEDS ORDERED: TOPIRAMATE 100 MG TAB PO SCH (21:00)
[2020-12-16] MEDS: DULoxetine HCL 60 MG CAPSULE.DR PO SCH (21:14)
[2020-12-16] MEDS: TROSPIUM CHLORIDE 20 MG TABLET PO SCH (21:14)
[2020-12-16] MEDS: HYOSCYAMINE SULFATE 0.125 MG TAB PO SCH (21:14)
[2020-12-16] MEDS: PANTOPRAZOLE 40 MG TABLET PO SCH (21:14)
[2020-12-17] MEDS ORDERED: ceFAZolin 3 GM in SODIUM CHLORIDE 0.9% 100 ML IVPB SCH ×2
[2020-12-17] MEDS: 0.9% NACL WITH KCL 20 MEQ/L 1,000 ML IV SCH ×2 (02:33→03:28)
[2020-12-17] MEDS: ACETAMINOPHEN IV (For NPO) 1,000 MG in EMPTY BAG 1 BAG IVPB SCH ×2 (03:12→12:20)
[2020-12-17] MEDS: LACTATED RINGERS 1,000 ML IV SCH (03:13)
[2020-12-17] MEDS: oxyCODONE-APAP 5-325MG 1 EACH TAB PO SCH ×2 (05:21→12:35)
[2020-12-17] MEDS: SIMETHICONE 40 MG/0.6 ML DROPS 2,000 MG/30 ML BOTTLE PO SCH ×2 (05:21→12:35)
[2020-12-17 05:38] VITALS: PULSE 90
[2020-12-17] MEDS: FLUTICASONE 110 MCG INHALER INHALATION SCH (07:15)
[2020-12-17] MEDS ORDERED: 1: MVI, ADULT NO.4 WITH VIT K 10 ML, THIAMINE 100 MG, FOLIC ACID 1 MG, POTASSIUM CHLORID IV SCH ×6 (08:00)
[2020-12-17] MEDS: ERYTHROMYCIN 5 MG/GM OPHTH OINT 3.5 GM TUBE LEFT EYE SCH ×3 (08:30→12:37)
[2020-12-17] MEDS: DULoxetine HCL 60 MG CAPSULE.DR PO SCH (08:30)
[2020-12-17] MEDS: TROSPIUM CHLORIDE 20 MG TABLET PO SCH (08:30)
[2020-12-17] MEDS: HYOSCYAMINE SULFATE 0.125 MG TAB PO SCH (08:31)
[2020-12-17] MEDS: PANTOPRAZOLE 40 MG TABLET PO SCH (08:31)
[2020-12-17] MEDS ORDERED: TOPIRAMATE 25 MG TAB PO SCH (09:00)
[2020-12-17] MEDS ORDERED: PANTOPRAZOLE 40 MG/10 ML VIAL IV SCH (09:00)
[2020-12-17] MEDS ORDERED: ENOXAPARIN 40 MG/0.4 ML SYRINGE SQ SCH (09:00)
[2020-12-17] MEDS ORDERED: lisinopriL 5 MG TAB PO SCH (09:00)
[2020-12-17] MEDS ORDERED: OXYBUTYNIN XL 5 MG TAB.ER.24 PO SCH (09:00)
[2020-12-17 12:19] VITALS: BP 104/66; RESP 14; TEMP 97.4
[2020-12-17 13:46] VITALS: BMI 44.9
--- NOTE | 2020-12-17 14:52 | P.DS ---
<Lindsay Mehta - Last Filed: 12/17/20 14:49> Providers Expected date of discharge: 12/17/20 Hospital Course: Discharge diagnosis 1. Incarcerated recurrent paraesophageal hiatal hernia midline with obstruction and epigastric abdominal pain. 2. Status post gastric bypass 3. Body mass index 66.4 down to 45.0 4. Gastroesophageal reflux disease 5. Complications from bariatric procedure 6. Chronic obstructive pulmonary disease 7. Panniculitis 8. Depressive disorder 9. Dumping syndrome 10. Food allergies 11. Chronic pain syndrome 12. Fibromyalgia 13. Hypertensive heart disease 14. Status post panniculectomy, 24.2 pounds 15. Diarrhea post cholecystectomy 16. Lower abdominal pain 17. Zinc deficiency 18. Morbid obesity due to excess calories. 19. Gastrojejunal ulcers 20. Esophageal ulcers Hospital course Henna Merino is a 65-year-old female who is status gastric bypass, 2003. She is 17 years out from her gastric bypass. Additionally, she comes in with recurrent severe gastroesphageal reflux disease. Her symptoms have become worse in the last 2-3 months. She has lost additional weight. Patient is status post Robotic-assisted da Annie Xi laparoscopic extensive lysis of adhesions over 2 hours,Robotic-assisted da Annie Xi laparoscopic reduction of recurrent inc arcerated paraesophageal hiatal hernia, 5 cm, for epigastric abdominal pain and Intraoperative esophagogastroduodenoscopy. Patient tolerated surgery well. Her pain is controlled. She is tolerating diet. She denies any dysphagia. She has been up and ambulating. She is afebrile. She is stable for discharge. Physician Child Care Counselor note has been reviewed by physician. Signing provider agrees with the documented findings, assessment, and plan of care. Patient Condition at Discharge: Stable Plan - Discharge Summary Discharge Rx Participant: Yes New Discharge Prescriptions: New Sucralfate [Carafate] 1 gm PO BID #42 tablet Continue EPINEPHrine (Auto Inject) [Epipen] 0.3 mg IM ONCE PRN PRN Reason: Anaphylaxis Cetirizine HCl 10 mg PO HS rOPINIRole HCL [Requip] 0.5 mg PO TID Furosemide [Lasix] 40 mg PO QAM Triamcinolone 0.1% Cream [Kenalog 0.1% Cream] 1 applic TOPICAL BID PRN PRN Reason: Rash Potassium Chloride [Klor-Con 8] 10 meq PO BID Beclomethasone Dipropionate [Qvar 80 mcg] 2 puff INHALATION RT-BID Albuterol Nebulized [Ventolin Nebulized] 2.5 mg INHALATION RT-DAILY PRN PRN Reason: Dyspnea SUMAtriptan SUCCINATE [Imitrex] 100 mg PO Q3HR PRN PRN Reason: Headache Topiramate 50 mg PO QAM DULoxetine HCL [Cymbalta] 60 mg PO BID hydrOXYzine pamoate [Vistaril] 100 mg PO TID Acetaminophen Tab [Tylenol] 1,300 mg PO Q12H PRN PRN Reason: Pain ARIPiprazole [Abilify] 10 mg PO HS lisinopriL [Zestril] 5 mg PO QAM Pantoprazole Sodium [Protonix] 40 mg PO BID Tolterodine ER [Detrol LA] 4 mg PO DAILY Topiramate [Topamax] 100 mg PO HS Trospium Chloride [Sanctura] 20 mg PO BID Erythromycin Ophth Oint [Romycin Ophth Oint] 1 applic LEFT EYE QID Hyoscyamine Sulfate [Levsin] 0.125 mg PO BID Cyclobenzaprine [Flexeril] 10 mg PO TID PRN #12 tablet PRN Reason: Pain oxyCODONE-APAP 5-325MG [Percocet 5-325 mg] 1 tab PO Q6H Discontinued Aspirin 81 mg PO DAILY Ergocalciferol [Vitamin D2 (DRISDOL)] 50,000 unit PO Q7D Ferrous Sulfate [Iron (65 MG Elemental)] 650 mg PO BID Acetaminophen-Codeine 300-30mg [Tylenol w/codeine #3] 1 - 2 tab PO HS PRN PRN Reason: Pain Discharge Medication List Cetirizine HCl 10 mg PO HS 11/20/14 [History] EPINEPHrine (Auto Inject) [Epipen] 0.3 mg IM ONCE PRN 11/20/14 [History] rOPINIRole HCL [Requip] 0.5 mg PO TID 11/20/14 [History] Furosemide [Lasix] 40 mg PO QAM 06/04/16 [History] Triamcinolone 0.1% Cream [Kenalog 0.1% Cream] 1 applic TOPICAL BID PRN 06/04/16 [History] Potassium Chloride [Klor-Con 8] 10 meq PO BID 07/10/18 [History] Albuterol Nebulized [Ventolin Nebulized] 2.5 mg INHALATION RT-DAILY PRN 08/09/18 [History] Beclomethasone Dipropionate [Qvar 80 mcg] 2 puff INHALATION RT-BID 08/09/18 [History] SUMAtriptan SUCCINATE [Imitrex] 100 mg PO Q3HR PRN 12/24/18 [History] Topiramate 50 mg PO QAM 12/24/18 [History] DULoxetine HCL [Cymbalta] 60 mg PO BID 06/19/20 [History] hydrOXYzine pamoate [Vistaril] 100 mg PO TID 06/19/20 [History] ARIPiprazole [Abilify] 10 mg PO HS 07/10/20 [History] Acetaminophen Tab [Tylenol] 1,300 mg PO Q12H PRN 07/10/20 [History] Pantoprazole Sodium [Protonix] 40 mg PO BID 07/10/20 [History] Tolterodine ER [Detrol LA] 4 mg PO DAILY 07/10/20 [History] Topiramate [Topamax] 100 mg PO HS 07/10/20 [History] Trospium Chloride [Sanctura] 20 mg PO BID 07/10/20 [History] lisinopriL [Zestril] 5 mg PO QAM 07/10/20 [History] Erythromycin Ophth Oint [Romycin Ophth Oint] 1 applic LEFT EYE QID 09/11/20 [History] Hyoscyamine Sulfate [Levsin] 0.125 mg PO BID 09/12/20 [History] Cyclobenzaprine [Flexeril] 10 mg PO TID PRN #12 tablet 11/24/20 [Rx] oxyCODONE-APAP 5-325MG [Percocet 5-325 mg] 1 tab PO Q6H 12/04/20 [History] Sucralfate [Carafate] 1 gm PO BID #42 tablet 12/17/20 [Rx] Follow up [facility]ment(s[facility]Ref[facility] [place] - 12/25/20 3:45 pm Activity/Diet/Wound Care/Special Instructions: Liquid diet only for 2 weeks until DECEMBER 30 No lifting over 4 pounds in 4 weeks, Jan shower No soaking in bath tubs for 2 weeks, DECEMBER 30 Please notify your surgeon if you develop nausea and vomiting including new onset of abdominal pain. Please ambulate at all times. Use Simethicone, Gas-X, Tylenol scheduled for the next 24-48 hours for best pain relief. Use ice along incisions for the today to prevent swelling. Please open, cut, crush pills larger than the size of a tic tack No carbonated beverages. No straws. Do not remove scopolamine patch for 3 days, if present Avoiding Gas Avoid drinking through a straw. Do not chew gum or tobacco. These actions cause you to swallow air, which produces excess gas in your stomach. Chew with your mouth closed. Avoid any foods that cause stomach gas and distention. These foods include corn, dried beans, peas, lentils, onions, broccoli, cauliflower and any food from the cabbage family. Avoid carbonated drinks, alcohol, citrus and tomato products. Carbonated drinks (sodas) are not allowed for the first six to eight weeks after surgery. After this time you can try them again in small amounts Clear Liquid Diet The first diet after surgery is the clear liquid diet. It includes the following liquids: Apple juice Cranberry juice Grape juice Chicken broth Beef broth Flavored gelatin (Jell-O) Decaf tea and coffee Caffeinated beverages are permitted based on tolerance [place] ice Full Liquid Diet The full liquid diet contains anything on the clear liquid diet, plus: Milk, soy, rice and almond (no chocolate) Cream of wheat, cream of rice, grits Strained creamed soups (no tomato or broccoli) Vanilla and strawberry-flavored ice cream Sherbet Blended, custard styled or whipped yogurt (plain or vanilla only) Vanilla and butterscotch pudding (no chocolate or coconut) Nutritional drinks including Ensure, Boost, [place] Instant Breakfast (no chocolate-flavored) Note: Dairy products, such as milk, ice cream and pudding, may cause diarrhea in some people just after surgery. You may need to avoid milk products. If so, substitute them with lactose-free beverages, such as soy, rice, Lactaid or almond milks. Discharge Disposition: HOME SELF-CARE <Chelsea Buchanan - Last Filed: 12/21/20 18:17> Providers Date of admission: 12/16/20 10:35 Attending physician: Chelsea Buchanan Primary care physician: Kamlesh Bolivar - Discharge Diagnosis(es) (1) Paraesophageal hernia with obstruction but no gangrene Status: Acute (2) Gastrojejunal ulcer Status: Acute (3) Gastritis Status: Acute (4) BMI 45.0-49.9, adult Status: Acute (5) Morbid obesity due to excess calories Status: Acute Hospital Course: POSTOPERATIVE DIAGNOSES: 1. Incarcerated recurrent paraesophageal hiatal hernia midline with obstruction and epigastric abdominal pain. 2. Status post gastric bypass 3. Body mass index 66.4 down to 45.0 4. Gastroesophageal reflux disease 5. Complications from bariatric procedure 6. Chronic obstructive pulmonary disease 7. Panniculitis 8. Depressive disorder 9. Dumping syndrome 10. Food allergies 11. Chronic pain syndrome 12. Fibromyalgia 13. Hypertensive heart disease 14. Status post panniculectomy, 24.2 pounds 15. Diarrhea post cholecystectomy 16. Lower abdominal pain 17. Zinc deficiency 18. Morbid obesity due to excess calories. 19. Gastrojejunal ulcers 20. Esophageal ulcers INDICATIONS: The patient is a 65-year-old female who presented with recurrent paraesophageal hiatal hernia. Upper endoscopy was performed with findings of gastritis including gastrojejunal ulcer. Carafate and omeprazole was prescribed postoperatively. Her epigastric abdominal pain had resolved. She was tolerating diet. Discharge instructions were reviewed. Procedures: OPERATION: 1. Robotic-assisted da Annie Xi laparoscopic extensive lysis of adhesions over 2 hours 2. Robotic-assisted da Annie Xi laparoscopic reduction of recurrent incarcerated paraesophageal hiatal hernia, 5 cm, for epigastric abdominal pain 3. Intraoperative esophagogastroduodenoscopy Anesthesia: GETA, local Estimated Blood Loss (ml): 10 Pathology: none sent Condition: stable Disposition: floor Operative Findings: 1. Severe intra-abdominal adhesions of epigastrium and midline requiring placement of trochars along the left upper abdomen 2. Incarceration of entire gastric pouch including portion of gastric bypass reduced 3. Moderate severe perigastric adhesions including along the pouch 4. Severe peritoneal adhesions with incarcerated hiatal hernia with obstruction requiring over 2 hour lysis of adhesions
== END 2020-12-17 15:23 | disposition home or self-care (01) ==
LOC: INTOOBSV 10:35 → 2ORMAIN 10:35 → 5NMEDONC 17:25 → UNDODISIN 12-17 15:23
PROVIDERS: ADMIT Surgery Plastic and Reconstructive Surgery; ATTEND Surgery Plastic and Reconstructive Surgery
DX: K44.0 Diaphragmatic hernia with obstruction, without gangrene (principal); K28.9 Gastrojejunal ulcer, unspecified as acute or chronic, without hemorrhage or perforation; K22.10 Ulcer of esophagus without bleeding; K29.70 Gastritis, unspecified, without bleeding; K66.0 Peritoneal adhesions (postprocedural) (postinfection); Z20.822 Contact with and (suspected) exposure to COVID-19; E60 Dietary zinc deficiency; E66.01 Morbid (severe) obesity due to excess calories; Z68.42 Body mass index [BMI] 45.0-49.9, adult; F03.90 Unspecified dementia, unspecified severity, without behavioral disturbance, psychotic disturbance, mood disturbance, and anxiety; F41.0 Panic disorder [episodic paroxysmal anxiety]; G35 Multiple sclerosis; G89.4 Chronic pain syndrome; K91.1 Postgastric surgery syndromes; M79.7 Fibromyalgia; K21.9 Gastro-esophageal reflux disease without esophagitis; I11.9 Hypertensive heart disease without heart failure; I25.2 Old myocardial infarction; G62.9 Polyneuropathy, unspecified; I48.91 Unspecified atrial fibrillation; J44.9 Chronic obstructive pulmonary disease, unspecified; M19.90 Unspecified osteoarthritis, unspecified site; K57.90 Diverticulosis of intestine, part unspecified, without perforation or abscess without bleeding; G56.03 Carpal tunnel syndrome, bilateral upper limbs; K76.9 Liver disease, unspecified; A60.09 Herpesviral infection of other urogenital tract; I83.90 Asymptomatic varicose veins of unspecified lower extremity; G44.009 Cluster headache syndrome, unspecified, not intractable; M79.3 Panniculitis, unspecified; D49.0 Neoplasm of unspecified behavior of digestive system; L98.9 Disorder of the skin and subcutaneous tissue, unspecified; G47.33 Obstructive sleep apnea (adult) (pediatric); M77.32 Calcaneal spur, left foot; Z79.82 Long term (current) use of aspirin; Z79.899 Other long term (current) drug therapy; Z88.7 Allergy status to serum and vaccine; Z98.84 Bariatric surgery status; Z91.038 Other insect allergy status; Z91.048 Other nonmedicinal substance allergy status; Z88.5 Allergy status to narcotic agent; Z96.653 Presence of artificial knee joint, bilateral; Z91.19 Patient's noncompliance with other medical treatment and regimen; Z90.49 Acquired absence of other specified parts of digestive tract; Z90.710 Acquired absence of both cervix and uterus; Z86.69 Personal history of other diseases of the nervous system and sense organs; Z87.01 Personal history of pneumonia (recurrent); Z82.49 Family history of ischemic heart disease and other diseases of the circulatory system; Z82.0 Family history of epilepsy and other diseases of the nervous system; Z80.8 Family history of malignant neoplasm of other organs or systems; Z80.7 Family history of other malignant neoplasms of lymphoid, hematopoietic and related tissues
CPT/HCPCS: 43281; 49329; S2900; 87635; 94640

== ENCOUNTER → 2020-12-23 | Outpatient (CLI) | payer OTHER ==
[2020-12-23] MEDS: SODIUM CHLORIDE 0.9% 1,000 ML IV SCH ×2 (11:24→12:23)
[2020-12-23 11:28] VITALS: BP 166/77; PULSE 97; RESP 18; TEMP 97.7
== END | disposition home or self-care (01) ==
LOC: PROCWHC3 11:07
PROVIDERS: ATTEND Surgery Plastic and Reconstructive Surgery
DX: E86.0 Dehydration (principal)
CPT/HCPCS: 96360; 96361

== ENCOUNTER → 2020-12-25 | Outpatient (CLI) | payer OTHER ==
[2020-12-25 22:57] LABS: HCT 40.7 % (37.2-46.3); HGB 12.9 g/dL (12.0-15.0); MCH 29.5 pg (27.0-32.0); MCHC 31.7 g/dL (32.0-37.0); MCV 93.1 fL (80.0-97.0); Mean Platelet Volume 11.6 fL (9.5-12.2); Platelet Count 224 X 10*3/uL (140-440); RBC 4.37 X 10*6/uL (4.10-5.20); RDW 13.8 % (11.5-14.5); WBC 4.54 X 10*3/uL (4.50-10.00)
[2020-12-26 01:23] LABS: African American GFR (CKD) 106.1 (60.0-200.0); Albumin 4.1 g/dL (3.80-4.90); Albumin/Globulin Ratio 2.28 (1.60-3.17); Anion Gap 7.3 mmol/L (4.00-12.00); Carbon Dioxide 26.7 mmol/L (21.6-31.8); Globulin 1.8 g/dL (1.6-3.3); Non-African American GFR(CKD) 91.6 (60.0-200.0); Potassium 4.1 mmol/L (3.5-5.5); Total Bilirubin 0.4 mg/dL (0.3-1.2); Total Protein 5.9 g/dL (6.2-8.2)
[2020-12-28 11:41] LABS: Anabasine Urine <2.0 ng/mL (<2.0)
== END | disposition home or self-care (01) ==
LOC: LABWHC1 15:26
PROVIDERS: ATTEND Surgery Plastic and Reconstructive Surgery
DX: Z71.51 Drug abuse counseling and surveillance of drug abuser (principal)
CPT/HCPCS: 80053; 85027; 80307; 36415; G0480; 80323

== ENCOUNTER → 2020-12-25 | Outpatient (CLI) | payer OTHER | END | disposition home or self-care (01) | DX: E66.01 Morbid (severe) obesity due to excess calories (principal) | CPT/HCPCS: 99211 ==

== ENCOUNTER 2021-02-11 15:17 | Emergency (ER) | payer OTHER ==
[2021-02-11 16:00] VITALS: BP 98/67; PULSE 90; RESP 20; TEMP 98.3
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
--- NOTE | 2021-02-11 17:03 | XR ---
EXAMINATION TYPE: XR foot complete LT DATE OF EXAM: 02/11/2021 COMPARISON: 01/13/2017 HISTORY: Pain TECHNIQUE: 3 views FINDINGS: There is plantar and Achilles calcaneal spurring. There is a single screw fusing the IP grace nt of the big toe. The metatarsals are intact. I see no evidence of an acute fracture. IMPRESSION: Previous surgery. No acute abnormality of the left foot. Calcaneal spurring. There is ove rall not a significant change compared to old exam.
== END 2021-02-11 18:28 | disposition home or self-care (01) ==
LOC: EC 15:17
DX: S99.921A Unspecified injury of right foot, initial encounter (principal); J45.909 Unspecified asthma, uncomplicated; I25.2 Old myocardial infarction; M79.7 Fibromyalgia; G43.909 Migraine, unspecified, not intractable, without status migrainosus; M19.90 Unspecified osteoarthritis, unspecified site; Z79.899 Other long term (current) drug therapy; Z88.8 Allergy status to other drugs, medicaments and biological substances; Z79.51 Long term (current) use of inhaled steroids; Z88.5 Allergy status to narcotic agent; Z88.6 Allergy status to analgesic agent; Z88.7 Allergy status to serum and vaccine; Z91.038 Other insect allergy status; Z91.09 Other allergy status, other than to drugs and biological substances; W22.09XA Striking against other stationary object, initial encounter; Y92.009 Unspecified place in unspecified non-institutional (private) residence as the place of occurrence of the external cause
CPT/HCPCS: 99283

== ENCOUNTER → 2021-02-12 | Outpatient (CLI) | payer OTHER ==
[2021-02-12 08:17] VITALS: BP 112/74; RESP 18; TEMP 98.1
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
== END | disposition home or self-care (01) ==
LOC: PNWHC3 08:06
PROVIDERS: ATTEND Anesthesiology
DX: M48.061 Spinal stenosis, lumbar region without neurogenic claudication (principal); M47.896 Other spondylosis, lumbar region; Z96.651 Presence of right artificial knee joint
CPT/HCPCS: 99211

== ENCOUNTER 2021-02-18 16:07 | Emergency (ER) | payer OTHER ==
[2021-02-18 16:42] VITALS: BP 123/72; PULSE 86; RESP 18; TEMP 99.1
[2021-02-18] MEDS ORDERED: KETOROLAC 15 MG/ML 1 ML VIAL IM STA (17:31)
--- NOTE | 2021-02-18 19:20 | XR ---
EXAMINATION TYPE: XR lumbar spine 2 or 3V DATE OF EXAM: 02/18/2021 CLINICAL HISTORY: Pain after fall TECHNIQUE: Frontal and lateral images of the lumbar spine are obtained. COMPARISON: None FINDINGS: There are 5 lumbar type vertebral bodies identified. There is dextrocurvature of the lumba r spine with degenerative changes. No spondylolisthesis. Vertebral body heights are maintained. The l umbosacral junction is somewhat limited due to oblique positioning. Right upper quadrant surgical cli ps. Ovoid calcification over the left midabdomen does not overlie the renal shadow, and may be relate d to bowel. IMPRESSION: No acute fracture or dislocation is seen in the lumbar spine.
--- NOTE | 2021-02-18 19:22 | XR ---
EXAMINATION TYPE: XR knee complete LT DATE OF EXAM: 02/18/2021 CLINICAL HISTORY: Pain after fall TECHNIQUE: Three views of the left knee are obtained. COMPARISON: 07/18/2020. FINDINGS: There is no acute fracture/dislocation evident in left knee. There is redemonstrated knee total arthroplasty with no evidence of hardware fracture, dislocation, or significant loosening. The overlying soft tissue appears unremarkable. IMPRESSION: There is no acute fracture or dislocation in the left knee. Left knee total arthroplasty with no evidence of hardware failure.
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
== END 2021-02-18 19:38 | disposition home or self-care (01) ==
LOC: EC 16:07
DX: M54.16 Radiculopathy, lumbar region (principal); M54.42 Lumbago with sciatica, left side; M25.562 Pain in left knee; I25.2 Old myocardial infarction; I48.91 Unspecified atrial fibrillation; J45.909 Unspecified asthma, uncomplicated; K21.9 Gastro-esophageal reflux disease without esophagitis; M19.90 Unspecified osteoarthritis, unspecified site; Z96.652 Presence of left artificial knee joint; Z88.5 Allergy status to narcotic agent; Z79.899 Other long term (current) drug therapy; Z88.8 Allergy status to other drugs, medicaments and biological substances; Z88.7 Allergy status to serum and vaccine; Z91.038 Other insect allergy status; Z91.09 Other allergy status, other than to drugs and biological substances; W10.9XXA Fall (on) (from) unspecified stairs and steps, initial encounter
CPT/HCPCS: 72100; 73562; 99283; 96372; J1885

== ENCOUNTER 2021-03-18 13:01 | Day surgery (SDC) | payer OTHER ==
[2021-03-14 15:05] VITALS: BMI 41.5
[~2021-03-18 13:01] MED LIST changes: -CHLORHEXIDINE GLUCONATE 15 ML CUP MUCOUS MEM PRN; -DEXAMETHASONE SOD PHOSPHATE 4 MG/ML 1 ML VIAL IV ONE; -HEPARIN SODIUM,PORCINE/PF 5,000 UNIT/0.5 ML SYRINGE SQ PRN; +LACTATED RINGERS 1,000 ML IV SCH; -ONDANSETRON 4 MG/2 ML VIAL IVP ONE; -PANTOPRAZOLE 40 MG/10 ML VIAL IVP PRN; -ceFAZolin 3 GM in SODIUM CHLORIDE 0.9% 100 ML IVPB PRN; -fentaNYL (PF) 50 MCG/ML 2 ML AMP IV PRN
[2021-03-18 13:16] VITALS: TEMP 97.2
[2021-03-18] MEDS ORDERED: LACTATED RINGERS 1,000 ML IV ONE (13:16)
[2021-03-18] MEDS ORDERED: MIDAZOLAM 2 MG/2 ML VIAL ONE (13:36)
[2021-03-18] MEDS ORDERED: IOPAMIDOL M200 10 ML VIAL ONE (13:36)
[2021-03-18] MEDS ORDERED: DEXAMETHASONE SOD PHOSPHATE 10 MG/ML 1 ML VIAL ONE (13:36)
[2021-03-18] MEDS ORDERED: fentaNYL (PF) 50 MCG/ML 2 ML AMP ONE (13:36)
[2021-03-18] MEDS ORDERED: LIDOCAINE 1% INJ 10MG/ML (20 ML MDV) ONE (13:36)
--- NOTE | 2021-03-18 14:10 | P.PCN ---
Date of Procedure: 03/18/21 Surgeon: Arnel Busch Pathology: none sent Condition: stable Disposition: PACU Description of Procedure: PREOPERATIVE DIAGNOSIS: Lumbar radiculopathy POSTOPERATIVE DIAGNOSIS: Lumbar radiculopathy PROCEDURE 1. Transforaminal epidural steroid injection under fluoroscopic guidance at L4 5 level on the left sideL4 2. Lumbar epidurogram. SURGEON: Arnel Busch MD ANESTHESIA: Local with 1% lidocaine; IV sedation with Versed and fentanyl. EBL: Minimal PROCEDURE INDICATION: The patient with low back pain and radiculopathy symptoms unresponsive to conservative treatment. PROCEDURE DESCRIPTION / TECHNIQUE: The patient was seen and identified in the preoperative area. Risks, benefits, complications, and alternatives were discussed with the patient. The patient agreed to proceed with the procedure and signed the consent. IV was started, and vital signs were stable. Patient was taken to the OR and time out was completed. The patient was placed in the prone position on procedure table and a pillow was placed under the abdomen to reduce lumbar lordosis. The lumbosacral area was prepped and draped in the usual sterile fashion. Critical pause was taken. Vital signs were closely monitored during the procedure. Conscious sedation was used during the procedure to decrease patients anxiety. The vertebral body of the lumbar vertebra L4 was squared off by tilting the C-arm cephalad then the C-arm was tilted to the oblique position and the target point was at the 6 o'clock position of the pedicle of then skin and deeper tissues were localized with 1% lidocaine. Subsequently, a 22-gauge 7- inch spinal needle was advanced under a tunneled view fluoroscopic guidance just underneath the chin of the [place] dog at the . Under lateral fluoroscopy, the needle was then advanced to the middle of the upper one third of the foramen between( L4-5). After negative aspiration of CSF and blood and with no paresthesias, 1 mL of omnipaque contrast dye was injected excellent epidurogram and outlining of the L4 nerve root was identified. Subsequently, 2 mL of block solution containing 10 mg of Decadron and 1 mL of Lidocaine 1% PF was injected. Needle was removed intact . At the end of the procedure, skin was cleansed, and bandages were applied. Multiple attempts needed due to the presence of bone spurs at the target area.Given the patient's current pain location with radiation to knee level only, we should plan on doing Level L3-4 on the left side next time. COMPLICATIONS: None COMMENTS: DISPOSITION / PLANS: The patient was placed in a supine position and transferred to the recovery area in a stable condition for observation. There was no evidence of lower extremity motor or sensory deficit after the procedure. Patient was discharged from the recovery room after meeting discharge criteria. Home discharge instructions were given to the patient by the staff.
[2021-03-18] MEDS ORDERED: IV FLUID CONTINUATION 400 ML IV ONE (14:15)
--- NOTE | 2021-03-18 14:16 | FL ---
Fluoroscopy INDICATION: Pain FINDINGS: Fluoroscopy time: 32 seconds. Images obtained: 2. IMPRESSIONS: 1. Documentation of fluoroscopy.
[2021-03-18 14:24] VITALS: PULSE 64; RESP 16
[2021-03-18 14:38] VITALS: BP 114/76
== END 2021-03-18 14:45 | disposition home or self-care (01) ==
LOC: ORPAIN 13:01
PROVIDERS: ATTEND Anesthesiology
DX: M54.16 Radiculopathy, lumbar region (principal)
CPT/HCPCS: 64483; J2250; J1100; J2001 ×2; J3010; Q9966; 99152; 99153

== ENCOUNTER 2021-04-24 09:45 | Day surgery (SDC) | payer OTHER ==
[2021-04-23 09:51] VITALS: BMI 40.1
[2021-04-24 10:18] VITALS: TEMP 97.8
[2021-04-24] MEDS ORDERED: LACTATED RINGERS 1,000 ML IV ONE (10:23)
[2021-04-24] MEDS ORDERED: fentaNYL (PF) 50 MCG/ML 2 ML AMP ONE (11:05)
[2021-04-24] MEDS ORDERED: methylPREDNISolone ACETATE 40 MG/ML 1 ML VIAL ONE (11:05)
[2021-04-24] MEDS ORDERED: IOPAMIDOL M200 10 ML VIAL ONE (11:05)
[2021-04-24] MEDS ORDERED: MIDAZOLAM 2 MG/2 ML VIAL ONE (11:05)
--- NOTE | 2021-04-24 11:24 | P.PCN ---
Date of Procedure: 04/24/21 Procedure(s) Performed: PREOPERATIVE DIAGNOSIS: 1-Lumbar radiculopathy . 2-lumbar foraminal stenosis. 3-lumbar spondylosis with lumbar facet arthropathy POSTOPERATIVE DIAGNOSIS: Same as preoperative diagnoses. PROCEDURE 1. Transforaminal epidural steroid injection under fluoroscopic guidance at left L3-4level. (Fluoroscopy images stored on file in the radiology Department ) 2. Lumbar epidurogram . ANESTHESIA: Local with 1% lidocaine 3 ml , moderate sedation with intravenous Versed 2 mg and fentanyle 100 micrograms. EBL: Minimal PROCEDURE INDICATION: The patient with low back pain and radiculopathy symptoms unresponsive to conservative treatment. PROCEDURE DESCRIPTION / TECHNIQUE: The patient was seen and identified in the preoperative area. Risks, benefits, complications, and alternatives were discussed with the patient. The patient agreed to proceed with the procedure and signed the consent. IV was started, and vital signs were stable. Patient was taken to the OR and time out was completed. The patient was placed in the prone position on procedure table and a pillow was placed under the abdomen to reduce lumbar lordosis. The lumbosacral area was prepped and draped in the usual sterile fashion. Critical pause was taken. Vital signs were closely monitored during the procedure. Conscious sedation was used during the procedure to decrease patient s anxiety. Using oblique fluoroscopy, the chin of the ``Payam dog at L3-4 level was identified, and the skin and deeper tissues just below was localized with 1% lidocaine. Subsequently, a 22-gauge 5-inch spinal needle was advanced under a tunneled view fluoroscopic guidance just underneath the chin of the ``Payam dog at the left L3-4 Under lateral fluoroscopy, the needle was then advanced to the posterior border of the interforaminal space. After negative aspiration of CSF and blood and with no paresthesias, 1 mL Isovue 200 contrast dye was injected excellent epidurogram and outlining of the nerve root Subsequently, 3 mL of block solution containing 60 mg Depo-Medrol and 2 mL of 0.9% normal saline PF was injected. Needle was removed . At the end of the procedure, skin was cleansed, and bandages were applied. COMPLICATIONS:none DISPOSITION / PLANS: The patient was placed in a supine position and transferred to the recovery area in a stable condition for observation. There was no evidence of lower extremity motor or sensory deficit after the procedure. Patient was discharged from the recovery room after meeting discharge criteria. Home discharge instructions were given to the patient by the staff. The patient was reexamined prior to discharge.
[2021-04-24] MEDS ORDERED: IV FLUID CONTINUATION 850 ML IV ONE (11:27)
--- NOTE | 2021-04-24 11:33 | FL ---
Fluoroscopy History: Transforaminal Epi Steroid Inj LUMBAR SPONDYLOSIS, TRANSFORAMINAL EPI INJECT 22 SEC FLUORO TIME 1 IMAGE SAVED
[2021-04-24 11:34] VITALS: RESP 16
[2021-04-24 11:41] VITALS: BP 111/72; PULSE 66
== END 2021-04-24 11:57 | disposition home or self-care (01) ==
LOC: ORPAIN 09:45
PROVIDERS: ATTEND Specialist
DX: M47.26 Other spondylosis with radiculopathy, lumbar region (principal); M48.061 Spinal stenosis, lumbar region without neurogenic claudication; Z88.5 Allergy status to narcotic agent; Z90.710 Acquired absence of both cervix and uterus
CPT/HCPCS: 64483; J2250; J1030; J3010; Q9966; 99152

== ENCOUNTER → 2021-05-08 | Outpatient (CLI) | payer OTHER ==
[2021-05-08 12:49] VITALS: BP 132/78; PULSE 88; RESP 18; TEMP 97
--- NOTE | 2021-05-08 13:12 | P.PAINPG ---
Subjective Progress Note Date: 05/08/21 Principal diagnosis: Lumbar back pain, and right thigh pain Mrs. Merino is a 66 year old pleasant female patient came to [facility] pain [facility] clinic for follow-up. Patient described pain started many years ago she tried multiple intervention procedures. She had left side of the L4 transforaminal epidural steroid injection on 03/18/2021, and 04/24/2021. Both times the procedure helped more than 80% pain relief for2 weeks duration. Then gradually her pain was getting back to normal. With the help of intervention procedure she can able to perform her activities, exercises well at home. Patient described pain as aching, sharp, throbbing, burning, tingling type of pain. Patient rated pain 7 out of 10 in severity. Which may very her pain level from 5-10 out of 10 in severity. Patient lumbar back pain radiating to right thigh area . Patient also complaining burning tingling type of pain over the right lateral thigh area for the last 1 month duration. Pain is not radiating below the knees. Sometimes she has difficulty walking secondary to a lateral thigh pain. Pain increases with activities, and standing, walking, sitting, bending forward, and lifting. Pain decreases with intervention procedures, and pain medications. Overall patient activities- decreased . Intervention procedures helping to some extent. Because of the pain patient is feeling lack of sleep and interest and energy sometimes. Denied any bowel or bladder problems. Patient denies any adverse effects to medications. Not using any walking aids for walking. Patient denied any suicidal or homicidal ideations intent or plan. At this time patient also denies any auditory or visual hallucinations. There are no signs of narcotic diversion/misuse/overuse and no new-onset weakness, bowel/bladder incontinence, saddle anesthesia, or no red flag symptoms. Objective - Vital Signs Vital signs: Vital Signs Temp 97.0 F L 05/08/21 12:44 Pulse 88 05/08/21 12:44 Resp 18 05/08/21 12:44 BP 132/78 05/08/21 12:44 Pulse Ox 96 05/08/21 12:44 - Exam General: Well-developed, well-nourished, no acute distress HEENT: Normocephalic, and atraumatic Neck: Supple, no neck swelling Psychiatric: Appropriate mood, and affect MEDICAL DRIVER: No focal neurological deficits Musculoskeletal: Upper extremity: Normal strength, and range of motion. Sensation grossly intact Lower extremity: Normal strength, and decreased range of motion secondary to pain Lumbar spine: Paravertebral tenderness: positive Lumbar facet load test : positive Sacroiliac joint tenderness: Positive Thigh thrust test: Positive SI joint compression test: Positive Fabere test: Positive Tinel's sign positive over right thigh just below anterior superior iliac crest area Multiple trigger points positive in lumbar, thoracic area - Constitutional Constitutional Comment(s): 13 point review of symptoms negative except as mentioned in history of present illness Assessment and Plan Assessment: Lumbar spondylosis without myelopathy Right side meralgia paresthetica Sacroiliac joint dysfunction Myofascial pain syndrome, and chronic pain syndrome Plan: #1 Diagnoses, prognosis, and multiple treatment options including but not limited to physical therapy, interventional therapy, adjunct medication therapy, narcotic medication, and surgical options were discussed with the patient. And all questions were answered to the patient's satisfaction. #2 treatment plan agreement : Patient was thoroughly discussed regarding the treatment options, alternatives, and importance of exercises as tolerated. Patient clearly understood. #3 Patient was counseled on importance of regular exercise. Including roxana chi, aerobic exercises as tolerated. Which helps for chronic pain, and overall well- being. Patient also counseled regarding importance of weight control rolling chronic pain, and overall other health issues. By altering diet habits, minimizing sugar intake, and processed foods helps in minimizing Inflammation. Also discussed with the patient regarding intermittent fasting. #4 investigations: MAPS- reviewed , urine drug test-not done #5 diagnostic tests: None #6 consultation : Physical therapy for myalgia paresthetica # 7 interventional procedures: Right side lateral femoral cutaneous nerve block. Procedure, complications, alternatives discussed with the patient. #8 medications None from the pain clinic #9 morphine milligrams equivalents dose ( MME) per day: 0. # 10 : Patient recommended to try TENS unit's, and percussion massage device #11 disposition: scheduled to follow up with pain clinic in 4-6 weeks duration. Time with Patient: Less than 30 PQRS Measure Charge Sheet Measure #130: Documentation of Current Meds in Medical Chart: Patient's medications documented in chart Measure #226: Tobacco Use: Screen & Cessation Intervention: Pt not a tobacco user Measure #111: Pneumonia Vaccination: Pneumococcal vaccine NOT administered or previously given Measure #47: Advance Care Plan: Advance care planning discussed & documented, pt chose/unable to give Measure #412: Opioid Treatment Agreement: No documentation of signed opioid treatment agreement Measure #408: Opioid Therapy Follow-up Evaluation: Patient had NO f/u eval minimum every 3 months during opioid therapy Measure #317: Preventitive Care & Scrn High Bld Press & F/U: Pre-hypertensive or hypertensive BP documented, pt will f/u with PCP Measure #128: Body Mass Index (BMI) Screening & Follow-up: BMI documented ABOVE normal parameters - f/u documented Measure #131: Pain Assessment & Follow-up: Pain positive & plan documented Measure #431: Unhealthy Alcohol Use Preventative Care & Scrn: Patient not identified as an unhealthy alcohol user Mode of Arrival: Ambulatory - Pain Location Right Leg Non-Pharmacological Interventions: Home Exercise, Inactivity, Physical Therapy, Stretching Pharmacological Interventions: Block, Medication Upper Back Non-Pharmacological Interventions: Heat, Home Exercise, Inactivity, Physical Therapy, Stretching Pharmacological Interventions: Block, Epidural, PRN Medication PQRS Narrative: Smoking Status Never smoker Blood Pressure 132/78 Pain Intensity [Upper Back] 6 Pain Intensity [Right Leg] 7 Scale Used Numeric (1 - 10) Home Medications: Ambulatory Orders Cetirizine HCl 10 mg PO HS 11/20/14 EPINEPHrine (Auto Inject) [Epipen] 0.3 mg IM ONCE PRN 11/20/14 rOPINIRole HCL [Requip] 0.5 mg PO TID 11/20/14 Furosemide [Lasix] 60 mg PO QAM 06/04/16 Triamcinolone 0.1% Cream [Kenalog 0.1% Cream] 1 applic TOPICAL BID PRN 06/04/16 Potassium Chloride [Klor-Con 8 ER] 10 meq PO BID 07/10/18 Albuterol Nebulized [Ventolin Nebulized] 2.5 mg INHALATION RT-DAILY PRN 08/09/18 Beclomethasone Dipropionate [Qvar 80 mcg] 2 puff INHALATION RT-BID 08/09/18 SUMAtriptan SUCCINATE [Imitrex] 100 mg PO Q3HR PRN 12/24/18 Topiramate 50 mg PO QAM 12/24/18 DULoxetine HCL [Cymbalta] 120 mg PO DAILY 06/19/20 hydrOXYzine pamoate [Vistaril] 100 mg PO TID 06/19/20 ARIPiprazole [Abilify] 10 mg PO HS 07/10/20 Acetaminophen Tab [Tylenol] 1,300 mg PO Q12H PRN 07/10/20 Pantoprazole Sodium [Protonix] 40 mg PO BID 07/10/20 Tolterodine ER [Detrol LA] 4 mg PO DAILY 07/10/20 Topiramate [Topamax] 100 mg PO HS 07/10/20 Trospium Chloride [Sanctura] 20 mg PO BID 07/10/20 lisinopriL [Zestril] 5 mg PO QAM 07/10/20 Hyoscyamine Sulfate [Levsin] 0.125 mg PO BID 09/12/20 Sucralfate [Carafate] 1 gm PO BID #42 tablet 12/17/20 Nystatin 100,000Unit/gm Cream [Mycostatin Cream] 1 applic TOPICAL DAILY PRN 02/10/21 Meclizine [Antivert] 1 tab PO Q8H PRN 03/14/21 Controlled Substance Measures - Controlled Substance Measures Is patient prescribed a controlled substance at discharge?: No
== END | disposition home or self-care (01) ==
LOC: PNWHC3 12:34
DX: M47.816 Spondylosis without myelopathy or radiculopathy, lumbar region (principal); G57.11 Meralgia paresthetica, right lower limb; M53.3 Sacrococcygeal disorders, not elsewhere classified; M79.18 Myalgia, other site; G89.4 Chronic pain syndrome
CPT/HCPCS: 99211

== ENCOUNTER 2021-06-20 11:49 | Emergency (ER) | payer MEDICARE, OTHER ==
[2021-06-20 11:55] VITALS: RESP 18; TEMP 98.7
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
[2021-06-20] MEDS: BAMLANIVIMAB (EUA) 700 MG, ETESEVIMAB (EUA) 1,400 MG in SODIUM CHLORIDE 0.9% 100 ML IVPB ONE (13:11)
[2021-06-20] MEDS: SODIUM CHLORIDE 0.9% 50 ML IVPB ONE (13:42)
[2021-06-20 14:55] VITALS: BP 113/84; PULSE 84
== END 2021-06-20 14:54 | disposition home or self-care (01) ==
LOC: EC 11:49
DX: U07.1 COVID-19 (principal); I25.2 Old myocardial infarction; J45.909 Unspecified asthma, uncomplicated; K21.9 Gastro-esophageal reflux disease without esophagitis; M19.90 Unspecified osteoarthritis, unspecified site; I48.91 Unspecified atrial fibrillation; M79.7 Fibromyalgia; Z88.5 Allergy status to narcotic agent; Z88.6 Allergy status to analgesic agent; Z88.7 Allergy status to serum and vaccine; Z91.09 Other allergy status, other than to drugs and biological substances; Z91.038 Other insect allergy status; Z79.899 Other long term (current) drug therapy; Z79.51 Long term (current) use of inhaled steroids
CPT/HCPCS: 87635; 99284; J3490

== ENCOUNTER → 2021-07-03 | Outpatient (CLI) | payer MEDICARE, OTHER ==
[2021-07-03 14:50] LABS: HCT 44.3 % (34.0-46.0); MCHC 31.7 g/dL (31.0-37.0); MCV 94.5 fL (80.0-100.0); Mean Platelet Volume 8.6; Platelet Count 237 k/uL (150-450); RBC 4.68 m/uL (3.80-5.40); RDW 12.7 % (11.5-15.5); WBC 5.1 k/uL (3.8-10.6)
[2021-07-03 14:56] LABS: Appearance,Urine Clear (Clear); Bacteria,Urine Rare /hpf; Bilirubin,Urine Negative (Negative); Blood,Urine Negative (Negative); Color,Urine Light Yellow; Glucose,Urine (UA) Negative (Negative); Hyaline Casts,Urine 12 /lpf (0-2); Ketones,Urine Negative (Negative); Leukocyte Esterase,Urine Trace (Negative); Nitrite,Urine Positive (Negative); Protein,Urine Negative (Negative); RBC,Urine 1 /hpf (0-5); Specific Gravity,Urine 1.009 (1.001-1.035); Squamous Epithelial Cell,Urine 3 /hpf (0-4); Urobilinogen,Urine <2.0 mg/dL (<2.0); WBC,Urine 6 /hpf (0-5)
[2021-07-03 15:00] LABS: Partial Thromboplastin Time 25.5 sec (22.0-30.0); Prothrombin Time 10.5 sec (9.0-12.0)
[2021-07-03 15:02] LABS: Albumin 3.7 g/dL (3.5-5.0); Potassium 4.6 mmol/L (3.5-5.1); Total Bilirubin 0.7 mg/dL (0.2-1.3); Total Protein 6.2 g/dL (6.3-8.2)
== END | disposition home or self-care (01) ==
LOC: LABPAT 13:03
PROVIDERS: ATTEND Orthopaedic Surgery Sports Medicine
DX: Z01.812 Encounter for preprocedural laboratory examination (principal); M17.11 Unilateral primary osteoarthritis, right knee
CPT/HCPCS: 36415; 80053; 81001; 85027; 85610; 85730; 87070; 93005

== ENCOUNTER → 2021-07-07 | Outpatient (CLI) | payer MEDICARE, OTHER ==
--- NOTE | 2021-07-10 11:15 | MM ---
Reason for exam: screening (asymptomatic). Last mammogram was performed 2 years and 9 months ago. History: Patient is postmenopausal. Benign excisional biopsy of the right breast, 2016. Reduction of the left breast. Reduction of the right breast. Took estrogen for 1 year 6 months. Physical Findings: A clinical breast exam by your physician is recommended on an annual basis and results should be correlated with mammographic findings. MG 3D Screening Mammo W/Cad Bilateral CC, MLO, and XCCL view(s) were taken. Prior study comparison: October 17, 2018, bilateral MG screening mammo w CAD. October 01, 2017, bilateral MG screening mammo w CAD. There are scattered fibroglandular densities. There is chronic nodularity in the left breast. Post reduction mammoplasty changes. No significant changes when compared with prior studies. ASSESSMENT: Benign, BI-RAD 2 RECOMMENDATION: Routine screening mammogram of both breasts in 1 year.
== END | disposition home or self-care (01) ==
LOC: RADMAMWWP 16:17
PROVIDERS: ATTEND Family Medicine
DX: Z12.31 Encounter for screening mammogram for malignant neoplasm of breast (principal)
CPT/HCPCS: 77063; 77067

== ENCOUNTER 2021-07-31 06:32 | Observation (INO) | payer MEDICARE, OTHER ==
[2021-07-18 13:44] VITALS: BMI 41.5
[~2021-07-31 06:32] MED LIST changes: +ACETAMINOPHEN TAB 500 MG TAB PO PRN; +DEXAMETHASONE SOD PHOSPHATE 4 MG/ML 1 ML VIAL IV ONE; +GABAPENTIN 300 MG CAP PO PRN; -LACTATED RINGERS 1,000 ML IV SCH; +MELOXICAM 7.5 MG TAB PO PRN; +MIDAZOLAM 2 MG/2 ML VIAL IV PRN; +ONDANSETRON 4 MG/2 ML VIAL IVP ONE; +ONDANSETRON 4 MG/2 ML VIAL IVP PRN; +TRANEXAMIC ACID 1,000 MG in SODIUM CHLORIDE 0.9% 100 ML IVPB PRN; +VANCOMYCIN 2,000 MG in SODIUM CHLORIDE 0.9% 500 ML 500 ML IVPB PRN; +fentaNYL (PF) 50 MCG/ML 2 ML AMP IV PRN
[2021-07-31] MEDS: LACTATED RINGERS 1,000 ML IV SCH ×3 (07:19→21:53)
[2021-07-31 07:21] LABS: Glucose,Whole Blood 92 mg/dL (75-99)
[2021-07-31] MEDS ORDERED: MIDAZOLAM 2 MG/2 ML VIAL IVP ONE (07:34)
[2021-07-31] MEDS ORDERED: ACETAMINOPHEN TAB 500 MG TAB ONE (07:48)
[2021-07-31] MEDS ORDERED: SUCCINYLCHOLINE CHLORIDE VIAL 200 MG/10 ML VIAL IV ONE (08:01)
[2021-07-31] MEDS ORDERED: PHENYLEPHRINE-0.9% NACL SYG 1,000 MCG/10 ML SYRINGE ONE (08:01)
[2021-07-31] MEDS ORDERED: fentaNYL (PF) 50 MCG/ML 2 ML AMP ONE (08:01)
[2021-07-31] MEDS ORDERED: DEXAMETHASONE SOD PHOSPHATE 4 MG/ML 1 ML VIAL ONE (08:01)
[2021-07-31] MEDS ORDERED: ePHEDrine 50 MG/ML 1 ML AMP ONE (08:01)
[2021-07-31] MEDS ORDERED: GLYCOPYRROLATE 0.2 MG/ML 2 ML VIAL ONE (08:01)
[2021-07-31] MEDS ORDERED: SODIUM CHLORIDE 0.9% 100 ML BAG ONE (08:01)
[2021-07-31] MEDS ORDERED: ROPIVACAINE 5 MG/ML 30 ML VIAL ONE (08:01)
[2021-07-31] MEDS ORDERED: PROPOFOL 10 MG/ML 20 ML VIAL IV ONE (08:01)
[2021-07-31] MEDS ORDERED: LIDOCAINE 1% INJ 10MG/ML (20 ML MDV) ONE (08:01)
[2021-07-31] MEDS ORDERED: NEOSTIGMINE 1 MG/ML 10 ML VIAL ONE (08:01)
[2021-07-31] MEDS ORDERED: ROCURONIUM 10 MG/ML (5 ML VIAL) IV ONE (08:01)
[2021-07-31] MEDS ORDERED: TRANEXAMIC ACID 1,000 MG/10 ML VIAL ONE (08:01)
[2021-07-31] MEDS ORDERED: WATER FOR INJECTION, STERILE 10 ML VIAL IV ONE (08:01)
[2021-07-31] MEDS ORDERED: ceFAZolin 1,000 MG VIAL IVPB ONE (08:06)
[2021-07-31] MEDS ORDERED: ceFAZolin 3,000 MG in SODIUM CHLORIDE 0.9% IRRIGATIO 3,000 ML IRRIGATION ONE (08:42)
[2021-07-31] MEDS ORDERED: LACTATED RINGERS 1,000 ML IV ONE (09:51)
[2021-07-31] MEDS ORDERED: ACETAMINOPHEN TAB 325 MG TAB PO PRN (10:14)
[2021-07-31] MEDS ORDERED: NA PHOS,M-B/NA PHOS,DI-BA 133 ML ENEMA RECTAL PRN (10:14)
[2021-07-31] MEDS ORDERED: MAGNESIUM HYDROXIDE 2,400 MG/10 ML CUP PO PRN (10:14)
[2021-07-31] MEDS ORDERED: bisacodyL 10 MG SUPP RECTAL PRN (10:14)
[2021-07-31] MEDS ORDERED: ONDANSETRON 4 MG/2 ML VIAL IVP PRN (10:14)
[2021-07-31] MEDS ORDERED: diazePAM 5 MG TAB PO PRN (10:14)
[2021-07-31] MEDS ORDERED: Acetaminophen-Codeine 300-30mg TAB PO PRN ×2 (10:14)
[2021-07-31] MEDS ORDERED: traMADol 50 MG TAB PO PRN (10:14)
[2021-07-31] MEDS ORDERED: NALOXONE 0.4 MG/ML 1 ML VIAL IV PRN (10:14)
[2021-07-31] MEDS ORDERED: TEMAZEPAM 15 MG CAP PO PRN (10:14)
[2021-07-31] MEDS ORDERED: ROPIVACAINE 0.2%-NS ON-Q PUMP 1,090 MG, EMPTY PAIN BALL 1 EACH MISCELLANE PRN (10:18)
[2021-07-31] MEDS ORDERED: fentaNYL (PF) 50 MCG/ML 2 ML AMP IVP PRN (10:19)
[2021-07-31 10:31] LABS: Glucose,Whole Blood 122 mg/dL (75-99)
--- NOTE | 2021-07-31 10:44 | XR ---
EXAMINATION TYPE: XR knee limited RT DATE OF EXAM: 07/31/2021 COMPARISON: 02/09/2013 HISTORY: 66-year-old female evaluation for postoperative abnormality and alignment. TECHNIQUE: 2 views FINDINGS: Images show placement of right total knee arthroplasty. Both distal femoral and proximal tibial compo nents of the prosthesis are well seated without periprosthetic fracture. Alignment grossly anatomic. Anterior soft tissue swelling with scattered soft tissue air as well as intra-articular air relating to recent operation. IMPRESSION: Uncomplicated postoperative appearance right total knee arthroplasty.
--- NOTE | 2021-07-31 11:22 | OP ---
OPERATIVE REPORT DATE OF PROCEDURE: 07/31/2021. SURGEON: Elliot Harp M.D. WIRE PREPARATION WORKER: Bonilla Guillaume PA-C PREOPERATIVE DIAGNOSIS: Right knee osteoarthrosis. POSTOPERATIVE DIAGNOSIS: Right knee osteoarthrosis. OPERATION: Right total knee arthroplasty. ANESTHESIA: General endotracheal. ESTIMATED BLOOD LOSS: 250 mL. TOURNIQUET: Tourniquet time was 50 minutes at 250 mmHg. DRAINS: None. COMPLICATIONS: None. DISPOSITION: Post-Anesthesia Care Unit. INDICATIONS: Henna is a very pleasant 66-year-old female with longstanding history of right knee pain. History and physical examination are consistent with advanced right knee osteoarthrosis. She has been through significant nonoperative treatment up to this point. Further treatment options were discussed, and she decided to go forward with right total knee arthroplasty. Risks of the procedure were discussed with her in detail. These risks include but are not limited to risk of infection, nerve damage, bleeding, pain, and a small risk of deep vein thrombosis which could lead to fatal pulmonary embolism. There is also a risk of loosening of the implant which could require revision operation. The patient understands these risks. All of her questions were answered to her satisfaction. Appropriate informed consent was obtained. DESCRIPTION OF PROCEDURE: The patient was identified in the preoperative holding area. Surgical site was marked by both the patient and myself. She was given 2 grams of Ancef IV for prophylactic purposes. She was then transported to the operative suite. She was placed supine on the operating room table. General anesthetic was then administered and dosed per the anesthesia department without apparent complication. Examination under anesthesia was then performed. The patient was 2-3 degrees shy of full extension. She had 95 degrees of flexion, and the medial collateral ligament, lateral collateral ligament and posterior cruciate ligaments were stable. Tourniquet was then placed high on the right upper thigh, well padded in preparation for surgery. The patient's right lower extremity was then prepped and draped in the usual sterile fashion. A standard surgical pause was undertaken to ensure that we were operating on the correct site and that appropriate preoperative antibiotics had been given. All staff in the room were in agreement and we proceeded. The outlines of the patella were marked with a surgical pen. A planned 12 cm vertical incision centered over the patella was marked with a surgical pen. The leg was then exsanguinated with an Esmarch dressing. The knee was then flexed and the tourniquet was inflated to 250 mmHg. The total tourniquet time for the procedure was 50 minutes. Incision was then made with a 10-blade scalpel. Dissection was carried down sharply to the overlying fascia. Great care was taken to minimize the skin flaps. The knee was then exposed using a standard medial parapatellar approach. A small cuff of quadriceps tendon was then left for suturing. She was in a bit of varus preoperatively. A standard medial release was then made. Superficial medial collateral ligament was dissected off of the bone and around to the posterior aspect of the proximal tibia. The medial meniscus was then excised as well. The lateral meniscus was also released anteriorly. The leg was then externally rotated. The patella was everted. The knee was flexed. Retractors were then placed to protect the collateral ligaments. I then proceeded to remove the infrapatellar fat pad. This was excised sharply and tangentially with the fibers of the patellar tendon. I then proceeded to remove the peripheral osteophytes. This was done with a rongeur. I then proceeded with distal femoral resection. She did have near-full extension. A planned 9 mm resection was then done. The femoral canal was then entered in the midline of the femur approximately 10 mm anterior to the origin of the posterior cruciate ligament. The akhil was then advanced down the center of the femur and placed intramedullary. Based on the preoperative radiographs, the angle between the anatomic and mechanical axis of the femur was approximately 4-5 degrees. The valgus angle of the distal femoral cutting guide was then set at 4 degrees for the right knee. The distal femoral cutting guide was then advanced over the intramedullary akhil. This was seated firmly against the femur. I then, as mentioned, planned to take 9 mm off the distal femur. The cutting block was then secured onto the femur with pins. The jig was then removed. The distal femoral cut was then made through the slot of the block. The pins were then removed and the distal femoral cutting block was removed. The accuracy of the distal femoral cuts was checked with 2 flat bars. I then proceeded with femoral sizing. The posterior referencing sizing guide was held firmly against the resected distal surface of the femur. The posterior condyles were resting on the posterior plane of the guide. The sizing stylus was then placed onto the anterior femur. The size was measured as a size 9. I then assessed for femoral rotation. The plan was for 3 degrees of external rotation. Three degrees of external rotation was placed onto the jig. These holes were then marked. I then confirmed the rotation by 3 separate methods. This was done using the epicondylar axis as well as Whitesides line and posterior referencing. It was deemed that the external rotation was proper. I then went forward with placing the femoral cutting block. This was placed over the previously placed pin holes. The Owen wing was then placed onto the anterior slots to ensure that we would not notch the anterior femur with the anterior femoral cut. I then proceeded with the anterior femoral cut. This was flush with the anterior cortex of the femur. The posterior cuts were then made followed by the anterior chamfer cut and then the posterior chamfer cut. The cutting block was then removed. Throughout the resection, the collateral ligaments were protected with retractors. I then placed a trial size 9 femur. It fit very nicely medial to lateral and it fit flush with the distal end of the femur. The drill holes were then made. I then proceeded with the tibial cut. I planned for a cruciate-retaining knee. The guide was placed and set for varus, valgus and for slope. The height was set for an approximate 2 mm resection from the medial tibial plateau, which was the lower side. I was happy with the alignment and the amount of resection. The cutting block was then pinned to the proximal tibia. The alignment akhil was removed. The proximal tibia was resected with a reciprocating saw. Again this was done with retractors protecting the collateral ligaments as well as the posterior cruciate ligament. I then proceeded to evaluate the flexion and extension gaps. A 10 mm block was then placed. The flexion and extension gaps were equal. I then proceeded with resection of the posterior osteophytes. She had very minimal posterior osteophytes. This was done using a curved osteotome. This resected the posterior osteophytes, and posterior capsule stripping was done off the posterior aspect of the femur at this time. The osteophytes were then removed. I then proceeded with resection of the patella. The thickness of the patella was measured using the caliper. The thickness was 22 mm. The thickness of the anticipated patellar dome was taken into account. The resection was then performed and confirmed to be equal in 4 quadrants using a caliper. Approximately 14 mm of bone remained after resection. A 32 x 8.5 mm standard patellar trial was then placed. The holes were drilled and the trial was then placed. I then proceeded with sizing the tibial plate. A size E tibial plate fit very nicely. I then placed the trial femur, the tibial tray and the patellar button. A 10 mm trial tibial insert was also placed. The components fit very nicely. She had full extension and flexion. The extension and flexion gaps were equal and stable to both varus and valgus stress. The patella tracked appropriately. The tibial tray rotation was then marked with a Bovie. This was externally rotated properly. I then proceeded with tibial preparation. I first drilled the femoral holes and removed the femoral component. The tibial tray was then set for proper external rotation as well as medial and lateral placement under the tibia. It was then pinned into place. I then proceeded with punching the keel. I then decided to proceed with cementing of all of our components. The knee was thoroughly irrigated with sterile saline solution via pulse lavage. The lateral geniculate artery was identified and cauterized. All blood was removed from the bone of the tibia, femur and patella with pulse lavage. I then proceeded with cementing. Two packs of antibiotic bone cement were prepared on the back table by the instructor adjunct surgical technician. I then proceeded with cementing of the tibia first. The cement was impacted into the keel as well as deeply seated into the bone. A second coat of cement was then placed. The tibia was then impacted into place. Excess cement was removed with Dominga's and Joker's. I then proceeded with cementing of the femoral component. The femoral component was also cemented using standard technique. Excess cement was removed. A 10 mm trial insert was then placed into the knee. It was brought into full extension with a constant axial load placed until the cement had hardened. The patellar component was then cemented. This was held firmly with a compressive device until the cement had dried. When the cement had dried, the knee was taken out of extension. All excess cement was removed from around the prosthesis. I then trialed the knee with a 10 mm insert. Flexion and extension gaps were appropriate. The knee was stable. It came into full extension. I decided to go forward with a 10 mm medial-congruent, cross-linked, cruciate-retaining tibial insert. Polyethylene was then placed onto the tibial tray and locked into place. The knee was then reduced. The knee was again further irrigated with sterile saline solution with antibiotic added. The tourniquet was then deflated. Total tourniquet time for the procedure was 50 minutes at 250 mmHg. Final components were Massiel Persona size 9 cruciate-retaining femoral component, a size E tibial tray, a 10 mm medial-congruent, cross-linked, cruciate-retaining polyethylene insert and a 32 x 8.5 mm patella. I then proceeded with closure. Again the knee was thoroughly irrigated. The quadriceps tendon and the medial retinaculum were reapproximated with #2 Ethibond suture. The extensor mechanism was then closed with a running #2 Quill suture. Subcutaneous tissues were closed with 2-0 Vicryl interrupted suture. The skin was closed with a running 3-0 Quill suture. Dermabond was applied to the incision. Sterile compressive dressings were applied. All sponge and needle counts were deemed correct prior to closure. The patient tolerated the procedure without apparent complication. She was transferred to the recovery room in stable condition. MMODL / IJN: [id number] /
[2021-07-31] MEDS ORDERED: ALBUTEROL NEBULIZED 2.5 MG/3 ML INHALATION PRN (13:45)
[2021-07-31] MEDS: fentaNYL PCA 500 MCG/50 ML BAG IV PRN (14:33)
[2021-07-31] MEDS: ceFAZolin 3 GM in SODIUM CHLORIDE 0.9% 100 ML IVPB SCH ×2 (14:58→23:29)
--- NOTE | 2021-07-31 20:58 | P.ANPRN ---
Procedure Note - Anesthesia - Nerve Block Performed Right Adductor Canal Infusion Time Out Performed: Yes Date of Procedure: 07/31/21 Procedure Start Time: 07:33 Procedure Stop Time: 07:40 Location of Patient: PreOp Indication: Acute Post-Operative Pain, Requested by Surgeon Sedation Type: Sedate with meaningful contact maintained Preparation: Sterile Prep, Sterile Dressing Position: Supine Catheter: Indwelling Needle Types: Pajunk Needle Gauge: 21 Ultrasound used to visualize needle placement: Yes Ultrasound used to observe medication spread: Yes Blood Aspirated: No Pain Paresthesia on Injection Noted: No Resistance on Injection: Normal Image Stored and Saved: Yes Events: Uneventful and Well Tolerated (ropi .5% 20cc)
--- NOTE | 2021-07-31 20:59 | P.ANPRN ---
Procedure Note - Anesthesia - Nerve Block Performed Right [place] Single Time Out Performed: Yes Date of Procedure: 07/31/21 Procedure Start Time: 07:41 Procedure Stop Time: 07:44 Location of Patient: PreOp Indication: Acute Post-Operative Pain, Requested by Surgeon Sedation Type: Sedate with meaningful contact maintained Preparation: Sterile Prep Position: Supine Needle Types: Pajunk Needle Gauge: 21 Ultrasound used to visualize needle placement: Yes Ultrasound used to observe medication spread: Yes Blood Aspirated: No Pain Paresthesia on Injection Noted: No Resistance on Injection: Normal Image Stored and Saved: Yes Events: Uneventful and Well Tolerated (ropi .5% 25cc plus dexamethasone 4mg)
[2021-07-31] MEDS: FLUTICASONE 110 MCG INHALER INHALATION SCH (21:08)
[2021-07-31] MEDS: SYMBICORT 160-4.5 MCG INHALER INHALATION SCH (21:08)
[2021-07-31] MEDS: TROSPIUM CHLORIDE 20 MG TABLET PO SCH (21:14)
[2021-07-31] MEDS: SUCRALFATE 1 GM TAB PO SCH (21:15)
[2021-07-31] MEDS: TOPIRAMATE 100 MG TAB PO SCH (21:15)
[2021-07-31] MEDS: ARIPiprazole 10 MG TAB PO SCH (21:15)
[2021-07-31] MEDS: SENNOSIDES-DOCUSATE SODIUM 1 EACH TAB PO SCH (21:15)
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
[2021-08-01] MEDS: fentaNYL PCA 500 MCG/50 ML BAG IV PRN (06:02)
[2021-08-01] MEDS: FLUTICASONE 110 MCG INHALER INHALATION SCH ×2 (08:38→20:24)
[2021-08-01] MEDS: SYMBICORT 160-4.5 MCG INHALER INHALATION SCH ×2 (08:38→20:24)
[2021-08-01 09:31] LABS: Basophils # (A) 0.01 X 10*3/uL (0.00-0.10); Basophils % (A) 0.1 %; Eosinophils # (A) 0 X 10*3/uL (0.04-0.35); Eosinophils % (A) 0 %; HCT 31.6 % (37.2-46.3); HGB 9.9 g/dL (12.0-15.0); Immature Grans, Automated 0.3 %; Lymphocytes # (A) 0.81 X 10*3/uL (0.90-5.00); Lymphocytes % (A) 11.9 %; MCH 29.7 pg (27.0-32.0); MCHC 31.3 g/dL (32.0-37.0); MCV 94.9 fL (80.0-97.0); Monocytes # (A) 0.69 X 10*3/uL (0.20-1.00); Monocytes % (A) 10.2 %; NRBC Per 100 WBC 0 /100 WBCS (0.0-0.0); Neutrophils # (A) 5.26 X 10*3/uL (1.80-7.70); Neutrophils % (A) 77.5 %; Platelet Count 187 X 10*3/uL (140-440); RBC 3.33 X 10*6/uL (4.10-5.20); RDW 13.5 % (11.5-14.5); WBC 6.79 X 10*3/uL (4.50-10.00)
[2021-08-01 09:38] LABS: African American GFR (CKD) 105.6 (60.0-200.0); Anion Gap 9.1 mmol/L (10.00-18.00); BUN/Creat Ratio 21.58 Ratio (12.00-20.00); Calcium 8.4 mg/dL (8.7-10.3); Non-African American GFR(CKD) 91.1 (60.0-200.0); Potassium 4.7 mmol/L (3.5-5.5)
[2021-08-01] MEDS: SUCRALFATE 1 GM TAB PO SCH ×2 (10:28→21:07)
[2021-08-01] MEDS: DULoxetine HCL 60 MG CAPSULE.DR PO SCH (10:28)
[2021-08-01] MEDS: TOPIRAMATE 25 MG TAB PO SCH (10:28)
[2021-08-01] MEDS: OXYBUTYNIN 10 MG TAB.ER.24 PO SCH (10:29)
[2021-08-01] MEDS: TROSPIUM CHLORIDE 20 MG TABLET PO SCH ×2 (10:29→21:07)
[2021-08-01] MEDS: RIVAROXABAN 10 MG TAB PO SCH (10:29)
[2021-08-01] MEDS ORDERED: oxyCODONE-APAP 5-325MG 1 EACH TAB PO PRN ×2 (10:34)
--- NOTE | 2021-08-01 10:39 | P.PN ---
Subjective Progress Note Date: 08/01/21 Principal diagnosis: Right TKA Patient is seen at bedside this morning. She is postop day #1 from right total knee arthroplasty. She has pain at the surgical site as expected but denies any new complaints. She denies numbness, tingling or calf pain. Review of systems is negative for fever, chills, chest pain, shortness of breath or other Objective - Vital Signs Vital signs: Vital Signs Temp 98 F 08/01/21 07:44 Pulse 103 H 08/01/21 07:44 Resp 18 08/01/21 07:44 BP 110/72 08/01/21 07:44 Pulse Ox 95 08/01/21 07:44 Intake & Output 07/31/21 08/01/21 08/01/21 18:59 06:59 18:59 Intake Total 4900 Output Total 250 Balance 4650 Weight 140.9 kg Intake: IV 4900 Output: Estimated Blood Loss 250 Other: Voiding Method Toilet # Voids 2 - Exam Inspection reveals a benign surgical wound. There is no active bleeding or drainage. Neurovascular status is intact throughout the lower extremity with motor and sensation fully intact. Calf is soft and nontender. 2+ dorsalis pedis pulse and less than 2 second cap refill is present. - Constitutional General appearance: Present: no acute distress - Labs CBC & Chem 7: 08/01/21 05:21 08/01/21 05:21 Labs: Abnormal Lab Results - Last 24 Hours (Table) 08/01/21 08/01/21 Range/Units 05:21 05:21 RBC 3.33 L (4.10-5.20) X 10*6/uL Hgb 9.9 L (12.0-15.0) g/dL Hct 31.6 L (37.2-46.3) % MCHC 31.3 L (32.0-37.0) g/dL Lymphocytes # 0.81 L (0.90-5.00) X 10*3/uL Eosinophils # 0 L (0.04-0.35) X 10*3/uL Anion Gap 9.10 L (10.00-18.00) mmol/L BUN/Creatinine Ratio 21.58 H (12.00-20.00) Ratio Glucose 140 H (70-110) mg/dL Calcium 8.4 L (8.7-10.3) mg/dL Assessment and Plan (1) Osteoarthritis of right knee Narrative/Plan: She will continue with routine postop orthopedic protocol including pain management, wound care, PT, DVT prophylaxis and medical management. Expect that she will transfer to [facility] tomorrow Current Visit: Yes Status: Acute Priority: Medium Code(s): M17.11 - UNILATERAL PRIMARY OSTEOARTHRITIS, RIGHT KNEE SNOMED Code(s): [id number] Time with Patient: Less than 30
[2021-08-01] MEDS: MULTIVITAMINS, THERA 1 EACH TAB PO SCH (11:44)
[2021-08-01] MEDS: LACTATED RINGERS 1,000 ML IV SCH ×3 (11:48→16:20)
--- NOTE | 2021-08-01 12:18 | P.PN ---
Progress Note - Text The patient is status post, right, adductor canal catheter placement. The catheter was placed for postoperative pain control, status post total right knee arthroplasty. Ropivacaine 0.2% is infusing at 8 mLs per hour. The patient has no complaints of right lower extremity numbness or weakness. Patient's VAS score is 0-1 -10 for the anterior medial area of the knee. Patient does exhibit some pain in the posterior aspect of the knee. Assessment: Patient's adductor canal catheter is in place and working appropriately. Plan: continue infusion and adjust it as needed.
[2021-08-01] MEDS: SENNOSIDES-DOCUSATE SODIUM 1 EACH TAB PO SCH (21:07)
[2021-08-01] MEDS: ARIPiprazole 10 MG TAB PO SCH (21:07)
[2021-08-01] MEDS: TOPIRAMATE 100 MG TAB PO SCH (21:07)
[2021-08-02] MEDS: LACTATED RINGERS 1,000 ML IV SCH ×3 (04:06→11:03)
[2021-08-02] MEDS: fentaNYL PCA 500 MCG/50 ML BAG IV PRN (04:46)
[2021-08-02] MEDS: SUCRALFATE 1 GM TAB PO SCH (07:47)
[2021-08-02] MEDS: RIVAROXABAN 10 MG TAB PO SCH (07:47)
[2021-08-02] MEDS: DULoxetine HCL 60 MG CAPSULE.DR PO SCH (07:47)
[2021-08-02] MEDS: OXYBUTYNIN 10 MG TAB.ER.24 PO SCH (07:48)
[2021-08-02] MEDS: TOPIRAMATE 25 MG TAB PO SCH (07:49)
[2021-08-02] MEDS: TROSPIUM CHLORIDE 20 MG TABLET PO SCH (07:50)
[2021-08-02] MEDS: FLUTICASONE 110 MCG INHALER INHALATION SCH (08:41)
[2021-08-02] MEDS: SYMBICORT 160-4.5 MCG INHALER INHALATION SCH (08:42)
--- NOTE | 2021-08-02 10:22 | P.DS ---
Providers Date of admission: 08/01/21 14:00 Expected date of discharge: 08/02/21 Attending physician: Elliot Harp Consults: 07/31/21 10:53 Consult Physician Routine Consulting Provider: Christine Mcdermott Consult Reason/Comments: medical management Do you want consulting provider notified?: Already Contacted Primary care physician: Kamlesh Bolivar - Discharge Diagnosis(es) (1) S/P total knee arthroplasty Current Visit: Yes Status: Acute (2) Osteoarthritis of right knee Current Visit: Yes Status: Acute Priority: Medium Hospital Course: This is a 66-year-old female with known history of degenerative arthritis of the right knee. The patient presented for evaluation as an outpatient. After discussion and consideration patient elected to proceed with total knee arthroplasty. The patient is seen preoperatively by Dr. Harp and medically cleared for surgery by their primary care physician. Patient is admitted to [facility] on 08/01/2021 for total knee arthroplasty. The procedure is performed without complication or sequelae. The patient is doing well postoperatively. Labs and vital signs are stable on day of discharge. On day of discharge patient's knee incision is healing well. There is minimal erythema. There is no drainage noted at this time. There is minimal soft tissue swelling to the knee. Patient has full foot and ankle motion without difficulty or pain. Calf is soft and nontender to palpation. Neurovascular status to the right lower extremity is intact. Patient is discharged rehab in good condition. Please see med rec for accurate list of home medications. Plan - Discharge Summary Discharge Rx Participant: No New Discharge Prescriptions: New Ondansetron [Zofran] 4 mg PO Q8HR PRN #21 tab PRN Reason: Nausea Docusate [Colace] 100 mg PO BID #60 capsule oxyCODONE HCL/ACETAMINOPHEN [Percocet 5-325 mg] 1 tab PO Q4HR PRN #42 tab PRN Reason: Pain Rivaroxaban [Xarelto] 10 mg PO DAILY 10 Days #10 tab No Action EPINEPHrine (Auto Inject) [Epipen] 0.3 mg IM ONCE PRN PRN Reason: Anaphylaxis Cetirizine HCl 10 mg PO HS rOPINIRole HCL [Requip] 0.5 mg PO TID Furosemide [Lasix] 60 mg PO QAM Triamcinolone 0.1% Cream [Kenalog 0.1% Cream] 1 applic TOPICAL BID PRN PRN Reason: Rash Potassium Chloride [Klor-Con 8 ER] 10 meq PO BID Beclomethasone Dipropionate [Qvar 80 mcg] 2 puff INHALATION RT-BID Albuterol Nebulized [Ventolin Nebulized] 2.5 mg INHALATION RT-DAILY PRN PRN Reason: Dyspnea SUMAtriptan SUCCINATE [Imitrex] 100 mg PO Q3HR PRN PRN Reason: Headache Topiramate 50 mg PO QAM DULoxetine HCL [Cymbalta] 120 mg PO DAILY hydrOXYzine pamoate [Vistaril] 100 mg PO TID Acetaminophen Tab [Tylenol] 1,300 mg PO Q12H PRN PRN Reason: Pain ARIPiprazole [Abilify] 10 mg PO HS lisinopriL [Zestril] 5 mg PO QAM Pantoprazole Sodium [Protonix] 40 mg PO BID Tolterodine ER [Detrol LA] 4 mg PO DAILY Topiramate [Topamax] 100 mg PO HS Trospium Chloride [Sanctura] 20 mg PO BID Hyoscyamine Sulfate [Levsin] 0.125 mg PO BID Sucralfate [Carafate] 1 gm PO BID #42 tablet Nystatin 100,000Unit/gm Cream [Mycostatin Cream] 1 applic TOPICAL DAILY PRN PRN Reason: Skin Irritation Budesonide/Formoterol Fumarate [Symbicort 160-4.5 Mcg Inhaler] 2 puff INHA LATION BID Meclizine [Antivert] 1 tab PO Q8H PRN PRN Reason: Vertigo Discharge Medication List Cetirizine HCl 10 mg PO HS 11/20/14 [History] EPINEPHrine (Auto Inject) [Epipen] 0.3 mg IM ONCE PRN 11/20/14 [History] rOPINIRole HCL [Requip] 0.5 mg PO TID 11/20/14 [History] Furosemide [Lasix] 60 mg PO QAM 06/04/16 [History] Triamcinolone 0.1% Cream [Kenalog 0.1% Cream] 1 applic TOPICAL BID PRN 06/04/16 [History] Potassium Chloride [Klor-Con 8 ER] 10 meq PO BID 07/10/18 [History] Albuterol Nebulized [Ventolin Nebulized] 2.5 mg INHALATION RT-DAILY PRN 08/09/18 [History] Beclomethasone Dipropionate [Qvar 80 mcg] 2 puff INHALATION RT-BID 08/09/18 [History] SUMAtriptan SUCCINATE [Imitrex] 100 mg PO Q3HR PRN 12/24/18 [History] Topiramate 50 mg PO QAM 12/24/18 [History] DULoxetine HCL [Cymbalta] 120 mg PO DAILY 06/19/20 [History] hydrOXYzine pamoate [Vistaril] 100 mg PO TID 06/19/20 [History] ARIPiprazole [Abilify] 10 mg PO HS 07/10/20 [History] Acetaminophen Tab [Tylenol] 1,300 mg PO Q12H PRN 07/10/20 [History] Pantoprazole Sodium [Protonix] 40 mg PO BID 07/10/20 [History] Tolterodine ER [Detrol LA] 4 mg PO DAILY 07/10/20 [History] Topiramate [Topamax] 100 mg PO HS 07/10/20 [History] Trospium Chloride [Sanctura] 20 mg PO BID 07/10/20 [History] lisinopriL [Zestril] 5 mg PO QAM 07/10/20 [History] Hyoscyamine Sulfate [Levsin] 0.125 mg PO BID 09/12/20 [History] Sucralfate [Carafate] 1 gm PO BID #42 tablet 12/17/20 [Rx] Nystatin 100,000Unit/gm Cream [Mycostatin Cream] 1 applic TOPICAL DAILY PRN 02/10/21 [History] Meclizine [Antivert] 1 tab PO Q8H PRN 03/14/21 [History] Budesonide/Formoterol Fumarate [Symbicort 160-4.5 Mcg Inhaler] 2 puff INHALATION BID 07/18/21 [History] Docusate [Colace] 100 mg PO BID #60 capsule 08/01/21 [Rx] Ondansetron [Zofran] 4 mg PO Q8HR PRN #21 tab 08/01/21 [Rx] Rivaroxaban [Xarelto] 10 mg PO DAILY 10 Days #10 tab 08/01/21 [Rx] oxyCODONE HCL/ACETAMINOPHEN [Percocet 5-325 mg] 1 tab PO Q4HR PRN #42 tab 08/01/21 [Rx] Follow up Appointment(s)/Referral(s): Elliot Harp MD [STAFF PHYSICIAN] - 10 Days Activity/Diet/Wound Care/Special Instructions: Weight bear as tolerated May shower after 3 days if no bleeding Keep wound clean and dry Take meds as directed F/U with Dr. Harp in office Discharge Disposition: TRANSFER TO SNF/ECF
[2021-08-02] MEDS: MULTIVITAMINS, THERA 1 EACH TAB PO SCH (11:02)
[2021-08-02 15:51] VITALS: BP 120/77; PULSE 110; RESP 18; TEMP 98.6
== END 2021-08-02 16:50 ==
LOC: OR 06:32 → 4SSUR 10:09 → OR 08-01 13:17 → 4SSUR 08-01 14:00
PROVIDERS: ADMIT Orthopaedic Surgery Sports Medicine; ATTEND Orthopaedic Surgery Sports Medicine
DX: M17.11 Unilateral primary osteoarthritis, right knee (principal); I95.9 Hypotension, unspecified; J44.9 Chronic obstructive pulmonary disease, unspecified; I48.91 Unspecified atrial fibrillation; F03.90 Unspecified dementia, unspecified severity, without behavioral disturbance, psychotic disturbance, mood disturbance, and anxiety; M79.7 Fibromyalgia; K21.9 Gastro-esophageal reflux disease without esophagitis; I25.2 Old myocardial infarction; M19.90 Unspecified osteoarthritis, unspecified site; G44.009 Cluster headache syndrome, unspecified, not intractable; D49.0 Neoplasm of unspecified behavior of digestive system; D50.9 Iron deficiency anemia, unspecified; E16.2 Hypoglycemia, unspecified; K44.9 Diaphragmatic hernia without obstruction or gangrene; R42 Dizziness and giddiness; M54.9 Dorsalgia, unspecified; K57.92 Diverticulitis of intestine, part unspecified, without perforation or abscess without bleeding; I83.90 Asymptomatic varicose veins of unspecified lower extremity; K58.9 Irritable bowel syndrome, unspecified; N32.81 Overactive bladder; G62.9 Polyneuropathy, unspecified; K58.0 Irritable bowel syndrome with diarrhea; F41.9 Anxiety disorder, unspecified; F32.A Depression, unspecified; F41.0 Panic disorder [episodic paroxysmal anxiety]; I10 Essential (primary) hypertension; G47.33 Obstructive sleep apnea (adult) (pediatric); H53.8 Other visual disturbances; R00.2 Palpitations; E66.01 Morbid (severe) obesity due to excess calories; Z68.41 Body mass index [BMI] 40.0-44.9, adult; Z20.822 Contact with and (suspected) exposure to COVID-19; Z87.01 Personal history of pneumonia (recurrent); Z86.14 Personal history of Methicillin resistant Staphylococcus aureus infection; Z16.24 Resistance to multiple antibiotics; Z98.84 Bariatric surgery status; Z90.710 Acquired absence of both cervix and uterus; Z96.652 Presence of left artificial knee joint; Z90.49 Acquired absence of other specified parts of digestive tract; Z79.1 Long term (current) use of non-steroidal anti-inflammatories (NSAID); Z79.01 Long term (current) use of anticoagulants; Z79.82 Long term (current) use of aspirin; Z79.899 Other long term (current) drug therapy; Z79.51 Long term (current) use of inhaled steroids; Z88.6 Allergy status to analgesic agent; Z91.038 Other insect allergy status; Z88.5 Allergy status to narcotic agent; Z88.7 Allergy status to serum and vaccine; Z91.048 Other nonmedicinal substance allergy status; Z80.8 Family history of malignant neoplasm of other organs or systems; Z82.0 Family history of epilepsy and other diseases of the nervous system; Z80.7 Family history of other malignant neoplasms of lymphoid, hematopoietic and related tissues; Z80.41 Family history of malignant neoplasm of ovary; Z80.0 Family history of malignant neoplasm of digestive organs; Z82.49 Family history of ischemic heart disease and other diseases of the circulatory system; Z83.2 Family history of diseases of the blood and blood-forming organs and certain disorders involving the immune mechanism
CPT/HCPCS: 94640 ×4; 97161; 97165; 64999; 64448; 76942; 80048; 85025; 88300; 87635; 73560; 27447; G0378 ×2; C1776; C1713; J2250; J3370; J0330; J1100; J2710; J0690 ×2; J2405; J2001; J3010 ×4; J2795 ×2; J2370; J2704

== ENCOUNTER → 2022-03-11 | Outpatient (CLI) | payer MEDICARE, OTHER ==
[2022-03-11 16:12] VITALS: BP 118/82; PULSE 65; TEMP 97.9; BMI 47.4
--- NOTE | 2022-03-11 16:27 | P.BASOAP ---
Subjective Progress Note Date: 03/11/22 She has issue swallowing with dysphagia. May need upper scope with dilation of the upper esophagus. No belly pain. She has new knee replacement. Needs labs for check. Thermogenic foods. Food allergy recommends. Labs, EGD dysphagia, and referral prosthetic makeup designer. Objective - Vital Signs Vital signs: Vital Signs Temp 97.9 F 03/11/22 16:07 Pulse 65 03/11/22 16:07 Resp BP 118/82 03/11/22 16:07 Pulse Ox FiO2 Intake & Output 03/10/22 03/11/22 03/11/22 18:59 06:59 18:59 Weight 141.521 kg Assessment/Plan Plan: Date: 03/11/22 Initial Weight: 166.638 kg Initial BMI: 55.8 Current Weight: 141.521 kg Current BMI: 47.4 Type of Surgery: Total Volume in Band: Previous Volume: Volume Removed: Volume Added: Band Size:
== END | disposition home or self-care (01) ==
LOC: BARWHC3 14:46
PROVIDERS: ATTEND Surgery Plastic and Reconstructive Surgery
DX: Z48.815 Encounter for surgical aftercare following surgery on the digestive system (principal)
CPT/HCPCS: 99211

== ENCOUNTER → 2022-03-12 | Outpatient (CLI) | payer MEDICARE, OTHER ==
[2022-03-12 16:49] LABS: INR 0.9 (<1.2); Partial Thromboplastin Time 26.1 sec (22.0-30.0); Prothrombin Time 10.3 sec (9.0-12.0)
[2022-03-13 01:10] LABS: Chol/HDL Ratio 2.46 Ratio; LDL Cholesterol,Calculated 74.4 mg/dL (0.0-131.0); Prealbumin 21.2 mg/dL (18.0-42.0); VLDL Calculation 19.86 mg/dL (5.00-40.00)
[2022-03-13 01:47] LABS: ALT 20 U/L (8-44); AST 20 U/L (13-35); African American GFR (CKD) 89.7 (60.0-200.0); Albumin/Globulin Ratio 2.35 (1.60-3.17); Alkaline Phosphatase 125 U/L (41-126); Blood Urea Nitrogen 15.2 mg/dL (9.0-27.0); Calcium 8.9 mg/dL (8.7-10.3); Carbon Dioxide 26.3 mmol/L (20.0-27.5); Chloride 105 mmol/L (96-109); Globulin 1.7 g/dL (1.6-3.3); Glucose 83 mg/dL (70-110); Magnesium 2.2 mg/dL (1.5-2.4); Non-African American GFR(CKD) 77.4 (60.0-200.0); Phosphorus 4.1 mg/dL (2.4-5.1); Potassium 4.9 mmol/L (3.5-5.5); Sodium 141 mmol/L (135-145); Total Protein 5.7 g/dL (6.2-8.2)
[2022-03-13 02:00] LABS: HCT 39.7 % (37.2-46.3); HGB 12.3 g/dL (12.0-15.0); MCH 28.5 pg (27.0-32.0); MCV 91.9 fL (80.0-97.0); Mean Platelet Volume 11.1 fL (9.5-12.2); NRBC Per 100 WBC 0 /100 WBCS (0.0-0.0); Platelet Count 218 X 10*3/uL (140-440); RBC 4.32 X 10*6/uL (4.10-5.20); WBC 4.36 X 10*3/uL (4.50-10.00)
[2022-03-13 04:23] LABS: Iron 63 ug/dL (50-170)
[2022-03-13 06:04] LABS: Ferritin 55.9 ng/mL (10.0-291.0)
[2022-03-13 12:22] LABS: Zinc, Serum 85 ug/dL (60-130)
== END | disposition home or self-care (01) ==
LOC: LABWHC1 14:56
PROVIDERS: ATTEND Surgery Plastic and Reconstructive Surgery
DX: E66.01 Morbid (severe) obesity due to excess calories (principal); E89.1 Postprocedural hypoinsulinemia; D50.8 Other iron deficiency anemias; D50.9 Iron deficiency anemia, unspecified; K91.2 Postsurgical malabsorption, not elsewhere classified; E44.0 Moderate protein-calorie malnutrition; E44.1 Mild protein-calorie malnutrition; E45 Retarded development following protein-calorie malnutrition; E46 Unspecified protein-calorie malnutrition; E55.9 Vitamin D deficiency, unspecified; K74.1 Hepatic sclerosis; N19 Unspecified kidney failure; T56.894A Toxic effect of other metals, undetermined, initial encounter; K50.90 Crohn's disease, unspecified, without complications
CPT/HCPCS: 80053; 80061; 82306; 82525; 82607; 82728; 82746; 83036; 83540; 83550; 83735; 83970; 84100; 84134; 84255; 84425; 84443; 84590; 84630; 85027; 85610; 85730

== ENCOUNTER 2022-03-30 07:02 | Day surgery (SDC) | payer MEDICARE, OTHER ==
[2022-03-26 17:45] VITALS: BMI 43.0
[2022-03-30] MEDS ORDERED: LACTATED RINGERS 1,000 ML IV SCH (07:37)
[2022-03-30] MEDS ORDERED: LIDOCAINE 1% (10MG/ML) FOR IV START INTRADERMA PRN (07:37)
[2022-03-30 07:39] VITALS: RESP 16; TEMP 97.2
[2022-03-30 07:52] LABS: Glucose,Whole Blood 101 mg/dL (70-110)
[2022-03-30] MEDS ORDERED: LIDOCAINE 2% INJ 20 MG/ML (2 ML VIAL) ONE (08:09)
[2022-03-30] MEDS ORDERED: PROPOFOL 10 MG/ML 20 ML VIAL IV ONE (08:09)
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
--- NOTE | 2022-03-30 08:29 | P.PCN ---
Date of Procedure: 03/30/22 Description of Procedure: PREOPERATIVE DIAGNOSIS: Dysphagia. Gastroesophageal reflux disease POSTOPERATIVE DIAGNOSIS: Dysphagia. Gastroesophageal reflux disease Esophageal dysmotility OPERATION: Esophagogastrojejunoscopy with rigid dilator over the guidewire 51 Fr with dilation of esophageal stenosis/dysmotility SURGEON: Chelsea Buchanan MD ANESTHESIA: MAC. INDICATIONS: The patient is a 66-year-old female who presents with a history of dysphagia. Benefits and risks of the procedure were described. Informed consent was obtained. DESCRIPTION: The patient was brought into the endoscopy suite and laid in the left lateral decubitus position. After a timeout was confirmed, the procedure was initiated. An Olympus gastroscope was passed into the posterior oropharynx down into the gastric pouch. No ulcers were identified along the gastric pouch. Next using an Trinidadian rigid dilator, a guidewire was placed through the gastroscope. Next the scope was withdrawn. A 57-Burkinan rigid Trinidadian dilator was passed carefully along the posterior oropharynx to 45 cm and left in place for 2-3 minutes stretch. The dilator was withdrawn including the guidewire. The scope was reentered along the posterior oropharynx with no findings of full- thickness tear of the upper esophageal sphincter. No full-thickness injury was encountered. The GI tract was desufflated. The patient tolerated the procedure well. FINDINGS: Presbyesophagus with esophageal dysmotility dilated Trinidadian rigid dilator 57-Burkinan completed. RECOMMENDATIONS: Upper endoscopy as needed Plan - Discharge Summary Discharge Rx Participant: No New Discharge Prescriptions: Continue EPINEPHrine (Auto Inject) [Epipen] 0.3 mg IM ONCE PRN PRN Reason: Anaphylaxis Cetirizine HCl 10 mg PO HS rOPINIRole HCL [Requip] 0.5 mg PO TID Furosemide [Lasix] 60 mg PO QAM Triamcinolone 0.1% Cream [Kenalog 0.1% Cream] 1 applic TOPICAL BID PRN PRN Reason: Rash Potassium Chloride [Klor-Con 8 ER] 10 meq PO BID Albuterol Nebulized [Ventolin Nebulized] 2.5 mg INHALATION RT-DAILY PRN PRN Reason: Dyspnea SUMAtriptan succinate [Imitrex] 100 mg PO Q3HR PRN PRN Reason: Headache DULoxetine HCL [Cymbalta] 120 mg PO DAILY hydrOXYzine pamoate [Vistaril] 100 mg PO TID Acetaminophen Tab [Tylenol] 1,300 mg PO Q12H PRN PRN Reason: Pain ARIPiprazole [Abilify] 10 mg PO HS lisinopriL [Zestril] 5 mg PO QAM Pantoprazole Sodium [Protonix] 40 mg PO BID Tolterodine ER [Detrol LA] 4 mg PO DAILY Trospium Chloride [Sanctura] 20 mg PO BID Hyoscyamine Sulfate [Levsin] 0.125 mg PO BID Sucralfate [Carafate] 1 gm PO BID #42 tablet Nystatin 100,000Unit/gm Cream [Mycostatin Cream] 1 applic TOPICAL DAILY PRN PRN Reason: Skin Irritation Budesonide/Formoterol Fumarate [Symbicort 160-4.5 Mcg Inhaler] 2 puff INHALATION BID Ondansetron [Zofran] 4 mg PO Q8HR PRN #21 tab PRN Reason: Nausea Meclizine [Antivert] 1 tab PO Q8H PRN PRN Reason: Vertigo Docusate [Colace] 100 mg PO BID #60 capsule Discharge Medication List Cetirizine HCl 10 mg PO HS 11/20/14 [History] EPINEPHrine (Auto Inject) [Epipen] 0.3 mg IM ONCE PRN 11/20/14 [History] rOPINIRole HCL [Requip] 0.5 mg PO TID 11/20/14 [History] Furosemide [Lasix] 60 mg PO QAM 06/04/16 [History] Triamcinolone 0.1% Cream [Kenalog 0.1% Cream] 1 applic TOPICAL BID PRN 06/04/16 [History] Potassium Chloride [Klor-Con 8 ER] 10 meq PO BID 07/10/18 [History] Albuterol Nebulized [Ventolin Nebulized] 2.5 mg INHALATION RT-DAILY PRN 08/09/18 [History] SUMAtriptan succinate [Imitrex] 100 mg PO Q3HR PRN 12/24/18 [History] DULoxetine HCL [Cymbalta] 120 mg PO DAILY 06/19/20 [History] hydrOXYzine pamoate [Vistaril] 100 mg PO TID 06/19/20 [History] ARIPiprazole [Abilify] 10 mg PO HS 07/10/20 [History] Acetaminophen Tab [Tylenol] 1,300 mg PO Q12H PRN 07/10/20 [History] Pantoprazole Sodium [Protonix] 40 mg PO BID 07/10/20 [History] Tolterodine ER [Detrol LA] 4 mg PO DAILY 07/10/20 [History] Trospium Chloride [Sanctura] 20 mg PO BID 07/10/20 [History] lisinopriL [Zestril] 5 mg PO QAM 07/10/20 [History] Hyoscyamine Sulfate [Levsin] 0.125 mg PO BID 09/12/20 [History] Sucralfate [Carafate] 1 gm PO BID #42 tablet 12/17/20 [Rx] Nystatin 100,000Unit/gm Cream [Mycostatin Cream] 1 applic TOPICAL DAILY PRN 02/10/21 [History] Meclizine [Antivert] 1 tab PO Q8H PRN 03/14/21 [History] Budesonide/Formoterol Fumarate [Symbicort 160-4.5 Mcg Inhaler] 2 puff INHALATION BID 07/18/21 [History] Docusate [Colace] 100 mg PO BID #60 capsule 08/01/21 [Rx] Ondansetron [Zofran] 4 mg PO Q8HR PRN #21 tab 08/01/21 [Rx] Follow up [facility]ment(s[facility] [place] [facility] - [facility] Patient Instructions/Handouts: Esophageal Dilation (GEN) Activity/Diet/Wound Care/Special Instructions: Diet as tolerated Discharge Disposition: HOME SELF-CARE
[2022-03-30 08:45] VITALS: BP 109/64; PULSE 82
== END 2022-03-30 09:04 | disposition home or self-care (01) ==
LOC: ORWHC2ENDO 07:02
PROVIDERS: ATTEND Surgery Plastic and Reconstructive Surgery
DX: K22.4 Dyskinesia of esophagus (principal); K21.9 Gastro-esophageal reflux disease without esophagitis; I48.91 Unspecified atrial fibrillation; J45.909 Unspecified asthma, uncomplicated; R07.9 Chest pain, unspecified; F03.90 Unspecified dementia, unspecified severity, without behavioral disturbance, psychotic disturbance, mood disturbance, and anxiety; M79.7 Fibromyalgia; K76.9 Liver disease, unspecified; I25.2 Old myocardial infarction; M19.90 Unspecified osteoarthritis, unspecified site; J18.9 Pneumonia, unspecified organism; M79.9 Soft tissue disorder, unspecified; R29.90 Unspecified symptoms and signs involving the nervous system; G47.33 Obstructive sleep apnea (adult) (pediatric); L98.9 Disorder of the skin and subcutaneous tissue, unspecified; G43.909 Migraine, unspecified, not intractable, without status migrainosus; K57.92 Diverticulitis of intestine, part unspecified, without perforation or abscess without bleeding; R42 Dizziness and giddiness; K44.9 Diaphragmatic hernia without obstruction or gangrene; G35 Multiple sclerosis; D50.9 Iron deficiency anemia, unspecified; K52.9 Noninfective gastroenteritis and colitis, unspecified; M54.9 Dorsalgia, unspecified; N32.81 Overactive bladder; G62.9 Polyneuropathy, unspecified; B00.9 Herpesviral infection, unspecified; K91.0 Vomiting following gastrointestinal surgery; M77.32 Calcaneal spur, left foot; E66.01 Morbid (severe) obesity due to excess calories; Z90.49 Acquired absence of other specified parts of digestive tract; Z98.84 Bariatric surgery status; Z98.891 History of uterine scar from previous surgery; Z98.890 Other specified postprocedural states; Z90.710 Acquired absence of both cervix and uterus; Z95.5 Presence of coronary angioplasty implant and graft; Z80.8 Family history of malignant neoplasm of other organs or systems; Z81.8 Family history of other mental and behavioral disorders; Z82.0 Family history of epilepsy and other diseases of the nervous system; Z80.41 Family history of malignant neoplasm of ovary; Z83.2 Family history of diseases of the blood and blood-forming organs and certain disorders involving the immune mechanism; Z79.899 Other long term (current) drug therapy; Z79.51 Long term (current) use of inhaled steroids; Z79.1 Long term (current) use of non-steroidal anti-inflammatories (NSAID); Z88.5 Allergy status to narcotic agent; Z88.6 Allergy status to analgesic agent; Z91.048 Other nonmedicinal substance allergy status; Z91.038 Other insect allergy status; Z88.7 Allergy status to serum and vaccine; Z88.8 Allergy status to other drugs, medicaments and biological substances; Z99.89 Dependence on other enabling machines and devices; Z68.41 Body mass index [BMI] 40.0-44.9, adult
CPT/HCPCS: 43248; J2704; J2001; 43249

== ENCOUNTER 2022-05-04 10:31 | Emergency (ER) | payer MEDICARE, OTHER ==
[2022-05-04 10:36] VITALS: BP 146/74; PULSE 95; TEMP 98
[2022-05-04] MEDS ORDERED: KETOROLAC 15 MG/ML 1 ML VIAL IM STA (10:56)
[2022-05-04] MEDS ORDERED: SULFAMETHOX-TMP 800-160MG 1 EACH TAB PO STA (10:57)
[2022-05-04] MEDS ORDERED: CEPHALEXIN 500 MG CAP PO STA (10:57)
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
[2022-05-04 12:29] VITALS: RESP 18
== END 2022-05-04 12:29 | disposition home or self-care (01) ==
LOC: EC 10:31
DX: G89.18 Other acute postprocedural pain (principal); I48.91 Unspecified atrial fibrillation; K21.9 Gastro-esophageal reflux disease without esophagitis; I25.2 Old myocardial infarction; M19.90 Unspecified osteoarthritis, unspecified site; F41.9 Anxiety disorder, unspecified; F32.A Depression, unspecified; Z88.5 Allergy status to narcotic agent; Z88.7 Allergy status to serum and vaccine; Z88.8 Allergy status to other drugs, medicaments and biological substances; Z79.899 Other long term (current) drug therapy
CPT/HCPCS: 99283; 96372; J1885

== ENCOUNTER 2022-05-11 20:39 | Observation (INO) | payer MEDICARE, OTHER ==
[2022-05-11] MEDS ORDERED: ASPIRIN 81 MG PO STA (20:52)
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
--- NOTE | 2022-05-11 21:29 | XR ---
EXAMINATION TYPE: XR chest 2V DATE OF EXAM: 05/11/2022 9:05 PM COMPARISON: Chest radiographs from 12/26/2018. TECHNIQUE: XR chest 2V Frontal and lateral views of the chest. CLINICAL INDICATION:Female, 67 years old with history of Chest Pain; FINDINGS: Lungs/Pleura: There is no evidence of pleural effusion, focal consolidation, or pneumothorax. Pulmonary vascularity: Unremarkable. Heart/mediastinum: Cardiomediastinal silhouette is unremarkable. Musculoskeletal: No acute osseous pathology. IMPRESSION: No acute cardiopulmonary disease/process.
[2022-05-11 21:36] LABS: Basophils # (A) 0.1 k/uL (0-0.2); Basophils % (A) 1 %; Eosinophils # (A) 0.1 k/uL (0-0.7); Eosinophils % (A) 3 %; HCT 43.4 % (34.0-46.0); HGB 14.3 gm/dL (11.4-16.0); Lymphocytes # (A) 1.3 k/uL (1.0-4.8); Lymphocytes % (A) 28 %; MCH 29.9 pg (25.0-35.0); MCV 90.6 fL (80.0-100.0); Mean Platelet Volume 8.9; Monocytes # (A) 0.3 k/uL (0-1.0); Monocytes % (A) 5 %; Neutrophils # (A) 2.9 k/uL (1.3-7.7); Neutrophils % (A) 60 %; Platelet Count 219 k/uL (150-450); RBC 4.78 m/uL (3.80-5.40); RDW 12.9 % (11.5-15.5); WBC 4.7 k/uL (3.8-10.6)
[2022-05-11 21:48] LABS: INR 0.9 (<1.2); Partial Thromboplastin Time 26.4 sec (22.0-30.0); Prothrombin Time 10.2 sec (9.0-12.0)
[2022-05-11 21:49] LABS: Albumin 4.4 g/dL (3.5-5.0); Total Bilirubin 0.6 mg/dL (0.2-1.3); Total Protein 6.8 g/dL (6.3-8.2)
[2022-05-11 22:02] LABS: Magnesium 2.2 mg/dL (1.6-2.3); Potassium 4.8 mmol/L (3.5-5.1)
[2022-05-11 23:03] LABS: Appearance,Urine Clear (Clear); Bacteria,Urine Occasional /hpf; Bilirubin,Urine Negative (Negative); Blood,Urine Negative (Negative); Color,Urine Light Yellow; Glucose,Urine (UA) Negative (Negative); Hyaline Casts,Urine 17 /lpf (0-2); Ketones,Urine Negative (Negative); Leukocyte Esterase,Urine Small (Negative); Mucus,Urine Rare /hpf; Nitrite,Urine Negative (Negative); Protein,Urine Negative (Negative); RBC,Urine 1 /hpf (0-5); Specific Gravity,Urine 1.016 (1.001-1.035); Squamous Epithelial Cell,Urine 1 /hpf (0-4); Urobilinogen,Urine <2.0 mg/dL (<2.0); WBC,Urine 3 /hpf (0-5)
--- NOTE | 2022-05-11 23:23 | CT ---
EXAMINATION TYPE: CT angio thor/abd pel aorta DATE OF EXAM: 05/11/2022 COMPARISON: 01/21/2018 HISTORY: r/o dissection CT DLP: 2616.8 mGycm Automated exposure control for dose reduction was used. CONTRAST: Performed without and with IV Contrast, patient injected with 80 mL of Isovue 370. Images obtained from the thoracic inlet to the mid pelvis without and subsequently with the IV contra st. There are 3-D post processed images. There is normal branching pattern of the great vessels on the aortic arch. Thoracic aorta is intact. No aneurysm or dissection. No evidence of filling defect in the pulmonary arteries. There is a moderate hiatal hernia. There are multiple surgical clips at the esophageal hiatus. Abdomi nal aorta is intact. No aneurysm. There is arterial flow in the celiac artery and superior mesenteric artery. There is arterial flow in both renal arteries. There is arterial flow in the iliac arteries bilaterally. No evidence of hemodynamic stenosis. No aneurysm or dissection. Kidneys have normal size. No hydronephrosis. There is 2 cm cortical cyst posterior right kidney. No r etroperitoneal adenopathy. No evidence of mesenteric edema. No ascites or free air. No sign of a fransisco l obstruction. Previous surgery noted in the bowel in the left mid abdomen. There is no lumbar parasp inal mass. No thoracic paraspinal mass. No thoracic or lumbar compression fracture. There is mild deg enerative hypertrophic spurring in the thoracic and lumbar spine. IMPRESSION: No evidence of arterial aneurysm or dissection. No evidence of hemodynamic arterial stenosis. No evid ence of pulmonary embolism. No adverse change compared to the old exam.
[2022-05-11] MEDS ORDERED: SODIUM CHLORIDE 0.9% 1,000 ML IV SCH (23:45)
[2022-05-11] MEDS ORDERED: NALOXONE 0.4 MG/ML 1 ML VIAL IV PRN (23:47)
[2022-05-12] MEDS ORDERED: ALBUTEROL NEBULIZED 2.5 MG/3 ML INHALATION PRN (03:32)
[2022-05-12] MEDS ORDERED: ACETAMINOPHEN TAB 325 MG TAB PO PRN (03:32)
[2022-05-12] MEDS ORDERED: MAG HYDROX/AL HYDROX/SIMETH 30 ML CUP PO PRN (03:32)
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
[2022-05-12] MEDS ORDERED: PANTOPRAZOLE 40 MG TABLET PO SCH (07:30)
[2022-05-12] MEDS ORDERED: HEPARIN SODIUM,PORCINE/PF 5,000 UNIT/0.5 ML SYRINGE SQ SCH (08:00)
[2022-05-12] MEDS ORDERED: SYMBICORT 160-4.5 MCG INHALER INHALATION SCH (08:00)
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
[2022-05-12] MEDS ORDERED: MECLIZINE 25 MG TAB PO PRN (08:26)
[2022-05-12] MEDS ORDERED: hydrOXYzine pamoate 25 MG CAP PO PRN (08:26)
[2022-05-12] MEDS ORDERED: DOBUTamine DRIP for NUC MED 500 MG in DEXTROSE/WATER 1 250ML.BAG IV PRN (08:29)
[2022-05-12] MEDS ORDERED: FUROSEMIDE 40 MG TAB PO SCH (09:00)
[2022-05-12] MEDS ORDERED: DULoxetine HCL 60 MG CAPSULE.DR PO SCH (09:00)
[2022-05-12] MEDS ORDERED: CYANOCOBALAMIN 500 MCG TAB PO SCH (09:00)
[2022-05-12] MEDS ORDERED: lisinopriL 5 MG TAB PO SCH (09:00)
[2022-05-12] MEDS ORDERED: CHOLECALCIFEROL 25 MCG (1000 IU) TABLET PO SCH (09:00)
[2022-05-12] MEDS ORDERED: FERROUS SULFATE 325 MG TAB PO SCH (09:00)
[2022-05-12] MEDS ORDERED: NON FORMULARY DRUG (Cinnamon Bark [Cinnamon] 500 MG Capsule) PO SCH (09:00)
[2022-05-12] MEDS ORDERED: DOBUTamine DRIP for NUC MED 500 MG/250 ML BAG IV ONE (12:20)
--- NOTE | 2022-05-12 12:59 | CA ---
Dobutamine Stress Echocardiogram Report [facility] Merino Age: 67 Gender: F : 1955 Exam Date: 05/12/2022 11:51 Exam Location: [facility] Ordering Physician: Farrah Alvarez Referring Physician: [id number] Ceballos Welder/Installer: SHELLY Technologist: Ht (in): 70 Wt (lb): 305 Procedure CPT: Indication: Chest Pain ICD-9 Codes: Rhythm: Patient History: Chest pain and shortness of breath Cardiac Medications: Medications in past 24 hours: Contrast: Lumason Total Dose (mL): 5 Stress Results Protocol: Dobutamine Peak Dose (???g/kg/min): 30 Duration (min:sec): Atropine:(mg) Target HR: 131 Double Product: 01017 Resting HR: 80 Resting BP: 128 / 73 Peak HR: 135 Peak BP: 115 / 64 Max Predicted HR: 154 88 % Max Predicted HR Stress Summary: BP Response: Reason for Termination: Exceeded target heart rate (85% max predicted) Cardiac Symptoms: Test terminated after reaching target heart rate (85% max predicted) ECG Analysis Resting EKG: Normal sinus rhythm, normal ECG Stress EKG: No abnormal ST/T wave changes with exercise Arrhythmia: None Echo Analysis Base Echo Analysis: Normal resting echocardiogram. Low Echo Anaylsis: No wall motion changes with stress. Peak Echo Analysis: No wall motion changes with stress. Recovery Echo: No wall motion changes with stress. MEASUREMENTS (Male/Female) Normal Values CONCLUSIONS 1. Normal EKG response to dobutamine infusion 2. Normal stress echocardiogram with no evidence of stress- induced ischemia. Dr. Cam Alvarado MD (Electronically Signed) Final Date: 12 May 2022 12:58
[2022-05-12 13:18] VITALS: BP 127/85; PULSE 80; RESP 18; TEMP 97.4
--- NOTE | 2022-05-12 15:17 | P.DS ---
Providers Date of admission: 05/11/22 23:50 Expected date of discharge: 05/12/22 Attending physician: Gus Francis MD Consults: 05/11/22 23:47 Consult Physician Urgent Consulting Provider: [facility] Consult Reason/Comments: chest pain Do you want consulting provider notified?: Yes Primary care physician: Kamlesh Bolivar [facility] Course: Discharge Diagnosis: Chest pain, acute coronary event ruled out. 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 Santacruz, hypertension, COPD, fibromyalgia, GERD, obesity with previous gastric bypass in 2004, paraesophageal hernia status post repair 2018, chronic migraines, anxiety, and depression. She presented to the emergency department with a chief complaint of chest pain. Patient reported severe chest tightness and pain to midsternal chest radiating into her back worsened with movement and upon taking a deep breath. She underwent full evaluation in the emergency department. EKG was completed revealing normal sinus rhythm at 85 bpm with no significant T-wave or ST abnormalities showing no signs of acute ischemia. Chest x-ray was negative for acute cardiopulmonary process. CTA thoracic/abdominal/pelvis showing moderate hiatal hernia with multiple surgical clips at the esophageal hiatus, no evidence of arterial aneurysm or dissection, no evidence of hemodynamic arterial stenosis, no evidence of pulmonary embolism and negative for acute process or adverse changes when compared to previous exam completed 01/21/18. CBC, coags, and CMP showing no significant abnormalities with the exception of mildly elevated creatinine 1.06 with baseline creatinine of 0.8. Troponin negative at less than 0.012. Covid PCR, influenza A, and influenza B were negative. Urinalysis negative for infection. Patient admitted under our services with consultation to cardiology. Troponins trended throughout the night all remain negative at less than 0.0123 draws. Patient underwent echocardiogram and dobutamine stress echo. echocardiogram results pending dobutamine stress echo showing normal EKG response to dobutamine infusion and normal stress echocardiogram with no evidence of stress-induced ischemia. Cardiology clearing patient from cardiac perspective for discharge home. Patient remains free from any reports of chest pain or discomfort since reportedly 2:30 AM. Patient is medically stable for discharge home at this time. Physical exam: Vital signs reviewed and stable. General: Nontoxic, no distress and appears stated age. obese. Derm: Skin warm and dry, normal coloration for ethnicity. Head: Atraumatic, normocephalic and symmetric. Eyes: EOMs intact, no lid lag, and anicteric sclera Mouth: no lip lesions, mucus membranes moist Cardiovascular: regular rate and rhythm with normal S1S2, no murmur, positive posterior tibial pulses bilaterally, and cap refill < 2 seconds. Lungs: Respirations even, regular, and unlabored on room air. Lungs CTA bilaterally, no rhonchi, no rales, no wheezing, and no accessory muscle usage. Abdominal: soft, nontender to palpation, no guarding, no appreciable organomegaly Ext: ROM intact. No gross muscle atrophy, no edema, no contractures Neuro: Speech clear, face symmetrical and CN II-XII grossly intact with no noted focal neuro deficits Psych: Alert and oriented to person, place, time, and situation. Appropriate and pleasant affect. A total of 34 minutes of time were spent preparing this complex discharge summary. Pt was discharged on 05/12/22 at 3:16 PM. Assessment: Attending note Apollo Capps NP rendered care for this patient independently, reviewed the findi ngs and plan as documented in the note above. I did not physically speak with our examined the patient on this date. Patient Condition at Discharge: Stable Plan - Discharge Summary New Discharge Prescriptions: Continue EPINEPHrine (Auto Inject) [Epipen] 0.3 mg IM ONCE PRN PRN Reason: Anaphylaxis Cetirizine HCl 10 mg PO HS Furosemide [Lasix] 40 mg PO DAILY SUMAtriptan succinate [Imitrex] 100 mg PO DAILY PRN PRN Reason: Headache DULoxetine HCL [Cymbalta] 60 mg PO BID hydrOXYzine pamoate [Vistaril] 50 mg PO QID PRN PRN Reason: Anxiety Acetaminophen Tab [Tylenol] 650 mg PO QID PRN PRN Reason: Pain ARIPiprazole [Abilify] 10 mg PO HS lisinopriL [Zestril] 5 mg PO DAILY Pantoprazole Sodium [Protonix] 40 mg PO BID Tolterodine ER [Detrol LA] 4 mg PO DAILY Nystatin 100,000Unit/gm Cream [Mycostatin Cream] 1 applic TOPICAL DAILY PRN PRN Reason: Skin Irritation Budesonide/Formoterol Fumarate [Symbicort 160-4.5 Mcg Inhaler] 2 puff INHALATION RT-BID Ibuprofen [Motrin] 800 mg PO Q8H PRN #30 tab PRN Reason: Pain Luana 500 mg PO DAILY Cholecalciferol [Vitamin D3 (25 Mcg = 1000 Iu)] 50 mcg PO DAILY Diclofenac Sodium Gel [Voltaren Gel] 4 gm TOPICAL QID PRN PRN Reason: Pain Potassium Chloride ER [K-Dur 10] 10 meq PO DAILY Nitroglycerin Sl Tabs [Nitrostat] 0.4 mg SL Q5M PRN PRN Reason: Chest Pain Naproxen [EC-Naprosyn] 500 mg PO BID PRN PRN Reason: Pain Meclizine [Antivert] 25 mg PO Q8H PRN PRN Reason: Vertigo Cyanocobalamin [Vitamin B-12] 500 mcg PO DAILY Cinnamon Bark [Cinnamon] 500 mg PO DAILY Zinc Gluconate [Zinc] 50 mg PO DAILY Ferrous Sulfate [Iron (65 MG Elemental)] 325 mg PO DAILY Fluticasone Nasal [place] [Flonase Nasal [place]] 2 spr EA NOSTRIL DAILY Albuterol Sulfate [Ventolin HFA] 2 puff INHALATION RT-Q6H PRN PRN Reason: Shortness Of Breath rOPINIRole HCL [Requip] 1 mg PO BID Rizatriptan Benzoate [Rizatriptan] 10 mg PO DAILY PRN PRN Reason: Migraine Headache Discharge Medication List Cetirizine HCl 10 mg PO HS 11/20/14 [History] EPINEPHrine (Auto Inject) [Epipen] 0.3 mg IM ONCE PRN 11/20/14 [History] Furosemide [Lasix] 40 mg PO DAILY 06/04/16 [History] SUMAtriptan succinate [Imitrex] 100 mg PO DAILY PRN 12/24/18 [History] DULoxetine HCL [Cymbalta] 60 mg PO BID 06/19/20 [History] hydrOXYzine pamoate [Vistaril] 50 mg PO QID PRN 06/19/20 [History] ARIPiprazole [Abilify] 10 mg PO HS 07/10/20 [History] Acetaminophen Tab [Tylenol] 650 mg PO QID PRN 07/10/20 [History] Pantoprazole Sodium [Protonix] 40 mg PO BID 07/10/20 [History] Tolterodine ER [Detrol LA] 4 mg PO DAILY 07/10/20 [History] lisinopriL [Zestril] 5 mg PO DAILY 07/10/20 [History] Nystatin 100,000Unit/gm Cream [Mycostatin Cream] 1 applic TOPICAL DAILY PRN 02/10/21 [History] Meclizine [Antivert] 25 mg PO Q8H PRN 03/14/21 [History] Budesonide/Formoterol Fumarate [Symbicort 160-4.5 Mcg Inhaler] 2 puff INHALATION RT-BID 07/18/21 [History] Albuterol Sulfate [Ventolin HFA] 2 puff INHALATION RT-Q6H PRN 05/04/22 [History] Cholecalciferol [Vitamin D3 (25 Mcg = 1000 Iu)] 50 mcg PO DAILY 05/04/22 [History] Cinnamon Bark [Cinnamon] 500 mg PO DAILY 05/04/22 [History] Cyanocobalamin [Vitamin B-12] 500 mcg PO DAILY 05/04/22 [History] Diclofenac Sodium Gel [Voltaren Gel] 4 gm TOPICAL QID PRN 05/04/22 [History] Ferrous Sulfate [Iron (65 MG Elemental)] 325 mg PO DAILY 05/04/22 [History] Fluticasone Nasal [place] [Flonase Nasal [place]] 2 spr EA NOSTRIL DAILY 05/04/22 [History] Luana 500 mg PO DAILY 05/04/22 [History] Ibuprofen [Motrin] 800 mg PO Q8H PRN #30 tab 05/04/22 [Rx] Naproxen [EC-Naprosyn] 500 mg PO BID PRN 05/04/22 [History] Nitroglycerin Sl Tabs [Nitrostat] 0.4 mg SL Q5M PRN 05/04/22 [History] Potassium Chloride ER [K-Dur 10] 10 meq PO DAILY 05/04/22 [History] Rizatriptan Benzoate [Rizatriptan] 10 mg PO DAILY PRN 05/04/22 [History] Zinc Gluconate [Zinc] 50 mg PO DAILY 05/04/22 [History] rOPINIRole HCL [Requip] 1 mg PO BID 05/04/22 [History] Follow up Appointment(s)/Referral(s): Kamlesh Bolivar DO [Primary Care Provider] - 1-2 days Zhang Santacruz MD [STAFF PHYSICIAN] - 05/26/22 3:30 pm Patient Instructions/Handouts: Chest Pain (DC) Activity/Diet/Wound Care/Special Instructions: Activity: As tolerated. Take breaks as needed. Diet: Heart healthy and carb consistent diet. Avoid salts, or foods with hidden salts such as canned or boxed foods and frozen dinners. Extra salt makes your heart work harder and traps the fluid in your body for longer. Special Instructions: Take all of your medications as directed and remember to keep all of your doctor's appointments and follow-up as needed. Thank you for allowing us to participate in your care, it was truly a pleasure having you for our patient!!! Discharge Disposition: HOME SELF-CARE
[2022-05-12] MEDS ORDERED: LORATADINE 10 MG TAB PO SCH (21:00)
[2022-05-12] MEDS ORDERED: ARIPiprazole 10 MG TAB PO SCH (21:00)
== END 2022-05-12 16:25 | disposition home or self-care (01) ==
LOC: EC 20:39 → 6NMEDSUR 23:50
PROVIDERS: ADMIT Internal Medicine; ATTEND Internal Medicine
DX: R07.89 Other chest pain (principal); K29.00 Acute gastritis without bleeding; J45.909 Unspecified asthma, uncomplicated; I48.91 Unspecified atrial fibrillation; I25.2 Old myocardial infarction; I10 Essential (primary) hypertension; F03.90 Unspecified dementia, unspecified severity, without behavioral disturbance, psychotic disturbance, mood disturbance, and anxiety; M79.7 Fibromyalgia; K21.9 Gastro-esophageal reflux disease without esophagitis; G43.909 Migraine, unspecified, not intractable, without status migrainosus; G62.9 Polyneuropathy, unspecified; K52.9 Noninfective gastroenteritis and colitis, unspecified; D50.9 Iron deficiency anemia, unspecified; F41.0 Panic disorder [episodic paroxysmal anxiety]; F32.A Depression, unspecified; G47.33 Obstructive sleep apnea (adult) (pediatric); N32.81 Overactive bladder; E66.9 Obesity, unspecified; Z98.84 Bariatric surgery status; Z79.51 Long term (current) use of inhaled steroids; Z79.899 Other long term (current) drug therapy; Z88.5 Allergy status to narcotic agent; Z88.6 Allergy status to analgesic agent; Z20.822 Contact with and (suspected) exposure to COVID-19
CPT/HCPCS: 96372; 99285; 36415; 94640 ×2; 93005; 93351; 83880; 80053; 82150; 83690; 83735; 84484 ×2; 85025; 85610; 85730; 81001; 87502; 87635; 71046; 71275; 74174; G0378 ×2; J1250; Q9950; Q9967; J1644

== ENCOUNTER → 2022-07-06 | Outpatient (CLI) | payer MEDICARE, OTHER ==
[2022-07-06 23:20] LABS: HCT 42.5 % (37.2-46.3); HGB 13.1 g/dL (12.0-15.0); MCH 28.1 pg (27.0-32.0); MCHC 30.8 g/dL (32.0-37.0); MCV 91.2 fL (80.0-97.0); Mean Platelet Volume 11.2 fL (9.5-12.2); NRBC Per 100 WBC 0 /100 WBCS (0.0-0.0); Platelet Count 269 X 10*3/uL (140-440); RBC 4.66 X 10*6/uL (4.10-5.20); RDW 12.8 % (11.5-14.5); WBC 6.47 X 10*3/uL (4.50-10.00)
[2022-07-06 23:53] LABS: T4, Free (Free Thyroxine) 1.36 ng/dL (0.800-1.800)
== END | disposition home or self-care (01) ==
LOC: LABWHC1 16:22
PROVIDERS: ATTEND Physician Assistant
DX: E03.9 Hypothyroidism, unspecified (principal); R25.1 Tremor, unspecified
CPT/HCPCS: 36415; 82306; 82607; 84439; 84443; 84481; 85027

== ENCOUNTER → 2022-07-17 | Outpatient (CLI) | payer MEDICARE, OTHER ==
--- NOTE | 2022-07-20 08:53 | MM ---
Reason for Exam: Screening (asymptomatic). Last screening mammogram was performed 12 month(s) ago. Patient History: Menarche at age 17. First Full-Term at age 22. Left ovary removed at age 47. Right ovary removed at age 47. Hysterectomy at age 47. Postmenopausal. Estrogen for 1 year, 6 months. 2016, Benign Excisional Biopsy on the right side. Reduction on the Right side. Reduction on the Left side. Risk Values: Melina 5 year model risk: 1.6%. NCI Lifetime model risk: 5.8%. Prior Study Comparison: 10/01/2017 Bilateral Screening Mammogram, [facility]. 10/17/2018 Bilateral Screening Mammogram, [facility]. 07/07/2021 Bilateral Screening Mammogram, [facility]. Tissue Density: There are scattered fibroglandular densities. Findings: Analyzed By CAD. There is no suspicious group of microcalcifications or new suspicious mass in either breast. Benign calcifications within both breasts. Chronic nodularity within the left breast. Postreduction mammoplasty changes. Overall Assessment: Benign, BI-RAD 2 Management: Screening Mammogram of both breasts in 1 year. A clinical breast exam by your physician is recommended on an annual basis and results should be correlated with mammographic findings. Electronically signed and approved by: Travis Costello D.O.
== END | disposition home or self-care (01) ==
LOC: RADMAMWWP 13:39
PROVIDERS: ATTEND Family Medicine
DX: Z12.31 Encounter for screening mammogram for malignant neoplasm of breast (principal); Z78.0 Asymptomatic menopausal state
CPT/HCPCS: 77063; 77067

== ENCOUNTER 2022-08-01 22:51 | Emergency (ER) | payer MEDICARE, OTHER ==
--- NOTE | 2022-08-01 23:37 | XR ---
EXAMINATION TYPE: XR chest 2V DATE OF EXAM: 08/01/2022 COMPARISON: 05/11/2022 HISTORY: Productive cough TECHNIQUE: FINDINGS: Heart is normal. Lungs are clear. Diaphragm is normal. Bony thorax is normal. There is evid ence of hiatal hernia. IMPRESSION: No active cardiopulmonary disease. No adverse change
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
[2022-08-02 00:59] VITALS: BP 110/50; PULSE 80; RESP 18; TEMP 98.4
[2022-08-02] MEDS ORDERED: POLYMYXIN B-TRIMETHOPRIM SULF (10,000-1) OPHTH DROPS 10 ML BTL BOTH EYES SCH (01:15)
== END 2022-08-02 01:28 | disposition home or self-care (01) ==
LOC: EC 22:51
DX: H10.9 Unspecified conjunctivitis (principal); J06.9 Acute upper respiratory infection, unspecified; I48.91 Unspecified atrial fibrillation; I25.2 Old myocardial infarction; M19.90 Unspecified osteoarthritis, unspecified site; F41.9 Anxiety disorder, unspecified; F32.A Depression, unspecified; Z88.7 Allergy status to serum and vaccine; Z91.048 Other nonmedicinal substance allergy status; Z91.038 Other insect allergy status; Z88.5 Allergy status to narcotic agent; Z88.6 Allergy status to analgesic agent; Z79.899 Other long term (current) drug therapy; Z20.822 Contact with and (suspected) exposure to COVID-19
CPT/HCPCS: 71046; 87636; 99284

== ENCOUNTER 2022-12-08 12:16 | Day surgery (SDC) | payer MEDICARE, OTHER ==
[2022-12-08] MEDS ORDERED: ALPRAZolam 0.25 MG TAB PO STA (13:00)
[2022-12-08 14:29] VITALS: RESP 16; TEMP 98.3
[2022-12-08 14:30] VITALS: BP 100/57; PULSE 80
--- NOTE | 2022-12-08 14:44 | US ---
ULTRASOUND GUIDED FNA THYROID BIOPSY: CLINICAL HISTORY: Large left thyroid nodule FINDINGS: The procedure was explained to the patient. The risks, complications, benefits and alternatives were discussed and any questions were answered. Informed consent was obtained. Patient was placed supin e on the ultrasound table and prepped and draped in the usual sterile fashion. Utilizing a 25 gauge needle, five passes were made into the requested left thyroid nodule. Patient was stable throughout the procedure. Pathology is pending. All elements of maximal barrier technique were utilized. IMPRESSION: 1. Successful ultrasound guided FNA thyroid biopsy.
== END 2022-12-08 14:05 | disposition home or self-care (01) ==
LOC: RADPROMAIN 12:16
PROVIDERS: ATTEND Family Medicine
DX: E04.1 Nontoxic single thyroid nodule (principal)
CPT/HCPCS: 10005; 88173; 88305

== ENCOUNTER 2023-02-14 21:46 | Emergency (ER) | payer MEDICARE, OTHER ==
[2023-02-14 21:49] VITALS: TEMP 98.2
[2023-02-14] MEDS ORDERED: SODIUM CHLORIDE 0.9% 1,000 ML IV ONE (22:19)
[2023-02-14] MEDS ORDERED: ONDANSETRON 4 MG/2 ML VIAL IVP STA (22:19)
[2023-02-14 22:49] LABS: Basophils % (A) 0 %; Eosinophils # (A) 0.1 k/uL (0-0.7); Eosinophils % (A) 1 %; HCT 42.3 % (34.0-46.0); Lymphocytes # (A) 0.4 k/uL (1.0-4.8); Lymphocytes % (A) 5 %; MCH 29.5 pg (25.0-35.0); MCHC 33.2 g/dL (31.0-37.0); MCV 88.9 fL (80.0-100.0); Mean Platelet Volume 9.6; Monocytes # (A) 0.5 k/uL (0-1.0); Monocytes % (A) 7 %; Neutrophils # (A) 5.6 k/uL (1.3-7.7); Neutrophils % (A) 83 %; Platelet Count 126 k/uL (150-450); RBC 4.75 m/uL (3.80-5.40); RDW 13.6 % (11.5-15.5); WBC 6.8 k/uL (3.8-10.6)
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
[2023-02-14 23:06] LABS: ALT 21 U/L (4-34); AST 21 U/L (14-36); African American GFR (CKD) 73 (>60 ml/min/1.73 sqM); Albumin 2.9 g/dL (3.5-5.0); Alkaline Phosphatase 123 U/L (38-126); Blood Urea Nitrogen 16 mg/dL (7-17); Calcium 8.6 mg/dL (8.4-10.2); Carbon Dioxide 26 mmol/L (22-30); Glucose 134 mg/dL (74-99); Lipase 15 U/L (23-300); Non-African American GFR(CKD) 64 (>60 ml/min/1.73 sqM); Total Protein 5.5 g/dL (6.3-8.2)
[2023-02-14 23:30] LABS: Anion Gap 6 mmol/L; Chloride 101 mmol/L (98-107); Potassium 4.3 mmol/L (3.5-5.1); Sodium 133 mmol/L (137-145)
[2023-02-14 23:43] LABS: Appearance,Urine Cloudy (Clear); Bacteria,Urine Moderate /hpf; Bilirubin,Urine Negative (Negative); Blood,Urine Trace (Negative); Glucose,Urine (UA) Negative (Negative); Ketones,Urine Negative (Negative); Leukocyte Esterase,Urine Large (Negative); Mucus,Urine Rare /hpf; Nitrite,Urine Negative (Negative); PH, Urine 6.5 (5.0-8.0); Protein,Urine 1+ (Negative); RBC,Urine 4 /hpf (0-5); Specific Gravity,Urine 1.013 (1.001-1.035); Squamous Epithelial Cell,Urine 4 /hpf (0-4); WBC,Urine >182 /hpf (0-5)
[2023-02-14 23:45] LABS: Color,Urine Yellow
[2023-02-15] MEDS ORDERED: CEPHALEXIN 500 MG CAP PO STA (00:04)
[2023-02-15 00:23] VITALS: BP 111/69; PULSE 109; RESP 22
== END 2023-02-15 00:38 | disposition home or self-care (01) ==
LOC: EC 21:46
DX: N39.0 Urinary tract infection, site not specified (principal); E86.0 Dehydration; R11.2 Nausea with vomiting, unspecified; I10 Essential (primary) hypertension; I25.2 Old myocardial infarction; I48.91 Unspecified atrial fibrillation; G47.30 Sleep apnea, unspecified; J45.909 Unspecified asthma, uncomplicated; K21.9 Gastro-esophageal reflux disease without esophagitis; M19.90 Unspecified osteoarthritis, unspecified site; F41.9 Anxiety disorder, unspecified; F32.A Depression, unspecified; Z79.51 Long term (current) use of inhaled steroids; Z79.899 Other long term (current) drug therapy; Z88.5 Allergy status to narcotic agent; Z88.7 Allergy status to serum and vaccine; Z88.8 Allergy status to other drugs, medicaments and biological substances
CPT/HCPCS: 36415; 80053; 83690; 83735; 85025; 81001; 99284; 96374; 96361; J2405

== ENCOUNTER 2023-04-21 17:47 | Emergency (ER) | payer MEDICARE, OTHER ==
[2023-04-21 18:01] VITALS: RESP 18
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
--- NOTE | 2023-04-21 19:00 | XR ---
EXAMINATION TYPE: XR ribs LT w pa chest xray DATE OF EXAM: 04/21/2023 CLINICAL HISTORY: Fall injury TECHNIQUE: Single frontal view of the chest is obtained. A frontal and oblique images of the left-pelon ed ribs. COMPARISON: Chest x-ray August 01, 2022 FINDINGS: There is no suspicious new focal air space opacity, pleural effusion, or pneumothorax seen . The cardiac silhouette size is stable and within normal limits. The osseous structures are intac t. Bilateral overlying metallic nipple elements are present. Dedicated images of the left-sided ribs show no acute displaced fracture. Demineralization is present which is noted to lower radiographic sensitivity. IMPRESSION: 1. No acute cardiopulmonary process. 2. No acute displaced left-sided rib fractures are seen.
[2023-04-21 20:06] VITALS: BP 102/64; PULSE 77; TEMP 97.7
== END 2023-04-21 19:55 | disposition home or self-care (01) ==
LOC: EC 17:47
DX: S20.212A Contusion of left front wall of thorax, initial encounter (principal); I48.91 Unspecified atrial fibrillation; M19.90 Unspecified osteoarthritis, unspecified site; I25.2 Old myocardial infarction; F41.9 Anxiety disorder, unspecified; F32.A Depression, unspecified; Z88.7 Allergy status to serum and vaccine; Z88.5 Allergy status to narcotic agent; Z91.038 Other insect allergy status; Z88.6 Allergy status to analgesic agent; Z88.8 Allergy status to other drugs, medicaments and biological substances; Z79.51 Long term (current) use of inhaled steroids; Z79.899 Other long term (current) drug therapy; W01.0XXA Fall on same level from slipping, tripping and stumbling without subsequent striking against object, initial encounter
CPT/HCPCS: 99285

== ENCOUNTER 2023-05-28 20:41 | Emergency (ER) | payer MEDICARE, OTHER ==
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
[2023-05-28 21:24] VITALS: BP 144/83; PULSE 111; RESP 20; TEMP 98.5
== END 2023-05-28 22:16 | disposition home or self-care (01) ==
LOC: EC 20:41
DX: Z48.00 Encounter for change or removal of nonsurgical wound dressing (principal); I48.91 Unspecified atrial fibrillation; I25.2 Old myocardial infarction; K21.9 Gastro-esophageal reflux disease without esophagitis; M19.90 Unspecified osteoarthritis, unspecified site; J45.909 Unspecified asthma, uncomplicated; F32.A Depression, unspecified; F41.9 Anxiety disorder, unspecified; Z88.7 Allergy status to serum and vaccine; Z88.5 Allergy status to narcotic agent; Z88.6 Allergy status to analgesic agent; Z88.8 Allergy status to other drugs, medicaments and biological substances; Z79.51 Long term (current) use of inhaled steroids; Z79.899 Other long term (current) drug therapy; Z90.49 Acquired absence of other specified parts of digestive tract
CPT/HCPCS: 99283

== ENCOUNTER → 2023-07-26 | Outpatient (CLI) | payer MEDICARE ==
--- NOTE | 2023-07-27 08:21 | MM ---
Reason for Exam: Screening (asymptomatic). Last screening mammogram was performed 12 month(s) ago. Patient History: Menarche at age 17. First Full-Term at age 22. Left ovary removed at age 47. Right ovary removed at age 47. Hysterectomy at age 47. Postmenopausal. Estrogen for 1 year, 6 months. 2016, Benign Excisional Biopsy on the right side. Reduction on the Right side. Reduction on the Left side. Daughter had ovarian cancer, age 38. Risk Values: Melina 5 year model risk: 1.6%. NCI Lifetime model risk: 5.6%. Prior Study Comparison: 10/17/2018 Bilateral Screening Mammogram, [facility]. 07/07/2021 Bilateral Screening Mammogram, [facility]. 07/17/2022 Bilateral MG 3D screening mammo w/cad, [facility]. Tissue Density: There are scattered fibroglandular densities. Findings: Analyzed By CAD. There is no suspicious group of microcalcifications or new suspicious mass in either breast. Overall Assessment: Negative, BI-RAD 1 Management: Screening Mammogram of both breasts in 1 year. . Patient should continue monthly self-breast exams. A clinical breast exam by your physician is recommended on an annual basis. This exam should not preclude additional follow-up of suspicious palpable abnormalities. Note on Melina scores and lifetime risk: 1. A Melina score greater than 3% is considered moderate risk. If this is the case, consider specialist referral to assess eligibility for a risk reducing agent. 2. If overall lifetime risk for the development of breast cancer is 20% or higher, the patient may qualify for future screening with alternating mammogram and breast MRI. Electronically signed and approved by: Jagdish Lainez M.D. Radiologis
== END | disposition home or self-care (01) ==
LOC: RADMAMWWP 13:33
PROVIDERS: ATTEND Family Medicine
DX: Z12.31 Encounter for screening mammogram for malignant neoplasm of breast (principal); Z78.0 Asymptomatic menopausal state
CPT/HCPCS: 77063; 77067

== ENCOUNTER → 2023-10-19 | Outpatient (CLI) | payer MEDICARE ==
--- NOTE | 2023-10-21 08:34 | US ---
EXAMINATION TYPE: US thyroid st tissue head/neck DATE OF EXAM: 10/19/2023 COMPARISON: 11/03/2022 CLINICAL INDICATION: Female, 68 years old with history of E04.1 NONTOXIC SINGLE THYROID NODULE; f/u GLAND SIZE: Right Lobe: 3.9 x 1.0 x 1.7 cm Overall Parenchyma: homogeneous Left Lobe: 4.8 x 1.3 x 2.6 cm Overall Parenchyma: heterogeneous Isthmus Thickness: 0.4 cm NODULES RIGHT: # of nodules measured on right: 0 LEFT: # of nodules measured on left: 1 1. 3.3 X 2.8 x 2.6 cm, lower, solid or almost completely solid, hypoechoic nodule, which is wider t ramirez tall, with smooth margins, with echogenic foci. Prior size: 3.7 x 3.1 x 2.5 cm ISTHMUS: # of nodules measured in the isthmus: 0 Bilateral neck scanned, no evidence of lymphadenopathy. IMPRESSION: TR5 left thyroid nodule which has grown in the interval from 3.3 x 2.8 x 2.6 cm to 3.7 x 3.1 x 2.5 c m, underwent fine-needle aspiration on 12/08/2022. Correlate with previous biopsy results. Rebiopsy s hould be considered given the interval growth over the past 2 years. 2017 ACR TI-RADS LEVEL: TR 5 *Highest TI-RADS level nodule reported
== END | disposition home or self-care (01) ==
LOC: RADUSWWP 15:05
PROVIDERS: ATTEND Family Medicine
DX: E04.1 Nontoxic single thyroid nodule (principal)
CPT/HCPCS: 76536

== ENCOUNTER 2023-11-11 15:29 | Inpatient (IN) | payer MEDICARE, OTHER ==
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
[2023-11-11 16:24] LABS: Basophils # (A) 0.1 k/uL (0-0.2); Basophils % (A) 1 %; Eosinophils # (A) 0.1 k/uL (0-0.7); Eosinophils % (A) 2 %; HCT 43.2 % (34.0-46.0); HGB 13.7 gm/dL (11.4-16.0); Lymphocytes # (A) 0.9 k/uL (1.0-4.8); Lymphocytes % (A) 16 %; MCH 29.2 pg (25.0-35.0); MCHC 31.8 g/dL (31.0-37.0); Mean Platelet Volume 8.6; Monocytes # (A) 0.2 k/uL (0-1.0); Monocytes % (A) 3 %; Neutrophils # (A) 4.3 k/uL (1.3-7.7); Neutrophils % (A) 77 %; Platelet Count 203 k/uL (150-450); RBC 4.69 m/uL (3.80-5.40); RDW 13.1 % (11.5-15.5); WBC 5.6 k/uL (3.8-10.6)
[2023-11-11 16:32] LABS: INR 0.9 (<1.2); Partial Thromboplastin Time 26.8 sec (22.0-30.0); Prothrombin Time 10.2 sec (10.0-12.5)
[2023-11-11 16:42] LABS: ALT 17 U/L (4-34); AST 22 U/L (14-36); African American GFR (CKD) 86 (>60 ml/min/1.73 sqM); Albumin 3.6 g/dL (3.5-5.0); Alkaline Phosphatase 137 U/L (38-126); Anion Gap 3 mmol/L; Blood Urea Nitrogen 21 mg/dL (7-17); Calcium 8.5 mg/dL (8.4-10.2); Carbon Dioxide 29 mmol/L (22-30); Chloride 103 mmol/L (98-107); Glucose 91 mg/dL (74-99); Non-African American GFR(CKD) 74 (>60 ml/min/1.73 sqM); Potassium 3.8 mmol/L (3.5-5.1); Sodium 135 mmol/L (137-145); Total Bilirubin 0.7 mg/dL (0.2-1.3)
--- NOTE | 2023-11-11 19:01 | CT ---
EXAMINATION TYPE: CT brain wo con DATE OF EXAM: 11/11/2023 HISTORY: dizziness, numbness right side of face. CT DLP: 1205.4 mGycm. Automated Exposure Control for Dose Reduction was Utilized. TECHNIQUE: CT scan of the head is performed without contrast. COMPARISON: CT 06/22/2020 FINDINGS: There is no skull fracture, intracranial hemorrhage, mass, or mass effect. No definite new attenuation defect. No extra-axial fluid collection. The orbits are unremarkable. Paranasal sinuses and middle ear cavities and mastoid sinus air cells ar e clear. IMPRESSION: No acute process.
--- NOTE | 2023-11-11 19:03 | XR ---
EXAMINATION: XR chest 2V: 11/11/2023 6:53 PM CLINICAL INDICATION: burning sensation to thoracic back TECHNIQUE: Departmental protocol COMPARISON: 04/21/2023 FINDINGS: The lungs are clear. The pleural spaces are negative. The cardiac silhouette is not enlarged. The skeletal structures and soft tissues are negative for acute findings. IMPRESSION: No acute radiographic process.
--- NOTE | 2023-11-11 19:44 | CT ---
EXAMINATION TYPE: CT angio head neck 11/11/2023 HISTORY: dizziness, numbness right side of face. TECHNIQUE: CTA scan of the head and neck is performed with IV Contrast, patient injected with 65ml mL of Isovue 370, axial images are obtained, coronal and sagittal reformatted images are reviewed. 3D r econstructed images are created on an independent workstation and reviewed. Total DLP: 1132.4 mGycm. Automated Exposure Control for Dose Reduction was Utilized. Comparison: CT brain without contrast 11/11/2023 Findings: NECT CTA: The bilateral carotid and vertebral artery systems are widely patent. There is no hemodynam ically significant stenosis, dissection, or aneurysm. Venous structures are unremarkable. Incidental finding: Left thyroid hypodense nodules are noted, which can be characterized with thyroid ultrasound. BRAIN CTA: Anterior arterial circulation and the posterior arterial circulation are widely patent, wi thout hemodynamically significant stenosis, dissection, or aneurysm. Dural venous sinuses are unremar kable IMPRESSION: No significant vascular abnormality is seen. NASCET criteria was used in interpretation of this exam?
[2023-11-11] MEDS ORDERED: NALOXONE 0.4 MG/ML 1 ML VIAL IV PRN (19:50)
[2023-11-11] MEDS: ASPIRIN 81 MG PO STA (19:58)
[2023-11-11] MEDS: SODIUM CHLORIDE 0.9% 1,000 ML IV SCH (19:59)
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
[2023-11-12] MEDS: CLOPIDOGREL 75 MG TAB PO SCH (15:19)
[2023-11-12] MEDS: ASPIRIN 81 MG PO SCH (15:20)
--- NOTE | 2023-11-12 18:09 | CA ---
Transthoracic Echo Report Name: Henna Merino Age: 68 Gender: F : 1955 Exam Date: 11/12/2023 14:24 Exam Location: [facility] Ht (in): 68 Wt (lb): 314 Ordering Physician: Jhon Campos MD Attending/Referring Phys: Furnace Cleaner Monserrat Villeda RDCS Procedure CPT: Indications: recurrent TIA Cardiac Hx: Technical Quality: Fair Contrast 1: Agitated Saline Total Dose (mL): 9 Contrast 2: Total Dose (mL): MEASUREMENTS (Male / Female) Normal Values 2D ECHO LV Diastolic Diameter PLAX 4.5 cm 4.2 - 5.9 / 3.9 - 5.3 cm LV Systolic Diameter PLAX 2.7 cm IVS Diastolic Thickness 1.1 cm 0.6 - 1.0 / 0.6 - 0.9 cm LVPW Diastolic Thickness 1.2 cm 0.6 - 1.0 / 0.6 - 0.9 cm LV Relative Wall Thickness 0.5 RV Internal Dim ED PLAX 3.0 cm LA Systolic Diameter LX 2.1 cm 3.0 - 4.0 / 2.7 - 3.8 cm LA Volume 54.1 cm??? 18 - 58 / 22 - 52 cm??? LA Volume Index 20.1 cm???/m??? 16 - 28 cm???/m??? M-MODE Aortic Root Diameter MM 3.4 cm MV E Point Septal Separation 0.4 cm AV Cusp Separation MM 2.4 cm DOPPLER AV Peak Velocity 125.8 cm/s AV Peak Gradient 6.3 mmHg MV Area PHT 3.6 cm??? Mitral E Point Velocity 62.4 cm/s Mitral A Point Velocity 92.2 cm/s Mitral E to A Ratio 0.7 MV Deceleration Time 212.9 ms TR Peak Velocity 249.8 cm/s TR Peak Gradient 25.0 mmHg Right Ventricular Systolic Press 29.4 mmHg FINDINGS Left Ventricle Left ventricular ejection fraction is estimated at 55-60 %. Left ventricular cavity size normal. Normal left ventricular systolic function with no obvious regional wall motion abnormalities. Mildly increased left ventricular wall thickness. Right Ventricle Normal right ventricular size. Right ventricular systolic pressure within normal limits. Right Atrium Normal right atrial size. Negative agitated saline bubble study for right to left shunt. Left Atrium Mildly increased left atrial volume. Mildly increased left atrial area. Mitral Valve Structurally normal mitral valve. No mitral stenosis, regurgitation or prolapse. Aortic Valve Trileaflet aortic valve. No aortic valve stenosis or regurgitation. Tricuspid Valve Structurally normal tricuspid valve. Mild tricuspid regurgitation. Pulmonic Valve Structurally normal pulmonic valve. No pulmonic regurgitation. Pericardium No pericardial or pleural effusion. Aorta Normal size aortic root and proximal ascending aorta. CONCLUSIONS 1. Normal left ventricular size and systolic function 2. No evidence of shunting by bubble study or color Doppler study 3. Mild tricuspid regurgitation with no evidence of pulmonary hypertension Previewed by: Dr. Cam Alvarado MD (Electronically Signed) Final Date: 12 Nov 2023 18:08
[2023-11-13] MEDS ORDERED: ONDANSETRON 4 MG TAB PO PRN (07:00)
[2023-11-13] MEDS ORDERED: ALBUTEROL HFA INHALER INHALATION PRN (07:00)
[2023-11-13] MEDS ORDERED: NAPROXEN 250 MG TAB PO PRN (07:00)
[2023-11-13] MEDS ORDERED: CYCLOBENZAPRINE 10 MG TAB PO PRN (07:00)
[2023-11-13] MEDS ORDERED: Ubrogepant [Ubrelvy] 100 MG Tablet PO PRN (07:00)
[2023-11-13] MEDS ORDERED: DICLOFENAC SODIUM GEL 50 GM TUBE TOPICAL PRN (07:00)
[2023-11-13] MEDS ORDERED: CLOBETASOL PROP 0.05% CR 15GM TOPICAL PRN (07:00)
[2023-11-13] MEDS ORDERED: MECLIZINE 25 MG TAB PO PRN (07:00)
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
[2023-11-13] MEDS: SYMBICORT 160-4.5 MCG INHALER INHALATION SCH (09:12)
[2023-11-13] MEDS: ALBUTEROL NEBULIZED 2.5 MG/3 ML INHALATION SCH (09:12)
[2023-11-13] MEDS: CYANOCOBALAMIN 500 MCG TAB PO SCH (09:43)
[2023-11-13] MEDS: PANTOPRAZOLE 40 MG TABLET PO SCH (09:43)
[2023-11-13] MEDS: busPIRone HCl 10 MG TAB PO SCH (09:43)
[2023-11-13] MEDS: FLUTICASONE 50MCG/SPRAY NASAL 16GM EA NOSTRIL SCH (09:43)
[2023-11-13] MEDS: NYSTATIN 100,000UNIT/GM CREAM 30 GM TUBE TOPICAL SCH (09:43)
[2023-11-13] MEDS: CHOLECALCIFEROL 25 MCG (1000 IU) TABLET PO SCH (09:44)
[2023-11-13] MEDS: DULoxetine HCL 60 MG CAPSULE.DR PO SCH (09:44)
[2023-11-13] MEDS: ZINC SULFATE 220 MG CAP PO SCH (09:45)
[2023-11-13] MEDS: FERROUS SULFATE 325 MG TAB PO SCH (09:45)
[2023-11-13 11:03] LABS: Chol/HDL Ratio 2.69 Ratio; LDL Cholesterol,Calculated 99.8 mg/dL (0.0-131.0)
[2023-11-13] MEDS: VITAMIN E (DL,TOCOPHERYL ACET) 400 UNIT (180 MG) CAP PO SCH (12:40)
[2023-11-13] MEDS: OXYBUTYNIN 10 MG TAB.ER.24 PO SCH (12:40)
--- NOTE | 2023-11-13 12:44 | MR ---
EXAMINATION TYPE: MR brain wo con DATE OF EXAM: 11/13/2023 12:24 PM CLINICAL INDICATION:Female, 68 years old with history of Stroke/TIA; PHH, Stroke, TIA COMPARISON: 08/09/2017.. TECHNIQUE: Multi planar, multi sequence imaging was performed through the brain including: T1, T2, In version recovery, Diffusion weighted imaging, and gradient echo imaging. No gadolinium was given. FINDINGS: Mild cerebral atrophy with proportional dilation of ventricular system. Scattered foci of high T2 s ignal intensity are seen within the periventricular white matter. Midline structures show no abnormal ity. Diffusion-weighted imaging shows no evidence of restricted diffusion. The susceptibility weighte d images do not reveal any evidence for micro-hemorrhage. The bone marrow signal is within normal limits. Paranasal sinuses and mastoid air cells: No significant paranasal sinus disease. High T2 signal withi n left mastoid air cells. Visualized orbits: Bilateral aphakia IMPRESSION: 1. No evidence of intracranial mass or acute/subacute infarct. 2. Nonspecific white matter changes, likely secondary to small vessel ischemic disease.
[2023-11-13 12:50] VITALS: TEMP 97.8
[2023-11-13 16:06] VITALS: BP 126/80; RESP 18
[2023-11-13 17:36] VITALS: PULSE 82
--- NOTE | 2023-11-13 19:19 | P.PN ---
Progress Note - Text Progress Note Date: 11/13/23 MRI of the brain revealed no evidence of intracranial mass or acute/subacute infarct. Nonspecific white matter changes, likely secondary to small vessel ischemic disease. 2D echo revealed normal left ventricular size and systolic function. LVEF 55 to 60%. Mildly increased left atrial volume. No evidence of shunting by bubble study or color Doppler study. Mild TR. Lipid panel with cholesterol 183, LDL 99, HDL 68 and triglycerides 76. Clear for discharge on aspirin 81 mg daily, Plavix 75 mg daily for 21 days. Thereafter stop aspirin and continue Plavix indefinitely. Also start Lipitor 20 mg daily. Neurologically clear.
[2023-11-13] MEDS ORDERED: TROSPIUM CHLORIDE 20 MG TABLET PO SCH (21:00)
[2023-11-13] MEDS ORDERED: Mirabegron [Myrbetriq] 50 MG Tab.Er.24h PO SCH (21:00)
[2023-11-13] MEDS ORDERED: ARIPiprazole 10 MG TAB PO SCH (21:00)
[2023-11-13] MEDS ORDERED: ATORVASTATIN 20 MG TAB PO SCH (21:00)
[2023-11-13] MEDS ORDERED: LORATADINE 10 MG TAB PO SCH (21:00)
--- NOTE | 2023-11-14 15:49 | P.DS ---
Providers Date of admission: 11/11/23 19:50 Attending physician: Christine Mcdermott Consults: 11/11/23 19:50 Consult Physician Routine Consulting Provider: Jhon Campos Consult Reason/Comments: stroke like symptoms Do you want consulting provider notified?: Yes Primary care physician: Kamlesh Bolivar Hospital Course: Final Diagnosis Right-sided facial numbness along with blurred vision and episode of dizziness with concerns of possible TIA versus CVA with 2 episodes over 1 day ago History of hypertension Coronary artery disease with previous history of myocardial infarction History of anxiety/depression Fibromyalgia history Overactive bladder with previous history of bladder stimulator Atrial fibrillation history History of COPD, not in exacerbation History of sleep apnea with a CPAP History of dementia Morbid obesity with a BMI of 47.7 Discharge Disposition Patient is stable for discharge home. Patient to follow-up with her known neurologist Dr. Romo 1 to 2 weeks. Patient to repeat blood work in 2 to 3 days. Wanting to discharge on aspirin 20 mg daily as well as aspirin and Plavix together for the next 21 days for primary stroke prevention. After the 21 days patient to can discontinue Plavix and continue on aspirin only. Follow up with PCP Dr. Марина Bolivar in 1 to 2 days. Hospital Course This is a pleasant 68-year-old female who presented to the emergency department with symptoms of having blurry vision with right upper extremity tingling and weakness along with right facial tingling and numbness that happened 1 day prior x 2 episodes. Patient reports she was sitting and became suddenly dizzy and noted blurry vision although briefly subsided patient went on about her day. Patient also experienced another episode later the next day and decided to come to the ER. Patient reports she follows with Dr. Bolivar in the outpatient setting with a past medical history of atrial fibrillation, asthma, chest pain angina, COPD, dementia, fibromyalgia, GERD, liver disease, previous myocardial infarction, musculoskeletal disorder, neurologic disorder, osteoarthritis, sleep apnea with a CPAP, migraines and cluster headaches with colitis and IBS, frequent vertigo, history of bladder stimulator implant. Patient does follow with Dr. Ashley outpatient for neurology. Patient reports prior to coming to the ER she did contact her primary care provider's office who instructed her to come to the ER for further evaluation. Patient underwent CT of the brain showing no acute process, chest x-ray was negative, CT angio showing no significant vascular abnormality and there are some incidental findings of left thyroid hypodense nodules. Patient was admitted for TIA versus CVA with neurology on consult. 2D echo was performed with bubble study which was negative and labs reviewed and within normal limits. Patient underwent brain MRI reveals no evidence of intracranial mass or acute/subacute infarct. There is nonspecific white matter changes, likely secondary to small vessel ischemic disease. Patient has improvement in her neurological symptoms is no longer reporting numbness tingling in the right face and blurry vision has improved. No chest pain or shortness of breath. Neurology recommending statin therapy and antiplatelet therapy on discharge. Please see medication reconciliation for a list of current medications. Thank you for allowing us to participate in the care of this patient. The impression and plan of care has been dictated by Emy Downing Nurse Practitioner as directed. Dr. Vinayak MD I have performed a history and physical examination and medical decision making of this patient, discussed the same with the dictator, and agree with the dictators assessment and plan as written, documented as a scribe. Based on total visit time, I have performed more than 50% of this visit. Patient Condition at Discharge: Fair Plan - Discharge Summary Discharge Rx Participant: Yes New Discharge Prescriptions: New Aspirin 81 mg PO DAILY #30 tab Clopidogrel [Plavix] 75 mg PO DAILY 21 Days #21 tab Atorvastatin [Lipitor] 20 mg PO DAILY #30 tablet Continue EPINEPHrine (Auto Inject) [Epipen] 0.3 mg IM ONCE PRN PRN Reason: Anaphylaxis Cetirizine HCl 10 mg PO HS Furosemide [Lasix] 20 mg PO DAILY DULoxetine HCL [Cymbalta] 120 mg PO DAILY ARIPiprazole [Abilify] 10 mg PO HS Pantoprazole Sodium [Protonix] 40 mg PO BID Tolterodine ER [Detrol LA] 4 mg PO DAILY Nystatin 100,000Unit/gm Cream [Mycostatin Cream] 1 applic TOPICAL TID Budesonide/Formoterol Fumarate [Symbicort 160-4.5 Mcg Inhaler] 2 puff INHALATION RT-BID Cholecalciferol [Vitamin D3 (25 Mcg = 1000 Iu)] 50 mcg PO DAILY Diclofenac Sodium Gel [Voltaren 1% Gel] 4 gm TOPICAL QID PRN PRN Reason: Pain Potassium Chloride ER [K-Dur 10] 10 meq PO DAILY Naproxen [EC-Naprosyn] 500 mg PO BID PRN PRN Reason: Pain Cyanocobalamin [Vitamin B-12 Injection] 1,000 mcg SQ QMONTHLY Clobetasol Propionate [Temovate 0.05% Cream] 1 applic TOPICAL BID PRN PRN Reason: Skin Irritation lisinopriL [Prinivil] 10 mg PO DAILY Solifenacin Succinate [Vesicare] 5 mg PO HS Mirabegron [Myrbetriq] 50 mg PO HS Vitamin E (Dl,Tocopheryl Acet) [Vitamin E (400 Iu = 180 mg)] 400 unit PO DAILY Meclizine [Antivert] 25 mg PO TID PRN PRN Reason: Vertigo Cyanocobalamin [Vitamin B-12] 500 mcg PO DAILY Zinc Gluconate [Zinc] 50 mg PO DAILY Ferrous Sulfate [Iron (65 MG Elemental)] 325 mg PO DAILY Fluticasone Nasal [place] [Flonase Nasal [place]] 2 spr EA NOSTRIL DAILY Albuterol Sulfate [Ventolin HFA] 2 puff INHALATION RT-Q4H PRN PRN Reason: Shortness Of Breath rOPINIRole HCL [Requip] 1 mg PO TID Cyclobenzaprine [Flexeril] 10 mg PO TID PRN PRN Reason: Muscle Spasm Erenumab-Aooe [Aimovig Autoinjector] 140 mg SQ QMONTHLY busPIRone HCL 10 mg PO BID Ubrogepant [Ubrelvy] 100 mg PO DAILY PRN PRN Reason: Migraine Headache Ondansetron [Zofran] 4 mg PO Q6H PRN PRN Reason: Nausea And Vomiting Albuterol Nebulized [Ventolin Nebulized] 2.5 mg INHALATION RT-QID Garlic 1,000 mg PO DAILY Discharge Medication List Cetirizine HCl 10 mg PO HS 11/20/14 [History] EPINEPHrine (Auto Inject) [Epipen] 0.3 mg IM ONCE PRN 11/20/14 [History] Furosemide [Lasix] 20 mg PO DAILY 06/04/16 [History] DULoxetine HCL [Cymbalta] 120 mg PO DAILY 06/19/20 [History] ARIPiprazole [Abilify] 10 mg PO HS 07/10/20 [History] Pantoprazole Sodium [Protonix] 40 mg PO BID 07/10/20 [History] Tolterodine ER [Detrol LA] 4 mg PO DAILY 07/10/20 [History] Nystatin 100,000Unit/gm Cream [Mycostatin Cream] 1 applic TOPICAL TID 02/10/21 [History] Meclizine [Antivert] 25 mg PO TID PRN 03/14/21 [History] Budesonide/Formoterol Fumarate [Symbicort 160-4.5 Mcg Inhaler] 2 puff INHALATION RT-BID 07/18/21 [History] Albuterol Sulfate [Ventolin HFA] 2 puff INHALATION RT-Q4H PRN 05/04/22 [History] Cholecalciferol [Vitamin D3 (25 Mcg = 1000 Iu)] 50 mcg PO DAILY 05/04/22 [History] Cyanocobalamin [Vitamin B-12] 500 mcg PO DAILY 05/04/22 [History] Diclofenac Sodium Gel [Voltaren 1% Gel] 4 gm TOPICAL QID PRN 05/04/22 [History] Ferrous Sulfate [Iron (65 MG Elemental)] 325 mg PO DAILY 05/04/22 [History] Fluticasone Nasal [place] [Flonase Nasal [place]] 2 spr EA NOSTRIL DAILY 05/04/22 [History] Naproxen [EC-Naprosyn] 500 mg PO BID PRN 05/04/22 [History] Potassium Chloride ER [K-Dur 10] 10 meq PO DAILY 05/04/22 [History] Zinc Gluconate [Zinc] 50 mg PO DAILY 05/04/22 [History] rOPINIRole HCL [Requip] 1 mg PO TID 05/04/22 [History] Albuterol Nebulized [Ventolin Nebulized] 2.5 mg INHALATION RT-QID 11/11/23 [History] Clobetasol Propionate [Temovate 0.05% Cream] 1 applic TOPICAL BID PRN 11/11/23 [History] Cyanocobalamin [Vitamin B-12 Injection] 1,000 mcg SQ QMONTHLY 11/11/23 [History] Cyclobenzaprine [Flexeril] 10 mg PO TID PRN 11/11/23 [History] Erenumab-Aooe [Aimovig Autoinjector] 140 mg SQ QMONTHLY 11/11/23 [History] Garlic 1,000 mg PO DAILY 11/11/23 [History] Mirabegron [Myrbetriq] 50 mg PO HS 11/11/23 [History] Ondansetron [Zofran] 4 mg PO Q6H PRN 11/11/23 [History] Solifenacin Succinate [Vesicare] 5 mg PO HS 11/11/23 [History] Ubrogepant [Ubrelvy] 100 mg PO DAILY PRN 11/11/23 [History] Vitamin E (Dl,Tocopheryl Acet) [Vitamin E (400 Iu = 180 mg)] 400 unit PO DAILY 11/11/23 [History] busPIRone HCL 10 mg PO BID 11/11/23 [History] lisinopriL [Prinivil] 10 mg PO DAILY 11/11/23 [History] Aspirin 81 mg PO DAILY #30 tab 11/12/23 [Rx] Clopidogrel [Plavix] 75 mg PO DAILY 21 Days #21 tab 11/12/23 [Rx] Atorvastatin [Lipitor] 20 mg PO DAILY #30 tablet 11/13/23 [Rx] Follow up Appointment(s)/Referral(s): Kamlesh Bolivar DO [Primary Care Provider] - 1-2 days (please call office on wednesday to make appointment ) Mark Ashley MD [Medical Doctor] - 1 Week (please call office on wednesday to make appointment ) Ambulatory/Diagnostic Orders: Basic Metabolic Panel [LAB.AMB] Time Frame: 3 Days, Location: None Selected Activity/Diet/Wound Care/Special Instructions: Continue on aspirin and plavix for 21 days after than stop the plavix and continue only on aspirin Follow up with your neurologist on discharge. Discharge/Stand Alone Forms: Who Do I Call? Discharge Disposition: HOME WITH HOME HEALTH SERVICES
== END 2023-11-13 19:00 | disposition home health service (06) | DRG 69 ==
LOC: EC 15:29 → 3SCARD 19:50
PROVIDERS: ADMIT Hospitalist; ATTEND Hospitalist
DX: I67.82 Cerebral ischemia (principal); Z68.42 Body mass index [BMI] 45.0-49.9, adult; E66.01 Morbid (severe) obesity due to excess calories; I10 Essential (primary) hypertension; I25.10 Atherosclerotic heart disease of native coronary artery without angina pectoris; F32.A Depression, unspecified; F41.0 Panic disorder [episodic paroxysmal anxiety]; I48.91 Unspecified atrial fibrillation; M79.7 Fibromyalgia; R29.810 Facial weakness; N32.81 Overactive bladder; J44.9 Chronic obstructive pulmonary disease, unspecified; Z79.02 Long term (current) use of antithrombotics/antiplatelets; Z79.51 Long term (current) use of inhaled steroids; Z79.82 Long term (current) use of aspirin; Z79.899 Other long term (current) drug therapy; Z80.41 Family history of malignant neoplasm of ovary; Z90.710 Acquired absence of both cervix and uterus; Z96.653 Presence of artificial knee joint, bilateral; Z98.84 Bariatric surgery status; Z90.49 Acquired absence of other specified parts of digestive tract; Z87.19 Personal history of other diseases of the digestive system
CPT/HCPCS: 36415; 70450; 70496; 70498; 70551; 71046; 80053; 80061; 83036; 84484; 85025; 85610; 85730; 93005; 93306; 94640; 99285

== ENCOUNTER → 2023-11-17 | Outpatient (CLI) | payer MEDICARE ==
[2023-11-17 13:34] VITALS: BP 120/79; PULSE 91; RESP 16; TEMP 98.1; BMI 51.0
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
[2023-11-17 14:38] LABS: INR 0.9 (<1.2); Partial Thromboplastin Time 28.1 sec (22.0-30.0)
[2023-11-17 18:34] LABS: MCH 28.6 pg (27.0-32.0); MCV 92.5 FL (80.0-97.0); Mean Platelet Volume 11.4 FL (9.5-12.2); NRBC Per 100 WBC 0 X 10*3/uL (0.00-0.01); Platelet Count 207 X 10*3/uL (140-440); RBC 4.54 X 10*6/uL (4.10-5.20); RDW 13.1 % (11.5-14.5); WBC 6.13 X 10*3/uL (4.50-10.00)
[2023-11-17 21:55] LABS: Prealbumin 17.3 mg/dL (18.0-42.0)
[2023-11-17 22:23] LABS: Chol/HDL Ratio 1.68 Ratio
[2023-11-17 22:24] LABS: ALT 16 U/L (8-44); AST 19 U/L (13-35); Albumin 4.2 g/dL (3.8-4.9); Alkaline Phosphatase 141 U/L (41-126); BUN/Creat Ratio 17.11 Ratio (12.00-20.00); Blood Urea Nitrogen 15.4 mg/dL (9.0-27.0); Calcium 9.1 mg/dL (8.7-10.3); Carbon Dioxide 27.3 mmol/L (21.6-31.8); Chloride 105 mmol/L (96-109); Ferritin 98.5 ng/mL (10.0-291.0); Glucose 94 mg/dL (70-110); Iron 39 UG/DL (50-170); LDL Cholesterol,Calculated 40.7 mg/dL (0.0-131.0); Potassium 4.1 mmol/L (3.5-5.5); Sodium 144 mmol/L (135-145); Total Bilirubin 0.5 mg/dL (0.3-1.2); Total Iron Binding Capacity 342 UG/DL (228-460); Total Protein 6.2 g/dL (6.2-8.2)
[2023-11-18 00:54] LABS: Phosphorus 3.6 mg/dL (2.4-5.1)
[2023-11-18 14:58] LABS: Zinc, Serum 106 ug/dL (60-130)
[2023-11-19 10:09] LABS: Vitamin A 39 ug/dL (38-106)
[2023-11-21 08:21] LABS: Selenium 88 mcg/L (63-160)
[2023-11-23 06:55] LABS: Vit B1(Thiamine) 51 ug/L (38-122)
== END | disposition home or self-care (01) ==
LOC: BARWHC3 12:11
PROVIDERS: ATTEND Surgery Plastic and Reconstructive Surgery
DX: E66.01 Morbid (severe) obesity due to excess calories (principal); E89.1 Postprocedural hypoinsulinemia; K90.89 Other intestinal malabsorption; D50.8 Other iron deficiency anemias; E55.9 Vitamin D deficiency, unspecified; K74.1 Hepatic sclerosis; N19 Unspecified kidney failure; T56.894A Toxic effect of other metals, undetermined, initial encounter; K50.90 Crohn's disease, unspecified, without complications; K21.9 Gastro-esophageal reflux disease without esophagitis; K95.89 Other complications of other bariatric procedure; J44.9 Chronic obstructive pulmonary disease, unspecified; M79.3 Panniculitis, unspecified; F32.A Depression, unspecified; K91.1 Postgastric surgery syndromes; G89.4 Chronic pain syndrome; I11.9 Hypertensive heart disease without heart failure; M79.7 Fibromyalgia; R19.7 Diarrhea, unspecified; K44.9 Diaphragmatic hernia without obstruction or gangrene; E60 Dietary zinc deficiency; R13.10 Dysphagia, unspecified; R10.30 Lower abdominal pain, unspecified; K25.9 Gastric ulcer, unspecified as acute or chronic, without hemorrhage or perforation; Z98.890 Other specified postprocedural states; Z90.49 Acquired absence of other specified parts of digestive tract; Z91.018 Allergy to other foods; Z90.3 Acquired absence of stomach [part of]; Z98.84 Bariatric surgery status; Z68.43 Body mass index [BMI] 50.0-59.9, adult; Z79.899 Other long term (current) drug therapy; Z88.5 Allergy status to narcotic agent; Z88.6 Allergy status to analgesic agent; Z88.7 Allergy status to serum and vaccine; Z91.038 Other insect allergy status; Z91.048 Other nonmedicinal substance allergy status; Z79.51 Long term (current) use of inhaled steroids
CPT/HCPCS: 80053; 80061; 82306; 82525; 82607; 82728; 82746; 83036; 83540; 83550; 83735; 83970; 84100; 84134; 84255; 84425; 84443; 84590; 84630; 85027; 85610; 85730; 99211

== ENCOUNTER → 2023-12-10 | Outpatient (CLI) | payer MEDICARE ==
--- NOTE | 2023-12-12 17:19 | US ---
EXAMINATION TYPE: US carotid duplex BILAT DATE OF EXAM: 12/10/2023 COMPARISON: CTA 11/11/23 CLINICAL INDICATION: Female, 68 years old with history of G45.9 TRANSIENT CEREBRAL ISCHEMIC ATTACK, U NSPECIF; TIAs TECHNIQUE: Carotid duplex ultrasound examination. Indirect Doppler criteria was utilized. FINDINGS: EXAM MEASUREMENTS: RIGHT: Peak Systolic Velocity (PSV) cm/sec ----- Right CCA: 93.8 ----- Right ICA: 91.9 ----- Right ECA: 72.5 ICA/CCA ratio: 1.0 RIGHT: End Diastole cm/sec ----- Right CCA: 31.2 ----- Right ICA: 24.1 ----- Right ECA: 7.9 LEFT: Peak Systolic Velocity (PSV) cm/sec ----- Left CCA: 88.7 ----- Left ICA: 85.5 ----- Left ECA: 85.5 ICA/CCA ratio: 1.0 LEFT: End Diastole cm/sec ----- Left CCA: 30.5 ----- Left ICA: 27.3 ----- Left ECA: 12.8 VERTEBRALS (direction of flow): Right Vertebral: Antegrade Left Vertebral: Antegrade Rhythm: Normal IT DESKTOP SUPPORT TECHNICIAN NOTES: no elevated velocities, ratios, signs of stenosis, or significant plaque noted IMPRESSION: No ultrasound evidence for hemodynamically significant stenosis of the bilateral visualized carotid a rterial systems. Criteria for Assigning % of Stenosis / Diameter reduction (Estimation based on the indirect measurements of the internal carotid artery velocities (ICA PSV). 1. Normal (no stenosis)=ICA PSV < 125 cm/s: ratio < 2.0: ICA EDV<40 cm/s. 2. Less than 50% stenosis=ICA PSV < 125 cm/s: ratio < 2.0: ICA EDV<40 cm/s. 3. 50 to 69% stenosis=ICA PSV of 125 to 230 cm/s: ration 2.0 ? 4.0: ICA EDV 40-100 cm/s. 4. Greater than 70% stenosis to near occlusion= ICA PSV > 230 cm/s: ratio > 4.0: ICA EDV > 100 cm/s. 5. Near occlusion= ICA PSV velocities may be low or undetectable: variable ratio and ICA EDV. 6. Total occlusion=unable to detect flow.
== END | disposition home or self-care (01) ==
LOC: RADUSWWP 12:42
PROVIDERS: ATTEND Family Medicine
DX: G45.9 Transient cerebral ischemic attack, unspecified (principal)
CPT/HCPCS: 93880

== ENCOUNTER 2024-01-16 12:05 | Observation (INO) | payer MEDICARE, OTHER ==
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
[2024-01-16 13:01] LABS: Basophils % (A) 0 %; Eosinophils # (A) 0.1 k/uL (0-0.7); Eosinophils % (A) 2 %; HCT 38.6 % (34.0-46.0); HGB 12.6 gm/dL (11.4-16.0); Lymphocytes # (A) 0.7 k/uL (1.0-4.8); Lymphocytes % (A) 13 %; MCHC 32.7 g/dL (31.0-37.0); MCV 91.6 fL (80.0-100.0); Mean Platelet Volume 7.5; Monocytes # (A) 0.2 k/uL (0-1.0); Monocytes % (A) 4 %; Neutrophils # (A) 4.2 k/uL (1.3-7.7); Neutrophils % (A) 79 %; Platelet Count 200 k/uL (150-450); RBC 4.21 m/uL (3.80-5.40); RDW 14.3 % (11.5-15.5); WBC 5.3 k/uL (3.8-10.6)
[2024-01-16 13:10] LABS: INR 0.9 (<1.2); Partial Thromboplastin Time 26.3 sec (22.0-30.0); Prothrombin Time 10.3 sec (10.0-12.5)
[2024-01-16 13:15] LABS: ALT 31 U/L (4-34); AST 45 U/L (14-36); African American GFR (CKD) >90 (>60 ml/min/1.73 sqM); Albumin 3.6 g/dL (3.5-5.0); Alkaline Phosphatase 97 U/L (38-126); Anion Gap 6 mmol/L; Blood Urea Nitrogen 22 mg/dL (7-17); Calcium 8.6 mg/dL (8.4-10.2); Carbon Dioxide 25 mmol/L (22-30); Chloride 108 mmol/L (98-107); Glucose 86 mg/dL (74-99); Non-African American GFR(CKD) 86 (>60 ml/min/1.73 sqM); Sodium 139 mmol/L (137-145); Total Bilirubin 1.1 mg/dL (0.2-1.3); Total Protein 5.7 g/dL (6.3-8.2)
[2024-01-16 13:24] LABS: NT-Pro-B-Type Natriuretic Pept 105 pg/mL
--- NOTE | 2024-01-16 13:55 | US ---
EXAMINATION TYPE: US venous doppler duplex LE RT DATE OF EXAM: 01/16/2024 12:47 PM COMPARISON: NONE CLINICAL INDICATION: Female, 68 years old with history of foot swelling; No redness. Not on blood th inners. No hx DVT. No injury. SIDE PERFORMED: Right TECHNIQUE: The lower extremity deep venous system is examined utilizing real time linear array sonog [place] with graded compression, doppler sonography and color-flow sonography. VESSELS IMAGED: Common Femoral Vein Deep Femoral Vein Greater Saphenous Vein * Femoral Vein Popliteal Vein Small Saphenous Vein * Proximal Calf Veins (* superficial vessels) Right Leg: Negative for DVT IMPRESSION: Grayscale, color doppler, spectral doppler imaging performed of the deep veins of the lo wer extremities. There is normal flow, compressibility, vascular waveforms.
--- NOTE | 2024-01-16 14:01 | XR ---
EXAMINATION TYPE: XR chest 2V DATE OF EXAM: 01/16/2024 1:44 PM CLINICAL INDICATION:Female, 68 years old with history of Chest Pain; [facility] COMPARISON: Chest radiographs from 11/11/2023 TECHNIQUE: XR chest 2V Frontal view of the chest. FINDINGS: Lungs/Pleura: There is no evidence of pleural effusion, focal consolidation, or pneumothorax. Pulmonary vascularity: Unremarkable. Heart/mediastinum: Cardiomediastinal silhouette is unremarkable. Musculoskeletal: No acute osseous pathology. IMPRESSION: No acute cardiopulmonary disease/process.
[2024-01-16] MEDS ORDERED: ONDANSETRON 4 MG/2 ML VIAL IVP PRN (15:17)
[2024-01-16] MEDS ORDERED: ACETAMINOPHEN TAB 325 MG TAB PO PRN (15:17)
[2024-01-16] MEDS ORDERED: NALOXONE 0.4 MG/ML 1 ML VIAL IV PRN (15:17)
[2024-01-16] MEDS ORDERED: CYCLOBENZAPRINE 10 MG TAB PO PRN (16:37)
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
[2024-01-16] MEDS: PANTOPRAZOLE 40 MG TABLET PO SCH (18:50)
[2024-01-16] MEDS: ALBUTEROL NEBULIZED 2.5 MG/3 ML INHALATION SCH (19:39)
[2024-01-16] MEDS: SYMBICORT 160-4.5 MCG INHALER INHALATION SCH (19:39)
[2024-01-16] MEDS: NON FORMULARY DRUG (Mirabegron [Myrbetriq] 50 MG Tab.Er.24h) PO SCH (22:09)
[2024-01-16] MEDS: busPIRone HCl 10 MG TAB PO SCH (22:30)
[2024-01-16] MEDS: TROSPIUM CHLORIDE 20 MG TABLET PO SCH (22:30)
[2024-01-16] MEDS: ASPIRIN 81 MG PO SCH (22:30)
[2024-01-16] MEDS: GABAPENTIN 300 MG CAP PO SCH (22:30)
[2024-01-16] MEDS: LORATADINE 10 MG TAB PO SCH (22:30)
[2024-01-16] MEDS: ARIPiprazole 10 MG TAB PO SCH (22:30)
[2024-01-17 07:09] VITALS: RESP 16
[2024-01-17] MEDS ORDERED: DOBUTamine DRIP for NUC MED 500 MG in DEXTROSE/WATER 1 250ML.BAG IV PRN (08:00)
[2024-01-17] MEDS ORDERED: DOBUTamine DRIP for NUC MED 500 MG/250 ML BAG IV ONE (08:00)
[2024-01-17] MEDS: FLUTICASONE NASAL 50MCG/SPRAY 16GM BTL EA NOSTRIL SCH (08:12)
[2024-01-17] MEDS: CYANOCOBALAMIN 500 MCG TAB PO SCH (08:13)
[2024-01-17] MEDS: ATORVASTATIN 20 MG TAB PO SCH (08:13)
[2024-01-17] MEDS: FERROUS SULFATE 325 MG TAB PO SCH (08:13)
[2024-01-17] MEDS: POTASSIUM CHLORIDE ER 10 MEQ TAB.ER.PRT PO SCH (08:13)
[2024-01-17] MEDS: FUROSEMIDE 40 MG TAB PO SCH (08:13)
[2024-01-17] MEDS: CHOLECALCIFEROL 25 MCG (1000 IU) TABLET PO SCH (08:13)
[2024-01-17] MEDS: DULoxetine HCL 60 MG CAPSULE.DR PO SCH (08:14)
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
--- NOTE | 2024-01-17 11:06 | CA ---
Transthoracic Echo Report Name: Henna Merino Age: 68 Gender: F : 1955 Exam Date: 01/17/2024 08:31 Exam Location: [facility] Ht (in): 68 Wt (lb): 300 Ordering Physician: Zhang Santacruz MD ([id number]) Attending/Referring Phys: Noam SOLIMAN Elementary Math Tutor Kelly Pantoja RDCS Procedure CPT: Indications: Chest Pain Cardiac Hx: Technical Quality: Poor Contrast 1: Total Dose (mL): Contrast 2: Total Dose (mL): MEASUREMENTS (Male / Female) Normal Values 2D ECHO LV Diastolic Diameter PLAX 4.2 cm 4.2 - 5.9 / 3.9 - 5.3 cm LV Systolic Diameter PLAX 2.4 cm IVS Diastolic Thickness 1.8 cm 0.6 - 1.0 / 0.6 - 0.9 cm LVPW Diastolic Thickness 1.2 cm 0.6 - 1.0 / 0.6 - 0.9 cm LV Relative Wall Thickness 0.7 DOPPLER TR Peak Velocity 324.4 cm/s TR Peak Gradient 42.1 mmHg Right Ventricular Systolic Press 47.1 mmHg FINDINGS Left Ventricle Moderately increased left ventricular wall thickness. Left ventricular cavity size normal. Normal left ventricular systolic function with no obvious regional wall motion abnormalities. Left ventricular ejection fraction is estimated at 55 %. Right Ventricle Right Atrium Left Atrium Mitral Valve Aortic Valve Tricuspid Valve Pulmonic Valve Pericardium No pericardial effusion. Aorta CONCLUSIONS Normal LV systolic function Previewed by: Dr. Zhang Santacruz MD (Electronically Signed) Final Date: 17 January 2024 11:05
[2024-01-17 15:09] VITALS: BP 113/76; PULSE 100; TEMP 98.6
--- NOTE | 2024-01-17 16:59 | CA ---
Dobutamine Stress Echocardiogram Report Henna Merino Age: 68 Gender: F : 1955 Exam Date: 01/17/2024 11:54 Exam Location: [place] Ordering Physician: Zhang Santacruz MD Referring Physician: PEYTON, National Business Director: KATIE, Technologist: Ht (in): 58 Wt (lb): 300 Procedure CPT: Indication: Chest Pain ICD-9 Codes: Rhythm: Patient History: History of ASCAD, hypertension and angina Cardiac Medications: Medications in past 24 hours: Contrast: Definity Total Dose (mL): 2 Stress Results Protocol: Dobutamine Peak Dose (???g/kg/min): 30 Duration (min:sec): Atropine:(mg) Target HR: 130 Double Product: [id number] Resting HR: 92 Resting BP: 115 / 71 Peak HR: 136 Peak BP: 213 / 102 Max Predicted HR: 153 89 % Max Predicted HR Stress Summary: BP Response: Reason for Termination: Target HR Cardiac Symptoms: NO SYMPTOMS ECG Analysis Resting EKG: Normal sinus rhythm normal axis normal intervals Stress EKG: Patient was given intravenous dobutamine at 9 minutes as per protocol achieving 85% of predicted maximal heart rate Arrhythmia: Echo Analysis Base Echo Analysis: Normal left ventricular size wall motion systolic function Low Echo Anaylsis: Normal Peak Echo Analysis: Normal hyperdynamic response Recovery Echo: Normal MEASUREMENTS (Male/Female) Normal Values CONCLUSIONS Negative dobutamine stress echo Dr. Zhang Santacruz MD (Electronically Signed) Final Date: 17 January 2024 16:58
--- NOTE | 2024-01-20 06:37 | P.DS ---
Providers Date of admission: 01/16/24 16:30 Expected date of discharge: 01/17/24 Attending physician: Christine Mcdermott Consults: 01/16/24 15:17 Consult Physician Urgent Consulting Provider: [place] Paula Consult Reason/Comments: chest pain Do you want consulting provider notified?: Yes Primary care physician: Kamlesh Bolivar [facility] Course: Final diagnosis 1. Chest pain ruled out acute coronary syndrome, stress test was negative 2. Mild transaminitis; likely related to statin therapy; trending down 3. Morbid obesity 4. COPD; not in exacerbation 5. Vitamin D and vitamin B12 deficiency 6. Bipolar depression/panic disorder GI prophylaxis DVT prophylaxis; SCD CODE STATUS; full code Discharge disposition Patient is being discharged in a stable condition with guarded prognosis to home. Patient will follow-up with Dr. Bolivar in the outpatient setting upon discharge. Patient is to continue with current medications and outpatient follow-up with cardiology as scheduled. Total time taken is greater than 35 minutes. Hospital course This is a 68-year-old female who was recently admitted with chest pain, ruled out ACS. Cardiology recommending stress testing which was negative and has been cleared for discharge. Patient instructed to follow-up with primary care provider on discharge. Patient also concerned that she has a follow-up appointment with general surgery. Instructed to keep the appointment and call the office. Patient reports to feeling improved and would like to go home. Please refer to other consultation notes for further HPI. Currently no reports of chest pain, shortness of breath, or palpitations. Patient is afebrile. No reports of nausea or vomiting and patient is tolerating diet. Patient will be discharged home today. Guarded prognosis. Physical exam: Gen: This is a 68-year-old female who is awake and alert oriented x 3, well- developed, well-nourished, morbidly obese HEENT: Head is atraumatic, normocephalic. Pupils equal, round. Sclerae is anicteric. NECK: Supple. No JVD. No lymphadenopathy. No thyromegaly. LUNGS: Clear to auscultation. No wheezes or rhonchi. No intercostal retractions. HEART: Regular rate and rhythm. No murmur. ABDOMEN: Soft. Obese. Bowel sounds are present. No masses. No tenderness. EXTREMITIES: No pedal edema. No calf tenderness. NEUROLOGICAL: Patient is awake, alert and oriented x3. Cranial nerves 2 through 12 are grossly intact. Please refer to medication reconciliation sheet for a list of medications. The impression and plan of care has been dictated by Sobeida Whelan, Nurse Practitioner as directed. Dr. Vinayak MD I have performed a history and examination and MDM of this patient, discussed the same with the dictator, and agree with the dictator's assessment and plan as written ,documented as a scribe. Based on total visit time, I have performed more than 50% of the visit. Patient Condition at Discharge: Stable Plan - Discharge Summary Discharge Rx Participant: No New Discharge Prescriptions: Continue EPINEPHrine (Auto Inject) [Epipen] 0.3 mg IM ONCE PRN PRN Reason: Anaphylaxis Cetirizine HCl 10 mg PO HS Furosemide [Lasix] 40 mg PO DAILY DULoxetine HCL [Cymbalta] 120 mg PO DAILY ARIPiprazole [Abilify] 10 mg PO HS Pantoprazole Sodium [Protonix] 40 mg PO BID Nystatin 100,000Unit/gm Cream [Mycostatin Cream] 1 applic TOPICAL TID Budesonide/Formoterol Fumarate [Symbicort 160-4.5 Mcg Inhaler] 2 puff INHALATION RT-BID Cholecalciferol [Vitamin D3 (25 Mcg = 1000 Iu)] 50 mcg PO DAILY Diclofenac Sodium Gel [Voltaren 1% Gel] 4 gm TOPICAL QID PRN PRN Reason: Pain Potassium Chloride ER [K-Dur 10] 10 meq PO DAILY Naproxen [EC-Naprosyn] 500 mg PO BID PRN PRN Reason: Pain Cyanocobalamin [Vitamin B-12 Injection] 1,000 mcg SQ Q30D Clobetasol Propionate [Temovate 0.05% Cream] 1 applic TOPICAL BID PRN PRN Reason: Skin Irritation Solifenacin Succinate [Vesicare] 5 mg PO HS Mirabegron [Myrbetriq] 50 mg PO HS Vitamin E (Dl,Tocopheryl Acet) [Vitamin E (400 Iu = 180 mg)] 400 unit PO DAILY Atorvastatin [Lipitor] 20 mg PO DAILY #30 tablet Nitroglycerin Sl Tabs [Nitrostat] 0.4 mg SL Q5M PRN PRN Reason: Chest Pain Meclizine [Antivert] 25 mg PO TID PRN PRN Reason: Vertigo Cyanocobalamin [Vitamin B-12] 500 mcg PO DAILY Zinc Gluconate [Zinc] 50 mg PO DAILY Ferrous Sulfate [Iron (65 MG Elemental)] 325 mg PO DAILY Fluticasone Nasal [place] [Flonase Nasal [place]] 2 spr EA NOSTRIL DAILY Albuterol Sulfate [Ventolin HFA] 2 puff INHALATION RT-Q4H PRN PRN Reason: Shortness Of Breath rOPINIRole HCL [Requip] 1 mg PO TID Cyclobenzaprine [Flexeril] 10 mg PO TID PRN PRN Reason: Muscle Spasm Erenumab-Aooe [Aimovig Autoinjector] 140 mg SQ Q30D busPIRone HCL 10 mg PO BID Ubrogepant [Ubrelvy] 100 mg PO DAILY PRN PRN Reason: Migraine Headache Ondansetron [Zofran] 4 mg PO Q6H PRN PRN Reason: Nausea And Vomiting Albuterol Nebulized [Ventolin Nebulized] 2.5 mg INHALATION TID Garlic 1,000 mg PO DAILY Gabapentin [Neurontin] 300 mg PO TID Aspirin 81 mg PO HS Discharge Medication List Cetirizine HCl 10 mg PO HS 11/20/14 [History] EPINEPHrine (Auto Inject) [Epipen] 0.3 mg IM ONCE PRN 11/20/14 [History] Furosemide [Lasix] 40 mg PO DAILY 06/04/16 [History] DULoxetine HCL [Cymbalta] 120 mg PO DAILY 06/19/20 [History] ARIPiprazole [Abilify] 10 mg PO HS 07/10/20 [History] Pantoprazole Sodium [Protonix] 40 mg PO BID 07/10/20 [History] Nystatin 100,000Unit/gm Cream [Mycostatin Cream] 1 applic TOPICAL TID 02/10/21 [History] Meclizine [Antivert] 25 mg PO TID PRN 03/14/21 [History] Budesonide/Formoterol Fumarate [Symbicort 160-4.5 Mcg Inhaler] 2 puff INHALATION RT-BID 07/18/21 [History] Albuterol Sulfate [Ventolin HFA] 2 puff INHALATION RT-Q4H PRN 05/04/22 [History] Cholecalciferol [Vitamin D3 (25 Mcg = 1000 Iu)] 50 mcg PO DAILY 05/04/22 [History] Cyanocobalamin [Vitamin B-12] 500 mcg PO DAILY 05/04/22 [History] Diclofenac Sodium Gel [Voltaren 1% Gel] 4 gm TOPICAL QID PRN 05/04/22 [History] Ferrous Sulfate [Iron (65 MG Elemental)] 325 mg PO DAILY 05/04/22 [History] Fluticasone Nasal [place] [Flonase Nasal [place]] 2 spr EA NOSTRIL DAILY 05/04/22 [History] Naproxen [EC-Naprosyn] 500 mg PO BID PRN 05/04/22 [History] Potassium Chloride ER [K-Dur 10] 10 meq PO DAILY 05/04/22 [History] Zinc Gluconate [Zinc] 50 mg PO DAILY 05/04/22 [History] rOPINIRole HCL [Requip] 1 mg PO TID 05/04/22 [History] Albuterol Nebulized [Ventolin Nebulized] 2.5 mg INHALATION TID 11/11/23 [History] Clobetasol Propionate [Temovate 0.05% Cream] 1 applic TOPICAL BID PRN 11/11/23 [History] Cyanocobalamin [Vitamin B-12 Injection] 1,000 mcg SQ Q30D 11/11/23 [History] Cyclobenzaprine [Flexeril] 10 mg PO TID PRN 11/11/23 [History] Erenumab-Aooe [Aimovig Autoinjector] 140 mg SQ Q30D 11/11/23 [History] Garlic 1,000 mg PO DAILY 11/11/23 [History] Mirabegron [Myrbetriq] 50 mg PO HS 11/11/23 [History] Ondansetron [Zofran] 4 mg PO Q6H PRN 11/11/23 [History] Solifenacin Succinate [Vesicare] 5 mg PO HS 11/11/23 [History] Ubrogepant [Ubrelvy] 100 mg PO DAILY PRN 11/11/23 [History] Vitamin E (Dl,Tocopheryl Acet) [Vitamin E (400 Iu = 180 mg)] 400 unit PO DAILY 11/11/23 [History] busPIRone HCL 10 mg PO BID 11/11/23 [History] Atorvastatin [Lipitor] 20 mg PO DAILY #30 tablet 11/13/23 [Rx] Aspirin 81 mg PO HS 01/16/24 [History] Gabapentin [Neurontin] 300 mg PO TID 01/16/24 [History] Nitroglycerin Sl Tabs [Nitrostat] 0.4 mg SL Q5M PRN 01/16/24 [History] Follow up Appointment(s)/Referral(s): Kamlesh Bolivar DO [Primary Care Provider] - 1-2 days Alesia Beyer DPM [STAFF PHYSICIAN] - 1 Week Patient Instructions/Handouts: Chest Pain (DC) Activity/Diet/Wound Care/Special Instructions: activity limited until follow-up Follow-up with primary care provider on discharge Follow-up with cardiology outpatient Continue taking medications as prescribed Follow-up podiatry outpatient Continue with Compound W to the areas as discussed and duct tape Discharge Disposition: HOME SELF-CARE
== END 2024-01-17 17:49 | disposition home or self-care (01) ==
LOC: EC 12:05 → 6NMEDSUR 16:30
PROVIDERS: ADMIT Hospitalist; ATTEND Hospitalist
DX: R07.89 Other chest pain (principal); R06.02 Shortness of breath; I11.0 Hypertensive heart disease with heart failure; I50.9 Heart failure, unspecified; E78.5 Hyperlipidemia, unspecified; G47.33 Obstructive sleep apnea (adult) (pediatric); I48.91 Unspecified atrial fibrillation; J44.9 Chronic obstructive pulmonary disease, unspecified; F03.90 Unspecified dementia, unspecified severity, without behavioral disturbance, psychotic disturbance, mood disturbance, and anxiety; R74.01 Elevation of levels of liver transaminase levels; K21.9 Gastro-esophageal reflux disease without esophagitis; E53.8 Deficiency of other specified B group vitamins; E55.9 Vitamin D deficiency, unspecified; F31.30 Bipolar disorder, current episode depressed, mild or moderate severity, unspecified; F41.0 Panic disorder [episodic paroxysmal anxiety]; I25.2 Old myocardial infarction; E66.01 Morbid (severe) obesity due to excess calories; Z68.42 Body mass index [BMI] 45.0-49.9, adult; Z86.73 Personal history of transient ischemic attack (TIA), and cerebral infarction without residual deficits; Z79.51 Long term (current) use of inhaled steroids; Z79.82 Long term (current) use of aspirin; Z79.899 Other long term (current) drug therapy; Z88.5 Allergy status to narcotic agent; Z88.6 Allergy status to analgesic agent
CPT/HCPCS: 99285; 36415; 94640 ×3; 93005; 93308; 93351; 83880; 80053; 83735; 84484; 85025; 85610; 85730; 71046; 93971; G0378 ×2; J1250; Q9957

== ENCOUNTER → 2024-04-08 | Outpatient (CLI) | payer MEDICARE, OTHER ==
[2024-04-08 23:11] LABS: Basophils # (A) 0.05 X 10*3/uL (0.00-0.10); Eosinophils # (A) 0.07 X 10*3/uL (0.04-0.35); Eosinophils % (A) 1.4 %; HCT 43.3 % (37.2-46.3); HGB 13.4 g/dL (12.0-15.0); Lymphocytes # (A) 0.86 X 10*3/uL (0.90-5.00); Lymphocytes % (A) 17.3 %; MCH 29.1 pg (27.0-32.0); MCHC 30.9 g/dL (32.0-37.0); MCV 93.9 FL (80.0-97.0); Mean Platelet Volume 11.4 FL (9.5-12.2); Monocytes # (A) 0.33 X 10*3/uL (0.20-1.00); Monocytes % (A) 6.6 %; NRBC Per 100 WBC 0 X 10*3/uL (0.00-0.01); Neutrophils # (A) 3.66 X 10*3/uL (1.80-7.70); Neutrophils % (A) 73.5 %; Platelet Count 242 X 10*3/uL (140-440); RBC 4.61 X 10*6/uL (4.10-5.20); RDW 13.6 % (11.5-14.5); WBC 4.98 X 10*3/uL (4.50-10.00)
[2024-04-08 23:29] LABS: ALT 25 U/L (8-44); AST 21 U/L (13-35); Albumin 3.9 g/dL (3.8-4.9); Albumin/Globulin Ratio 1.95 Ratio (1.60-3.17); Alkaline Phosphatase 109 U/L (41-126); BUN/Creat Ratio 11.75 Ratio (12.00-20.00); Blood Urea Nitrogen 9.4 mg/dL (9.0-27.0); Calcium 8.6 mg/dL (8.7-10.3); Carbon Dioxide 29.1 mmol/L (21.6-31.8); Chloride 106 mmol/L (96-109); Glucose 76 mg/dL (70-110); Potassium 3.9 mmol/L (3.5-5.5); Sodium 146 mmol/L (135-145); Total Bilirubin 0.5 mg/dL (0.3-1.2); Total Protein 5.9 g/dL (6.2-8.2)
== END | disposition home or self-care (01) ==
LOC: LABPAT 11:02
PROVIDERS: ATTEND Surgery Plastic and Reconstructive Surgery
DX: Z01.812 Encounter for preprocedural laboratory examination (principal)
CPT/HCPCS: 80053; 85025; 86850; 86900; 86901

== ENCOUNTER 2024-04-10 05:52 | Day surgery (SDC) | payer MEDICARE, OTHER ==
[~2024-04-10 05:52] MED LIST changes: -ACETAMINOPHEN TAB 500 MG TAB PO PRN; -DEXAMETHASONE SOD PHOSPHATE 4 MG/ML 1 ML VIAL IV ONE; -GABAPENTIN 300 MG CAP PO PRN; -MELOXICAM 7.5 MG TAB PO PRN; -MIDAZOLAM 2 MG/2 ML VIAL IV PRN; -ONDANSETRON 4 MG/2 ML VIAL IVP ONE; -ONDANSETRON 4 MG/2 ML VIAL IVP PRN; +Pre Op ABX Message 1 EACH MISC MISCELLANE ONE; -TRANEXAMIC ACID 1,000 MG in SODIUM CHLORIDE 0.9% 100 ML IVPB PRN; -VANCOMYCIN 2,000 MG in SODIUM CHLORIDE 0.9% 500 ML 500 ML IVPB PRN; -fentaNYL (PF) 50 MCG/ML 2 ML AMP IV PRN
[2024-04-10] MEDS ORDERED: MIDAZOLAM 2 MG/2 ML VIAL IV PRN (06:43)
[2024-04-10] MEDS ORDERED: LIDOCAINE 1% (10MG/ML) FOR IV START INTRADERMA PRN (06:43)
[2024-04-10] MEDS ORDERED: fentaNYL (PF) 50 MCG/ML 2 ML AMP IVP PRN (06:43)
[2024-04-10] MEDS: IV FLUID CONTINUATION 1,000 ML IV ONE (06:45)
[2024-04-10] MEDS: LACTATED RINGERS 1,000 ML IV SCH (06:59)
[2024-04-10 07:10] VITALS: TEMP 97
[2024-04-10 07:10] LABS: Basophils % (A) 1 %; Eosinophils # (A) 0.1 k/uL (0-0.7); Eosinophils % (A) 2 %; HCT 45.1 % (34.0-46.0); HGB 14.2 gm/dL (11.4-16.0); Lymphocytes # (A) 0.9 k/uL (1.0-4.8); Lymphocytes % (A) 14 %; MCHC 31.5 g/dL (31.0-37.0); MCV 92.2 fL (80.0-100.0); Monocytes # (A) 0.2 k/uL (0-1.0); Monocytes % (A) 4 %; Neutrophils # (A) 4.8 k/uL (1.3-7.7); Neutrophils % (A) 77 %; Platelet Count 266 k/uL (150-450); RBC 4.89 m/uL (3.80-5.40); RDW 13.6 % (11.5-15.5); WBC 6.2 k/uL (3.8-10.6)
[2024-04-10] MEDS: ONDANSETRON 4 MG/2 ML VIAL IVP ONE (07:20)
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
[2024-04-10] MEDS ORDERED: HEPARIN SODIUM,PORCINE 5,000 UNIT/ML 1 ML VIAL SQ STA (07:21)
[2024-04-10] MEDS: DEXAMETHASONE SOD PHOSPHATE 4 MG/ML 1 ML VIAL IV ONE (07:21)
[2024-04-10] MEDS: HEPARIN SODIUM,PORCINE 5,000 UNIT/ML 1 ML VIAL SQ STA (07:21)
[2024-04-10 07:25] LABS: ALT 25 U/L (4-34); African American GFR (CKD) >90 (>60 ml/min/1.73 sqM); Anion Gap 5 mmol/L; Blood Urea Nitrogen 14 mg/dL (7-17); Calcium 8.9 mg/dL (8.4-10.2); Carbon Dioxide 29 mmol/L (22-30); Chloride 107 mmol/L (98-107); Glucose 93 mg/dL (74-99); Non-African American GFR(CKD) >90 (>60 ml/min/1.73 sqM); Sodium 141 mmol/L (137-145)
[2024-04-10] MEDS ORDERED: fentaNYL (PF) 50 MCG/ML 2 ML AMP ONE (07:25)
[2024-04-10] MEDS ORDERED: GLYCOPYRROLATE 0.2 MG/ML 2 ML VIAL ONE (07:25)
[2024-04-10] MEDS ORDERED: SUGAMMADEX SODIUM 200 MG/2 ML SDV IV ONE (07:25)
[2024-04-10] MEDS ORDERED: MIDAZOLAM 2 MG/2 ML VIAL ONE (07:25)
[2024-04-10] MEDS ORDERED: LIDOCAINE 1% INJ 10MG/ML (20 ML MDV) ONE (07:25)
[2024-04-10] MEDS ORDERED: ROCURONIUM 10 MG/ML (5 ML VIAL) IV ONE (07:25)
[2024-04-10] MEDS ORDERED: ALBUTEROL HFA INHALER INHALATION ONE (07:25)
[2024-04-10] MEDS ORDERED: SUCCINYLCHOLINE CHLORIDE 200 MG/10 ML VIAL IV ONE (07:25)
[2024-04-10] MEDS ORDERED: ACETAMINOPHEN IV (For NPO) 1,000 MG/100 ML VIAL ONE (07:25)
[2024-04-10] MEDS ORDERED: PROPOFOL 10 MG/ML 20 ML VIAL IV ONE (07:25)
[2024-04-10] MEDS ORDERED: KETOROLAC 15 MG/ML 1 ML VIAL ONE (07:25)
[2024-04-10] MEDS: ceFAZolin 1,000 MG VIAL IVPB ONE (07:30)
[2024-04-10 07:31] LABS: AST 42 U/L (14-36); Albumin 3.9 g/dL (3.5-5.0); Alkaline Phosphatase 93 U/L (38-126); Potassium 4.9 mmol/L (3.5-5.1); Total Bilirubin 1.2 mg/dL (0.2-1.3); Total Protein 6.6 g/dL (6.3-8.2)
[2024-04-10] MEDS: LIDOCAINE 1%-EPI 1:100,000 20 ML VIAL SQ ONE (07:54)
--- NOTE | 2024-04-10 09:40 | P.OP ---
Date of Procedure: 04/10/24 Description of Procedure: SURGEON: DAMIEN FARIAS MD WILLOW ANALYST: Linette Genao PREOPERATIVE DIAGNOSES: 1. Intractable abdominal pain due to adhesions 2. Status post gastric bypass 3. Morbid obesity due to excess calories, Body mass index 66.4 down to 51.3 4. Gastroesophageal reflux disease 5. Status post abdominoplasty 6. Chronic obstructive pulmonary disease 7. Multiple drug allergies 8. Depressive disorder 9. Dumping syndrome 10. Food allergies 11. Chronic pain syndrome 12. Fibromyalgia 13. Hypertensive heart disease 14. Diarrhea post cholecystectomy 15. Weight gain following bariatric procedure POSTOPERATIVE DIAGNOSES: 1. Intractable abdominal pain due to adhesions 2. Status post gastric bypass 3. Morbid obesity due to excess calories, Body mass index 66.4 down to 51.3 4. Gastroesophageal reflux disease 5. Status post abdominoplasty 6. Chronic obstructive pulmonary disease 7. Multiple drug allergies 8. Depressive disorder 9. Dumping syndrome 10. Food allergies 11. Chronic pain syndrome 12. Fibromyalgia 13. Hypertensive heart disease 14. Diarrhea post cholecystectomy 15. Diffuse intra-abdominal adhesions 16. Interloop adhesions OPERATION: 1. Robotic-assisted da Annie Xi laparoscopic with extensive lysis of adhesions over 1 hr ESTIMATED BLOOD LOSS: 5 mL. SPECIMENS REMOVED: None. COMPLICATIONS: None. OPERATIVE FINDINGS: 1. Previous ventral hernia repair lower abdomen with omentum adherent 2. Peritoneal adhesions along the midline including pelvis 3. Interloop adhesions left upper quadrant at site of pain lysed 4. Presence of retrocolic retrogastric gastric bypass 5. Normal terminal ileum and cecum unremarkable. INDICATIONS: The patient is a 68-year-old female who presents with epigastric abdominal pain including left upper quadrant abdominal pain. Surgical intervention with diagnostic laparoscopy, lysis of adhesions were described. Informed consent was obtained. Robotic assisted laparoscopic approach was described. Benefits and risks of the procedure including but not limited to bleeding, infection, injury to the small bowel was described. Informed consent was obtained. DESCRIPTION OF PROCEDURE: Patient was brought to the operating room, placed in supine position. After general induction, the abdomen had been prepped and draped in standard sterile fashion. The robotic da Annie XI system was primed. After a timeout protocol was performed, the patient had been prepped and draped in standard sterile fashion. The robot was docked along the right lateral abdomen. The patient was repositioned in with right side up. Please note prior to docking of the robot; however, a 5 mm 0 degrees laparoscopic trocar entry was performed along the left upper quadrant. The abdomen was insufflated to 15 mmHg pressure which she tolerated well. Diagnostic laparoscopy was performed with moderate intra- abdominal adhesions identified. Next, three 8 mm robotic ports were placed along the left lateral abdominal wall after exchanging the 5 mm laparoscopic trocar. The camera 8-mm port was maintained along mid-lateral abdomen. Please note that the ports were placed at least 10 to 15 cm away from the target anatomy. Instruments including graspers and vessel sealer were interchanged by the clerical dentist assistant. I had sat at the console. Moderate intra-abdominal omental to abdominal wall adhesions were identified requiring initial lysis of adhesions using scissors with cautery to address the midline adhesions. Lysis of adhesions for takedown of omentum to abdominal wall occurred for over 75% of the case. Once all adhesions were addressed including of the midline and lower pelvis, a retracted mesh of the pelvis abdominal wall was found and released from the omentum. Prior abdominal midline sutures were identified and disrupted from patient's right regain. Interloop adhesions of the small bowel to the retroperitoneum was found on left upper quadrant and lysed using vessel sealer. The small bowel was investigated from the terminal ileum to the ligament of Treitz with finding of a retrocolic retrogastric gastric bypass. No herniation of bowel was found. The terminal ileum and cecum was unremarkable. Extensive lysis of adhesions up to 1 hr was performed. The small bowel was viable.The robot was undocked. All pneumoperitoneum instruments were evacuated from the abdominal cavity. The incisions were reapproximated using 4-0 Monocryl in an interrupted subcuticular fashion. Please note along the trocar sites, local anesthetic was placed as a field block prior to insertion of all instruments. Dermabond was applied to the skin. At the end of the procedure needle, sponge, and instrument count had been verified correct by the surgical elastic knitter. The patient was transferred to postanesthesia care unit in stable condition. Plan - Discharge Summary Discharge Rx Participant: No New Discharge Prescriptions: New Acetaminophen Tab [Tylenol Tab] 1,000 mg PO Q6HR PRN #30 tablet PRN Reason: Pain Simethicone [Gas-X] 125 mg PO AC-TID PRN #20 capsule PRN Reason: Pain Continue EPINEPHrine (Auto Inject) [Epipen] 0.3 mg IM ONCE PRN PRN Reason: Anaphylaxis Furosemide [Lasix] 40 mg PO DAILY DULoxetine HCL [Cymbalta] 120 mg PO DAILY ARIPiprazole [Abilify] 10 mg PO HS Pantoprazole Sodium [Protonix] 40 mg PO BID Cholecalciferol [Vitamin D3 (25 Mcg = 1000 Iu)] 50 mcg PO DAILY Diclofenac Sodium Gel [Voltaren 1% Gel] 4 gm TOPICAL QID PRN PRN Reason: Pain Potassium Chloride ER [K-Dur 10] 10 meq PO DAILY Cyanocobalamin [Vitamin B-12 Injection] 1,000 mcg SQ Q30D Clobetasol Propionate [Temovate 0.05% Cream] 1 applic TOPICAL BID PRN PRN Reason: Skin Irritation Solifenacin Succinate [Vesicare] 5 mg PO HS Mirabegron [Myrbetriq] 50 mg PO HS Vitamin E (Dl,Tocopheryl Acet) [Vitamin E (400 Iu = 180 mg)] 400 unit PO DAILY Atorvastatin [Lipitor] 20 mg PO DAILY #30 tablet Nitroglycerin Sl Tabs [Nitrostat] 0.4 mg SL Q5M PRN PRN Reason: Chest Pain Meclizine [Antivert] 25 mg PO TID PRN PRN Reason: Vertigo Cyanocobalamin [Vitamin B-12] 500 mcg PO DAILY Zinc Gluconate [Zinc] 50 mg PO DAILY Ferrous Sulfate [Iron (65 MG Elemental)] 325 mg PO DAILY Fluticasone Nasal [place] [Flonase Nasal [place]] 2 spr EA NOSTRIL DAILY Albuterol Sulfate [Ventolin HFA] 2 puff INHALATION RT-Q4H PRN PRN Reason: Shortness Of Breath Cyclobenzaprine [Flexeril] 10 mg PO TID PRN PRN Reason: Muscle Spasm Erenumab-Aooe [Aimovig Autoinjector] 140 mg SQ Q30D busPIRone HCL 10 mg PO BID Ubrogepant [Ubrelvy] 100 mg PO DAILY PRN PRN Reason: Migraine Headache Albuterol Nebulized [Ventolin Nebulized] 2.5 mg INHALATION TID Garlic 1,000 mg PO DAILY Gabapentin [Neurontin] 300 mg PO TID Aspirin 81 mg PO HS Fluticasone/Umeclidin/Vilanter [Trelegy Ellipta 200-62.5-25] 1 puff INHALATION DIRECTED Discontinued Nystatin 100,000Unit/gm Cream [Mycostatin Cream] 1 applic TOPICAL TID Naproxen [EC-Naprosyn] 500 mg PO BID PRN PRN Reason: Pain Discharge Medication List EPINEPHrine (Auto Inject) [Epipen] 0.3 mg IM ONCE PRN 11/20/14 [History] Furosemide [Lasix] 40 mg PO DAILY 06/04/16 [History] DULoxetine HCL [Cymbalta] 120 mg PO DAILY 06/19/20 [History] ARIPiprazole [Abilify] 10 mg PO HS 07/10/20 [History] Pantoprazole Sodium [Protonix] 40 mg PO BID 07/10/20 [History] Meclizine [Antivert] 25 mg PO TID PRN 03/14/21 [History] Albuterol Sulfate [Ventolin HFA] 2 puff INHALATION RT-Q4H PRN 05/04/22 [History] Cholecalciferol [Vitamin D3 (25 Mcg = 1000 Iu)] 50 mcg PO DAILY 05/04/22 [History] Cyanocobalamin [Vitamin B-12] 500 mcg PO DAILY 05/04/22 [History] Diclofenac Sodium Gel [Voltaren 1% Gel] 4 gm TOPICAL QID PRN 05/04/22 [History] Ferrous Sulfate [Iron (65 MG Elemental)] 325 mg PO DAILY 05/04/22 [History] Fluticasone Nasal [place] [Flonase Nasal [place]] 2 spr EA NOSTRIL DAILY 05/04/22 [History] Potassium Chloride ER [K-Dur 10] 10 meq PO DAILY 05/04/22 [History] Zinc Gluconate [Zinc] 50 mg PO DAILY 05/04/22 [History] Albuterol Nebulized [Ventolin Nebulized] 2.5 mg INHALATION TID 11/11/23 [History] Clobetasol Propionate [Temovate 0.05% Cream] 1 applic TOPICAL BID PRN 11/11/23 [History] Cyanocobalamin [Vitamin B-12 Injection] 1,000 mcg SQ Q30D 11/11/23 [History] Cyclobenzaprine [Flexeril] 10 mg PO TID PRN 11/11/23 [History] Erenumab-Aooe [Aimovig Autoinjector] 140 mg SQ Q30D 11/11/23 [History] Garlic 1,000 mg PO DAILY 11/11/23 [History] Mirabegron [Myrbetriq] 50 mg PO HS 11/11/23 [History] Solifenacin Succinate [Vesicare] 5 mg PO HS 11/11/23 [History] Ubrogepant [Ubrelvy] 100 mg PO DAILY PRN 11/11/23 [History] Vitamin E (Dl,Tocopheryl Acet) [Vitamin E (400 Iu = 180 mg)] 400 unit PO DAILY 11/11/23 [History] busPIRone HCL 10 mg PO BID 11/11/23 [History] Atorvastatin [Lipitor] 20 mg PO DAILY #30 tablet 11/13/23 [Rx] Aspirin 81 mg PO HS 01/16/24 [History] Gabapentin [Neurontin] 300 mg PO TID 01/16/24 [History] Nitroglycerin Sl Tabs [Nitrostat] 0.4 mg SL Q5M PRN 01/16/24 [History] Fluticasone/Umeclidin/Vilanter [Trelegy Ellipta 200-62.5-25] 1 puff INHALATION DIRECTED 04/04/24 [History] Acetaminophen Tab [Tylenol Tab] 1,000 mg PO Q6HR PRN #30 tablet 04/10/24 [Rx] Simethicone [Gas-X] 125 mg PO AC-TID PRN #20 capsule 04/10/24 [Rx] Follow up [facility]ment(s[facility] [facility] [place] [place] - 04/12/24 3:00 pm Patient Instructions/Handouts: Lysis of Abdominal Adhesions (DC) Activity/Diet/Wound Care/Special Instructions: NO LONG DRIVES OR AIRPLANE RIDES OVER 60 MINUTES, Apr 24, FOR THE NEXT 2 WEEKS DUE TO HIGH RISK OF PULMONARY EMBOLISM/DVTs May drive in 72 hrs, 04/13/24 No lifting over 10 pounds in 2 weeks until Apr 24 May shower. No bath tub soaks for two weeks until Apr 24 Diet as tolerated. Use Tylenol, simethicone scheduled for the next 24-48 hours for best pain relief. Use ice along incisions for today to prevent swelling. Discharge Disposition: HOME SELF-CARE
[2024-04-10 10:06] VITALS: RESP 18
[2024-04-10 10:18] VITALS: BP 114/70; PULSE 82
== END 2024-04-10 10:40 | disposition home or self-care (01) ==
LOC: OR 05:52
PROVIDERS: ATTEND Surgery Plastic and Reconstructive Surgery
CPT/HCPCS: 80053; 85025

== ENCOUNTER → 2024-04-14 | Outpatient (CLI) | payer MEDICARE, OTHER ==
[2024-04-14 10:43] VITALS: BP 104/82; PULSE 112; TEMP 97.8; BMI 52.4
== END ==
LOC: BARWHC3 09:33
PROVIDERS: ATTEND Surgery Plastic and Reconstructive Surgery
DX: E66.01 Morbid (severe) obesity due to excess calories (principal); Z68.43 Body mass index [BMI] 50.0-59.9, adult; Z88.5 Allergy status to narcotic agent; Z88.6 Allergy status to analgesic agent; Z88.1 Allergy status to other antibiotic agents; Z88.7 Allergy status to serum and vaccine; Z91.038 Other insect allergy status; Z88.8 Allergy status to other drugs, medicaments and biological substances
CPT/HCPCS: 99211

== ENCOUNTER → 2024-04-26 | Outpatient (CLI) | payer MEDICARE, OTHER ==
--- NOTE | 2024-04-26 23:24 | NM ---
EXAMINATION TYPE: NM DatScan Brain SPECT DATE OF EXAM: 04/26/2024 COMPARISON: NONE CLINICAL INDICATION: Female, 68 years old with history of R25.1 TREMOR; TECHNIQUE: 10 drops of Lugol's solution was administered 1 hour prior to injection as a thyroid bloc ulysses agent. After the administration of 4.28 mCi I-123 Ioflupane DaTscan. Images obtained 3 hours p ost injection. SPECT images of the brain were acquired with axial and coronal reconstructions. FINDINGS: There is diminished radiotracer uptake to the right aspect of the striatum with right-sided blunting. This indicates loss of the presynaptic dopaminergic terminal cyst IMPRESSION: This indicates the loss of the pre-synaptic dopaminergic terminals and is usually supportive of a cli nical diagnosis of either idiopathic PD or PS. [facility], , 04/26/2024 11:22 PM
== END | disposition home or self-care (01) ==
LOC: RADNMMAIN 10:38
PROVIDERS: ATTEND Psychiatry & Neurology Neurology
DX: R25.1 Tremor, unspecified (principal)
CPT/HCPCS: 78803

== ENCOUNTER 2024-05-01 12:24 | Emergency (ER) | payer MEDICARE, OTHER ==
[2024-05-01 12:53] VITALS: RESP 18; TEMP 97.8
--- NOTE | 2024-05-01 14:05 | XR ---
EXAMINATION TYPE: XR chest 2V DATE OF EXAM: 05/01/2024 1:32 PM COMPARISON: 01/16/2024 CLINICAL INDICATION: Female, 68 years old with history of shortness of breath, TECHNIQUE: XR chest 2V view(s) obtained. FINDINGS: The heart size is normal. The pulmonary vasculature is normal. The lungs are clear. IMPRESSION: 1. No acute pulmonary process. [facility], , 05/01/2024 2:02 PM
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
[2024-05-01 15:04] VITALS: BP 136/78; PULSE 82
== END 2024-05-01 15:04 | disposition home or self-care (01) ==
LOC: EC 12:24
DX: J06.9 Acute upper respiratory infection, unspecified (principal); Z86.73 Personal history of transient ischemic attack (TIA), and cerebral infarction without residual deficits; Z88.5 Allergy status to narcotic agent; Z88.7 Allergy status to serum and vaccine; Z88.8 Allergy status to other drugs, medicaments and biological substances; Z91.038 Other insect allergy status
CPT/HCPCS: 71046; 87636; 99283

== ENCOUNTER 2024-06-30 22:02 | Emergency (ER) | payer MEDICARE, OTHER ==
[2024-06-30 22:10] VITALS: TEMP 97.5
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
--- NOTE | 2024-07-01 03:05 | US ---
EXAM: US Duplex Right Lower Extremity Veins CLINICAL HISTORY: ITS.REASON US Reason: calf and groin pain TECHNIQUE: Real-time duplex ultrasound scan of the right lower extremity veins integrating B-mode two-dimensional vascular structure, Doppler spectral analysis, color flow Doppler imaging and compression. COMPARISON: No relevant prior studies available. FINDINGS: Deep veins: No DVT in the visualized common femoral, femoral, proximal deep femoral or popliteal veins. The veins demonstrate normal color flow, are normally compressible, with normal phasic flow and/or augmentation response. Superficial veins: No thrombus in the visualized great saphenous vein. Soft tissues: No popliteal cyst. IMPRESSION: No DVT.
[2024-07-01] MEDS: HYDROcodone/APAP 7.5-325MG 1 EACH TAB PO ONE (03:54)
[2024-07-01 04:05] VITALS: BP 101/72; PULSE 78; RESP 17
== END 2024-07-01 04:05 | disposition home or self-care (01) ==
LOC: EC 22:02
DX: M79.604 Pain in right leg (principal); Z86.73 Personal history of transient ischemic attack (TIA), and cerebral infarction without residual deficits; Z88.7 Allergy status to serum and vaccine; Z88.5 Allergy status to narcotic agent; Z91.038 Other insect allergy status; Z88.8 Allergy status to other drugs, medicaments and biological substances
CPT/HCPCS: 99283

== ENCOUNTER 2024-07-21 11:54 | Inpatient (IN) | payer MEDICARE, OTHER ==
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
--- NOTE | 2024-07-21 12:45 | XR ---
EXAMINATION TYPE: XR chest 2V DATE OF EXAM: 07/21/2024 12:35 PM COMPARISON: Chest x-ray May 01, 2024 CLINICAL INDICATION: Female, 69 years old with history of dysrhythmia, TECHNIQUE: Frontal and lateral views of the chest are obtained. FINDINGS: There is elevated left hemidiaphragm. There is chronic parenchymal change bilaterally. Ther e is patchy peripheral left basilar opacity favoring scarring and/or atelectasis redemonstrated. Ther e is no suspicious new focal air space opacity, pleural effusion, or pneumothorax seen. The cardiac silhouette size is upper limits of normal. Overlying bilateral metallic nipple ornaments are redemon strated. The osseous structures are intact. IMPRESSION: On the lateral view there may be more prominent posterior lateral opacity. Difficult to e xclude acute infiltrate on chronic change at this level. [facility], , 07/21/2024 12:42 PM
[2024-07-21] MEDS: SODIUM CHLORIDE 0.9% 1,000 ML IV STA (12:47)
[2024-07-21] MEDS: ONDANSETRON 4 MG/2 ML VIAL IVP STA (12:47)
[2024-07-21 13:01] LABS: Basophils % (A) 1 %; Eosinophils # (A) 0.1 k/uL (0-0.7); Eosinophils % (A) 2 %; HCT 40.5 % (34.0-46.0); HGB 12.6 gm/dL (11.4-16.0); Lymphocytes # (A) 0.9 k/uL (1.0-4.8); Lymphocytes % (A) 15 %; MCH 27.4 pg (25.0-35.0); MCHC 31.2 g/dL (31.0-37.0); MCV 87.9 fL (80.0-100.0); Mean Platelet Volume 8.7; Monocytes # (A) 0.4 k/uL (0-1.0); Monocytes % (A) 6 %; Neutrophils # (A) 4.5 k/uL (1.3-7.7); Neutrophils % (A) 75 %; Platelet Count 266 k/uL (150-450); RDW 13.7 % (11.5-15.5); WBC 6.1 k/uL (3.8-10.6)
[2024-07-21 13:18] LABS: ALT 9 U/L (4-34); AST 16 U/L (14-36); African American GFR (CKD) 72 (>60 ml/min/1.73 sqM); Albumin 3.5 g/dL (3.5-5.0); Alkaline Phosphatase 100 U/L (38-126); Anion Gap 7 mmol/L; Blood Urea Nitrogen 22 mg/dL (7-17); Calcium 8.8 mg/dL (8.4-10.2); Carbon Dioxide 29 mmol/L (22-30); Chloride 102 mmol/L (98-107); Glucose 104 mg/dL (74-99); Non-African American GFR(CKD) 63 (>60 ml/min/1.73 sqM); Potassium 4.2 mmol/L (3.5-5.1); Sodium 138 mmol/L (137-145); Total Bilirubin 0.9 mg/dL (0.2-1.3); Total Protein 5.8 g/dL (6.3-8.2)
[2024-07-21 13:19] LABS: INR 0.9 (<1.2); Partial Thromboplastin Time 27.4 sec (22.0-30.0); Prothrombin Time 10.4 sec (10.0-12.5)
[2024-07-21 13:51] LABS: Influenza A Not Detected (Not Detectd); Influenza B Not Detected (Not Detectd); RSV Not Detected (Not Detectd)
[2024-07-21] MEDS: HEPARIN SODIUM 1,000 UN/ML (10ML VL) IV ONE (14:13)
[2024-07-21] MEDS: HEPARIN SOD,PORK IN 0.45% NACL 25,000 UNIT in 0.45% NACL 1 250ML.BAG IV SCH (14:15)
[2024-07-21] MEDS: DILTIAZEM 125 MG in SODIUM CHLORIDE 0.9% 100 ML IV SCH (14:17)
[2024-07-21] MEDS ORDERED: NALOXONE 0.4 MG/ML 1 ML VIAL IV PRN (14:46)
[2024-07-21] MEDS ORDERED: ONDANSETRON ODT 4 MG TAB PO PRN (15:32)
[2024-07-21] MEDS ORDERED: MECLIZINE 25 MG TAB PO PRN (15:32)
[2024-07-21] MEDS ORDERED: NON FORMULARY DRUG (Ubrogepant [Ubrelvy] 100 MG Tablet) PO PRN (15:32)
[2024-07-21] MEDS ORDERED: CYCLOBENZAPRINE 10 MG TAB PO PRN (15:32)
[2024-07-21] MEDS ORDERED: DEXTROSE 50% SYRINGE 50 ML IVP PRN ×2 (15:35)
[2024-07-21] MEDS: ZINC SULFATE 220 MG CAP PO SCH (16:49)
[2024-07-21] MEDS: methylPREDNISolone SOD SUCCI 125 MG/2 ML VIAL IV SCH (16:49)
[2024-07-21] MEDS: PANTOPRAZOLE 40 MG/10 ML VIAL IVP SCH (16:49)
[2024-07-21] MEDS: CARBIDOPA-LEVODOPA 25-100 MG 1 EACH TAB PO SCH (16:49)
[2024-07-21] MEDS: CHOLECALCIFEROL 10 MCG (400 IU) TABLET PO SCH (16:50)
[2024-07-21] MEDS: ALBUTEROL NEBULIZED 2.5 MG/3 ML INHALATION SCH (17:01)
[2024-07-21] MEDS: ONDANSETRON 4 MG TAB PO PRN (17:50)
[2024-07-21] MEDS: SODIUM CHLORIDE 0.9% 1,000 ML IV SCH (18:04)
[2024-07-21] MEDS: INSULIN ASPART (NovoLOG) 100 UNIT/ML VIAL SQ SCH (18:04)
[2024-07-21 20:10] LABS: Glucose,Whole Blood 142 mg/dL (70-110)
[2024-07-21] MEDS: NON FORMULARY DRUG (Mirabegron [Myrbetriq] 50 MG Tab.Er.24h) PO SCH (20:47)
[2024-07-21] MEDS: busPIRone HCl 10 MG TAB PO SCH (20:48)
[2024-07-21] MEDS: TROSPIUM CHLORIDE 20 MG TABLET PO SCH (20:48)
[2024-07-21] MEDS: ARIPiprazole 10 MG TAB PO SCH (20:48)
[2024-07-21] MEDS: HEPARIN SODIUM 1,000 UN/ML (10ML VL) IV PRN (21:55)
--- NOTE | 2024-07-21 21:57 | HP ---
HISTORY AND PHYSICAL CHIEF COMPLAINT: Palpitation. HISTORY OF PRESENT ILLNESS: This is a 69-year-old woman with a past medical history of multiple medical problems, was found to have atrial fibrillation with fast ventricular rate and was referred from Cardiology office. The patient also had some cough and the patient was vomiting also. COVID-19 is positive at this time. There is no history of any fever, rigors, or chills. The patient has respiratory symptoms for the last week and a half. PAST MEDICAL HISTORY: Reviewed include atrial fibrillation, asthma, COPD, CVA, TIA. Rest of the history noted. HOME MEDICATIONS: Nystatin. Dose and rest of medications reviewed. ALLERGIES: Multiple allergies to Vicodin. Rest of allergies reviewed. FAMILY HISTORY: History of dementia. SOCIAL HISTORY: No history of smoking or alcohol. REVIEW OF SYSTEMS: A 14-point review of systems is negative except as mentioned earlier. PHYSICAL EXAMINATION: VITAL SIGNS: Pulse is 114, blood pressure 120/94, respirations 16. HEENT: Conjunctivae normal. NECK: No JVD. CARDIOVASCULAR: S1, S2. RESPIRATIONS: Breath sounds diminished at the bases. Bilateral scattered rhonchi and crackles. ABDOMEN: Soft. NERVOUS SYSTEM: Nonfocal. LABORATORY DATA: Reviewed. COVID is positive. Chest x-ray reviewed. Increased bronchovascular markings. ASSESSMENT: 1. Atrial fibrillation with fast ventricular rate. 2. Asthma, chronic obstructive pulmonary disease acute exacerbation. 3. Acute COVID-19 infection. 4. Fibromyalgia. 5. History of coronary artery disease. 6. History of sleep apnea. 7. History of multiple complex medical issues. RECOMMENDATIONS AND DISCUSSION: This is a 69-year-old woman, who presented with multiple complex medical issues, we will monitor the patient closely. Recommend to continue the current medications. Continue with Cardizem. Continue with heparin. Cardiology consultation, Infectious Disease evaluation. I would recommend vitamin supplementation and resume the home medications once they are confirmed. Prognosis guarded because of multiple complex medical issues. Further recommendations to follow. See orders for further details. MMODL / IJN: [id number] /
--- NOTE | 2024-07-22 01:40 | CT ---
EXAM: CT Angiography Chest With Intravenous Contrast CLINICAL HISTORY: ELEVATED D DIMER, COVID+ TECHNIQUE: Axial computed tomographic angiography images of the chest with intravenous contrast. CTDI is 73 mGy and DLP is 1778.6 mGy-cm. This CT exam was performed using one or more of the following dose reduction techniques: automated exposure control, adjustment of the mA and/or kV according to patient size, and/or use of iterative reconstruction technique. MIP reconstructed images were created and reviewed. COMPARISON: No relevant prior studies available. FINDINGS: LUNGS: Airspace consolidation in the LEFT upper and lower lobes, consistent with multilobar pneumonia. HEART: Cardiomegaly. VASCULATURE: No large or central pulmonary embolism. Suboptimal contrast bolus timing. Consider repeat exam. THYROID: Within normal limits. MEDIASTINUM + LYMPH NODES: Within normal limits. SUPERIOR ABDOMEN: Hepatic steatosis. Cholecystectomy. Moderate hiatal hernia. MUSCULOSKELETAL: Degenerative changes. IMPRESSION: 1. No large or central pulmonary embolism. Suboptimal contrast bolus timing. Consider repeat exam. 2. Airspace consolidation in the LEFT upper and lower lobes, consistent with multilobar pneumonia.
[2024-07-22] MEDS: ALBUTEROL HFA INHALER INHALATION SCH (03:32)
[2024-07-22 06:01] LABS: Glucose,Whole Blood 138 mg/dL (70-110)
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
[2024-07-22] MEDS: ATORVASTATIN 20 MG TAB PO SCH (07:58)
[2024-07-22] MEDS: POTASSIUM CHLORIDE ER 10 MEQ TAB.ER.PRT PO SCH (07:59)
[2024-07-22] MEDS: FUROSEMIDE 40 MG TAB PO SCH (07:59)
[2024-07-22] MEDS: DULoxetine HCL 60 MG CAPSULE.DR PO SCH (07:59)
[2024-07-22] MEDS: FLUTICASONE NASAL 50MCG/SPRAY 16GM BTL EA NOSTRIL SCH (08:15)
[2024-07-22] MEDS: SYMBICORT 160-4.5 MCG INHALER INHALATION SCH (08:39)
[2024-07-22] MEDS: TIOTROPIUM 2.5 MCG INHALER INHALATION SCH (08:39)
[2024-07-22] MEDS: APIXABAN 5 MG TAB PO SCH (09:25)
[2024-07-22] MEDS: METOPROLOL TARTRATE 25 MG TAB PO SCH (09:25)
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
[2024-07-22 11:06] LABS: T4, Free (Free Thyroxine) 1.83 ng/dL (0.78-2.19)
[2024-07-22 11:17] LABS: Glucose,Whole Blood 188 mg/dL (70-110)
--- NOTE | 2024-07-22 11:20 | CA ---
Transthoracic Echo Report Name: Henna Merino Age: 69 Gender: F : 1955 Exam Date: 07/22/2024 09:34 Exam Location: [facility] Ht (in): 68 Wt (lb): 350 Ordering Physician: Chelsie Valdes Attending/Referring Phys: [id number], Lucio Foam Molder Diane Bains, EBONIE Procedure CPT: Indications: lv function, new onset AF, + covid Cardiac Hx: Technical Quality: Poor Contrast 1: Total Dose (mL): Contrast 2: Total Dose (mL): MEASUREMENTS (Male / Female) Normal Values 2D ECHO LV Diastolic Diameter PLAX 4.7 cm 4.2 - 5.9 / 3.9 - 5.3 cm LV Systolic Diameter PLAX 3.4 cm IVS Diastolic Thickness 1.0 cm 0.6 - 1.0 / 0.6 - 0.9 cm LVPW Diastolic Thickness 1.2 cm 0.6 - 1.0 / 0.6 - 0.9 cm LV Relative Wall Thickness 0.5 RV Internal Dim ED PLAX 2.0 cm LA Systolic Diameter LX 4.9 cm 3.0 - 4.0 / 2.7 - 3.8 cm LA Volume 100.1 cm??? 18 - 58 / 22 - 52 cm??? LA Volume Index 35.1 cm???/m??? 16 - 28 cm???/m??? M-MODE Aortic Root Diameter MM 3.8 cm LA Systolic Diameter MM 5.6 cm LA Ao Ratio MM 1.5 AV Cusp Separation MM 2.0 cm DOPPLER TR Peak Velocity 247.2 cm/s TR Peak Gradient 24.4 mmHg Right Atrial Pressure 8.0 mmHg Pulmonary Artery Systolic Pressu 32.4 mmHg Right Ventricular Systolic Press 32.4 mmHg FINDINGS Left Ventricle Left ventricular ejection fraction is estimated at 55-60%. Mildly increased posterior wall thickness. Normal left ventricular systolic function with no obvious regional wall motion abnormalities. Left ventricular cavity size normal. Right Ventricle Moderate right ventricular dilatation. Right ventricular systolic pressure within normal limits. Right Atrium Mild right atrial dilatation. Left Atrium Severely increased left atrial diameter. Moderately increased left atrial volume. Moderately increased left atrial area. Mitral Valve Structurally normal mitral valve. Trace mitral regurgitation. No mitral stenosis. Aortic Valve Trileaflet aortic valve. No aortic stenosis. No aortic regurgitation. Tricuspid Valve Structurally normal tricuspid valve. Mild tricuspid regurgitation. No tricuspid stenosis. Pulmonic Valve Structurally normal pulmonic valve. No pulmonic regurgitation. No pulmonic stenosis. Pericardium No pericardial or pleural effusion. Aorta Mild aortic dilatation at the level of the sinuses of valsalva (root). CONCLUSIONS normallv fx biatrail enlargement Previewed by: Dr. Zhang Santacruz MD (Electronically Signed) Final Date: 22 July 2024 11:19
[2024-07-22 16:18] LABS: Glucose,Whole Blood 172 mg/dL (70-110)
[2024-07-22] MEDS: ACETAMINOPHEN TAB 325 MG TAB PO PRN (17:18)
[2024-07-22 20:30] LABS: Glucose,Whole Blood 194 mg/dL (70-110)
[2024-07-23 06:11] LABS: Glucose,Whole Blood 128 mg/dL (70-110)
[2024-07-23 06:37] LABS: Basophils % (A) 0 %; Eosinophils % (A) 0 %; HCT 36.2 % (34.0-46.0); Hypochromasia Slight; Lymphocytes # (A) 0.5 k/uL (1.0-4.8); Lymphocytes % (A) 5 %; MCH 29.5 pg (25.0-35.0); MCHC 33.1 g/dL (31.0-37.0); MCV 89.1 fL (80.0-100.0); Mean Platelet Volume 8.2; Monocytes # (A) 0.2 k/uL (0-1.0); Monocytes % (A) 3 %; Neutrophils % (A) 92 %; Platelet Count 258 k/uL (150-450); RBC 4.06 m/uL (3.80-5.40); RDW 13.9 % (11.5-15.5); WBC 8.7 k/uL (3.8-10.6)
[2024-07-23 06:49] LABS: African American GFR (CKD) >90 (>60 ml/min/1.73 sqM); Anion Gap 6 mmol/L; Blood Urea Nitrogen 20 mg/dL (7-17); Carbon Dioxide 27 mmol/L (22-30); Chloride 105 mmol/L (98-107); Glucose 132 mg/dL (74-99); Non-African American GFR(CKD) 81 (>60 ml/min/1.73 sqM); Sodium 138 mmol/L (137-145)
[2024-07-23] MEDS: METOPROLOL TARTRATE 50 MG TAB PO SCH (08:08)
--- NOTE | 2024-07-23 09:55 | P.PN ---
Subjective Progress Note Date: 07/22/24 Principal diagnosis: Reason for follow-up is COVID-19 Patient is a 69-year-old female with a past medical history significant for atrial fibrillation COPD CVA TIA fibromyalgia coronary artery disease has been sent to the hospital from cardiology office concerning for A- fib with RVR, patient also tested positive for COVID-19 prompting this consultation. On today's evaluation that is 07/22/2024, patient did not have any fever and denies any chills, patient is breathing comfortably on room air, patient with no chest pain and cough is slight decreased intensity mostly dry in nature patient did not have any abdominal pain nausea vomiting or any loose stools. Patient did have procalcitonin of 0.06 CT angiogram of the chest was negative for PE left upper lobe consultation consistent with multi lobar pneumonia Objective - Vital Signs Vital signs: Vital Signs Temp 97.9 F 07/22/24 11:13 Pulse 93 07/22/24 11:13 Resp 16 07/22/24 11:13 BP 113/63 07/22/24 11:13 Pulse Ox 94 L 07/22/24 11:13 FiO2 Intake & Output 07/21/24 07/22/24 07/22/24 18:59 06:59 18:59 Intake Total 348.849 510.286 Balance 348.849 510.286 Weight 158.757 kg 164.2 kg Intake: IV 272 Diltiazem 125 mg In 80 Sodium Chloride 0.9% 100 ml @ 5 MG/HR 5 mls/hr IV .Q24H [facility] Rx#:[id number] Heparin Sod,Pork in 0.45% 192 NaCl 25,000 unit In 0.45 % NaCl 1 250ml.bag @ 6.3 UNITS/KG/HR 10.002 mls/hr IV .Q24H [facility] Rx#: [id number] Intake, IV Titration 76.849 270.286 Amount Diltiazem 125 mg In 100.5 Sodium Chloride 0.9% 100 ml @ 5 MG/HR 5 mls/hr IV .Q24H [facility] Rx#:[id number] Heparin Sod,Pork in 0.45% 76.849 169.786 NaCl 25,000 unit In 0.45 % NaCl 1 250ml.bag @ 6.3 UNITS/KG/HR 10.002 mls/hr IV .Q24H [facility] Rx#: [id number] Oral 240 Other: Voiding Method Toilet - Exam GENERAL DESCRIPTION: An elderly female lying in bed in no distress RESPIRATORY SYSTEM: Unlabored breathing , decreased breath sounds at bases HEART: S1 S2 regular rate and rhythm , ABDOMEN: Soft , no tenderness EXTREMITIES: No edema feet - Labs CBC & Chem 7: 07/23/24 05:36 07/23/24 05:36 Labs: Abnormal Lab Results - Last 24 Hours (Table) 07/21/24 07/21/24 07/21/24 Range/Units 12:25 12:25 12:25 Lymphocytes # 0.9 L (1.0-4.8) k/uL ESR (0-30) mm/Hr APTT (22.0-30.0) sec D-Dimer (<0.60) mg/L FEU BUN 22 H (7-17) mg/dL Glucose 104 H (74-99) mg/dL POC Glucose (mg/dL) (70-110) mg/dL C-Reactive Protein (<1.0) mg/dL Total Protein 5.8 L (6.3-8.2) g/dL TSH (0.465-4.680) mIU/L SARS-CoV-2 (PCR) Detected A (Not Detectd) 07/21/24 07/21/24 07/21/24 Range/Units 12:25 12:25 12:25 Lymphocytes # (1.0-4.8) k/uL ESR 31 H (0-30) mm/Hr APTT (22.0-30.0) sec D-Dimer 1.25 H (<0.60) mg/L FEU BUN (7-17) mg/dL Glucose (74-99) mg/dL POC Glucose (mg/dL) (70-110) mg/dL C-Reactive Protein 8.8 H (<1.0) mg/dL Total Protein (6.3-8.2) g/dL TSH (0.465-4.680) mIU/L SARS-CoV-2 (PCR) (Not Detectd) 07/21/24 07/22/24 07/22/24 Range/Units 20:08 03:45 03:45 Lymphocytes # (1.0-4.8) k/uL ESR (0-30) mm/Hr APTT 40.4 H (22.0-30.0) sec D-Dimer (<0.60) mg/L FEU BUN (7-17) mg/dL Glucose (74-99) mg/dL POC Glucose (mg/dL) 142 H (70-110) mg/dL C-Reactive Protein (<1.0) mg/dL Total Protein (6.3-8.2) g/dL TSH 0.410 L (0.465-4.680) mIU/L SARS-CoV-2 (PCR) (Not Detectd) 07/22/24 07/22/24 Range/Units 05:59 11:15 Lymphocytes # (1.0-4.8) k/uL ESR (0-30) mm/Hr APTT (22.0-30.0) sec D-Dimer (<0.60) mg/L FEU BUN (7-17) mg/dL Glucose (74-99) mg/dL POC Glucose (mg/dL) 138 H 188 H (70-110) mg/dL C-Reactive Protein (<1.0) mg/dL Total Protein (6.3-8.2) g/dL TSH (0.465-4.680) mIU/L SARS-CoV-2 (PCR) (Not Detectd) Assessment and Plan (1) COVID-19 Current Visit: Yes Status: Acute Code(s): U07.1 - COVID-19 SNOMED Code(s): 515825190 (2) BMI 45.0-49.9, adult Current Visit: No Status: Acute Code(s): Z68.42 - BODY MASS INDEX [BMI] 45.0-49.9, ADULT SNOMED Code(s): 531148218 Plan: 1patient presented to hospital from cardiology office for evaluation of A-fib with RVR and this patient apparently has been dealing with respiratory symptoms for almost a month has been getting worse over the last week and a half and this patient who tested positive for COVID-19 chest x-ray did not show any multifocal infiltrate suggestive COVID-19 pneumonia patient is not hypoxic, patient have CT angiogram of the chest that shows evidence of multi focal pneumonia likely related to COVID-19 2patient did have normal procalcitonin level, sputum for Gram stain and culture not collected. 3patient currently being treated heparin Solu-Medrol zinc and ascorbic acid, with evidence of multifocal pneumonia may benefit from remdesivir however the patient is currently not requiring any supplemental oxygen and would not qualify for remdesivir per [facility] policy will discuss again with the pharmacist Dictation was produced using [employer] dictation software. please excuse any grammatical, word or spelling errors. Time with Patient: Less than 30
--- NOTE | 2024-07-23 10:15 | PN ---
PROGRESS NOTE DATE OF SERVICE: 07/22/2024 SUBJECTIVE: This is a 69-year-old woman, who was admitted with atrial fibrillation, started on Cardizem. The patient also had elevated D-dimers. The patient was found to have COVID positive, and the patient had chest x-ray, was reviewed. The patient was closely monitored. PAST MEDICAL HISTORY: Reviewed. REVIEW OF SYSTEMS: Fourteen-point review of systems negative except as mentioned earlier. CURRENT MEDICATIONS: Reviewed. PHYSICAL EXAM: VITAL SIGNS: Pulse is 93, blood pressure 130/60, respirations 16. CHEST: Few scattered rhonchi. ABDOMEN: Soft. NERVOUS SYSTEM: Nonfocal. LABORATORY DATA: Reviewed. ASSESSMENT: 1. Atrial fibrillation with fast ventricular rate. 2. Asthma, chronic obstructive pulmonary disease exacerbation. 3. Acute COVID-19 infection with possible acute COVID-19 pneumonia, multifocal. 4. Fibromyalgia. 5. Coronary artery disease. 6. Sleep apnea. 7. Multiple complex medical issues. RECOMMENDATIONS: I recommended to continue current management and symptomatic treatment. At this time, I recommend bronchodilators, Cardizem. I would also recommend Infectious Disease evaluation. The patient might be a candidate for . Further recommendations to follow. MMODL / IJN: [id number] / LEXIS
--- NOTE | 2024-07-23 10:39 | P.PN ---
Subjective HISTORY OF PRESENT ILLNESS: This is a 69-year-old female with a past medical history significant for COPD, morbid obesity, and normal coronary arteries. Patient follows in the office with Dr. Santacruz. We have been asked to see the patient in consultation for new onset atrial fibrillation. Patient examined at the bedside. Patient was at Dr. Bang office yesterday when she was noticed to be tachycardic and was directed to come to the ER. Patient was found to be in Afib with RVR. She was also found to be positive for COVID-19. Patient remains in atrial fibrillation this morning with a heart rate between 58524. She reports shortness of breath this morning. She also reports having a headache. She reports having some mild chest discomfort as well. Vital signs are stable. DIAGNOSTICS: - EKG reveals A-fib with RVR. - Chest xray on the lateral view there may be more prominent posterior lateral opacity. Difficult to exclude acute infiltrate on chronic change at this level. - CTA chest: No large or central pulmonary embolism. Airspace consolidation in the left upper and lower lobes consistent with multilobar pneumonia - Laboratory data: WBC 6.1. Hemoglobin 12.6. Platelet count 266. D-dimer 1.25. Sodium 138. Potassium 4.2. BUN 22. Creatinine 0.94. Serology positive for COVID. - Current home cardiac medications include Lipitor 20 mg daily, Lasix 40 mg daily. -Limited echo obtained in December 2023 revealed ejection fraction 55% with no obvious regional wall motion abnormalities and no pericardial effusion -Patient underwent dobutamine stress testing in December 2023 which was negative for ischemia - Cardiac catheterization history: 2010 revealing normal coronary arteries 07/23/2024 Patient examined this morning at the bedside. Patient states that she is mildly short of breath today and is coughing frequently. She denies any chest pain or pressure. She remains in atrial fibrillation with heart rate between 643150. Blood pressure is stable. Echocardiogram completed revealing ejection fraction 55 to 60%. PHYSICAL EXAM: VITAL SIGNS: Reviewed. GENERAL: Well-developed in no acute distress. HEENT: Head is normocephalic. Pupils are equal, round. Sclerae anicteric. Mucous membranes of the mouth are moist. Neck supple. No JVD or thyromegaly LUNGS: Respirations even and unlabored. Lungs essentially clear to auscultation bilaterally. HEART: Mildly tachycardic. Irregular rate and rhythm. S1 and S2 heard. ABDOMEN: Soft. Nondistended. Nontender. EXTREMITIES: Normal range of motion. No clubbing or cyanosis. Peripheral pulses intact. No lower extremity edema NEUROLOGIC: Awake and alert. Oriented x 3. ASSESSMENT: Acute COVID-19 New onset atrial fibrillation with RVR Normal coronary arteries, per cath in 2010 History of COPD Morbid obesity: BMI 55.0 PLAN: Continue anticoagulation with Eliquis Increase metoprolol tartrate to 50 mg twice a day Continue telemetry monitoring Further recommendations pending patient course Nurse practitioner note has been reviewed by physician. Signing provider agrees with the documented findings, assessment, and plan of care documented by UTILITIES ESTIMATOR AND DRAFTER as a scribe. Objective - Vital Signs Vital signs: Vital Signs Temp 97.6 F 07/23/24 07:56 Pulse 95 07/23/24 07:56 Resp 20 07/23/24 07:56 BP 124/79 07/23/24 07:56 Pulse Ox 93 L 07/23/24 07:56 FiO2 Intake & Output 07/22/24 07/23/24 07/23/24 18:59 06:59 18:59 Intake Total 870.286 10 180 Balance 870.286 10 180 Intake: IV 10 Sodium Chloride 0.9% 1, 10 000 ml @ 20 mls/hr IV . Q24H [facility] Rx#:[id number] Intake, IV Titration 270.286 Amount Diltiazem 125 mg In 100.5 Sodium Chloride 0.9% 100 ml @ 5 MG/HR 5 mls/hr IV .Q24H [facility] Rx#:[id number] Heparin Sod,Pork in 0.45% 169.786 NaCl 25,000 unit In 0.45 % NaCl 1 250ml.bag @ 6.3 UNITS/KG/HR 10.002 mls/hr IV .Q24H [facility] Rx#: [id number] Oral 600 180 Other: Voiding Method Toilet Toilet Toilet # Voids 2 - Labs CBC & Chem 7: 07/23/24 05:36 07/23/24 05:36 Labs: Abnormal Lab Results - Last 24 Hours (Table) 07/22/24 07/22/24 07/22/24 Range/Units 11:15 16:16 20:27 Neutrophils # (1.3-7.7) k/uL Lymphocytes # (1.0-4.8) k/uL BUN (7-17) mg/dL Glucose (74-99) mg/dL POC Glucose (mg/dL) 188 H 172 H 194 H (70-110) mg/dL 07/23/24 07/23/24 07/23/24 Range/Units 05:36 05:36 06:07 Neutrophils # 8.0 H (1.3-7.7) k/uL Lymphocytes # 0.5 L (1.0-4.8) k/uL BUN 20 H (7-17) mg/dL Glucose 132 H (74-99) mg/dL POC Glucose (mg/dL) 128 H (70-110) mg/dL
[2024-07-23 11:17] LABS: Glucose,Whole Blood 145 mg/dL (70-110)
--- NOTE | 2024-07-23 14:48 | P.PN ---
Subjective Progress Note Date: 07/23/24 Principal diagnosis: Reason for follow-up is COVID-19 Patient is a 69-year-old female with a past medical history significant for atrial fibrillation COPD CVA TIA fibromyalgia coronary artery disease has been sent to the hospital from cardiology office concerning for A- fib with RVR, patient also tested positive for COVID-19 prompting this consultation. On today's evaluation that is 07/23/2024, Patient is afebrile patient is currently on room air and denies having any shortness of breath, the patient denies any chest pain and cough is decreased in intensity, the patient denies any nausea vomiting did not have any abdominal pain and no diarrhea, mention feeling better. Patient white count is 8.7, creatinine 0.76 Objective - Vital Signs Vital signs: Vital Signs Temp 98.9 F 07/23/24 11:14 Pulse 92 07/23/24 11:14 Resp 20 07/23/24 11:14 BP 132/71 07/23/24 11:14 Pulse Ox 92 L 07/23/24 11:14 FiO2 Intake & Output 07/22/24 07/23/24 07/23/24 18:59 06:59 18:59 Intake Total 870.286 10 360 Balance 870.286 10 360 Intake: IV 10 Sodium Chloride 0.9% 1, 10 000 ml @ 20 mls/hr IV . Q24H [facility] Rx#:[id number] Intake, IV Titration 270.286 Amount Diltiazem 125 mg In 100.5 Sodium Chloride 0.9% 100 ml @ 5 MG/HR 5 mls/hr IV .Q24H [facility] Rx#:[id number] Heparin Sod,Pork in 0.45% 169.786 NaCl 25,000 unit In 0.45 % NaCl 1 250ml.bag @ 6.3 UNITS/KG/HR 10.002 mls/hr IV .Q24H [facility] Rx#: [id number] Oral 600 360 Other: Voiding Method Toilet Toilet Toilet # Voids 2 1 # Bowel Movements 1 - Exam GENERAL DESCRIPTION: An elderly female lying in bed in no distress RESPIRATORY SYSTEM: Unlabored breathing , decreased breath sounds at bases HEART: S1 S2 regular rate and rhythm , ABDOMEN: Soft , no tenderness EXTREMITIES: No edema feet - Labs CBC & Chem 7: 07/23/24 05:36 07/23/24 05:36 Labs: Abnormal Lab Results - Last 24 Hours (Table) 07/22/24 07/22/24 07/23/24 Range/Units 16:16 20:27 05:36 Neutrophils # 8.0 H (1.3-7.7) k/uL Lymphocytes # 0.5 L (1.0-4.8) k/uL BUN (7-17) mg/dL Glucose (74-99) mg/dL POC Glucose (mg/dL) 172 H 194 H (70-110) mg/dL 07/23/24 07/23/24 07/23/24 Range/Units 05:36 06:07 11:13 Neutrophils # (1.3-7.7) k/uL Lymphocytes # (1.0-4.8) k/uL BUN 20 H (7-17) mg/dL Glucose 132 H (74-99) mg/dL POC Glucose (mg/dL) 128 H 145 H (70-110) mg/dL Assessment and Plan (1) COVID-19 Current Visit: Yes Status: Acute Code(s): U07.1 - COVID-19 SNOMED Code(s): 186454447 (2) BMI 45.0-49.9, adult Current Visit: No Status: Acute Code(s): Z68.42 - BODY MASS INDEX [BMI] 45.0-49.9, ADULT SNOMED Code(s): 640009789 Plan: 1patient presented to hospital from cardiology office for evaluation of A-fib with RVR and this patient apparently has been dealing with respiratory symptoms for almost a month has been getting worse over the last week and a half and this patient who tested positive for COVID-19 chest x-ray did not show any multifoc al infiltrate suggestive COVID-19 pneumonia patient is not hypoxic, patient have CT angiogram of the chest that shows evidence of multi focal pneumonia likely related to COVID-19 2patient did have normal procalcitonin level, sputum for Gram stain and culture not collected. 3patient has shown some clinical improvement continue the current supportive treatment no need for antibiotics at this point and did not qualify for remdesivir discussed with the pharmacist once again also discussed with adm itting physician Dictation was produced using [employer] dictation software. please excuse any grammatical, word or spelling errors. Time with Patient: Less than 30
[2024-07-23 16:18] LABS: Glucose,Whole Blood 147 mg/dL (70-110)
[2024-07-23 19:59] LABS: Glucose,Whole Blood 157 mg/dL (70-110)
--- NOTE | 2024-07-23 23:34 | PN ---
PROGRESS NOTE DATE OF SERVICE: 07/23/2024 SUBJECTIVE: This is a 69-year-old woman, who was admitted with atrial fibrillation, also had asthma, COPD, and COVID also. The patient was reported to have COVID pneumonia, but however, the patient is not requiring oxygen according to [facility] policy. Apparently, remdesivir cannot be given per Dr. Swift's report. In any case, the patient is feeling slightly better. PAST MEDICAL HISTORY: Reviewed. REVIEW OF SYSTEMS: A 14-point review of systems is negative except as mentioned earlier. CURRENT MEDICATIONS: Reviewed. PHYSICAL EXAMINATION: VITAL SIGNS: Pulse 92, blood pressure 132/70, respirations 20. HEENT: Conjunctivae normal. NECK: No JVD. CARDIOVASCULAR: S1, S2. RESPIRATIONS: Breath sounds diminished at the bases. A few scattered rhonchi. ABDOMEN: Soft. NERVOUS SYSTEM: Nonfocal. LABORATORY DATA: Reviewed. ASSESSMENT: 1. Atrial fibrillation with fast ventricular rate. 2. Asthma, chronic obstructive pulmonary disease. 3. Acute COVID-19 infection with possible acute COVID-19 pneumonia, multifocal with satisfied oxygenation. 4. History of fibromyalgia. 5. Coronary artery disease. 6. Sleep apnea. 7. Multiple complex medical issues. RECOMMENDATIONS: Recommend to continue current management and continue symptomatic treatment. Continue with bronchodilators. Continue with Eliquis. Continue with vitamin supplementation. Closely follow with Cardiology. Recommend repeat labs in the morning. Adjust medications. Prognosis guarded. If the patient is stable, possible discharge in the next 24 hours. MMODL / IJN: [id number] /
[2024-07-24 06:03] LABS: Glucose,Whole Blood 132 mg/dL (70-110)
[2024-07-24 06:39] LABS: African American GFR (CKD) >90 (>60 ml/min/1.73 sqM); Anion Gap 6 mmol/L; Blood Urea Nitrogen 22 mg/dL (7-17); Carbon Dioxide 27 mmol/L (22-30); Chloride 104 mmol/L (98-107); Glucose 132 mg/dL (74-99); Non-African American GFR(CKD) 82 (>60 ml/min/1.73 sqM); Potassium 4.6 mmol/L (3.5-5.1); Sodium 137 mmol/L (137-145)
[2024-07-24 06:48] LABS: Basophils % (A) 0 %; Eosinophils % (A) 0 %; HCT 39.1 % (34.0-46.0); HGB 12.4 gm/dL (11.4-16.0); Lymphocytes # (A) 0.4 k/uL (1.0-4.8); Lymphocytes % (A) 5 %; MCH 28.1 pg (25.0-35.0); MCHC 31.8 g/dL (31.0-37.0); MCV 88.2 fL (80.0-100.0); Mean Platelet Volume 8.8; Monocytes # (A) 0.2 k/uL (0-1.0); Monocytes % (A) 2 %; Neutrophils # (A) 6.5 k/uL (1.3-7.7); Neutrophils % (A) 92 %; Platelet Count 281 k/uL (150-450); RBC 4.43 m/uL (3.80-5.40); WBC 7.1 k/uL (3.8-10.6)
[2024-07-24] MEDS: ALBUTEROL HFA INHALER INHALATION SCH (08:15)
[2024-07-24 08:57] VITALS: RESP 18; TEMP 97.6
[2024-07-24 11:14] LABS: Glucose,Whole Blood 145 mg/dL (70-110)
[2024-07-24 11:52] VITALS: BP 136/94; PULSE 92
--- NOTE | 2024-07-24 13:46 | P.PN ---
Subjective Progress Note Date: 07/24/24 HISTORY OF PRESENT ILLNESS: This is a 69-year-old female with a past medical history significant for COPD, morbid obesity, and normal coronary arteries. Patient follows in the office with Dr. Santacruz. We have been asked to see the patient in consultation for new onset atrial fibrillation. Patient examined at the bedside. Patient was at Dr. Bang office yesterday when she was noticed to be tachycardic and was directed to come to the ER. Patient was found to be in Afib with RVR. She was also found to be positive for COVID-19. Patient remains in atrial fibrillation this morning with a heart rate between 42077. She reports shortness of breath this morning. She also reports having a headache. She reports having some mild chest discomfort as well. Vital signs are stable. DIAGNOSTICS: - EKG reveals A-fib with RVR. - Chest xray on the lateral view there may be more prominent posterior lateral opacity. Difficult to exclude acute infiltrate on chronic change at this level. - CTA chest: No large or central pulmonary embolism. Airspace consolidation in the left upper and lower lobes consistent with multilobar pneumonia - Laboratory data: WBC 6.1. Hemoglobin 12.6. Platelet count 266. D-dimer 1.25. Sodium 138. Potassium 4.2. BUN 22. Creatinine 0.94. Serology positive for COVID. - Current home cardiac medications include Lipitor 20 mg daily, Lasix 40 mg daily. -Limited echo obtained in December 2023 revealed ejection fraction 55% with no obvious regional wall motion abnormalities and no pericardial effusion -Patient underwent dobutamine stress testing in December 2023 which was negative for ischemia - Cardiac catheterization history: 2010 revealing normal coronary arteries 07/23/2024 Patient examined this morning at the bedside. Patient states that she is mildly short of breath today and is coughing frequently. She denies any chest pain or pressure. She remains in atrial fibrillation with heart rate between 900399. Blood pressure is stable. Echocardiogram completed revealing ejection fraction 55 to 60%. 07/24 Patient remains in isolation for COVID. Yesterday metoprolol tartrate was increased to 50 mg twice daily due to tachycardia mild. Heart rate is now running in the 90s. Patient is in a sinus rhythm with PACs. PHYSICAL EXAM: VITAL SIGNS: Reviewed. GENERAL: Well-developed in no acute distress. HEENT: Head is normocephalic. Pupils are equal, round. Sclerae anicteric. Mucous membranes of the mouth are moist. Neck supple. No JVD or thyromegaly LUNGS: Respirations even and unlabored. Lungs essentially clear to auscultation bilaterally. HEART: Mildly tachycardic. Irregular rate and rhythm. S1 and S2 heard. ABDOMEN: Soft. Nondistended. Nontender. EXTREMITIES: Normal range of motion. No clubbing or cyanosis. Peripheral pulses intact. No lower extremity edema NEUROLOGIC: Awake and alert. Oriented x 3. ASSESSMENT: Acute COVID-19 New onset paroxysmal atrial fibrillation with RVR, currently in sinus rhythm with PACs Normal coronary arteries, per cath in 2011 History of COPD Morbid obesity: BMI 55.0 PLAN: Continue anticoagulation with Eliquis Continue metoprolol tartrate 50 mg twice a day Cardiology will sign off this case and follow on an as-needed basis. Please reconsult for any new concerns. Patient may follow-up in the office in one to 2 weeks. Nurse practitioner note has been reviewed by physician. Signing provider agrees with the documented findings, assessment, and plan of care documented by ROCK LATHER as a scribe. Objective - Vital Signs Vital signs: Vital Signs Temp 98.8 F 07/23/24 21:04 Pulse 93 07/24/24 04:12 Resp 17 07/24/24 04:12 BP 122/81 07/24/24 04:12 Pulse Ox 97 07/24/24 04:12 FiO2 Intake & Output 07/23/24 07/24/24 07/24/24 18:59 06:59 18:59 Intake Total 360 0 Balance 360 0 Weight 163.1 kg Intake: Oral 360 0 Other: Voiding Method Toilet Toilet # Voids 1 1 # Bowel Movements 1 - Labs CBC & Chem 7: 07/24/24 05:20 07/24/24 05:20 Labs: Abnormal Lab Results - Last 24 Hours (Table) 07/23/24 07/23/24 07/23/24 Range/Units 11:13 16:17 19:58 Lymphocytes # (1.0-4.8) k/uL BUN (7-17) mg/dL Glucose (74-99) mg/dL POC Glucose (mg/dL) 145 H 147 H 157 H (70-110) mg/dL 07/24/24 07/24/24 07/24/24 Range/Units 05:20 05:20 06:01 Lymphocytes # 0.4 L (1.0-4.8) k/uL BUN 22 H (7-17) mg/dL Glucose 132 H (74-99) mg/dL POC Glucose (mg/dL) 132 H (70-110) mg/dL
--- NOTE | 2024-07-25 15:31 | P.PN ---
Subjective Progress Note Date: 07/24/24 Principal diagnosis: Reason for follow-up is COVID-19 Patient is a 69-year-old female with a past medical history significant for atrial fibrillation COPD CVA TIA fibromyalgia coronary artery disease has been sent to the hospital from cardiology office concerning for A- fib with RVR, patient also tested positive for COVID-19 prompting this consultation. On today's evaluation that is 07/24/2024, patient has been afebrile, patient is breathing comfortably and is currently on room air, patient cough has decreased in intensity mostly dry in nature, no chest pain, patient denies nausea vomiting or diarrhea and no abdominal pain. Patient white count 7.1, creatinine 0.75 Objective - Vital Signs Vital signs: Vital Signs Temp 97.6 F 07/24/24 08:56 Pulse 92 07/24/24 13:55 Resp 18 07/24/24 13:55 BP 136/94 07/24/24 11:51 Pulse Ox 95 07/24/24 11:51 FiO2 Intake & Output 07/23/24 07/24/24 07/24/24 18:59 06:59 18:59 Intake Total 360 242 Balance 360 242 Weight 163.1 kg Intake: IV 20 Invasive Line 1 20 Oral 360 222 Other: Voiding Method Toilet Toilet Toilet # Voids 1 1 2 # Bowel Movements 1 - Exam GENERAL DESCRIPTION: An elderly female lying in bed in no distress RESPIRATORY SYSTEM: Unlabored breathing , decreased breath sounds at bases HEART: S1 S2 regular rate and rhythm , ABDOMEN: Soft , no tenderness EXTREMITIES: No edema feet - Labs CBC & Chem 7: 07/24/24 05:20 07/24/24 05:20 Labs: Abnormal Lab Results - Last 24 Hours (Table) 07/23/24 07/23/24 07/24/24 Range/Units 16:17 19:58 05:20 Lymphocytes # 0.4 L (1.0-4.8) k/uL BUN (7-17) mg/dL Glucose (74-99) mg/dL POC Glucose (mg/dL) 147 H 157 H (70-110) mg/dL 07/24/24 07/24/24 07/24/24 Range/Units 05:20 06:01 11:13 Lymphocytes # (1.0-4.8) k/uL BUN 22 H (7-17) mg/dL Glucose 132 H (74-99) mg/dL POC Glucose (mg/dL) 132 H 145 H (70-110) mg/dL Assessment and Plan (1) COVID-19 Status: Acute Code(s): U07.1 - COVID-19 SNOMED Code(s): 651176506 (2) BMI 45.0-49.9, adult Status: Acute Code(s): Z68.42 - BODY MASS INDEX [BMI] 45.0-49.9, ADULT SNOMED Code(s): 542279679 Plan: 1patient presented to hospital from cardiology office for evaluation of A-fib with RVR and this patient apparently has been dealing with respiratory symptoms for almost a month has been getting worse over the last week and a half and this patient who tested positive for COVID-19 chest x-ray did not show any multifocal infiltrate suggestive COVID-19 pneumonia patient is not hypoxic, patient have CT angiogram of the chest that shows evidence of multi focal pneu monia likely related to COVID-19 2patient did have normal procalcitonin level, sputum for Gram stain and culture not collected. 3patient has shown clinical improvement patient to continue the current supportive treatment no need for antibiotics or antivirals at this point Dictation was produced using [employer] dictation software. please excuse any grammatical, word or spelling errors. Time with Patient: Less than 30
== END 2024-07-24 15:25 | disposition home or self-care (01) | DRG 308 ==
LOC: EC 11:54 → 3SCARD 14:47
PROVIDERS: ADMIT Hospitalist; ATTEND Hospitalist
DX: I48.0 Paroxysmal atrial fibrillation (principal); J12.82 Pneumonia due to coronavirus disease 2019; U07.1 COVID-19; J44.0 Chronic obstructive pulmonary disease with (acute) lower respiratory infection; J44.1 Chronic obstructive pulmonary disease with (acute) exacerbation; J45.901 Unspecified asthma with (acute) exacerbation; Z68.43 Body mass index [BMI] 50.0-59.9, adult; F03.90 Unspecified dementia, unspecified severity, without behavioral disturbance, psychotic disturbance, mood disturbance, and anxiety; I08.1 Rheumatic disorders of both mitral and tricuspid valves; G47.30 Sleep apnea, unspecified; Z79.01 Long term (current) use of anticoagulants; E66.01 Morbid (severe) obesity due to excess calories; I25.10 Atherosclerotic heart disease of native coronary artery without angina pectoris; I25.2 Old myocardial infarction; M79.7 Fibromyalgia; K58.9 Irritable bowel syndrome, unspecified; G62.9 Polyneuropathy, unspecified; R00.0 Tachycardia, unspecified; N32.81 Overactive bladder; Z79.82 Long term (current) use of aspirin; Z79.899 Other long term (current) drug therapy; R09.02 Hypoxemia; Z86.73 Personal history of transient ischemic attack (TIA), and cerebral infarction without residual deficits; Z90.710 Acquired absence of both cervix and uterus; G43.909 Migraine, unspecified, not intractable, without status migrainosus; Z94.7 Corneal transplant status; Z96.653 Presence of artificial knee joint, bilateral; Z98.84 Bariatric surgery status; Z87.19 Personal history of other diseases of the digestive system; Z88.5 Allergy status to narcotic agent; Z88.8 Allergy status to other drugs, medicaments and biological substances; Z87.01 Personal history of pneumonia (recurrent)
CPT/HCPCS: 36415; 71046; 71275; 80048; 80053; 83036; 83735; 84145; 84439; 84443; 84481; 84484; 85025; 85379; 85610; 85652; 85730; 86140; 87636; 93005; 93306; 94640; 96361; 96365; 96366; 96368; 96375; 99285; 99291

== ENCOUNTER 2024-08-21 08:04 | Day surgery (SDC) | payer MEDICARE, OTHER ==
[~2024-08-21 08:04] MED LIST changes: +LACTATED RINGERS 1,000 ML IV SCH; +LIDOCAINE 1% (10MG/ML) FOR IV START INTRADERMA PRN; -Pre Op ABX Message 1 EACH MISC MISCELLANE ONE; +SODIUM CHLORIDE 0.9% 500 ML 500 ML IV SCH
[2024-08-21 09:29] VITALS: BP 157/79; PULSE 105; RESP 18; TEMP 97.1
== END 2024-08-21 09:58 | disposition home or self-care (01) ==
LOC: OR 08:04
PROVIDERS: ATTEND Internal Medicine Cardiovascular Disease
DX: I48.11 Longstanding persistent atrial fibrillation (principal); Z53.09 Procedure and treatment not carried out because of other contraindication

== ENCOUNTER → 2024-08-23 | Outpatient (CLI) | payer MEDICARE, OTHER ==
[2024-08-23 16:40] VITALS: BP 141/85; PULSE 103; RESP 16; TEMP 97.7; BMI 56.8
--- NOTE | 2024-08-23 17:14 | P.BASOAP ---
Subjective Progress Note Date: 08/23/24 She is in [employer] school. She has gained 80 pounds since 2020. Jun 2024 she joined and had gained 30 pounds. Her heart is still pending clearance. Colonoscopy is pending. No troubles with swallowing. She is trying to lose weight againt. She is off too much water. She is having troubles with peeing. She needs a bladder stimulate. She has bowel stimulator in March. It has changed her life. She had 2 surgery for placement of wires. She has programming. Dr Ambrosio Kline and needs on for bladder. She had immediate results same time. Objective - Vital Signs Vital signs: Vital Signs Temp 97.7 F 08/23/24 16:25 Pulse 103 H 08/23/24 16:25 Resp 16 08/23/24 16:25 BP 141/85 08/23/24 16:25 Pulse Ox FiO2 Intake & Output 08/22/24 08/23/24 08/23/24 18:59 06:59 18:59 Weight 169.644 kg Assessment/Plan Plan: Date: 08/23/24 Initial Weight: 166.638 kg Initial BMI: 55.8 Current Weight: 169.644 kg Current BMI: 56.8 Type of Surgery: Total Volume in Band: Previous Volume: Volume Removed: Volume Added: Band Size:
== END ==
LOC: BARWHC3 15:30
PROVIDERS: ATTEND Surgery Plastic and Reconstructive Surgery
DX: E66.01 Morbid (severe) obesity due to excess calories (principal); Z68.43 Body mass index [BMI] 50.0-59.9, adult; Z88.5 Allergy status to narcotic agent; Z88.6 Allergy status to analgesic agent; Z88.7 Allergy status to serum and vaccine; Z91.048 Other nonmedicinal substance allergy status
CPT/HCPCS: 99211

== ENCOUNTER → 2024-08-25 | Outpatient (CLI) | payer MEDICARE, OTHER ==
--- NOTE | 2024-08-30 16:42 | P.PCN ---
Date of Procedure: 08/25/24 Operative Findings: Home sleep study testing Date of service is 08/25/2024 History This is a 69-year-old female patient with previous history of sleep apnea who has been maintained on CPAP therapy, APAP mode pressures of 4/9 cm of water. During her last office visit, the patient stated that her machine was broken and she was working on getting a replacement machine. Noted her previous sleep study was done more than 25 years ago and I did not have any documentation on her original polysomnography. Based on that, a home sleep study was ordered to reevaluate the presence and ongoing need for CPAP therapy. Her comorbidities include obesity and the patient has undergone Domenico-en-Y gastric bypass surgery, chronic A-fib, moderate persistent bronchial asthma and previous history of COVID-19 pneumonia from which the patient has recovered. Pertinent physical findings The patient's body mass index is 51.7. Weight is 360 pounds. Technical description This is a type III home sleep study. The [employer] system was used to complete his home sleep study. The total recording duration was 11 hours and 1 minutes. The recording started at 8:28 PM and ended at 7:29 AM. There was a total of 10 hours and 46 minutes of flow monitoring and 10 hours and 42 minutes of oxygen saturation monitoring. Results The respiratory analysis showed a total of 3 obstructive apneas and 40 obstructive hypopneas. The resulting AHI was 4. Oxygenation analysis The baseline pulse ox at rest while awake was 94%. Average pulse ox during sleep was 90% with a minimum pulse ox of 82%. The patient spent approximately 2 hours and 32 minutes of sleep time below pulse ox of 89% Cardiac summary Average heart rate was 96 with a minimum heart rate of 76 and a maximum heart rate of 136. Assessment History of obstructive sleep apnea maintained on APAP therapy pressures of 4/9 cm of water. The patient is currently off treatment as her machine broke. This home sleep study was done to reestablish diagnosis. Based on the results of this current home sleep study, there is no significant sleep breathing disorder. Nevertheless, the patient continues to encounter nocturnal oxygen desaturations. Obviously, with an AHI of less than 5, the patient will not qualify for CPAP therapy. She may still benefit from O2 overnight. Should there be ongoing concerns for sleep apnea, a full PFT will be recommended to confirm those findings.
== END ==
LOC: 3 N SLEEP 12:38
PROVIDERS: ATTEND Internal Medicine Critical Care Medicine
DX: G47.33 Obstructive sleep apnea (adult) (pediatric) (principal); Z99.89 Dependence on other enabling machines and devices; Z88.5 Allergy status to narcotic agent; Z88.6 Allergy status to analgesic agent; Z88.7 Allergy status to serum and vaccine; Z91.048 Other nonmedicinal substance allergy status

== ENCOUNTER 2024-09-08 17:55 | Observation (INO) | payer MEDICARE, OTHER ==
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
[2024-09-08 18:30] LABS: Basophils % (A) 0 %; Eosinophils # (A) 0.1 k/uL (0-0.7); Eosinophils % (A) 2 %; HCT 38.3 % (34.0-46.0); HGB 12.3 gm/dL (11.4-16.0); Lymphocytes # (A) 1.2 k/uL (1.0-4.8); Lymphocytes % (A) 14 %; MCH 28.3 pg (25.0-35.0); MCV 88.3 fL (80.0-100.0); Mean Platelet Volume 9.1; Monocytes # (A) 0.3 k/uL (0-1.0); Monocytes % (A) 3 %; Neutrophils # (A) 6.4 k/uL (1.3-7.7); Neutrophils % (A) 79 %; Platelet Count 234 k/uL (150-450); RBC 4.34 m/uL (3.80-5.40); RDW 14.7 % (11.5-15.5); WBC 8.1 k/uL (3.8-10.6)
--- NOTE | 2024-09-08 18:39 | XR ---
EXAMINATION TYPE: XR chest 2V DATE OF EXAM: 09/08/2024 6:30 PM COMPARISON: Chest radiographs from07/21/2024 CLINICAL INDICATION: Female, 69 years old with history of Chest Pain; [facility] TECHNIQUE: XR chest 2V Frontal and lateral views of the chest. FINDINGS: Lungs/Pleura: There is no evidence of pleural effusion, focal consolidation, or pneumothorax. Pulmonary vascularity: Unremarkable. Heart/mediastinum: Cardiomediastinal silhouette is unremarkable. Musculoskeletal: No acute osseous pathology. IMPRESSION: No acute cardiopulmonary disease/process. [facility], , 09/08/2024 6:37 PM
[2024-09-08 18:45] LABS: Partial Thromboplastin Time 26.8 sec (22.0-30.0); Prothrombin Time 10.7 sec (10.0-12.5)
[2024-09-08 18:49] LABS: ALT <6 U/L (4-34); AST 19 U/L (14-36); African American GFR (CKD) 85 (>60 ml/min/1.73 sqM); Albumin 3.3 g/dL (3.5-5.0); Alkaline Phosphatase 98 U/L (38-126); Anion Gap 5 mmol/L; Blood Urea Nitrogen 18 mg/dL (7-17); Calcium 8.2 mg/dL (8.4-10.2); Carbon Dioxide 30 mmol/L (22-30); Chloride 101 mmol/L (98-107); Glucose 81 mg/dL (74-99); Non-African American GFR(CKD) 74 (>60 ml/min/1.73 sqM); Potassium 4.1 mmol/L (3.5-5.1); Sodium 136 mmol/L (137-145); Total Bilirubin 0.7 mg/dL (0.2-1.3); Total Protein 5.4 g/dL (6.3-8.2)
[2024-09-08 18:56] LABS: NT-Pro-B-Type Natriuretic Pept 462 pg/mL
[2024-09-08] MEDS: NITROGLYCERIN OINT 1 INCH/GM PACKET TOPICAL STA (19:04)
[2024-09-08] MEDS ORDERED: NITROGLYCERIN SL TABS 0.4 MG TAB SUBLINGUAL PRN (20:29)
[2024-09-09] MEDS: NITROGLYCERIN OINT 1 INCH/GM PACKET TOPICAL SCH (00:25)
[2024-09-09 07:59] VITALS: BP 86/62; PULSE 66; RESP 16; TEMP 97.5
[2024-09-09] MEDS: FUROSEMIDE 40 MG TAB PO SCH (09:21)
[2024-09-09] MEDS: METOPROLOL TARTRATE 25 MG TAB PO SCH (09:21)
[2024-09-09] MEDS: APIXABAN 5 MG TAB PO SCH (09:21)
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
[2024-09-09 10:45] LABS: Chol/HDL Ratio 2.37 Ratio; LDL Cholesterol,Calculated 56.3 mg/dL (0.0-131.0)
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
--- NOTE | 2024-09-09 13:29 | P.DS ---
Providers Date of admission: 09/08/24 20:30 Attending physician: Christine Mcdermott Consults: 09/08/24 20:29 Consult Physician Urgent Consulting Provider: Juan C Reynoso Consult Reason/Comments: cp Do you want consulting provider notified?: Yes Primary care physician: Kamlesh [facility] Course: 69-year-old female was sent in by her 6th grade teacher as she was having low blood pressure and bradycardia at home patient takes 50 mg twice a day of metoprolol but is also on Lasix at home. Patient denies any chest pain at this time EKG shows sinus rhythm without any acute ST-T wave changes chest x-ray did not show any significant abnormality lab testing is unremarkable patient had a cardiac authorization 2010 which showed clean coronaries. Patient's metoprolol dose was cut down to half. Patient is clinically doing well after that can be discharged home patient's metoprolol 50 twice a day will be changed to 25 twice a day. REVIEW OF SYSTEMS: All other systems are negative except those mentioned in the HPI PHYSICAL EXAMINATION: GENERAL: The patient is alert and oriented x3, not in any acute distress. Well developed, well nourished. HEENT: Pupils are round and equally reacting to light. EOMI. No scleral icterus. No conjunctival pallor. Normocephalic, atraumatic. No pharyngeal erythema. No thyromegaly. CARDIOVASCULAR: S1 and S2 present. No murmurs, rubs, or gallops. PULMONARY: Chest is clear to auscultation, no wheezing or crackles. ABDOMEN: Soft, nontender, nondistended, normoactive bowel sounds. No palpable organomegaly. MUSCULOSKELETAL: No joint swelling or deformity. EXTREMITIES: No cyanosis, clubbing, or pedal edema. NEUROLOGICAL: Gross neurological examination did not reveal any focal deficits. SKIN: No rashes. Assessment and plan Hypotension and bradycardia secondary to beta-jose the dose of which is being cut down from 50 mg twice daily of 25 mg twice a day patient will continue her Lasix -History of paroxysmal atrial fibrillation presently sinus rhythm -Morbid obesity with BMI of 54.7 -COPD without any acute exacerbation -Gastroesophageal reflux disease -Sleep apnea for which patient uses the patient Patient will continue her home medications without any other changes for above mention chronic medical problems. Plan - Discharge Summary Discharge Rx Participant: No New Discharge Prescriptions: Continue EPINEPHrine (Auto Inject) [Epipen] 0.3 mg IM ONCE PRN PRN Reason: Anaphylaxis Furosemide [Lasix] 40 mg PO DAILY DULoxetine HCL [Cymbalta] 120 mg PO DAILY ARIPiprazole [Abilify] 10 mg PO HS Pantoprazole Sodium [Protonix] 40 mg PO BID Potassium Chloride ER [K-Dur 10] 10 meq PO DAILY Solifenacin Succinate [Vesicare] 5 mg PO HS Mirabegron [Myrbetriq] 50 mg PO HS Atorvastatin [Lipitor] 20 mg PO DAILY #30 tablet Nitroglycerin Sl Tabs [Nitrostat] 0.4 mg SL Q5M PRN PRN Reason: Chest Pain Naproxen [Naprosyn] 500 mg PO BID PRN PRN Reason: Pain Gabapentin 600 mg PO TID Carbidopa-Levodopa 25-100 mg [Sinemet 25-100 mg] 1 tab PO TID Apixaban [Eliquis] 5 mg PO BID #60 tab Ascorbic Acid [Vitamin C] 500 mg PO DAILY #30 tablet Simethicone [Mylanta Gas Minis] 125 - 250 mg PO BID PRN PRN Reason: gas Cyanocobalamin (Vitamin B-12) [Vitamin B-12] 1,000 mcg PO DAILY lidocaine HCL [lidocaine HCL Viscous] 10 ml MUCOUS MEM Q3H PRN PRN Reason: Sore Throat Acetaminophen Tab [Tylenol] 1,000 mg PO Q6HR PRN PRN Reason: Pain Galcanezumab-Gnlm [Emgality Pen] 120 mg SQ Q28D Meclizine [Antivert] 25 mg PO TID PRN PRN Reason: Vertigo Fluticasone Nasal [place] [Flonase Nasal [place]] 2 spr EA NOSTRIL DAILY Albuterol Sulfate [Ventolin HFA] 2 puff INHALATION RT-Q4H PRN PRN Reason: Shortness Of Breath Cyclobenzaprine [Flexeril] 10 mg PO TID PRN PRN Reason: Muscle Spasm busPIRone HCL 10 mg PO BID Ubrogepant [Ubrelvy] 100 mg PO DAILY PRN PRN Reason: Migraine Headache Albuterol Nebulized [Ventolin Nebulized] 2.5 mg INHALATION RT-QID Fluticasone/Umeclidin/Vilanter [Trelegy Ellipta 200-62.5-25] 1 puff INHALATION RT-DAILY Nystatin 100,000Unit/gm Cream [Mycostatin Cream] 1 applic TOPICAL TID PRN PRN Reason: Skin Irritation Ondansetron [Zofran] 4 mg PO BID PRN PRN Reason: Nausea And Vomiting rOPINIRole HCL [Requip] 1 mg PO TID Garlic 4,000 mg PO TID Vitamin E (Dl,Tocopheryl Acet) [Vitamin E (400 Iu = 180 mg)] 400 unit PO DAILY Ferrous Sulfate [Iron (65 MG Elemental)] 325 mg PO DAILY Cholecalciferol [Vitamin D3 (25 Mcg = 1000 Iu)] 25 mcg PO DAILY Zinc Gluconate [Zinc] 50 mg PO DAILY Probiotic Multi-Enzyme 1 tab PO DAILY Changed Metoprolol Tartrate [Lopressor] 25 mg PO BID #60 tab Discharge Medication List EPINEPHrine (Auto Inject) [Epipen] 0.3 mg IM ONCE PRN 11/20/14 [History] Furosemide [Lasix] 40 mg PO DAILY 06/04/16 [History] DULoxetine HCL [Cymbalta] 120 mg PO DAILY 06/19/20 [History] ARIPiprazole [Abilify] 10 mg PO HS 07/10/20 [History] Pantoprazole Sodium [Protonix] 40 mg PO BID 07/10/20 [History] Meclizine [Antivert] 25 mg PO TID PRN 03/14/21 [History] Albuterol Sulfate [Ventolin HFA] 2 puff INHALATION RT-Q4H PRN 05/04/22 [History] Fluticasone Nasal [place] [Flonase Nasal [place]] 2 spr EA NOSTRIL DAILY 05/04/22 [History] Potassium Chloride ER [K-Dur 10] 10 meq PO DAILY 05/04/22 [History] Albuterol Nebulized [Ventolin Nebulized] 2.5 mg INHALATION RT-QID 11/11/23 [History] Cyclobenzaprine [Flexeril] 10 mg PO TID PRN 11/11/23 [History] Mirabegron [Myrbetriq] 50 mg PO HS 11/11/23 [History] Solifenacin Succinate [Vesicare] 5 mg PO HS 11/11/23 [History] Ubrogepant [Ubrelvy] 100 mg PO DAILY PRN 11/11/23 [History] busPIRone HCL 10 mg PO BID 11/11/23 [History] Atorvastatin [Lipitor] 20 mg PO DAILY #30 tablet 11/13/23 [Rx] Nitroglycerin Sl Tabs [Nitrostat] 0.4 mg SL Q5M PRN 01/16/24 [History] Fluticasone/Umeclidin/Vilanter [Trelegy Ellipta 200-62.5-25] 1 puff INHALATION RT-DAILY 04/04/24 [History] Carbidopa-Levodopa 25-100 mg [Sinemet 25-100 mg] 1 tab PO TID 07/21/24 [History] Gabapentin 600 mg PO TID 07/21/24 [History] Naproxen [Naprosyn] 500 mg PO BID PRN 07/21/24 [History] Nystatin 100,000Unit/gm Cream [Mycostatin Cream] 1 applic TOPICAL TID PRN 07/21/24 [History] Apixaban [Eliquis] 5 mg PO BID #60 tab 07/24/24 [Rx] Ascorbic Acid [Vitamin C] 500 mg PO DAILY #30 tablet 07/24/24 [Rx] Acetaminophen Tab [Tylenol] 1,000 mg PO Q6HR PRN 09/08/24 [History] Cholecalciferol [Vitamin D3 (25 Mcg = 1000 Iu)] 25 mcg PO DAILY 09/08/24 [History] Cyanocobalamin (Vitamin B-12) [Vitamin B-12] 1,000 mcg PO DAILY 09/08/24 [History] Ferrous Sulfate [Iron (65 MG Elemental)] 325 mg PO DAILY 09/08/24 [History] Galcanezumab-Gnlm [Emgality Pen] 120 mg SQ Q28D 09/08/24 [History] Garlic 4,000 mg PO TID 09/08/24 [History] Ondansetron [Zofran] 4 mg PO BID PRN 09/08/24 [History] Probiotic Multi-Enzyme 1 tab PO DAILY 09/08/24 [History] Simethicone [Mylanta Gas Minis] 125 - 250 mg PO BID PRN 09/08/24 [History] Vitamin E (Dl,Tocopheryl Acet) [Vitamin E (400 Iu = 180 mg)] 400 unit PO DAILY 09/08/24 [History] Zinc Gluconate [Zinc] 50 mg PO DAILY 09/08/24 [History] lidocaine HCL [lidocaine HCL Viscous] 10 ml MUCOUS MEM Q3H PRN 09/08/24 [History] rOPINIRole HCL [Requip] 1 mg PO TID 09/08/24 [History] Metoprolol Tartrate [Lopressor] 25 mg PO BID #60 tab 09/09/24 [Rx] Follow up Appointment(s)/Referral(s): Kamlesh Bolivar DO [Primary Care Provider] - 1 Week Discharge Disposition: HOME SELF-CARE
== END 2024-09-09 15:24 | disposition home or self-care (01) ==
LOC: EC 17:55 → 6NMEDSUR 20:30
PROVIDERS: ADMIT Hospitalist; ATTEND Hospitalist
DX: I95.2 Hypotension due to drugs (principal); T44.7X5A Adverse effect of beta-adrenoreceptor antagonists, initial encounter; I25.2 Old myocardial infarction; I48.0 Paroxysmal atrial fibrillation; E66.01 Morbid (severe) obesity due to excess calories; J44.89 Other specified chronic obstructive pulmonary disease; K21.9 Gastro-esophageal reflux disease without esophagitis; G47.30 Sleep apnea, unspecified; F03.93 Unspecified dementia, unspecified severity, with mood disturbance; F03.94 Unspecified dementia, unspecified severity, with anxiety; F32.A Depression, unspecified; F41.0 Panic disorder [episodic paroxysmal anxiety]; M79.7 Fibromyalgia; N32.81 Overactive bladder; Z68.43 Body mass index [BMI] 50.0-59.9, adult; Z79.01 Long term (current) use of anticoagulants; Z79.899 Other long term (current) drug therapy; Z86.16 Personal history of COVID-19; Z86.73 Personal history of transient ischemic attack (TIA), and cerebral infarction without residual deficits; Z98.84 Bariatric surgery status
CPT/HCPCS: 99285; 36415; 93005; 85379; 83880; 80061; 80053; 83735; 84484; 85025; 85610; 85730; 71046; G0378 ×2

== ENCOUNTER → 2024-10-05 | Outpatient (CLI) | payer MEDICARE, OTHER ==
--- NOTE | 2024-10-05 17:25 | MM ---
Reason for Exam: Screening (asymptomatic). Last mammogram was performed 1 year(s) and 3 month(s) ago. Patient History: Menarche at age 17. First Full-Term at age 22. Left ovary removed at age 47. Right ovary removed at age 47. Hysterectomy at age 47. Postmenopausal. Estrogen for 1 year, 6 months. 2016, Benign Excisional Biopsy on the right side. Reduction on the Right side. Reduction on the Left side. Daughter had ovarian cancer, age 38. Risk Values: Melina 5 year model risk: 1.6%. NCI Lifetime model risk: 5.4%. Prior Study Comparison: 07/07/2021 Bilateral Screening Mammogram, MERGED WITH [facility]. 07/17/2022 Bilateral MG 3D screening mammo w/cad, MERGED WITH [facility]. 07/26/2023 Bilateral MG 3D screening mammo w/cad, MERGED WITH [facility]. Tissue Density: The breasts are almost entirely fatty. Findings: Analyzed By CAD. Bilateral nipple rings are present. There is no suspicious group of microcalcifications or new suspicious mass in either breast. Overall Assessment: Negative, BI-RAD 1 Management: Screening Mammogram of both breasts in 1 year. Patient should continue monthly self-breast exams. A clinical breast exam by your physician is recommended on an annual basis. This exam should not preclude additional follow-up of suspicious palpable abnormalities. Note on Melina scores and lifetime risk: 1. A Melina score greater than 3% is considered moderate risk. If this is the case, consider specialist referral to assess eligibility for a risk reducing agent. 2. If overall lifetime risk for the development of breast cancer is 20% or higher, the patient may qualify for future screening with alternating mammogram and breast MRI. [facility], , 10/05/2024 5:20 PM. Electronically signed and approved by: Medina Whitlock M.D. Radiologist
== END | disposition home or self-care (01) ==
LOC: RADMAMWWP 12:19
PROVIDERS: ATTEND Family Medicine
DX: Z12.31 Encounter for screening mammogram for malignant neoplasm of breast (principal); R92.313 Mammographic fatty tissue density, bilateral breasts; Z78.0 Asymptomatic menopausal state
CPT/HCPCS: 77063; 77067

== ENCOUNTER → 2024-11-14 | Outpatient (CLI) | payer MEDICARE, OTHER ==
--- NOTE | 2024-11-14 13:54 | XR ---
EXAMINATION TYPE: XR Hip Complete RT DATE OF EXAM: 11/14/2024 CLINICAL INDICATION: Female, 69 years old with history of M25.551 Pain right hip, TECHNIQUE: AP and frogleg views of the right hip are obtained. COMPARISON: CT abdomen and pelvis September 27, 2020. FINDINGS: There is no acute fracture/dislocation evident in the right hip. Mild axial joint space lo ss and acetabular spurring in the right hip. Femoral head shape is maintained. The overlying soft tis stefano appears unremarkable. IMPRESSION: As above. [facility], , 11/14/2024 1:51 PM
== END | disposition home or self-care (01) ==
LOC: RADXRMAIN 13:12
PROVIDERS: ATTEND Family Medicine
DX: M24.851 Other specific joint derangements of right hip, not elsewhere classified (principal)
CPT/HCPCS: 73502

== ENCOUNTER 2024-11-17 16:08 | Emergency (ER) | payer MEDICARE, OTHER ==
--- NOTE | 2024-11-17 17:39 | XR ---
EXAMINATION TYPE: XR shoulder complete LT DATE OF EXAM: 11/17/2024 CLINICAL INDICATION: Female, 69 years old with history of injury, pain TECHNIQUE: Three views of the left shoulder are obtained. COMPARISON: None. FINDINGS: There is no acute fracture/dislocation evident in the left shoulder. Mild degenerative kimberly nges are present. The visualized ribs are intact and unremarkable. IMPRESSION: There is no acute fracture or dislocation in the left shoulder. [facility], , 11/17/2024 5:36 PM
--- NOTE | 2024-11-17 17:41 | XR ---
EXAMINATION TYPE: XR knee complete RT DATE OF EXAM: 11/17/2024 CLINICAL INDICATION: Female, 69 years old with history of injury, pain TECHNIQUE: Frontal, lateral, and oblique views of the knee were obtained. COMPARISON: Right knee x-ray July 31, 2021. FINDINGS: There is no acute fracture/dislocation evident in the right knee. Metallic hardware from t otal right knee arthroplasty remains stable and satisfactory in position. The overlying soft tissue appears unremarkable. IMPRESSION: There is no acute fracture or dislocation in the right knee prosthesis. [facility], , 11/17/2024 5:38 PM
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
--- NOTE | 2024-11-17 17:42 | XR ---
EXAMINATION TYPE: XR foot complete LT DATE OF EXAM: 11/17/2024 CLINICAL INDICATION: Female, 69 years old with history of injury, pain TECHNIQUE: Frontal, lateral, and oblique images of the left foot are obtained. COMPARISON: Left foot x-ray February 11, 2021 FINDINGS: There is no acute fracture/dislocation evident in the left foot. Surgical change with Arth rodesis at the first interphalangeal joint is redemonstrated. Flexion in the toes again seen. Small t o moderate size calcaneal spurs redemonstrated. The overlying soft tissue appears unremarkable. IMPRESSION: There is no acute fracture or dislocation in the left foot. [facility], , 11/17/2024 5:39 PM
[2024-11-17] MEDS: IBUPROFEN 800 MG TAB PO STA (18:40)
[2024-11-17] MEDS: ACETAMINOPHEN TAB 500 MG TAB PO STA (18:41)
[2024-11-17 18:46] VITALS: BP 152/87; PULSE 66; RESP 16; TEMP 98
== END 2024-11-17 20:33 | disposition home or self-care (01) ==
LOC: EC 16:08
DX: S40.012A Contusion of left shoulder, initial encounter (principal); S90.32XA Contusion of left foot, initial encounter; S80.01XA Contusion of right knee, initial encounter; Z88.7 Allergy status to serum and vaccine; Z88.5 Allergy status to narcotic agent; Z88.8 Allergy status to other drugs, medicaments and biological substances; Z91.09 Other allergy status, other than to drugs and biological substances; Z86.73 Personal history of transient ischemic attack (TIA), and cerebral infarction without residual deficits; X58.XXXA Exposure to other specified factors, initial encounter
CPT/HCPCS: 99283

== ENCOUNTER 2024-12-14 18:18 | Observation (INO) | payer MEDICARE, OTHER ==
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
--- NOTE | 2024-12-14 22:15 | CT ---
EXAMINATION TYPE: CT lumbar spine wo con CT DLP: 2709.4 mGycm, Automated exposure control for dose reduction was used. DATE OF EXAM: 12/14/2024 9:46 PM COMPARISON: CT angio thoracoabdominal pelvis aorta 05/11/2022. CLINICAL INDICATION:Female, 69 years old with history of R leg weakness; [facility], Pt presents to ED by EM S for c/o weakness and unable to ambulate at home. Pt due to start physical therapy next week for pre vious injury., pain TECHNIQUE: Multiple axial images were obtained from the midportion of T11 through the sacroiliac grace nts. Soft tissue and bone windows in coronal and sagittal planes were obtained and reviewed. Contrast used: none. Oral contrast used: none. FINDINGS: Alignment: There are 5 lumbar type vertebral bodies. Grade 1 anterolisthesis of L4 on L5 without evid ence of pars defects. Minimal S-shaped scoliotic curvature of the thoracolumbar spine. Bone: No evidence of fracture is identified. Multilevel anterior osteophytosis of the lower thoracic spine. Multilevel facet arthropathy. Discs: T12-L1: No spinal canal or neural foraminal stenosis is identified. L1-L2: No spinal canal or neural foraminal stenosis is identified. L2-L3: No significant spinal canal or neural foraminal stenosis. Bilateral facet arthropathy. L3-L4: No significant spinal canal or neural foraminal stenosis. Bilateral facet arthropathy. L4-L5: Grade 1 anterolisthesis. No significant central canal stenosis. Bilateral facet arthropathy. N o significant neural foraminal stenosis. L5-S1: No significant spinal canal stenosis. Bilateral facet arthropathy. Mild bilateral neural melia inal stenosis. Other: Gallbladder is surgically absent. Partial visualization of simple appearing left renal cyst me asuring at least 3.4 cm. Additional right renal simple appearing cyst measuring up to 2.3 cm. No foll ow up recommended. Distal colonic diverticulosis without evidence for acute diverticulitis. Partial v isualization of sacral stimulator lead. IMPRESSION: 1. No evidence for acute spinal fracture. No evidence for significant spinal canal stenosis. 2. Grade 1 anterolisthesis of L4 on L5 without pars defects. [facility], , 12/14/2024 10:12 PM
[2024-12-14 22:25] LABS: Basophils # (A) 0.03 10*3/uL (0.00-0.10); Basophils % (A) 0.5 %; Eosinophils # (A) 0.12 10*3/uL (0.04-0.35); Eosinophils % (A) 1.8 %; HCT 40.7 % (37.2-46.3); HGB 13.2 g/dL (12.0-15.0); Lymphocytes # (A) 1.25 10*3/uL (0.90-5.00); Lymphocytes % (A) 19.2 %; MCH 29.1 pg (27.0-32.0); MCHC 32.4 g/dL (32.0-37.0); MCV 89.6 fL (80.0-97.0); Mean Platelet Volume 10.8 fL (9.5-12.2); Monocytes # (A) 0.49 10*3/uL (0.20-1.00); Monocytes % (A) 7.5 %; Neutrophils % (A) 70.5 %; Platelet Count 228 10*3/uL (140-440); RBC 4.54 10*6/uL (4.10-5.20); RDW 14.5 % (11.5-14.5); WBC 6.52 10*3/uL (4.50-10.00)
[2024-12-14 22:35] LABS: ALT 21 U/L (4-34); AST 32 U/L (14-36); African American GFR (CKD) >90 (>60 ml/min/1.73 sqM); Albumin 4.1 g/dL (3.5-5.0); Alkaline Phosphatase 95 U/L (38-126); Anion Gap 10 mmol/L; Blood Urea Nitrogen 20 mg/dL (7-17); Calcium 9.6 mg/dL (8.4-10.2); Carbon Dioxide 24 mmol/L (22-30); Chloride 106 mmol/L (98-107); Glucose 100 mg/dL (74-99); Non-African American GFR(CKD) 84 (>60 ml/min/1.73 sqM); Sodium 140 mmol/L (137-145); Total Bilirubin 1.1 mg/dL (0.2-1.3); Total Protein 6.6 g/dL (6.3-8.2)
[2024-12-14 22:49] LABS: Potassium 5.4 mmol/L (3.5-5.1)
[2024-12-14] MEDS ORDERED: NALOXONE 0.4 MG/ML 1 ML VIAL IV PRN (23:41)
--- NOTE | 2024-12-15 01:20 | XR ---
EXAM: XR Right Hip With Pelvis When Performed, 1 View CLINICAL HISTORY: ITS.[email or web address] XR Reason: right hip pain TECHNIQUE: Frontal view of the right hip with pelvis when performed. COMPARISON: No relevant prior studies available. FINDINGS: Bones/joints: Unremarkable. No acute fracture. No dislocation. Soft tissues: Unremarkable. IMPRESSION: No acute fracture.
[2024-12-15] MEDS ORDERED: MECLIZINE 25 MG TAB PO PRN (08:39)
[2024-12-15] MEDS ORDERED: ALBUTEROL NEBULIZED 2.5 MG/3 ML INHALATION PRN (08:41)
[2024-12-15] MEDS ORDERED: ENOXAPARIN 40 MG/0.4 ML SYRINGE SQ SCH (09:00)
[2024-12-15] MEDS: APIXABAN 5 MG TAB PO SCH (10:08)
[2024-12-15] MEDS: DULoxetine HCL 60 MG CAPSULE.DR PO SCH (10:08)
[2024-12-15] MEDS: GABAPENTIN 300 MG CAP PO SCH (10:08)
[2024-12-15] MEDS: FERROUS SULFATE 325 MG TAB PO SCH (10:08)
[2024-12-15] MEDS: ATORVASTATIN 20 MG TAB PO SCH (10:08)
[2024-12-15] MEDS: METOPROLOL TARTRATE 25 MG TAB PO SCH (10:08)
[2024-12-15] MEDS: CARBIDOPA-LEVODOPA 25-100 MG 1 EACH TAB PO SCH (10:09)
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
[2024-12-15] MEDS: ALBUTEROL NEBULIZED 2.5 MG/3 ML INHALATION SCH (15:29)
[2024-12-15] MEDS: PANTOPRAZOLE 40 MG TABLET PO SCH (17:25)
[2024-12-15] MEDS: SYMBICORT 160-4.5 MCG INHALER INHALATION SCH (18:31)
[2024-12-15] MEDS: busPIRone HCl 10 MG TAB PO SCH (21:19)
[2024-12-15] MEDS: ARIPiprazole 10 MG TAB PO SCH (21:21)
[2024-12-15] MEDS: KETOROLAC 15 MG/ML 1 ML VIAL IVP PRN (22:50)
--- NOTE | 2024-12-16 11:30 | P.PN ---
Subjective Progress Note Date: 12/16/24 Patient is a 69-year-old female with atrial fibrillation (on anticoagulation with Eliquis, follows with Dr. Santacruz), LUIS DANIEL with history of iron infusions, migraines, asthma (follows with Dr. Viramontes), CAD, GERD, osteoarthritis, history of sleep apnea (use of CPAP machine), fibromyalgia, history of dementia, history of CVA/TIA, anxiety, depression, panic disorder here for right leg weakness. Patient reported that she had recent injury about a month ago where her right leg was squeezed in between a bus door and she was prescribed PT outpatient but was to start on 12/21. Since then, she has not had any issues with ambulation or pain of the affected limb. However, a day before admission, she started to have right lower extremity weakness with associated sharp pain that radiated to the foot to the point that she could no longer bear weight on the affected leg. She also reported associated decreased sensation in the right inner thigh and hypogastric area. Denied back pain, loss of micturition or d efecation control, recent fall, fever, chills, nausea, vomiting, headaches, vision changes, speech changes, extremity swelling, shortness of breath, chest pain. On admission: Vitals: Temp 97.8 F, IN 104, RR 18, BP 164/104, O2 saturation 98% on room air Labs: WBC 6.5, hemoglobin 13.2, platelet count 2 28,000, sodium 140, potassium 5.4, bicarb 24, BUN 20, creatinine 0.74, calcium 9.6, glucose 100. Liver enzymes within normal limits. Imaging: Brain CT showed no acute intracranial process, lumbar CT showed no evidence for acute spinal fracture, canal stenosis, grade 1 anterolisthesis of L4-L5 without pars defects. EKG independently interpreted showed sinus rhythm with a rate of 94, left axis deviation, inverted T waves in leads III, V1, no ST-T changes, poor R wave progression, QTc 399 MS. Right hip x-ray showed no acute fracture. 12/16/2024 patient seen and examined at bedside. No acute events overnight. No new complaints or symptoms. Pain has improved, radiation up to the knees, sensation at hypogastric area has improved. Awaiting PT/OT consult for placement to Rehab. Review of systems: Pertinent positives and negatives as discussed in HPI, a complete review of systems was performed and all other systems are negative. Social history: Tobacco: never smoker Alcohol: no history of alcohol intake Recreational drugs: No history of recreational or illicit drug use Travel: no recent prolonged travel Physical examination: Vital signs reviewed General: non toxic, no distress, appears at stated age, obese Derm: no unusual rashes/lesions, warm Head: atraumatic, normocephalic, symmetric Eyes: EOMI, anicteric sclera, pupils equal round reactive to light ENT: Nose and ears atraumatic Neck: No cervical lymphadenopathy, trachea midline, supple Mouth: no lip lesion, mucus membranes moist Cardiovascular: S1S2 reg, no murmur Lungs: CTA bilateral, no rhonchi, no rales, no accessory muscle use Abdominal: soft, nondistended, nontender to palpation, no guarding Ext: muscle strength 5 out of 5 in all 4 extremities grossly, no gross muscle atrophy, no contractures, positive dorsalis pedis pulse bilateral, no edema, pain on deep palpation of right hip area, improved sensation to right hypogastric area Neuro: CN II-XI grossly intact, no gross focal neuro deficits Psych: Alert and oriented x 3, appropriate affect and mood Assessment/Plan: The patient is admitted with an anticipated greater than 2 midnight stay for evaluation of intractable right hip pain and right lower extremity weakness Active: # Intractable right hip pain, fracture ruled out # Debility Brain CT, lumbar CT, hip x-ray show no acute process. Patient still having difficulty ambulating due to pain. Fall precautions Continue with Ketorolac as needed for pain control Consult Ortho by the ED. Recommends rehab Consult PT OT by the ED Discharge needs being organized by SW/CM # Hyperkalemia, resolved Potassium 4.8 on recheck Chronic Conditions: # Atrial fibrillation (on anticoagulation with Eliquis) #LUIS DANIEL with history of iron infusions #migraines, asthma #CAD #COPD #GERD #Osteoarthritis #Sleep apnea (use of CPAP machine) #Fibromyalgia #Dementia #History of CVA/TIA #Anxiety #Depression #Panic disorder Resume home medications DVT ppx: Eliquis 5 mg p.o. twice daily CODE STATUS: Full Discussed with: Patient Anticipated discharge place: Pending clinical course Sobeida Diaz MD PGY-1 Internal Medicine Dictation was produced using [employer] dictation software. please excuse any grammatical, word or spelling errors. Objective - Vital Signs Vital signs: Vital Signs Temp 97.7 F 12/16/24 02:00 Pulse 76 12/16/24 02:00 Resp 16 12/16/24 02:00 BP 94/64 12/16/24 02:00 Pulse Ox 94 L 12/16/24 02:00 FiO2 Intake & Output 12/15/24 12/16/24 12/16/24 18:59 06:59 18:59 Intake Total 590 Output Total 450 Balance -450 590 Intake: Oral 590 Output: Urine 450 Other: Voiding Method External Catheter Bedside Commode # Voids 3 # Bowel Movements 2 - Labs CBC & Chem 7: 12/14/24 22:16 12/15/24 08:52
[2024-12-17] MEDS: ACETAMINOPHEN TAB 325 MG TAB PO PRN (14:21)
--- NOTE | 2024-12-17 23:17 | P.PN ---
Subjective Progress Note Date: 12/17/24 Patient is a 69-year-old female with atrial fibrillation (on anticoagulation with Eliquis, follows with Dr. Santacruz), LUIS DANIEL with history of iron infusions, migraines, asthma (follows with Dr. Viramontes), CAD, GERD, osteoarthritis, history of sleep apnea (use of CPAP machine), fibromyalgia, history of dementia, history of CVA/TIA, anxiety, depression, panic disorder here for right leg weakness. Patient reported that she had recent injury about a month ago where her right leg was squeezed in between a bus door and she was prescribed PT outpatient but was to start on 12/21. Since then, she has not had any issues with ambulation or pain of the affected limb. However, a day before admission, she started to have right lower extremity weakness with associated sharp pain that radiated to the foot to the point that she could no longer bear weight on the affected leg. She also reported associated decreased sensation in the right inner thigh and hypogastric area. Denied back pain, loss of micturition or d efecation control, recent fall, fever, chills, nausea, vomiting, headaches, vision changes, speech changes, extremity swelling, shortness of breath, chest pain. On admission: Vitals: Temp 97.8 F, PA 104, RR 18, BP 164/104, O2 saturation 98% on room air Labs: WBC 6.5, hemoglobin 13.2, platelet count 2 28,000, sodium 140, potassium 5.4, bicarb 24, BUN 20, creatinine 0.74, calcium 9.6, glucose 100. Liver enzymes within normal limits. Imaging: Brain CT showed no acute intracranial process, lumbar CT showed no evidence for acute spinal fracture, canal stenosis, grade 1 anterolisthesis of L4-L5 without pars defects. EKG independently interpreted showed sinus rhythm with a rate of 94, left axis deviation, inverted T waves in leads III, V1, no ST-T changes, poor R wave progression, QTc 399 MS. Right hip x-ray showed no acute fracture. 12/16/2024 patient seen and examined at bedside. No acute events overnight. No new complaints or symptoms. Pain has improved, radiation up to the knees, sensation at hypogastric area has improved. Awaiting PT/OT consult for placement to Rehab. 12/17/2024 Patient is currently resting in the bed. Able to participate in physical therapy., But states that she is unable to raise her right leg. Pain is controlled. No back pain. Denied any bladder or bowel incontinence. Pending rehab placement. Review of systems: Pertinent positives and negatives as discussed in HPI, a complete review of systems was performed and all other systems are negative. Social history: Tobacco: never smoker Alcohol: no history of alcohol intake Recreational drugs: No history of recreational or illicit drug use Travel: no recent prolonged travel Physical examination: Vital signs reviewed General: non toxic, no distress, appears at stated age, obese Derm: no unusual rashes/lesions, warm Head: atraumatic, normocephalic, symmetric Eyes: EOMI, anicteric sclera, pupils equal round reactive to light ENT: Nose and ears atraumatic Neck: No cervical lymphadenopathy, trachea midline, supple Mouth: no lip lesion, mucus membranes moist Cardiovascular: S1S2 reg, no murmur Lungs: CTA bilateral, no rhonchi, no rales, no accessory muscle use Abdominal: soft, nondistended, nontender to palpation, no guarding Ext: muscle strength 5 out of 5 in all 4 extremities grossly, no gross muscle atrophy, no contractures, positive dorsalis pedis pulse bilateral, no edema, pain on deep palpation of right hip area, improved sensation to right hypogastric area Neuro: CN II-XI grossly intact, no gross focal neuro deficits Psych: Alert and oriented x 3, appropriate affect and mood Assessment/Plan: The patient is admitted with an anticipated greater than 2 midnight stay for evaluation of intractable right hip pain and right lower extremity weakness Active: # Intractable right hip pain, fracture ruled out # Debility Brain CT, lumbar CT, hip x-ray show no acute process. Patient still having difficulty ambulating due to pain. Fall precautions Continue with Ketorolac as needed for pain control Consult Ortho by the ED. Recommends rehab Consult PT OT by the ED Discharge needs being organized by SHAHRIAR/FARHEEN # Hyperkalemia, resolved Potassium 4.8 on recheck Chronic Conditions: # Atrial fibrillation (on anticoagulation with Eliquis) #LUIS DANIEL with history of iron infusions #migraines, asthma #CAD #COPD #GERD #Osteoarthritis #Sleep apnea (use of CPAP machine) #Fibromyalgia #Dementia #History of CVA/TIA #Anxiety #Depression #Panic disorder Resume home medications DVT ppx: Eliquis 5 mg p.o. twice daily CODE STATUS: Full Discussed with: Patient Anticipated discharge place: Pending clinical course Dictation was produced using [employer] dictation software. please excuse any grammatical, word or spelling errors. Objective - Vital Signs Vital signs: Vital Signs Temp 97.7 F 12/17/24 12:32 Pulse 76 12/17/24 14:43 Resp 16 12/17/24 12:32 BP 133/65 12/17/24 12:32 Pulse Ox 96 12/17/24 12:32 FiO2 Intake & Output 12/16/24 12/17/24 12/17/24 18:59 06:59 18:59 Intake Total 980 1540 720 Balance 980 1540 720 Intake: Oral 980 1540 720 Other: Voiding Method Bedside Commode Bedside Commode Bedside Commode # Voids 2 1 # Bowel Movements 1 - Labs CBC & Chem 7: 12/14/24 22:16 12/15/24 08:52
[2024-12-18 08:24] VITALS: RESP 20
[2024-12-18 10:23] LABS: BUN/Creat Ratio 26.38 Ratio (12.00-20.00); Blood Urea Nitrogen 21.1 mg/dL (9.0-27.0); Calcium 8.3 mg/dL (8.7-10.3); Carbon Dioxide 23.2 mmol/L (21.6-31.8); Chloride 108 mmol/L (96-109); Glucose 92 mg/dL (70-110); Potassium 4.5 mmol/L (3.5-5.5); Sodium 141 mmol/L (135-145)
[2024-12-18 10:26] LABS: Basophils # (A) 0.03 X 10*3/uL (0.00-0.10); Basophils % (A) 0.7 %; Eosinophils # (A) 0.11 X 10*3/uL (0.04-0.35); Eosinophils % (A) 2.6 %; HCT 38.9 % (37.2-46.3); Lymphocytes # (A) 0.83 X 10*3/uL (0.90-5.00); Lymphocytes % (A) 19.8 %; MCH 29.3 pg (27.0-32.0); MCHC 30.8 g/dL (32.0-37.0); MCV 94.9 FL (80.0-97.0); Mean Platelet Volume 11.6 FL (9.5-12.2); Monocytes # (A) 0.38 X 10*3/uL (0.20-1.00); NRBC Per 100 WBC 0 X 10*3/uL (0.00-0.01); Neutrophils # (A) 2.84 X 10*3/uL (1.80-7.70); Neutrophils % (A) 67.7 %; Platelet Count 156 X 10*3/uL (140-440)
[2024-12-18 13:21] VITALS: BP 111/73; PULSE 74; TEMP 97.5
--- NOTE | 2024-12-18 16:00 | P.DS ---
Providers Date of admission: 12/14/24 23:41 Attending physician: Christine Mcdermott Consults: 12/15/24 06:34 Consult Physician Urgent Consulting Provider: Dominik Ramírez Consult Reason/Comments: b/l leg weakness, pain, unable to walk Do you want consulting provider notified?: Yes Primary care physician: [facility] Course: Hospital Course: Patient is a 69-year-old female with atrial fibrillation (on anticoagulation with Eliquis, follows with Dr. Santacruz), LUIS DANIEL with history of iron infusions, migraines, asthma (follows with Dr. Viramontes), CAD, GERD, osteoarthritis, history of sleep apnea (use of CPAP machine), fibromyalgia, history of dementia, history of CVA/TIA, anxiety, depression, panic disorder here for right leg weakness. Patient reported that she had recent injury about a month ago where her right leg was squeezed in between a bus door and she was prescribed PT outpatient but was to start on 12/21. Since then, she has not had any issues with ambulation or pain of the affected limb. However, a day before admission, she started to have right lower extremity weakness with associated sharp pain that radiated to the foot to the point that she could no longer bear weight on the affected leg. She also reported associated decreased sensation in the right inner thigh and hypogastric area. Denied back pain, loss of micturition or defecation control, recent fall, fever, chills, nausea, vomiting, headaches, vision changes, speech changes, extremity swelling, shortness of breath, chest pain. On admission: Vitals: Temp 97.8 F, IN 104, RR 18, BP 164/104, O2 saturation 98% on room air Labs: WBC 6.5, hemoglobin 13.2, platelet count 2 28,000, sodium 140, potassium 5.4, bicarb 24, BUN 20, creatinine 0.74, calcium 9.6, glucose 100. Liver enzymes within normal limits. Imaging: Brain CT showed no acute intracranial process, lumbar CT showed no evidence for acute spinal fracture, canal stenosis, grade 1 anterolisthesis of L4-L5 without pars defects. EKG independently interpreted showed sinus rhythm with a rate of 94, left axis deviation, inverted T waves in leads III, V1, no ST-T changes, poor R wave progression, QTc 399 MS. Right hip x-ray showed no acute fracture. Patient was admitted for the evaluation of patient was admitted for an evaluation of intractable right hip pain and debility. Ordered fall precautions, ketorolac for pain control, PT OT consult and Ortho consult. Ortho recommended physical therapy and probable rehab. On PT OT evaluation, they recommended home or home care with 24/7 supervision. Patient's symptoms improved throughout hospital stay. No new complications occurred. Patient also developed hyperkalemia on admission but was likely due to hemolysis, on rechecking potassium it has normalized. She is cleared for discharge today with set up for home care and sent home on a few days of celecoxib twice a day as needed. She is advised to follow-up with PCP on outpatient basis. Final Diagnosis: # Intractable right hip pain, fracture ruled out # Debility # Hyperkalemia, resolved # Atrial fibrillation (on anticoagulation with Eliquis) #LUIS DANIEL with history of iron infusions #migraines, asthma #CAD #COPD #GERD #Osteoarthritis #Sleep apnea (use of CPAP machine) #Fibromyalgia #Dementia #History of CVA/TIA #Anxiety #Depression #Panic disorder Physical examination: Vital signs reviewed General: non toxic, no distress, appears at stated age, obese Derm: no unusual rashes/lesions, warm Head: atraumatic, normocephalic, symmetric Eyes: EOMI, anicteric sclera, pupils equal round reactive to light ENT: Nose and ears atraumatic Neck: No cervical lymphadenopathy, trachea midline, supple Mouth: no lip lesion, mucus membranes moist Cardiovascular: S1S2 reg, no murmur Lungs: CTA bilateral, no rhonchi, no rales, no accessory muscle use Abdominal: soft, nondistended, nontender to palpation, no guarding Ext: muscle strength 5 out of 5 in all 4 extremities grossly, no gross muscle atrophy, no contractures, positive dorsalis pedis pulse bilateral, no edema, pain on deep palpation of right hip area improved Neuro: CN II-XI grossly intact, no gross focal neuro deficits Psych: Alert and oriented x 3, appropriate affect and mood Attestation: I have seen and examined this patient with my resident, assessment and plan discussed with the resident, agree with assessment and plan as written above. Dr. Licea Patient Condition at Discharge: Stable Plan - Discharge Summary Discharge Rx Participant: No New Discharge Prescriptions: New Celecoxib 200 mg PO BID PRN #10 cap PRN Reason: Breakthrough Pain Continue EPINEPHrine (Auto Inject) [Epipen] 0.3 mg IM ONCE PRN PRN Reason: Anaphylaxis DULoxetine HCL [Cymbalta] 120 mg PO DAILY ARIPiprazole [Abilify] 10 mg PO HS Pantoprazole Sodium [Protonix] 40 mg PO BID Potassium Chloride ER [K-Dur 10] 10 meq PO DAILY Solifenacin Succinate [Vesicare] 5 mg PO HS Mirabegron [Myrbetriq] 50 mg PO HS Atorvastatin [Lipitor] 20 mg PO DAILY #30 tablet Nitroglycerin Sl Tabs [Nitrostat] 0.4 mg SL Q5M PRN PRN Reason: Chest Pain Naproxen [Naprosyn] 500 mg PO BID PRN PRN Reason: Pain Gabapentin 600 mg PO TID Carbidopa-Levodopa 25-100 mg [Sinemet 25-100 mg] 1 tab PO TID Apixaban [Eliquis] 5 mg PO BID #60 tab Ascorbic Acid [Vitamin C] 500 mg PO DAILY #30 tablet Simethicone [Mylanta Gas Minis] 125 - 250 mg PO BID PRN PRN Reason: gas Cyanocobalamin (Vitamin B-12) [Vitamin B-12] 1,000 mcg PO DAILY lidocaine HCL [lidocaine HCL Viscous] 10 ml MUCOUS MEM Q3H PRN PRN Reason: Sore Throat Acetaminophen Tab [Tylenol] 500 mg PO Q6HR PRN PRN Reason: Pain Galcanezumab-Gnlm [Emgality Pen] 120 mg SQ Q28D Metoprolol Tartrate [Lopressor] 25 mg PO BID #60 tab rOPINIRole HCL [Requip] 1 mg PO TID #90 tab Budesonide-Formot 160-4.5 Mcg [Symbicort 160-4.5 Mcg Inhaler] 2 puff INHAL ATION RT-BID #1 each Ibuprofen [Motrin] 800 mg PO Q8H PRN #30 tab PRN Reason: Pain Meclizine [Antivert] 25 mg PO TID PRN PRN Reason: Vertigo Fluticasone Nasal [place] [Flonase Nasal [place]] 2 spr EA NOSTRIL DAILY Albuterol Sulfate [Ventolin HFA] 2 puff INHALATION RT-Q4H PRN PRN Reason: Shortness Of Breath Cyclobenzaprine [Flexeril] 10 mg PO TID PRN PRN Reason: Muscle Spasm busPIRone HCL 10 mg PO BID Ubrogepant [Ubrelvy] 100 mg PO DAILY PRN PRN Reason: Migraine Headache Albuterol Nebulized [Ventolin Nebulized] 2.5 mg INHALATION RT-QID Nystatin 100,000Unit/gm Cream [Mycostatin Cream] 1 applic TOPICAL TID PRN PRN Reason: Skin Irritation Ondansetron [Zofran] 8 mg PO BID PRN PRN Reason: Nausea And Vomiting Garlic 4,000 mg PO TID Vitamin E (Dl,Tocopheryl Acet) [Vitamin E (400 Iu = 180 mg)] 400 unit PO DAILY Ferrous Sulfate [Iron (65 MG Elemental)] 325 mg PO DAILY Cholecalciferol [Vitamin D3 (25 Mcg = 1000 Iu)] 25 mcg PO DAILY Probiotic Multi-Enzyme 1 tab PO DAILY Discharge Medication List EPINEPHrine (Auto Inject) [Epipen] 0.3 mg IM ONCE PRN 11/20/14 [History] DULoxetine HCL [Cymbalta] 120 mg PO DAILY 06/19/20 [History] ARIPiprazole [Abilify] 10 mg PO HS 07/10/20 [History] Pantoprazole Sodium [Protonix] 40 mg PO BID 07/10/20 [History] Meclizine [Antivert] 25 mg PO TID PRN 03/14/21 [History] Albuterol Sulfate [Ventolin HFA] 2 puff INHALATION RT-Q4H PRN 05/04/22 [History] Fluticasone Nasal [place] [Flonase Nasal [place]] 2 spr EA NOSTRIL DAILY 05/04/22 [History] Potassium Chloride ER [K-Dur 10] 10 meq PO DAILY 05/04/22 [History] Albuterol Nebulized [Ventolin Nebulized] 2.5 mg INHALATION RT-QID 11/11/23 [History] Cyclobenzaprine [Flexeril] 10 mg PO TID PRN 11/11/23 [History] Mirabegron [Myrbetriq] 50 mg PO HS 11/11/23 [History] Solifenacin Succinate [Vesicare] 5 mg PO HS 11/11/23 [History] Ubrogepant [Ubrelvy] 100 mg PO DAILY PRN 11/11/23 [History] busPIRone HCL 10 mg PO BID 11/11/23 [History] Atorvastatin [Lipitor] 20 mg PO DAILY #30 tablet 11/13/23 [Rx] Nitroglycerin Sl Tabs [Nitrostat] 0.4 mg SL Q5M PRN 01/16/24 [History] Carbidopa-Levodopa 25-100 mg [Sinemet 25-100 mg] 1 tab PO TID 07/21/24 [History] Gabapentin 600 mg PO TID 07/21/24 [History] Naproxen [Naprosyn] 500 mg PO BID PRN 07/21/24 [History] Nystatin 100,000Unit/gm Cream [Mycostatin Cream] 1 applic TOPICAL TID PRN 07/21/24 [History] Apixaban [Eliquis] 5 mg PO BID #60 tab 07/24/24 [Rx] Ascorbic Acid [Vitamin C] 500 mg PO DAILY #30 tablet 07/24/24 [Rx] Acetaminophen Tab [Tylenol] 500 mg PO Q6HR PRN 09/08/24 [History] Cholecalciferol [Vitamin D3 (25 Mcg = 1000 Iu)] 25 mcg PO DAILY 09/08/24 [History] Cyanocobalamin (Vitamin B-12) [Vitamin B-12] 1,000 mcg PO DAILY 09/08/24 [History] Ferrous Sulfate [Iron (65 MG Elemental)] 325 mg PO DAILY 09/08/24 [History] Galcanezumab-Gnlm [Emgality Pen] 120 mg SQ Q28D 09/08/24 [History] Garlic 4,000 mg PO TID 09/08/24 [History] Ondansetron [Zofran] 8 mg PO BID PRN 09/08/24 [History] Probiotic Multi-Enzyme 1 tab PO DAILY 09/08/24 [History] Simethicone [Mylanta Gas Minis] 125 - 250 mg PO BID PRN 09/08/24 [History] Vitamin E (Dl,Tocopheryl Acet) [Vitamin E (400 Iu = 180 mg)] 400 unit PO DAILY 09/08/24 [History] lidocaine HCL [lidocaine HCL Viscous] 10 ml MUCOUS MEM Q3H PRN 09/08/24 [History] Metoprolol Tartrate [Lopressor] 25 mg PO BID #60 tab 09/09/24 [Rx] Budesonide-Formot 160-4.5 Mcg [Symbicort 160-4.5 Mcg Inhaler] 2 puff INHALATION RT-BID #1 each 11/10/24 [Rx] rOPINIRole HCL [Requip] 1 mg PO TID #90 tab 11/10/24 [Rx] Ibuprofen [Motrin] 800 mg PO Q8H PRN #30 tab 11/17/24 [Rx] Celecoxib 200 mg PO BID PRN #10 cap 12/18/24 [Rx] Follow up Appointment(s)/Referral(s): [facility], [NON-STAFF] - Kamlesh Bolivar DO [Primary Care Provider] - 12/21/24 8:00 am Patient Instructions/Handouts: Celecoxib (By mouth), Hip Pain (ED) Discharge/Stand Alone Forms: [place] [facility] Pamphlet, Who Do I Call? Discharge Disposition: HOME WITH HOME HEALTH SERVICES
== END 2024-12-18 15:17 | disposition home health service (06) ==
LOC: EC 18:18 → INTOOBSV 23:41 → 5NMEDONC 23:41
PROVIDERS: ADMIT Hospitalist; ATTEND Hospitalist
DX: M25.551 Pain in right hip (principal); R53.81 Other malaise; R26.2 Difficulty in walking, not elsewhere classified; E87.5 Hyperkalemia; S80.11XA Contusion of right lower leg, initial encounter; I48.91 Unspecified atrial fibrillation; J44.89 Other specified chronic obstructive pulmonary disease; F03.90 Unspecified dementia, unspecified severity, without behavioral disturbance, psychotic disturbance, mood disturbance, and anxiety; K21.9 Gastro-esophageal reflux disease without esophagitis; G47.30 Sleep apnea, unspecified; F32.A Depression, unspecified; F41.0 Panic disorder [episodic paroxysmal anxiety]; I25.10 Atherosclerotic heart disease of native coronary artery without angina pectoris; G43.909 Migraine, unspecified, not intractable, without status migrainosus; M19.90 Unspecified osteoarthritis, unspecified site; M79.7 Fibromyalgia; I25.2 Old myocardial infarction; X58.XXXA Exposure to other specified factors, initial encounter; Z86.73 Personal history of transient ischemic attack (TIA), and cerebral infarction without residual deficits; Z79.01 Long term (current) use of anticoagulants; Z79.51 Long term (current) use of inhaled steroids; Z79.899 Other long term (current) drug therapy; Z88.5 Allergy status to narcotic agent; Z88.6 Allergy status to analgesic agent
CPT/HCPCS: 96376 ×3; 96374; 99285; 36415; 94640 ×7; 93005; 97161; 80053; 80048; 84132; 85025 ×2; 73502; 72131; 70450; G0378 ×5; J1885 ×4

== ENCOUNTER → 2025-01-12 | Outpatient (CLI) | payer MEDICARE, OTHER ==
[2025-01-12 10:47] LABS: African American GFR (CKD) >90 (>60 ml/min/1.73 sqM); Blood Urea Nitrogen 18 mg/dL (7-17); Non-African American GFR(CKD) 84 (>60 ml/min/1.73 sqM)
--- NOTE | 2025-01-12 11:50 | CT ---
EXAMINATION TYPE: CT chest w con DATE OF EXAM: 01/12/2025 11:25 AM COMPARISON: 07/21/2024 CLINICAL INDICATION: Female, 69 years old with history of R04.2 HEMOPTYSIS; PHH, hemoptysis TECHNIQUE: CT of the chest after IV contrast. Coronal and sagittal reconstructions performed. Contrast used:100ml mL of Isovue [address] DLP: 1523 mGycm, Automated exposure control for dose reduction was used. FINDINGS: Heart is upper limits of normal in size without pericardial effusion. Borderline ectasia ascending aorta 3.5 cm. In the chart shows a branching anatomy. Suspect underlying heterogeneous nodule in the left thyroid lobe measuring up to 2.8 cm. [facility]. Borderline sized 1.0 cm low right paratracheal lymph node probably reactive/post inflammatory. Otherw ise, no thoracic lymphadenopathy by CT size criteria. Large caliber main right and left pulmonary arteries measuring up to 3.0 cm suggesting underlying pul monary hypertension. The previous bibasilar airspace disease shows improvement. Airspace disease left upper lobe also show s improvement. However, peribronchial vascular patchy groundglass opacities especially in the upper a nd lower lungs appears to have developed. 7 mm right mid lung nodule, axial image 27. 7 mm subpleural pulmonary nodule medial right base, axial images 43. Background mild emphysematous change. There is a moderate-sized hiatal hernia with postsurgical change of Domenico-en-Y gastric bypass. The sacha gical anastomosis is located within the hernia. Visualized upper abdomen shows bilateral renal cortical cysts measuring up to 3.9 cm and cholecystect francia clips. Bones: [facility] mid and lower thoracic spine. Suspected old healed fracture deformity of the upper sterna l body. IMPRESSION: 1. COPD with mild emphysema. Pulmonary arterial hypertension. 2. The previous bibasilar airspace disease and left upper lobe airspace disease show improvement. How ever, there are now peribronchial vascular groundglass densities especially in the upper and lower estelle ngs. 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 Follow-up in 3-6 months to reassess. 3. A couple 7 mm pulmonary nodules on the right may be inflammatory as well, not clearly seen previou sly. Reassessed at follow-up. 4. Moderate-sized hiatal hernia containing the surgical anastomosis of the patient's Domenico-en-Y gastri c bypass. 5. Dedicated thyroid ultrasound to assess for a potential 2.8 cm left thyroid lobe nodule. [facility], , 01/12/2025 11:47 AM
== END | disposition home or self-care (01) ==
LOC: RADCTMAIN 09:55
PROVIDERS: ATTEND Family Medicine
DX: J43.9 Emphysema, unspecified (principal); I27.21 Secondary pulmonary arterial hypertension; K44.9 Diaphragmatic hernia without obstruction or gangrene; Z98.84 Bariatric surgery status; R91.8 Other nonspecific abnormal finding of lung field; J98.4 Other disorders of lung; E04.1 Nontoxic single thyroid nodule
CPT/HCPCS: 82565; 84520; 71260; 36415; Q9967